=== PATIENT | male | born 1945 | race Asian ===

== ENCOUNTER 2016-11-16 08:14 | Observation (INO) | payer OTHER ==
[2016-11-16 08:19] VITALS: BMI 27.1
--- NOTE | 2016-11-16 08:49 | PDOC ---
History of Present Illness - General Chief Complaint: Blood Transfusion Stated Complaint: (PCP SENT) Time Seen by Provider: 11/16/16 08:46 History Source: Patient Exam Limitations: No Limitations - History of Present Illness Initial Comments: 11/16/16 09:39 Patient is a 71-year-old male with past medical history of myelofibrosis, hyperlipidemia, HTN, A. fib, heart failure, type 2 diabetes, alcoholic cirrhosis , anemia who presents to the emergency department today at the request of his primary care doctor. Patient states that his "counts are low "and that he believes he needs a blood transfusion. He states that his last transfusion was last year. Patient believes his stool has been dark recently. Denies seeing armin blood in the stool. Admits that he has been feeling weak and short of breath with exertion. Denies fevers, chills, recent illness, cough, shortness of breath at rest, chest pain, palpitations, nausea, vomiting, diarrhea, constipation. Past History - Travel Traveled outside of the country in the last 30 days: No Close contact w/someone who was outside of country & ill: No - Past Medical History Allergies/Adverse Reactions: Allergies Allergy/AdvReac Type Severity Reaction Status Date / Time No Known Allergies Allergy Verified 11/16/16 08:19 Home Medications: Ambulatory Orders Effexor - 150 cap PO DAILY 07/21/15 Furosemide [Lasix -] 40 mg PO DAILY 07/21/15 Lisinopril 20 mg PO DAILY 07/21/15 Mirtazapine [Remeron -] 30 mg PO DAILY 07/21/15 Triamcinolone 0.1% Cream [Aristocort 0.1% Cream -] 1 applic TP BID 11/16/16 Anemia: Yes Cancer: Yes (MYELOFIBROSIS) Cardiac Disorders: Yes COPD: Yes CHF: Yes Diabetes: No (PT DENIES) GI Disorders: Yes (CIRRHOSIS) HTN: Yes Hypercholesterolemia: Yes Liver Disease: (ALCOHOLIC CIRRHOSIS) Other medical history: SLEEP APNEA - Surgical History Orthopedic Surgery: (left orif) - Psycho/Social/Smoking Cessation Hx Suicidal Ideation: No Smoking History: Current every day smoker Have you smoked in the past 12 months: Yes Number of Cigarettes Smoked Daily: 15 Information on smoking cessation initiated: Yes 'Breaking Loose' booklet given: 11/16/16 Hx Alcohol Use: No Drug/Substance Use Hx: No Substance Use Type: None Hx Substance Use Treatment: No Review of Systems - Review of Systems Able to Perform ROS?: Yes Is the patient limited Kazakh proficient: No Constitutional: Yes: Weakness. No: Chills, Fever, Malaise Respiratory: Yes: Shortness of Breath, SOB with Exertion. No: Cough, Wheezing Cardiac (ROS): No: Chest Pain, Edema, Lightheadedness, Palpitations, Syncope, Chest Tightness ABD/GI: No: Constipated, Diarrhea, Nausea, Vomiting Neurological: No: Numbness, Paresthesia, Weakness Hematologic/Lymphatic: Yes: Anemia, Other (mylofibrosis) All Other Systems: Reviewed and Negative *Physical Exam - Vital Signs Last Vital Signs Temp Pulse Resp BP Pulse Ox 98.1 F 86 20 163/82 98 11/16/16 08:15 11/16/16 08:15 11/16/16 08:15 11/16/16 08:15 11/16/16 08:15 - Physical Exam Comments: 11/16/16 09:41 GENERAL: Well developed, well nourished. Awake and alert and oriented x3. No acute distress, breathing easily on exam bed. HEENT: Normocephalic, atraumatic. PERRLA, EOMI. No conjunctival pallor. Sclera are non- icteric. Moist mucous membranes. Oropharynx is clear. NECK: Supple. Full ROM. No JVD. Carotid pulses 2+ and symmetric, without bruits. No thyromegaly. No lymphadenopathy. CARDIOVASCULAR: Regular rate and rhythm. No murmurs, rubs, or gallops. Distal pulses are 2+ and symmetric. PULMONARY: Diffuse course lung sounds b/l through all lung holland. No evidence of respiratory distress. ABDOMINAL: Diffuse abdominal tenderness. Soft. Non-distended. No rebound or guarding. No organomegaly. Normoactive bowel sounds. MUSCULOSKELETAL Normal range of motion at all joints. No bony deformities or tenderness. No CVA tenderness. EXTREMITIES: No cyanosis. No clubbing. No edema. No calf tenderness. SKIN: Warm and dry. Normal capillary refill. No rashes. No jaundice. NEUROLOGICAL: Alert, awake, appropriate. Cranial nerves 2-12 intact. No deficits to light touch and temperature in face, upper extremities and lower extremities. No motor deficits in the in face, upper extremities and lower extremities. Normoreflexic in the upper and lower extremities. Normal speech. Toes are down- going bilaterally. Gait is normal without ataxia. PSYCHIATRIC: Cooperative. Good eye contact. Appropriate mood and affect. ED Treatment Course - LABORATORY CBC & Chemistry Diagram: 11/16/16 09:03 11/16/16 09:03 Medical Decision Making - Medical Decision Making 11/16/16 09:47 Patient is a 71-year-old male with past medical history of myelofibrosis, hyperlipidemia, HTN, A. fib, heart failure, type 2 diabetes, alcoholic cirrhosis , anemia who presents to the emergency department today at the request of his primary care doctor for a low H&H. Her Dr. Navarrete, patient will need to transfusions PRBCs. Patient also has a history of overloading with transfusions. We will give Lasix prior to first infusion as well as run the blood slow and have the pt. sitting in the upright position. Lung sounds course b/l through out all lung holland. 1.CBC, CMP, PT/INR, type and screen, anemia workup 2.chest x-ray, EKG 3.reevaluate. 11/16/16 10:04 H&H shows levels of 6.9/19.9. Will put in orders for first transfusion at this time. Will call [facility] for admission for symptomatic anemia and transfusion. Wet read: CXR shows mild pulmonary congestion at this time. No acute cardio/ pumolnary issues at this time. 11/16/16 10:37 [facility] accepts the pt. *DC/Admit/Observation/Transfer Diagnosis at time of Disposition: Myelofibrosis CHF (congestive heart failure) Qualifiers: Congestive heart failure type: diastolic Congestive heart failure chronicity: chronic Qualified Code(s): I50.32 - Chronic diastolic (congestive) heart failure Hypertension Qualifiers: Hypertension type: unspecified Qualified Code(s): I10 - Essential (primary) hypertension Anemia Qualifiers: Anemia type: other cause Other causes of anemia: chronic disease, neoplastic Qualified Code(s): D63.0 - Anemia in neoplastic disease - Discharge Dispostion Condition at time of disposition: Stable Admit: Yes - Referrals Referrals: Jam Navarrete MD [Primary Care Provider] -
[2016-11-16 09:28] LABS: MCHC 34.5 g/dl (32.0-35.9); MEAN CELL VOLUME 107.5 fl (80-96); MEAN PLT VOLUME 9.3 fl (7.5-11.1); PLATELET COUNT 187 K/MM3 (134-434); RDW 23.4 % (11.9-15.9); WHITE BLOOD COUNT 11.6 K/mm3 (4.0-10.0)
--- NOTE | 2016-11-16 09:40 | PDOC ---
*Physical Exam - Vital Signs Last Vital Signs Temp Pulse Resp BP Pulse Ox 98.1 F 86 20 163/82 98 11/16/16 08:15 11/16/16 08:15 11/16/16 08:15 11/16/16 08:15 11/16/16 08:15 ED Treatment Course - LABORATORY CBC & Chemistry Diagram: 11/16/16 09:03 11/16/16 09:03 Medical Decision Making - Medical Decision Making 11/16/16 09:39 I have seen and examined the patient with KJ Lindo. I agree with her history , assessment, and plan. 11/16/16 10:10 CBC WBC 11.6 K/mm3 (4.0-10.0) H D 11/16/16 09:03 RBC 1.86 M/mm3 (4.00-5.60) L 11/16/16 09:03 Hgb 6.9 GM/dL (11.7-16.9) L* 11/16/16 09:03 Hct 19.9 % (35.4-49) L 11/16/16 09:03 MCV 107.5 fl (80-96) H 11/16/16 09:03 MCH 37.0 pg (25.7-33.7) H 11/16/16 09:03 MCHC 34.5 g/dl (32.0-35.9) 11/16/16 09:03 RDW 23.4 % (11.9-15.9) H 11/16/16 09:03 Plt Count 187 K/MM3 (134-434) D 11/16/16 09:03 MPV 9.3 fl (7.5-11.1) 11/16/16 09:03 Neutrophils % Y 11/16/16 09:03 Lymphocytes % Y 11/16/16 09:03 Retic Count 5.18 % (0.5-1.5) H 11/16/16 09:03 hgb 6.9, will transfuse 1 unit and reassess pt for fluid overload before transfusing another unit. Will admit *DC/Admit/Observation/Transfer Diagnosis at time of Disposition: CHF (congestive heart failure), Hypertension, Myelofibrosis, Anemia - Discharge Dispostion Condition at time of disposition: Stable - Referrals
[2016-11-16 09:41] LABS: URINE APPEARANCE CLEAR; URINE BILIRUBIN NEGATIVE (NEGATIVE); URINE BLOOD NEGATIVE (NEGATIVE); URINE COLOR LTYELLOW; URINE GLUCOSE (UA) NEGATIVE (NEGATIVE); URINE KETONE NEGATIVE (NEGATIVE); URINE LEUK ESTERASE NEGATIVE (NEGATIVE); URINE NITRITE NEGATIVE (NEGATIVE); URINE PROTEIN NEGATIVE (NEGATIVE); URINE UROBILINOGEN NEGATIVE mg/dL (0.2-1.0)
[2016-11-16 09:49] LABS: ALBUMIN 3.6 g/dl (3.4-5.0); ANION GAP 6 (8-16); BILIRUBIN,TOTAL 0.4 mg/dL (0.2-1.0); CALCIUM 8.4 mg/dL (8.5-10.1); CO2 24 mmol/L (21-32); CREATININE 1.6 mg/dL (0.7-1.3); GLUCOSE,RANDOM 109 mg/dL (74-106); SGOT/AST 34 U/L (15-37); SGPT/ALT 40 U/L (12-78)
[2016-11-16 09:50] LABS: ALK PHOS 98 U/L (45-117); INR 1.27 (0.82-1.09); TOT PROT 7.9 g/dl (6.4-8.2)
[2016-11-16 09:54] LABS: FERRITIN 581.389 ng/ml (16.4-293.9)
[2016-11-16] MEDS ORDERED: FUROSEMIDE 40 MG/4 ML INJECTABLE VIAL IVPUSH ONE ×2 (10:17→14:46)
--- NOTE | 2016-11-16 10:33 | HP ---
CHIEF COMPLAINT: "low bood counts" PCP:Jus Strong HISTORY OF PRESENT ILLNESS: 71 yr old man with myelofibrosis, HTN referred by pcp for anemia requiring transfusion ER course was notable for: (1) (2) (3) Recent Travel: PAST MEDICAL HISTORY: PAST SURGICAL HISTORY: Social History: Smoking: Alcohol: Drugs: Family History: Allergies No Known Allergies Allergy (Verified 11/16/16 08:19) HOME MEDICATIONS: prescriber: dr Landon Sarabia furosemide 40mg qd venlofaxine er 150mg daily mirtazipine odt 30mg po daily lisinopril 20mg qd daily toprol 25mg qd ( supply, 08/2016 not refilled) 09/2016: cefalexin 500mg 08/18/2016 - 7day course prescribed by Dr. Ezequiel holcomb 07/28/2016 Home Medications Medication Instructions Recorded Effexor - 150 cap PO DAILY 07/21/15 Furosemide [Lasix -] 40 mg PO DAILY 07/21/15 Lisinopril 20 mg PO DAILY 07/21/15 Mirtazapine [Remeron -] 30 mg PO DAILY 07/21/15 Triamcinolone 0.1% Cream 1 applic TP BID 11/16/16 [Aristocort 0.1% Cream -] REVIEW OF SYSTEMS CONSTITUTIONAL: Absent: fever, chills, diaphoresis, generalized weakness, malaise, loss of appetite, weight change HEENT: Absent: rhinorrhea, nasal congestion, throat pain, throat swelling, difficulty swallowing, mouth swelling, ear pain, eye pain, visual changes CARDIOVASCULAR: Absent: chest pain, syncope, palpitations, irregular heart rate, lightheadedness , peripheral edema RESPIRATORY: Absent: cough, shortness of breath, dyspnea with exertion, orthopnea, wheezing, stridor, hemoptysis GASTROINTESTINAL: Absent: abdominal pain, abdominal distension, nausea, vomiting, diarrhea, constipation, melena, hematochezia GENITOURINARY: Absent: dysuria, frequency, urgency, hesitancy, hematuria, flank pain, genital pain MUSCULOSKELETAL: Absent: myalgia, arthralgia, joint swelling, back pain, neck pain SKIN: Absent: rash, itching, pallor HEMATOLOGIC/IMMUNOLOGIC: Absent: easy bleeding, easy bruising, lymphadenopathy, frequent infections ENDOCRINE: Absent: unexplained weight gain, unexplained weight loss, heat intolerance, cold intolerance NEUROLOGIC: Absent: headache, focal weakness or paresthesias, dizziness, unsteady gait, seizure, mental status changes, bladder or bowel incontinence PSYCHIATRIC: Absent: anxiety, depression, suicidal or homicidal ideation, hallucinations. PHYSICAL EXAMINATION Vital Signs - 24 hr 11/16/16 08:15 Temperature 98.1 F Pulse Rate 86 Respiratory 20 Rate Blood Pressure 163/82 O2 Sat by Pulse 98 Oximetry (%) GENERAL: Awake, alert, and fully oriented, in no acute distress. HEAD: Normal with no signs of trauma. EYES: Pupils equal, round and reactive to light, extraocular movements intact, sclera anicteric, conjunctiva clear. No lid lag. EARS, NOSE, THROAT: Ears normal, nares patent, oropharynx clear without exudates. Moist mucous membranes. NECK: Normal range of motion, supple without lymphadenopathy, JVD, or masses. LUNGS: Breath sounds equal, clear to auscultation bilaterally. No wheezes, and no crackles. No accessory muscle use. HEART: Regular rate and rhythm, normal S1 and S2 without murmur, rub or gallop. ABDOMEN: Soft, nontender, not distended, normoactive bowel sounds, no guarding, no rebound, no masses. No hepatomegaly or splenomegaly. MUSCULOSKELETAL: Normal range of motion at all joints. No bony deformities or tenderness. No CVA tenderness. UPPER EXTREMITIES: 2+ pulses, warm, well-perfused. No cyanosis. No clubbing. No peripheral edema. LOWER EXTREMITIES: 2+ pulses, warm, well-perfused. No calf tenderness. No peripheral edema. NEUROLOGICAL: Cranial nerves II-XII intact. Normal speech. Normal gait. PSYCHIATRIC: Cooperative. Good eye contact. Appropriate mood and affect. SKIN: Warm, dry, normal turgor, no rashes or lesions noted, normal capillary refill. Laboratory Results - last 24 hr 11/16/16 11/16/16 11/16/16 09:03 09:03 09:03 WBC RBC Hgb Hct MCV MCH MCHC RDW Plt Count MPV Neutrophils % Lymphocytes % Retic Count INR PTT (Actin FS) 27.0 Sodium Potassium Chloride Carbon Dioxide Anion Gap BUN Creatinine Creat Clearance w eGFR Random Glucose Calcium Ferritin 581.389 H Total Bilirubin AST ALT Alkaline Phosphatase B-Natriuretic Peptide Total Protein Albumin Urine Color Ltyellow Urine Appearance Clear Urine pH 6.0 Urine Protein Negative Urine Glucose (UA) Negative Urine Ketones Negative Urine Blood Negative Urine Nitrite Negative Urine Bilirubin Negative Urine Urobilinogen Negative Ur Leukocyte Esterase Negative Blood Type Antibody Screen Crossmatch 11/16/16 11/16/16 11/16/16 09:03 09:03 09:03 WBC 11.6 H D RBC 1.86 L Hgb 6.9 L* Hct 19.9 L MCV 107.5 H MCH 37.0 H MCHC 34.5 RDW 23.4 H Plt Count 187 D MPV 9.3 Neutrophils % Y Lymphocytes % Y Retic Count 5.18 H INR 1.27 H PTT (Actin FS) Sodium 133 L Potassium 4.4 Chloride 103 Carbon Dioxide 24 Anion Gap 6 L BUN 21 H Creatinine 1.6 H Creat Clearance w eGFR 42.82 Random Glucose 109 H D Calcium 8.4 L Ferritin Total Bilirubin 0.4 AST 34 D ALT 40 D Alkaline Phosphatase 98 D B-Natriuretic Peptide 487.75 H Total Protein 7.9 Albumin 3.6 Urine Color Urine Appearance Urine pH Urine Protein Urine Glucose (UA) Urine Ketones Urine Blood Urine Nitrite Urine Bilirubin Urine Urobilinogen Ur Leukocyte Esterase Blood Type Antibody Screen Crossmatch 11/16/16 09:03 WBC RBC Hgb Hct MCV MCH MCHC RDW Plt Count MPV Neutrophils % Lymphocytes % Retic Count INR PTT (Actin FS) Sodium Potassium Chloride Carbon Dioxide Anion Gap BUN Creatinine Creat Clearance w eGFR Random Glucose Calcium Ferritin Total Bilirubin AST ALT Alkaline Phosphatase B-Natriuretic Peptide Total Protein Albumin Urine Color Urine Appearance Urine pH Urine Protein Urine Glucose (UA) Urine Ketones Urine Blood Urine Nitrite Urine Bilirubin Urine Urobilinogen Ur Leukocyte Esterase Blood Type B POSITIVE Antibody Screen Negative Crossmatch See Detail ASSESSMENT/PLAN:
[2016-11-16] MEDS ORDERED: FUROSEMIDE 40 MG/4 ML INJECTABLE VIAL ONE (10:34)
[2016-11-16 11:12] LABS: BASOPHIL (MANUAL) 1 % (0-2.0); METAMYELOCYTE 1 % (0-2); MYELOCYTE 2 % (0-2); NUCLEATED RED BLOOD CELL 1 % (0-0); REACTIVE LYMPHOCYTES 1 % (0-80)
[2016-11-16 11:13] LABS: ANISOCYTOSIS 4+; MACROCYTOSIS 3+; MICROCYTOSIS 2+
--- NOTE | 2016-11-16 14:46 | HP ---
CHIEF COMPLAINT: feeling tired PCP: Jus Strong HISTORY OF PRESENT ILLNESS: 71 yr old man with myelofibrosis, HTN, current everyday smoker, referred by PCP for transfusion due to low h/h. Pt was seen in the doctor's office yesterday for generalized weakness for the past ten days and chronic complaint of left upper quadrant for the past 2 months that is intermittent worse with prolonged sitting, nonradiating, which gets better with tylenol. He says, his pcp has attributed the pain to his splenomegaly. pt has a history of being fluid overloaded after transfusion. ER course was notable for: (1)1 unit of prbc's (2)ekg- no acute pathology (3) chest xray without acute pathology Recent Travel: none PAST MEDICAL HISTORY: HTN myelofibrosis as per pcp: pt had a history of ETOH use and does not normally share his full medical history, pmhx as per pcp: HTN, A. fib currently in sinus, diastolic congestive heart failure, non-insulin dependent type 2 diabetes, alcoholic cirrhosis, previous u/s does not show ascitis. PAST SURGICAL HISTORY: Left ORIF Social History: Smoking: current everyday 15/day for past 55 yrs Alcohol: denies Drugs: denies Family History: [place] Allergies No Known Allergies Allergy (Verified 11/16/16 08:19) HOME MEDICATIONS: Verfied by [facility], prescribed by Dr. Navarrete - lasix 40mg po daily - venlafaxine ER 150mg po daily - lisinopril 20mg po daily - remeron ODT 30mg po HS daily toprol 25mg po daily last hot die picker 08/01/2016 30-day supply, no refills Home Medications Medication Instructions Recorded Effexor - 150 cap PO DAILY 07/21/15 Furosemide [Lasix -] 40 mg PO DAILY 07/21/15 Lisinopril 20 mg PO DAILY 07/21/15 Mirtazapine [Remeron -] 30 mg PO HS 07/21/15 Triamcinolone 0.1% Cream 1 applic TP BID 11/16/16 [Aristocort 0.1% Cream -] REVIEW OF SYSTEMS CONSTITUTIONAL: Absent: fever, chills, diaphoresis, generalized weakness, malaise, loss of appetite, weight change HEENT: Absent: throat pain, throat swelling, difficulty swallowing, mouth swelling, ear pain, eye pain, visual changes CARDIOVASCULAR: Absent: chest pain, syncope, palpitations, irregular heart rate, lightheadedness , peripheral edema RESPIRATORY: Present: cough (chronic, occasional due to smoking) Absent: shortness of breath, dyspnea with exertion, orthopnea, wheezing, stridor, hemoptysis GASTROINTESTINAL: Present: left upper quadrant abdominal pain Absent: abdominal distension, nausea, vomiting, diarrhea, constipation, melena , hematochezia GENITOURINARY: Absent: dysuria, frequency, urgency, hesitancy, hematuria, flank pain, genital pain MUSCULOSKELETAL: Absent: myalgia, arthralgia, joint swelling, back pain, neck pain SKIN: Absent: rash, itching, pallor HEMATOLOGIC/IMMUNOLOGIC: Absent: easy bleeding, easy bruising, lymphadenopathy, frequent infections ENDOCRINE: Absent: unexplained weight gain, unexplained weight loss, heat intolerance, cold intolerance NEUROLOGIC: Absent: headache, focal weakness or paresthesias, dizziness, unsteady gait, seizure, mental status changes, bladder or bowel incontinence PHYSICAL EXAMINATION Vital Signs - 24 hr 11/16/16 11/16/16 11/16/16 11:23 12:25 13:14 Temperature 98.0 F 98.2 F 98.1 F Pulse Rate Pulse Rate [ 84 72 71 Left Apical] Respiratory 16 16 16 Rate Blood Pressure Blood Pressure 163/81 125/63 134/72 [Right Arm] O2 Sat by Pulse 98 100 98 Oximetry (%) 11/16/16 11/16/16 13:45 14:00 Temperature 98.9 F Pulse Rate 73 Pulse Rate [ Left Apical] Respiratory 16 18 Rate Blood Pressure 141/70 Blood Pressure [Right Arm] O2 Sat by Pulse 98 Oximetry (%) GENERAL: Awake, alert, and fully oriented, in no acute distress. HEAD: Normal with no signs of trauma. EYES: Pupils equal, round and reactive to light, extraocular movements intact, sclera anicteric, conjunctiva clear. No lid lag. EARS, NOSE, THROAT: oropharynx clear without exudates. missing dentition in upper and poor dentition in lower palate, Moist mucous membranes. NECK: Normal range of motion, supple without lymphadenopathy, JVD, or masses. LUNGS:+rales, more on right than left. No accessory muscle use. no wheezing, no crackles. HEART: Regular rate and rhythm, normal S1 and S2 without murmur, rub or gallop. ABDOMEN: Soft, nontender, + distended, engorged abdominal veins laterally, normoactive bowel sounds, no guarding, no rebound, no masses. no hepatomegaly, no splenomegaly. MUSCULOSKELETAL: Normal range of motion at all joints. No bony deformities or tenderness. No CVA tenderness. UPPER EXTREMITIES: 2+ radial pulses, warm, well-perfused. No cyanosis. No clubbing. No peripheral edema. LOWER EXTREMITIES: 2+ dp pulses, warm, well-perfused. No calf tenderness. No peripheral edema. NEUROLOGICAL: Cranial nerves II-XII intact. Normal speech. Normal gait. PSYCHIATRIC: Cooperative. Good eye contact. Appropriate mood and affect. SKIN: Warm, dry, normal turgor, no rashes or lesions noted, normal capillary refill. ASSESSMENT/PLAN: 71 yr old man with myelofibrosis, HTN, alcoholic cirrhosis referred by PCP for transfusion, placed on observation for continuous monitoring during transfusion to avoid fluid overload. #anemia - transfuse 2 units as per PCP - 2omg IVpush lasix given prior to 1unit in ED,pt took 40mg po lasix at home - crackles in left base after 1unit, 20mg ivpush given before 2nd unit - repeat labs at end of 2nd unit #HTN/diastolic CHF - lisinopril 20mg po daily, lasix 40mg po daily - PCP will verify pt's meds in his office, requested that pt be directed to bring all his meds to the office on f/u #a.fib - currently in sinus #Smoking - cessation discussed, patient not ready to quit - will think about cutting down to 10 cigs/day from 15 #Cirrrhosis - stable #DVT - anticipate short stay, encourage ambulation #diet: low sodium DISPO: patient says he wants to go home even if it is late, if not fluid overloaded, and cbc with appropriate response, can be dc'd to follow-up with PCP. Visit type - Emergency Visit Emergency Visit: Yes ED Registration Date: 11/16/16 Care time: The patient presented to the Emergency Department on the above date and was hospitalized for further evaluation of their emergent condition. - New Patient This patient is new to me today: Yes Date on this admission: 11/16/16 - Critical Care Critical Care patient: No
--- NOTE | 2016-11-16 16:40 | EKG ---
Test Reason : Blood Pressure : / mmHG Vent. Rate : 077 BPM Atrial Rate : 077 BPM P-R Int : 214 ms QRS Dur : 088 ms QT Int : 382 ms P-R-T Axes : 049 -07 062 degrees QTc Int : 432 ms SINUS RHYTHM WITH 1ST DEGREE A-V BLOCK CANNOT RULE OUT ANTERIOR INFARCT , AGE UNDETERMINED ABNORMAL ECG WHEN COMPARED WITH ECG OF 17-MAY-2015 22:02, NE INTERVAL HAS INCREASED Confirmed by DEEPALI CARVALHO MD ([id number]) on 11/16/2016 4:39:51 PM Referred By: Confirmed By:DEEPALI CARVALHO MD
--- NOTE | 2016-11-16 18:02 | PN ---
Teaching Attending Note Name of Resident: Hannah Corley ATTENDING PHYSICIAN STATEMENT I saw and evaluated the patient. I reviewed the resident's note and discussed the case with the resident. I agree with the resident's findings and plan as documented. SUBJECTIVE: Patient came in for having weakness. Was sent in by his PCP for blood transfusion. OBJECTIVE: Vital Signs Temperature 98.9 F 11/16/16 14:00 Pulse Rate 73 11/16/16 14:00 Respiratory Rate 18 11/16/16 14:00 Blood Pressure 141/70 11/16/16 14:00 O2 Sat by Pulse Oximetry (%) 98 11/16/16 13:45 CBCD WBC 11.6 K/mm3 (4.0-10.0) H D 11/16/16 09:03 RBC 1.86 M/mm3 (4.00-5.60) L 11/16/16 09:03 Hgb 6.9 GM/dL (11.7-16.9) L* 11/16/16 09:03 Hct 19.9 % (35.4-49) L 11/16/16 09:03 MCV 107.5 fl (80-96) H 11/16/16 09:03 MCHC 34.5 g/dl (32.0-35.9) 11/16/16 09:03 RDW 23.4 % (11.9-15.9) H 11/16/16 09:03 Plt Count 187 K/MM3 (134-434) D 11/16/16 09:03 MPV 9.3 fl (7.5-11.1) 11/16/16 09:03 CMP Sodium 133 mmol/L (136-145) L 11/16/16 09:03 Potassium 4.4 mmol/L (3.5-5.1) 11/16/16 09:03 Chloride 103 mmol/L (98-107) 11/16/16 09:03 Carbon Dioxide 24 mmol/L (21-32) 11/16/16 09:03 Anion Gap 6 (8-16) L 11/16/16 09:03 BUN 21 mg/dL (7-18) H 11/16/16 09:03 Creatinine 1.6 mg/dL (0.7-1.3) H 11/16/16 09:03 Creat Clearance w eGFR 42.82 (>60) 11/16/16 09:03 Random Glucose 109 mg/dL (74-106) H D 11/16/16 09:03 Calcium 8.4 mg/dL (8.5-10.1) L 11/16/16 09:03 Total Bilirubin 0.4 mg/dL (0.2-1.0) 11/16/16 09:03 AST 34 U/L (15-37) D 11/16/16 09:03 ALT 40 U/L (12-78) D 11/16/16 09:03 Alkaline Phosphatase 98 U/L (45-117) D 11/16/16 09:03 Total Protein 7.9 g/dl (6.4-8.2) 11/16/16 09:03 Albumin 3.6 g/dl (3.4-5.0) 11/16/16 09:03 Current Medications Generic Name Dose Route Start Last Admin Trade Name Freq PRN Reason Stop Dose Admin Furosemide 40 mg 11/17/16 10:00 Lasix - PO DAILY TERI Lisinopril 20 mg 11/17/16 10:00 Prinivil PO DAILY TERI Mirtazapine 30 mg 11/17/16 22:00 Remeron - PO HS TERI PE: Lungs : CTA BL , No wheeze/rales/rhonchi Heart: S1S@ positive. rest PE resident's note ASSESSMENT AND PLAN: 71 yr old man with myelofibrosis, HTN, alcoholic cirrhosis referred by PCP for transfusion, placed on observation for continuous monitoring during transfusion to avoid fluid overload. #anemia ordered 2 units ,getiing transfused now, Lasix 20mg in bt transfusion #HTN on Lisinipril and lasix at home # Hx of diastolic CHF on lisinopril 20mg po daily, lasix 40mg po daily continue # Hx of A.fib currently in NSR #Smoking cessation discussed, patient not ready to quit , as per patient will cut down to 10 cigs/day from 15 # Hx of Liver Cirrrhosis stable due alcohol abuse Anticipate discharge today post transfusion if stable
[2016-11-16 18:14] VITALS: BP 146/79; PULSE 72; TEMP 98.6
--- NOTE | 2016-11-16 18:44 | DS ---
Physical Exam: SUBJECTIVE: Patient seen and examined Comfortable with no acute distress OBJECTIVE: Vital Signs Temperature 98.6 F 11/16/16 17:00 Pulse Rate 72 11/16/16 17:00 Respiratory Rate 20 11/16/16 17:00 Blood Pressure 146/79 11/16/16 17:00 O2 Sat by Pulse Oximetry (%) 98 11/16/16 13:45 GENERAL: The patient is awake, alert, and fully oriented, in no acute distress. HEAD: Normal with no signs of trauma. EYES: PERRL, extraocular movements intact, sclera anicteric, conjunctiva clear. ENT: Ears normal, nares patent, oropharynx clear without exudates, moist mucous membranes. NECK: Trachea midline, full range of motion, supple. LUNGS: Breath sounds equal, clear to auscultation bilaterally, no wheezes, no crackles, no accessory muscle use. HEART: Regular rate and rhythm, S1, S2 positive no rub or gallop. ABDOMEN: Soft, nontender, nondistended, normoactive bowel sounds, no guarding, no rebound, positive for hepatosplenomegaly, no masses. EXTREMITIES: 2+ pulses, warm, well-perfused, no edema. NEUROLOGICAL: Cranial nerves II through XII grossly intact. Normal speech, gait not observed. PSYCH: Normal mood, normal affect. SKIN: Warm, dry, normal turgor, no rashes or lesions noted. LABS CBCD WBC 11.6 K/mm3 (4.0-10.0) H D 11/16/16 09:03 RBC 1.86 M/mm3 (4.00-5.60) L 11/16/16 09:03 Hgb 6.9 GM/dL (11.7-16.9) L* 11/16/16 09:03 Hct 19.9 % (35.4-49) L 11/16/16 09:03 MCV 107.5 fl (80-96) H 11/16/16 09:03 MCHC 34.5 g/dl (32.0-35.9) 11/16/16 09:03 RDW 23.4 % (11.9-15.9) H 11/16/16 09:03 Plt Count 187 K/MM3 (134-434) D 11/16/16 09:03 MPV 9.3 fl (7.5-11.1) 11/16/16 09:03 CMP Sodium 133 mmol/L (136-145) L 11/16/16 09:03 Potassium 4.4 mmol/L (3.5-5.1) 11/16/16 09:03 Chloride 103 mmol/L (98-107) 11/16/16 09:03 Carbon Dioxide 24 mmol/L (21-32) 11/16/16 09:03 Anion Gap 6 (8-16) L 11/16/16 09:03 BUN 21 mg/dL (7-18) H 11/16/16 09:03 Creatinine 1.6 mg/dL (0.7-1.3) H 11/16/16 09:03 Creat Clearance w eGFR 42.82 (>60) 11/16/16 09:03 Random Glucose 109 mg/dL (74-106) H D 11/16/16 09:03 Calcium 8.4 mg/dL (8.5-10.1) L 11/16/16 09:03 Total Bilirubin 0.4 mg/dL (0.2-1.0) 11/16/16 09:03 AST 34 U/L (15-37) D 11/16/16 09:03 ALT 40 U/L (12-78) D 11/16/16 09:03 Alkaline Phosphatase 98 U/L (45-117) D 11/16/16 09:03 Total Protein 7.9 g/dl (6.4-8.2) 11/16/16 09:03 Albumin 3.6 g/dl (3.4-5.0) 11/16/16 09:03 Current Medications Generic Name Dose Route Start Last Admin Trade Name Freq PRN Reason Stop Dose Admin Furosemide 40 mg 11/17/16 10:00 Lasix - PO DAILY [facility] Lisinopril 20 mg 11/17/16 10:00 Prinivil PO DAILY [facility] Mirtazapine 30 mg 11/17/16 22:00 Remeron - PO [facility] Home Medications Medication Instructions Recorded Furosemide [Lasix -] 40 mg PO DAILY 07/21/15 Lisinopril 20 mg PO DAILY 07/21/15 Mirtazapine [Remeron -] 30 mg PO HS 07/21/15 Triamcinolone 0.1% Cream 1 applic TP BID 08/16/17 [Aristocort 0.1% Cream -] Venlafaxine HCl ER [Effexor Xr -] 150 mg PO DAILY #30 cap.er.24h 11/16/16 HOSPITAL COURSE: Date of Admission:11/16/16 Date of Discharge: 11/16/16 Patient is a 71 yr old man with myelofibrosis, HTN, alcoholic cirrhosis referred by PCP for transfusion, placed on observation for continuous monitoring during transfusion to avoid fluid overload. #anemia s/p 2 units of transfusion, will discharge patient home ,s/p Lasix 20mg iv in bt transfusion #HTN on Lisinipril and lasix at home continue # Hx of diastolic CHF on lisinopril 20mg po daily, lasix 40mg po daily continue # Hx of A.fib currently in NSR #Smoking cessation discussed, patient not ready to quit , as per patient will cut down to 10 cigs/day from 15 # Hx of Liver Cirrrhosis stable due alcohol abuse Discharge patient home home, follow with PMD and for further hematological w/u Minutes to complete discharge: 35 Discharge Summary Reason For Visit: ANEMIA,FIBROMYOLISIS Current Active Problems Anemia (Acute) CHF (congestive heart failure) (Chronic) Hypertension (Chronic) Myelofibrosis (Chronic) Condition: Stable - Instructions Diet, Activity, Other Instructions: You were admitted because your blood levels were low and you needed to be transfused with blood. Please see Dr. Navarrete this week for follow-up and repeat blood work. Please bring all of your medications to his office for review. If your symptoms worsen or you develop shortness of breath, chest pain or any new symptoms please return to the hospital. You may resume your regular diet and daily activities Referrals: Jam Navarrete MD [Primary Care Provider] - Disposition: HOME - Home Medications Comprehensive Discharge Medication List: Ambulatory Orders Furosemide [Lasix -] 40 mg PO DAILY 07/21/15 Lisinopril 20 mg PO DAILY 07/21/15 Mirtazapine [Remeron -] 30 mg PO HS 07/21/15 Triamcinolone 0.1% Cream [Aristocort 0.1% Cream -] 1 applic TP BID 11/16/16 Venlafaxine HCl ER [Effexor Xr -] 150 mg PO DAILY #30 cap.er.24h 11/16/16 This patient is new to me today: Yes Date on this admission: 11/16/16 Emergency Visit: Yes ED Registration Date: 11/16/16 Care time: The patient presented to the Emergency Department on the above date and was hospitalized for further evaluation of their emergent condition. Critical Care patient: No - Discharge Referral Referred to [facility] No
[2016-11-17] MEDS ORDERED: LISINOPRIL 20 MG TABLET (FP) PO SCH (10:00)
[2016-11-17] MEDS ORDERED: FUROSEMIDE 40 MG TABLET (FP) PO SCH (10:00)
[2016-11-17] MEDS ORDERED: MIRTAZAPINE 15 MG TABLET (FP) PO SCH (22:00)
== END 2016-11-16 19:45 | disposition home or self-care (01) ==
LOC: JER 08:14 → JERBED 10:47 → UNDOADMOB 11:29 → J4W 13:23
PROVIDERS: ADMIT Internal Medicine; ATTEND Internal Medicine
PROC: 30233N1 Transfusion of Nonautologous Red Blood Cells into Peripheral Vein, Percutaneous Approach (ICD-10-PCS; principal; 2016-11-16)
PROC: 3E033GC Introduction of Other Therapeutic Substance into Peripheral Vein, Percutaneous Approach (ICD-10-PCS; 2016-11-16)
DX: D64.9 Anemia, unspecified (principal); D75.81 Myelofibrosis; I10 Essential (primary) hypertension; I50.32 Chronic diastolic (congestive) heart failure; I48.91 Unspecified atrial fibrillation; K70.30 Alcoholic cirrhosis of liver without ascites; F17.210 Nicotine dependence, cigarettes, uncomplicated
CPT/HCPCS: 36415; 36430; 71010-TC; 80053; 81003; 82272; 82607; 82728; 82746; 83010; 83880; 85025; 85044; 85610; 85730; 86850; 86900; 86901; 86922; 93005; 93010; 99285-25; G0378; P9038; P9058

== ENCOUNTER 2017-04-19 10:34 | Inpatient (IN) | payer OTHER ==
[2017-04-19 10:48] VITALS: BMI 27.4
--- NOTE | 2017-04-19 12:11 | PDOC ---
History of Present Illness - General History Source: Patient Exam Limitations: No Limitations - History of Present Illness Initial Comments: 04/19/17 13:41 Patient is a 72 year old male with a significant past medical history of myelodysplastic syndrome, COPD, CHF, HTN, Hypercholesterolemia, Myelofibrosis, and Anemia who presents to the ED for revisit for blood transfusion. Patient reports experiencing weakness that began earlier this week. He reports experiencing intermittent night sweats while sleeping. Patient reports experiencing coughing, but states it is baseline due to smoking. Denies chest pain, SOB. Denies nausea, vomiting. Denies fevers, chills. Denies contact with sick individuals, out of state travelling. Denies any other symptoms. Allergies: None Social history: Current smoker. No alcohol. No illicit drugs. Surgical history: Left Orif surgery. PMD: Dr. Navarrete <Judah Mcgill - Last Filed: 04/19/17 13:41> <Aishwarya Diaz - Last Filed: 04/19/17 18:17> - General Chief Complaint: Revisit, Lab Variance Stated Complaint: BLOOD TRANSFUSION Time Seen by Provider: 04/19/17 12:11 Past History <Judah Mcgill - Last Filed: 04/19/17 13:41> - Past Medical History Anemia: Yes Cancer: Yes (MYELOFIBROSIS) Cardiac Disorders: Yes COPD: Yes CHF: Yes Diabetes: No (PT DENIES) GI Disorders: Yes (CIRRHOSIS) HTN: Yes Hypercholesterolemia: Yes Liver Disease: (ALCOHOLIC CIRRHOSIS) - Surgical History Orthopedic Surgery: (left orif) - Suicide/Smoking/Psychosocial Hx Smoking History: Current every day smoker Have you smoked in the past 12 months: Yes Number of Cigarettes Smoked Daily: 20 Information on smoking cessation initiated: No 'Breaking Loose' booklet given: 11/16/16 Hx Alcohol Use: No Drug/Substance Use Hx: No Substance Use Type: None Hx Substance Use Treatment: No <Aishwarya Diaz - Last Filed: 04/19/17 18:17> - Past Medical History Allergies/Adverse Reactions: Allergies Allergy/AdvReac Type Severity Reaction Status Date / Time No Known Allergies Allergy Verified 04/19/17 10:48 Home Medications: Ambulatory Orders Furosemide [Lasix -] 40 mg PO DAILY 07/21/15 Lisinopril 20 mg PO DAILY 07/21/15 Mirtazapine [Remeron -] 30 mg PO HS 07/21/15 Venlafaxine HCl ER [Effexor Xr -] 150 mg PO DAILY #30 cap.er.24h 11/16/16 Metoprolol Succinate [Toprol Xl -] 25 mg PO DAILY 04/19/17 Review of Systems - Review of Systems Able to Perform ROS?: Yes Comments:: 04/19/17 13:41 GENERAL/CONSTITUTIONAL: +Weakness. No fever or chills. HEAD, EYES, EARS, NOSE AND THROAT: +Dry mouth. No change in vision. No ear pain or discharge. No sore throat. GASTROINTESTINAL: No nausea, vomiting, diarrhea or constipation. GENITOURINARY: No dysuria, frequency, or change in urination. CARDIOVASCULAR: No chest pain or shortness of breath. RESPIRATORY: +Coughing. No wheezing, or hemoptysis. MUSCULOSKELETAL: No joint or muscle swelling or pain. No neck or back pain. SKIN: No rash NEUROLOGIC: No headache, vertigo, loss of consciousness, or change in strength/ sensation. ENDOCRINE: No increased thirst. No abnormal weight change. HEMATOLOGIC/LYMPHATIC: No anemia, easy bleeding, or history of blood clots. ALLERGIC/IMMUNOLOGIC: No hives or skin allergy. All Other Systems: Reviewed and Negative <Judah Mcgill - Last Filed: 04/19/17 13:41> *Physical Exam - Vital Signs Last Vital Signs Temp Pulse Resp BP Pulse Ox 99.9 F H 80 20 137/72 97 04/19/17 10:44 04/19/17 10:44 04/19/17 10:44 04/19/17 10:44 04/19/17 10:44 - Physical Exam Comments: 04/19/17 13:42 GENERAL: Awake, alert, and fully oriented, in no acute distress HEAD: No signs of trauma EYES: PERRLA, EOMI, sclera anicteric, conjunctiva clear ENT: Auricles normal inspection, hearing grossly normal, nares patent, oropharynx clear without exudates. Moist mucosa NECK: Normal ROM, supple, no lymphadenopathy, JVD, or masses LUNGS: +Coarse crackles throughout the right lung holland Breath sounds equal. No wheezes HEART: Regular rate and rhythm, normal S1 and S2, no murmurs, rubs or gallops ABDOMEN: Soft, nontender, normoactive bowel sounds. No guarding, no rebound. No masses EXTREMITIES: Normal range of motion, no edema. No clubbing or cyanosis. No cords, erythema, or tenderness NEUROLOGICAL: Cranial nerves II through XII grossly intact. Normal speech, normal gait SKIN: Warm, Dry, normal turgor, no rashes or lesions noted. <Judah Mcgill - Last Filed: 04/19/17 13:41> - Vital Signs Last Vital Signs Temp Pulse Resp BP Pulse Ox 99.9 F H 80 20 137/72 97 04/19/17 10:44 04/19/17 10:44 04/19/17 10:44 04/19/17 10:44 04/19/17 10:44 <Aishwarya Diaz - Last Filed: 04/19/17 18:17> ED Treatment Course - LABORATORY CBC & Chemistry Diagram: 04/19/17 13:59 04/19/17 13:59 <Aishwarya Diaz - Last Filed: 04/19/17 18:17> Medical Decision Making - Medical Decision Making Based on initial lung exam and triage temp of 99.9, fever workup was obtained in addition to anemia workup. Found to have RLL pna. Treated with rocephin and azithro. Packed cells pending. Endorsed to hospitalist, will give lasix with transfusions. <Aishwarya Diaz - Last Filed: 04/19/17 18:17> *DC/Admit/Observation/Transfer - Attestations Scribe Attestion: 04/19/17 13:42 Documentation prepared by Judah Mcgill, acting as medical billing associate for Aishwarya Diaz MD, /DO. <Judah Mcgill - Last Filed: 04/19/17 13:41> - Discharge Dispostion Admit: Yes <Aishwarya Diaz - Last Filed: 04/19/17 18:17> Diagnosis at time of Disposition: Myelofibrosis Anemia Qualifiers: Anemia type: bone marrow failure Bone marrow failure anemia type: unspecified bone marrow failure Qualified Code(s): D61.9 - Aplastic anemia, unspecified Pneumonia Qualifiers: Pneumonia type: due to unspecified organism Laterality: right Lung location: lower lobe of lung Qualified Code(s): J18.1 - Lobar pneumonia, unspecified organism - Discharge Dispostion Condition at time of disposition: Stable
[2017-04-19 14:26] LABS: HEMATOCRIT 19.1 % (35.4-49); MCH 36.8 pg (25.7-33.7); MCHC 32.7 g/dl (32.0-35.9); MEAN CELL VOLUME 112.4 fl (80-96); MEAN PLT VOLUME 9.4 fl (7.5-11.1); PLATELET COUNT 198 K/MM3 (134-434); RDW 22.4 % (11.9-15.9); RETICULOCYTES 4.48 % (0.5-1.5); WHITE BLOOD COUNT 13.4 K/mm3 (4.0-10.0)
[2017-04-19 14:37] LABS: ALBUMIN 3.4 g/dl (3.4-5.0); ANION GAP 5 (8-16); BILIRUBIN,TOTAL 0.5 mg/dL (0.2-1.0); BLOOD UREA NITROGEN 21 mg/dL (7-18); CHLORIDE 102 mmol/L (98-107); CO2 26 mmol/L (21-32); CREATININE 1.5 mg/dL (0.7-1.3); GLUCOSE,RANDOM 125 mg/dL (74-106); LDH 635 U/L (87-241); POTASSIUM 4.2 mmol/L (3.5-5.1); SGOT/AST 34 U/L (15-37); SGPT/ALT 40 U/L (12-78); SODIUM 133 mmol/L (136-145); TOT PROT 7.7 g/dl (6.4-8.2)
[2017-04-19 14:40] LABS: ALK PHOS 109 U/L (45-117)
[2017-04-19 14:43] LABS: HEMOGLOBIN 6.2 GM/dL (11.7-16.9)
[2017-04-19 14:44] LABS: INR 1.29 (0.82-1.09); PROTHROMBIN TIME (PATIENT) 14.6 SEC (9.98-11.88)
[2017-04-19] MEDS ORDERED: CEFTRIAXONE 1 GM in DEXTROSE 5%-WATER - 50 ML IVPB ONE (14:48)
[2017-04-19] MEDS ORDERED: AZITHROMYCIN IVPB 500 MG in DEXTROSE 5%-WATER - 250 ML IVPB ONE (14:48)
[2017-04-19] MEDS ORDERED: CEFTRIAXONE 1 GM/50 ML BAG ONE (15:10)
[2017-04-19] MEDS ORDERED: AZITHROMYCIN IVPB 250 ML IVPB ONE (15:10)
--- NOTE | 2017-04-19 15:23 | EKG ---
Test Reason : Blood Pressure : / mmHG Vent. Rate : 078 BPM Atrial Rate : 078 BPM P-R Int : 216 ms QRS Dur : 092 ms QT Int : 384 ms P-R-T Axes : 071 032 077 degrees QTc Int : 437 ms SINUS RHYTHM WITH 1ST DEGREE A-V BLOCK NONSPECIFIC ST AND T WAVE ABNORMALITY ABNORMAL ECG WHEN COMPARED WITH ECG OF 24-FEB-2017 09:46, NONSPECIFIC T WAVE ABNORMALITY, WORSE IN LATERAL LEADS Confirmed by BROCK FERGUSON MD ([id number]) on 04/19/2017 3:23:17 PM Referred By: Confirmed By:BROCK FERGUSON MD
[2017-04-19 15:37] LABS: ANISOCYTOSIS 2+; MACROCYTOSIS 1+; OVALOCYTE 1+; PLATELET ESTIMATE NORMAL
--- NOTE | 2017-04-19 17:32 | HP ---
CHIEF COMPLAINT: Weakness, SOB PCP: Dr. Jam Navarrete HISTORY OF PRESENT ILLNESS: 72 year-old male with a PMH significant for HTN, HLD, diastolic heart failure, paroxysmal afib, NIDDM, alcoholic cirrhosis, myelofibrosis, anemia requiring periodic transfusions, and COPD. Referred to the ED by his PCP for transfusion. In the ED, found to have Hgb 6.2. Also found to have a patchy consolidation in right midlung. Patient states he has been feeling generally weak for the past two weeks. He has had sweats and chills. He has had worsening cough productive of whitish sputum. Per PCP, patient has history of volume overload with transfusion. ER course was notable for: (1) Hgb 6.2 (2) CXR: patchy consolidation right midlung (3) Flu swab negative (4) Azithro x 1; ceftriaxone x 1 Recent Travel: No PAST MEDICAL HISTORY: Hypertension Hyperlipidemia Diastolic heart failure Atrial fibrillation NIDDM Alcoholic cirrhosis Anemia COPD PAST SURGICAL HISTORY: Left hip ORIF Social History: Smoking: current every day Alcohol: denies; per PCP remote history Drugs: denies Family History: Allergies No Known Allergies Allergy (Verified 04/19/17 10:48) HOME MEDICATIONS: Home Medications Medication Instructions Recorded Furosemide [Lasix -] 40 mg PO DAILY 07/21/15 Lisinopril 20 mg PO DAILY 07/21/15 Mirtazapine [Remeron -] 30 mg PO HS 07/21/15 Venlafaxine HCl ER [Effexor Xr -] 150 mg PO DAILY #30 cap.er.24h 11/16/16 Metoprolol Succinate [Toprol Xl -] 25 mg PO DAILY 04/19/17 REVIEW OF SYSTEMS CONSTITUTIONAL: +sweats, chills, fatigue x 2 weeks Absent: diaphoresis, generalized weakness, malaise, loss of appetite, weight change HEENT: Absent: rhinorrhea, nasal congestion, throat pain, throat swelling, difficulty swallowing, mouth swelling, ear pain, eye pain, visual changes CARDIOVASCULAR: Absent: chest pain, syncope, palpitations, irregular heart rate, lightheadedness , peripheral edema RESPIRATORY: +SOB, cough with whitish sputum Absent: shortness of breath, dyspnea with exertion, orthopnea, wheezing, stridor, hemoptysis GASTROINTESTINAL: Absent: abdominal pain, abdominal distension, nausea, vomiting, diarrhea, constipation, melena, hematochezia GENITOURINARY: Absent: dysuria, frequency, urgency, hesitancy, hematuria, flank pain, genital pain MUSCULOSKELETAL: Absent: myalgia, arthralgia, joint swelling, back pain, neck pain SKIN: Absent: rash, itching, pallor HEMATOLOGIC/IMMUNOLOGIC: Absent: easy bleeding, easy bruising, lymphadenopathy, frequent infections ENDOCRINE: Absent: unexplained weight gain, unexplained weight loss, heat intolerance, cold intolerance NEUROLOGIC: Absent: headache, focal weakness or paresthesias, dizziness, unsteady gait, seizure, mental status changes, bladder or bowel incontinence PSYCHIATRIC: Absent: anxiety, depression, suicidal or homicidal ideation, hallucinations. PHYSICAL EXAMINATION Vital Signs - 24 hr 04/19/17 04/19/17 10:44 14:44 Temperature 99.9 F H 98.8 F Pulse Rate 80 Pulse Rate [ 79 Apical] Respiratory 20 Rate Blood Pressure 137/72 Blood Pressure 160/81 [Right Arm] O2 Sat by Pulse 97 95 Oximetry (%) GENERAL: Awake, alert, and fully oriented, in no acute distress. HEAD: Normal with no signs of trauma. EYES: Pupils equal, round and reactive to light, extraocular movements intact, sclera anicteric, conjunctiva clear. No lid lag. EARS, NOSE, THROAT: Ears normal, nares patent, oropharynx clear without exudates. Moist mucous membranes. NECK: Normal range of motion, supple without lymphadenopathy, JVD, or masses. LUNGS: Crackles, scattered rhonchi on right HEART: S1, S2, RRR ABDOMEN: Soft, nontender, not distended, normoactive bowel sounds, no guarding, no rebound, no masses. No hepatomegaly or splenomegaly. MUSCULOSKELETAL: Normal range of motion at all joints. No bony deformities or tenderness. No CVA tenderness. UPPER EXTREMITIES: 2+ pulses, warm, well-perfused. No cyanosis. No clubbing. No peripheral edema. LOWER EXTREMITIES: 2+ pulses, warm, well-perfused. No calf tenderness. No peripheral edema. NEUROLOGICAL: Cranial nerves II-XII intact. Normal speech. Normal gait. PSYCHIATRIC: Cooperative. Good eye contact. Appropriate mood and affect. SKIN: Warm, dry, normal turgor, no rashes or lesions noted, normal capillary refill. Laboratory Results - last 24 hr 04/19/17 04/19/17 04/19/17 13:59 13:59 13:59 WBC 13.4 H RBC 1.70 L Hgb 6.2 L* D Hct 19.1 L D MCV 112.4 H MCH 36.8 H MCHC 32.7 RDW 22.4 H Plt Count 198 MPV 9.4 Neutrophils % No Result Required. Neutrophils % (Manual) 59.4 Band Neutrophils % 15.6 Lymphocytes % No Result Required. Lymphocytes % (Manual) 11.5 Monocytes % (Manual) 4 Eosinophils % (Manual) 1.0 Basophils % (Manual) 1.0 Myelocytes % (Man) 1 D Metamyelocytes 2 D Hypochromia 0 Platelet Estimate Normal Polychromasia 1+ Poikilocytosis 1+ Anisocytosis 2+ Microcytosis 1+ Macrocytosis 1+ Ovalocytes 1+ Stomatocytes 1+ Retic Count 4.48 H D PT with INR 14.60 H INR 1.29 H Sodium 133 L Potassium 4.2 Chloride 102 Carbon Dioxide 26 Anion Gap 5 L BUN 21 H Creatinine 1.5 H Creat Clearance w eGFR 46.00 Random Glucose 125 H D Calcium 8.0 L Ferritin 1078.757 H Total Bilirubin 0.5 AST 34 ALT 40 D Alkaline Phosphatase 109 LD Total 635 H Total Protein 7.7 Albumin 3.4 Blood Type Antibody Screen Crossmatch 04/19/17 13:59 WBC RBC Hgb Hct MCV MCH MCHC RDW Plt Count MPV Neutrophils % Neutrophils % (Manual) Band Neutrophils % Lymphocytes % Lymphocytes % (Manual) Monocytes % (Manual) Eosinophils % (Manual) Basophils % (Manual) Myelocytes % (Man) Metamyelocytes Hypochromia Platelet Estimate Polychromasia Poikilocytosis Anisocytosis Microcytosis Macrocytosis Ovalocytes Stomatocytes Retic Count PT with INR INR Sodium Potassium Chloride Carbon Dioxide Anion Gap BUN Creatinine Creat Clearance w eGFR Random Glucose Calcium Ferritin Total Bilirubin AST ALT Alkaline Phosphatase LD Total Total Protein Albumin Blood Type B POSITIVE Antibody Screen Negative Crossmatch See Detail ASSESSMENT/PLAN 72 year-old male with a PMH significant for HTN, HLD, diastolic heart failure, paroxysmal afib, NIDDM, alcoholic cirrhosis, myelofibrosis, anemia requiring periodic transfusions, and COPD. Admitted for symptomatic anemia requring transfusion and pneumonia. Myelofibrosis Symptomatic anemia --Hgb 6.2 with symptoms of SOB and weakness --transfuse 2 units; lasix IV 40mg in between units --reassess after second unit, may need another dose IV Lasix; then resume home dose lasix PO 40mg daily Community acquired pneumonia --continue azithromycin and ceftriaxone Hypertension --continue Toprol XL, lisinopril Hyperlipidemia --not on meds Diastolic heart failure --after transfusion resume home dose lasix Paroxysmal atrial fibrillation --presently in sinus rhythm --not on anticoagulation --continue Toprol XL NIDDM --not on meds Alcoholic cirrhosis --stable, no acute issues COPD --stable, no acute issues DVT prophylaxis: subq heparin Visit type - Emergency Visit Emergency Visit: Yes ED Registration Date: 04/19/17 Care time: The patient presented to the Emergency Department on the above date and was hospitalized for further evaluation of their emergent condition. - New Patient This patient is new to me today: Yes Date on this admission: 04/20/17 - Critical Care Critical Care patient: No
[2017-04-19] MEDS ORDERED: FUROSEMIDE 40 MG/4 ML INJECTABLE VIAL IVPUSH STA (22:06)
[2017-04-19] MEDS ORDERED: FUROSEMIDE 40 MG/4 ML INJECTABLE VIAL ONE (22:53)
[2017-04-19] MEDS ORDERED: MIRTAZAPINE 15 MG TABLET (FP) ONE (22:53)
[2017-04-19] MEDS: MIRTAZAPINE 30 MG TABLET (FP) PO SCH (23:07)
[2017-04-19 23:40] LABS: URINE APPEARANCE CLEAR; URINE BILIRUBIN NEGATIVE (NEGATIVE); URINE BLOOD NEGATIVE (NEGATIVE); URINE COLOR LTYELLOW; URINE GLUCOSE (UA) NEGATIVE (NEGATIVE); URINE KETONE NEGATIVE (NEGATIVE); URINE LEUK ESTERASE NEGATIVE (NEGATIVE); URINE NITRITE NEGATIVE (NEGATIVE); URINE PROTEIN NEGATIVE (NEGATIVE); URINE UROBILINOGEN NEGATIVE mg/dL (0.2-1.0)
[2017-04-20] MEDS: HEPARIN NA (PORCINE) 5,000 UNITS/ML 1ML VIAL SQ SCH ×3 (06:04→21:30)
[2017-04-20 06:06] LABS: TRANSFERRIN 229 mg/dL (200-370)
[2017-04-20 08:06] LABS: SERUM IRON SATURATION 22 % (15-55); TOTAL IRON BINDING CAPACITY 282 ug/dL (250-450); UIBC 219 ug/dL (111-343)
[2017-04-20 08:46] LABS: HEMATOCRIT 23.5 % (35.4-49); HEMOGLOBIN 7.7 GM/dL (11.7-16.9); MCH 33.7 pg (25.7-33.7); MCHC 32.8 g/dl (32.0-35.9); MEAN CELL VOLUME 102.6 fl (80-96); MEAN PLT VOLUME 9.3 fl (7.5-11.1); PLATELET COUNT 173 K/MM3 (134-434); RBC 2.29 M/mm3 (4.00-5.60); RDW 28.1 % (11.9-15.9); WHITE BLOOD COUNT 12.9 K/mm3 (4.0-10.0)
[2017-04-20 09:05] LABS: INR 1.27 (0.82-1.09); PROTHROMBIN TIME (PATIENT) 14.4 SEC (9.98-11.88)
[2017-04-20 09:08] LABS: ACTIVATED PTT 28.1 SECONDS (26.9-34.4)
[2017-04-20 09:22] LABS: ALBUMIN 3.5 g/dl (3.4-5.0); ANION GAP 8 (8-16); BLOOD UREA NITROGEN 24 mg/dL (7-18); CALCIUM 8.3 mg/dL (8.5-10.1); CHLORIDE 103 mmol/L (98-107); CO2 24 mmol/L (21-32); GLUCOSE,RANDOM 110 mg/dL (74-106); MAGNESIUM 2.3 mg/dL (1.8-2.4); PHOSPHOROUS 3.6 mg/dL (2.5-4.9); POTASSIUM 4.5 mmol/L (3.5-5.1); SGOT/AST 36 U/L (15-37); SODIUM 135 mmol/L (136-145)
[2017-04-20 09:24] LABS: ALK PHOS 100 U/L (45-117); BILIRUBIN,TOTAL 0.5 mg/dL (0.2-1.0); CREATININE 1.6 mg/dL (0.7-1.3); SGPT/ALT 42 U/L (12-78); TOT PROT 8.1 g/dl (6.4-8.2)
[2017-04-20] MEDS ORDERED: VENLAFAXINE HCL 150 MG E.R. CAPSULE PO SCH (10:00)
[2017-04-20] MEDS: AZITHROMYCIN IVPB 250 MG in DEXTROSE 5%-WATER - 250 ML IVPB SCH (10:45)
[2017-04-20] MEDS: CEFTRIAXONE 1 G/50 ML PREMIX 50 ML IVPB SCH (10:45)
[2017-04-20] MEDS: LISINOPRIL 20 MG TABLET (FP) PO SCH (10:46)
[2017-04-20] MEDS: METOPROLOL SUCCINATE 25 MG TAB.SR.24H (FP) PO SCH (10:46)
[2017-04-20 12:20] LABS: ANISOCYTOSIS 2+; MACROCYTOSIS 1+; OVALOCYTE 1+; PLATELET ESTIMATE NORMAL
--- NOTE | 2017-04-20 12:23 | PN ---
Progress Note (short form) - Note Progress Note: Subjective: The patient was seen and examined at the bedside. He reports feeling "much better" today. Current Medications Generic Name Dose Route Start Last Admin Trade Name Trudy PRN Reason Stop Dose Admin Heparin Sodium (Porcine) 5,000 unit 04/20/17 06:00 04/20/17 06:04 Heparin - SQ 5,000 unit TID TERI Administration Azithromycin 250 mg/ Dextrose 250 mls @ 250 mls/hr 04/20/17 10:00 04/20/17 10 :45 IVPB 04/23/17 10:59 250 mls/hr DAILY TERI Administration CEFTRIAXONE 1 G/50 ML PREMIX 50 mls @ 100 mls/hr 04/20/17 10:00 04/20/17 10: 45 Ceftriaxone 1 Gm-D5w Bag IVPB 100 mls/hr DAILY TERI Administration Lisinopril 20 mg 04/20/17 10:00 04/20/17 10:46 Prinivil PO 20 mg DAILY TERI Administration Metoprolol Succinate 25 mg 04/20/17 10:00 04/20/17 10:46 Toprol Xl - PO 25 mg DAILY TERI Administration Mirtazapine 30 mg 04/19/17 22:00 04/19/17 23:07 Remeron - PO 30 mg HS TERI Administration Venlafaxine HCl 150 mg 04/20/17 10:00 Effexor Xr - PO DAILY TERI Objective: Vital Signs Period Temp Pulse Resp BP Sys/Rodriguez Pulse Ox Last 24 Hr 97.8 F-98.8 F 69-79 16-20 119-160/53-81 95-98 Physical Exam: General: NAD, A&Ox3 Lungs: CTA bilaterally Heart: RRR, S1S2 Abd: Soft, non-tender, non-distended. Normoactive bowel sounds Ext: Warm, well-perfused. 2+ DP/PT bilaterally CBCD WBC 12.9 K/mm3 (4.0-10.0) H 04/20/17 08:00 RBC 2.29 M/mm3 (4.00-5.60) L D 04/20/17 08:00 Hgb 7.7 GM/dL (11.7-16.9) L D 04/20/17 08:00 Hct 23.5 % (35.4-49) L D 04/20/17 08:00 MCV 102.6 fl (80-96) H D 04/20/17 08:00 MCHC 32.8 g/dl (32.0-35.9) 04/20/17 08:00 RDW 28.1 % (11.9-15.9) H 04/20/17 08:00 Plt Count 173 K/MM3 (134-434) 04/20/17 08:00 MPV 9.3 fl (7.5-11.1) 04/20/17 08:00 CMP Sodium 135 mmol/L (136-145) L 04/20/17 08:00 Potassium 4.5 mmol/L (3.5-5.1) 04/20/17 08:00 Chloride 103 mmol/L (98-107) 04/20/17 08:00 Carbon Dioxide 24 mmol/L (21-32) 04/20/17 08:00 Anion Gap 8 (8-16) 04/20/17 08:00 BUN 24 mg/dL (7-18) H 04/20/17 08:00 Creatinine 1.6 mg/dL (0.7-1.3) H 04/20/17 08:00 Creat Clearance w eGFR 42.70 (>60) 04/20/17 08:00 Random Glucose 110 mg/dL (74-106) H 04/20/17 08:00 Calcium 8.3 mg/dL (8.5-10.1) L 04/20/17 08:00 Total Bilirubin 0.5 mg/dL (0.2-1.0) 04/20/17 08:00 AST 36 U/L (15-37) 04/20/17 08:00 ALT 42 U/L (12-78) 04/20/17 08:00 Alkaline Phosphatase 100 U/L (45-117) 04/20/17 08:00 Total Protein 8.1 g/dl (6.4-8.2) 04/20/17 08:00 Albumin 3.5 g/dl (3.4-5.0) 04/20/17 08:00 Microbiology 04/19/17 Unknown Nasopharyngeal Swab Influenza Types A,B Antigen (ALEXI) - Final 04/19/17 Unknown Nasopharyngeal Swab - Final Assessment: This is a 72 year old male with PMHx of HTN, hyperlipidemia, CKD, diastolic heart failure, paroxysmal a.fib, NIDDM, alcoholic cirrhosis, myelofibrosis, anemia requiring transfusions, COPD, who presented to the ED with a Hgb of 6.2 Plan: 1) Symptomatic anemia - Myelofibrosis - Received 2u PRBC. Hgb 6.2->7.7 - Repeat H/H this afternoon 2) Community acquired pneumonia - Continue Ceftriaxone and Azithromycin - Influenza A&B negative - F/u urine legionella Ag 3) HTN - Continue Lisinopril - Continue Toprol XL 4) CKD - Cr ~ baseline - Continue to monitor 5) Chronic diastolic heart failure - No evidence of exacerbation - Continue Lasix 40mg po daily 6) Paroxysmal a.fib - Not on anticoagulation - Continue Toprol XL - Will need to follow-up with outpatient pcp for further discussion regarding starting anticoagulation 7) F/E/N: - Sodium controlled diet - Monitor electrolytes 8) Prophylaxis: - OOB ambulating - Hold all chemical DVT prophylaxis 2/2 severe anemia 9) Dispo: - Requires continued inpatient care CODE STATUS: FULL CODE Visit type - Emergency Visit Emergency Visit: Yes ED Registration Date: 04/19/17 Care time: The patient presented to the Emergency Department on the above date and was hospitalized for further evaluation of their emergent condition. - New Patient This patient is new to me today: Yes Date on this admission: 04/20/17 - Critical Care Critical Care patient: No
[2017-04-20 17:26] LABS: HEMATOCRIT 22.3 % (35.4-49); HEMOGLOBIN 7.8 GM/dL (11.7-16.9); MCH 36.1 pg (25.7-33.7); MCHC 34.8 g/dl (32.0-35.9); MEAN CELL VOLUME 103.8 fl (80-96); PLATELET COUNT 203 K/MM3 (134-434); RBC 2.15 M/mm3 (4.00-5.60); RDW 27.6 % (11.9-15.9); WHITE BLOOD COUNT 12.2 K/mm3 (4.0-10.0)
[2017-04-20] MEDS: MIRTAZAPINE 30 MG TABLET (FP) PO SCH (21:30)
[2017-04-21] MEDS: HEPARIN NA (PORCINE) 5,000 UNITS/ML 1ML VIAL SQ SCH (06:13)
[2017-04-21 08:55] LABS: ANION GAP 10 (8-16); BLOOD UREA NITROGEN 26 mg/dL (7-18); CALCIUM 8.4 mg/dL (8.5-10.1); CHLORIDE 101 mmol/L (98-107); CO2 22 mmol/L (21-32); CREATININE 1.6 mg/dL (0.7-1.3); GLUCOSE,RANDOM 104 mg/dL (74-106); POTASSIUM 4.5 mmol/L (3.5-5.1); SODIUM 133 mmol/L (136-145)
[2017-04-21 08:59] LABS: HEMATOCRIT 25.4 % (35.4-49); HEMOGLOBIN 8.4 GM/dL (11.7-16.9); MCH 34.1 pg (25.7-33.7); MEAN CELL VOLUME 103.3 fl (80-96); MEAN PLT VOLUME 9.4 fl (7.5-11.1); PLATELET COUNT 195 K/MM3 (134-434); RBC 2.46 M/mm3 (4.00-5.60); WHITE BLOOD COUNT 15.3 K/mm3 (4.0-10.0)
[2017-04-21] MEDS: CEFTRIAXONE 1 G/50 ML PREMIX 50 ML IVPB SCH (09:21)
[2017-04-21] MEDS: AZITHROMYCIN IVPB 250 MG in DEXTROSE 5%-WATER - 250 ML IVPB SCH (09:25)
[2017-04-21] MEDS: LISINOPRIL 20 MG TABLET (FP) PO SCH (09:25)
[2017-04-21] MEDS: METOPROLOL SUCCINATE 25 MG TAB.SR.24H (FP) PO SCH (09:25)
--- NOTE | 2017-04-21 09:33 | PN ---
Progress Note (short form) - Note Progress Note: Subjective: The patient was seen and examined at the bedside. He reports feeling "great" today Current Medications Generic Name Dose Route Start Last Admin Trade Name Trudy PRN Reason Stop Dose Admin Furosemide 40 mg 04/21/17 10:00 04/21/17 09:25 Lasix - PO 40 mg DAILY TERI Administration Heparin Sodium (Porcine) 5,000 unit 04/20/17 06:00 04/21/17 06:13 Heparin - SQ 5,000 unit TID TERI Administration Azithromycin 250 mg/ Dextrose 250 mls @ 250 mls/hr 04/20/17 10:00 04/21/17 09 :25 IVPB 04/23/17 10:59 250 mls/hr DAILY TERI Administration CEFTRIAXONE 1 G/50 ML PREMIX 50 mls @ 100 mls/hr 04/20/17 10:00 04/21/17 09: 21 Ceftriaxone 1 Gm-D5w Bag IVPB 100 mls/hr DAILY TERI Administration Lisinopril 20 mg 04/20/17 10:00 04/21/17 09:25 Prinivil PO 20 mg DAILY TERI Administration Metoprolol Succinate 25 mg 04/20/17 10:00 04/21/17 09:25 Toprol Xl - PO 25 mg DAILY TERI Administration Mirtazapine 30 mg 04/19/17 22:00 04/20/17 21:30 Remeron - PO 30 mg HS TERI Administration Venlafaxine HCl 150 mg 04/21/17 10:00 04/21/17 09:25 Effexor Xr - PO 150 mg DAILY TERI Administration Objective: Vital Signs Period Temp Pulse Resp BP Sys/Rodriguez Pulse Ox Last 24 Hr 98.0 F-99.4 F 76-79 20-21 135-151/67-84 95 Physical Exam: General: NAD, A&Ox3 Lungs: CTA bilaterally Heart: RRR, S1S2 Abd: Soft, non-tender, non-distended. Normoactive bowel sounds Ext: Warm, well-perfused. 2+ DP/PT bilaterally CBCD WBC 15.3 K/mm3 (4.0-10.0) H 04/21/17 07:00 RBC 2.46 M/mm3 (4.00-5.60) L 04/21/17 07:00 Hgb 8.4 GM/dL (11.7-16.9) L 04/21/17 07:00 Hct 25.4 % (35.4-49) L 04/21/17 07:00 MCV 103.3 fl (80-96) H 04/21/17 07:00 MCHC 33.0 g/dl (32.0-35.9) 04/21/17 07:00 RDW 27.0 % (11.9-15.9) H 04/21/17 07:00 Plt Count 195 K/MM3 (134-434) 04/21/17 07:00 MPV 9.4 fl (7.5-11.1) 04/21/17 07:00 CMP Sodium 133 mmol/L (136-145) L 04/21/17 07:00 Potassium 4.5 mmol/L (3.5-5.1) 04/21/17 07:00 Chloride 101 mmol/L (98-107) 04/21/17 07:00 Carbon Dioxide 22 mmol/L (21-32) 04/21/17 07:00 Anion Gap 10 (8-16) 04/21/17 07:00 BUN 26 mg/dL (7-18) H 04/21/17 07:00 Creatinine 1.6 mg/dL (0.7-1.3) H 04/21/17 07:00 Creat Clearance w eGFR 42.70 (>60) 04/20/17 08:00 Random Glucose 104 mg/dL (74-106) 04/21/17 07:00 Calcium 8.4 mg/dL (8.5-10.1) L 04/21/17 07:00 Total Bilirubin 0.5 mg/dL (0.2-1.0) 04/20/17 08:00 AST 36 U/L (15-37) 04/20/17 08:00 ALT 42 U/L (12-78) 04/20/17 08:00 Alkaline Phosphatase 100 U/L (45-117) 04/20/17 08:00 Total Protein 8.1 g/dl (6.4-8.2) 04/20/17 08:00 Albumin 3.5 g/dl (3.4-5.0) 04/20/17 08:00 Microbiology 04/19/17 13:59 Blood - Peripheral Venous Blood Culture - Preliminary NO GROWTH OBTAINED AFTER 24 HOURS, INCUBATION TO CONTINUE FOR 4 DAYS. 04/19/17 13:59 Blood - Peripheral Venous Blood Culture - Preliminary NO GROWTH OBTAINED AFTER 24 HOURS, INCUBATION TO CONTINUE FOR 4 DAYS. 04/19/17 Unknown Nasopharyngeal Swab Influenza Types A,B Antigen (ALEXI) - Final 04/19/17 Unknown Nasopharyngeal Swab - Final Assessment: This is a 72 year old male with PMHx of HTN, hyperlipidemia, CKD, diastolic heart failure, paroxysmal a.fib, NIDDM, alcoholic cirrhosis, myelofibrosis, anemia requiring transfusions, COPD, who presented to the ED with a Hgb of 6.2 Plan: 1) Symptomatic anemia - Myelofibrosis - Received 2u PRBC 04/19 - Hgb stable 2) Community acquired pneumonia - WBC trending up this AM, will recheck this afternoon - Continue Ceftriaxone and Azithromycin - Influenza A&B negative - F/u urine legionella Ag 3) HTN - Continue Lisinopril - Continue Toprol XL 4) CKD - Cr ~ baseline - Continue to monitor 5) Chronic diastolic heart failure - No evidence of exacerbation - Continue Lasix 40mg po daily 6) Paroxysmal a.fib - Not on anticoagulation - Continue Toprol XL - Will need to follow-up with outpatient pcp for further discussion regarding starting anticoagulation 7) F/E/N: - Sodium controlled diet - Monitor electrolytes 8) Prophylaxis: - OOB ambulating - SCDs bilaterally 9) Dispo: - Requires continued inpatient care CODE STATUS: FULL CODE Visit type - Emergency Visit Emergency Visit: Yes ED Registration Date: 04/19/17 Care time: The patient presented to the Emergency Department on the above date and was hospitalized for further evaluation of their emergent condition. - New Patient This patient is new to me today: No - Critical Care Critical Care patient: No
[2017-04-21] MEDS ORDERED: FUROSEMIDE 40 MG TABLET (FP) PO SCH (10:00)
[2017-04-21] MEDS ORDERED: VENLAFAXINE HCL 75 MG E.R. CAPSULES (FP) PO SCH (10:00)
[2017-04-21 12:39] LABS: HEMATOCRIT 23.6 % (35.4-49); HEMOGLOBIN 7.8 GM/dL (11.7-16.9); MCH 34.2 pg (25.7-33.7); MCHC 33.1 g/dl (32.0-35.9); MEAN CELL VOLUME 103.2 fl (80-96); MEAN PLT VOLUME 9.6 fl (7.5-11.1); PLATELET COUNT 190 K/MM3 (134-434); RBC 2.29 M/mm3 (4.00-5.60); RDW 27.7 % (11.9-15.9); WHITE BLOOD COUNT 13.8 K/mm3 (4.0-10.0)
--- NOTE | 2017-04-21 13:36 | DS ---
Physical Examination Vital Signs: Vital Signs Temperature 99.4 F 04/21/17 05:50 Pulse Rate 79 04/21/17 09:00 Respiratory Rate 20 04/21/17 09:00 Blood Pressure 138/59 04/21/17 09:00 O2 Sat by Pulse Oximetry (%) 95 04/20/17 20:55 Labs: CBC, BMP 04/21/17 11:47 04/21/17 07:00 Discharge Summary Reason For Visit: ANEMIA,PNEUMONIA Current Active Problems Anemia (Acute) Pneumonia (Acute) Myelofibrosis (Chronic) Condition: Improved - Instructions Diet, Activity, Other Instructions: Please return to the ED with new, persistent, or worsening symptoms. Please follow-up with providers as indicated. Referrals: Jam Navarrete MD [Primary Care Provider] - (Please follow-up with your primary care provider within 1 week for further management of your paroxysmal a.fib and to discuss addition of anticoagulation) Disposition: HOME - Home Medications Comprehensive Discharge Medication List: Ambulatory Orders Furosemide [Lasix -] 40 mg PO DAILY 07/21/15 Lisinopril 20 mg PO DAILY 07/21/15 Mirtazapine [Remeron -] 30 mg PO HS 07/21/15 Venlafaxine HCl ER [Effexor Xr -] 150 mg PO DAILY #30 cap.er.24h 11/16/16 Metoprolol Succinate [Toprol Xl -] 25 mg PO DAILY 04/19/17 Azithromycin 250 mg PO DAILY #2 tablet 04/21/17 Cefuroxime Axetil [Ceftin -] 500 mg PO Q12H #16 tablet 04/21/17
[2017-04-21] MEDS ORDERED: guaiFENesin 200 MG/10 ML 10 ML UNIT-DOSE CUPS PO ONE (13:45)
[2017-04-21 14:10] VITALS: BP 152/79; PULSE 81; TEMP 99.8
== END 2017-04-21 13:50 | disposition home or self-care (01) | DRG 840 ==
LOC: JER 10:34 → JERBED 15:02 → J6S 23:45
PROVIDERS: ADMIT Internal Medicine; ATTEND Registered Nurse
PROC: 30233N1 Transfusion of Nonautologous Red Blood Cells into Peripheral Vein, Percutaneous Approach (ICD-10-PCS; principal; 2017-04-19)
DX: D75.81 Myelofibrosis (principal); J18.9 Pneumonia, unspecified organism; I50.32 Chronic diastolic (congestive) heart failure; I13.0 Hypertensive heart and chronic kidney disease with heart failure and stage 1 through stage 4 chronic kidney disease, or unspecified chronic kidney disease; D46.9 Myelodysplastic syndrome, unspecified; J44.9 Chronic obstructive pulmonary disease, unspecified; E78.00 Pure hypercholesterolemia, unspecified; D64.9 Anemia, unspecified; I48.0 Paroxysmal atrial fibrillation; K70.30 Alcoholic cirrhosis of liver without ascites; F10.10 Alcohol abuse, uncomplicated; F17.210 Nicotine dependence, cigarettes, uncomplicated; N18.9 Chronic kidney disease, unspecified
CPT/HCPCS: 36415; 36430; 71045-TC; 80048; 80053; 81003; 82728; 83010; 83540; 83550; 83615; 83735; 84100; 84466; 85025; 85027; 85044; 85610; 85730; 86850; 86900; 86901; 86922; 87040; 87086; 87804; 87899; 93005; 93010; 94010; 97116-GP; 97161-GP; 99284-25; J1644; P9038; P9058

== ENCOUNTER 2017-04-27 05:05 | Emergency (ER) | payer OTHER ==
[2017-04-27 05:26] VITALS: BMI 25.7
--- NOTE | 2017-04-27 05:45 | PDOC ---
History of Present Illness - General Chief Complaint: Pain, Acute Stated Complaint: COUGHING/BACK PAIN Time Seen by Provider: 04/27/17 05:21 - History of Present Illness Initial Comments: 04/27/17 05:41 CHIEF COMPLAINT: left rib pain HISTORY OF PRESENT ILLNESS: 72 yo M with PMH of myelodysplastic syndrome, COPD, CHF, HTN, hypercholesterolemia, myelofibrosis, and anemia, and recently diagnosed RLL pneumonia (discharged from this hospital 6 days ago) presents to the ED for left rib pain. Patient states "I think I broke a rib from coughing so much." He reports significant pain every time he coughs, but denies any trauma or fall. He denies any fevers, chills, vomiting, diarrhea. PAST MEDICAL HISTORY: as per HPI FAMILY HISTORY: Denies SOCIAL HISTORY: Denies tobacco, alcohol, illicit drug use. SURGICAL HISTORY: Denies ALLERGIES: No known drug allergies REVIEW OF SYSTEMS General/Constitutional: Denies fever or chills. Denies weakness. HEENT: Denies change in vision. Denies ear pain or discharge. Denies sore throat. Cardiovascular: Denies chest pain or shortness of breath. Respiratory: Denies cough, wheezing, or hemoptysis. Gastrointestinal: Denies nausea, vomiting, diarrhea or constipation. Denies rectal bleeding. Genitourinary: Denies dysuria, frequency, or change in urination. Musculoskeletal: Left rib pain with movement and coughing. Denies joint or muscle swelling or pain. Denies neck or back pain. Skin and breasts: Denies rash or easy bruising. Neurologic: Denies headache, vertigo, loss of consciousness, or loss of sensation. PHYSICAL EXAM General Appearance: Well-appearing, appropriately dressed. No apparent distress. HEENT: EOMI, PERRLA, normal ENT inspection, normal voice, TMs normal, pharynx normal. No conjunctival pallor. No photophobia, scleral icterus. Neck: Supple. Trachea midline. No tenderness, rigidity, carotid bruit, stridor , lymphadenopathy, or thyromegaly. Respiratory/Chest: Tenderness to L lateral lower ribs. Lungs CTAB. No shortness of breath, respiratory distress, accessory muscle use. No crackles, rales, rhonchi, stridor, wheezing, dullness Cardiovascular: RRR. S1, S2. No JVD, murmur, bradycardia, tachycardia. Vascular Pulses: Dorsalis-Pedis (R): 2+, Dorsalis-Pedis (L): 2+ Gastrointestinal/Abdominal: Normal bowel sounds. Abdomen soft, non-distended. No tenderness or rebound tenderness. No organomegaly, pulsatile mass, guarding , hernia, hepatomegaly, splenomegaly. Lymphatic: No adenopathy, tenderness. Musculoskeletal/Extremities: Normal inspection. FROM of all extremities, normal capillary refill. Pelvis Stable. No CVA tenderness. No tenderness to extremities, pedal edema, swelling, erythema or deformity. Integumentary: Appropriate color, dry, warm. No cyanosis, erythema, jaundice or rash Neurologic: red cap II-XII intact. Fully oriented, alert. Appropriate mood/affect. Motor strength 5/5. No appreciable EOM palsy, facial droop or sensory deficit. Past History - Past Medical History Allergies/Adverse Reactions: Allergies Allergy/AdvReac Type Severity Reaction Status Date / Time No Known Allergies Allergy Verified 04/27/17 05:29 Home Medications: Ambulatory Orders Furosemide [Lasix -] 40 mg PO DAILY 07/21/15 Lisinopril 20 mg PO DAILY 07/21/15 Mirtazapine [Remeron -] 30 mg PO HS 07/21/15 Venlafaxine HCl ER [Effexor Xr -] 150 mg PO DAILY #30 cap.er.24h 11/16/16 Metoprolol Succinate [Toprol Xl -] 25 mg PO DAILY 04/19/17 Anemia: Yes Cancer: Yes (MYELOFIBROSIS) Cardiac Disorders: Yes COPD: Yes CHF: Yes Diabetes: No (PT DENIES) GI Disorders: Yes (CIRRHOSIS) HTN: Yes Hypercholesterolemia: Yes Liver Disease: (ALCOHOLIC CIRRHOSIS) - Surgical History Orthopedic Surgery: Yes (left orif) - Immunization History Immunization Up to Date: Yes - Suicide/Smoking/Psychosocial Hx Smoking History: Current every day smoker Have you smoked in the past 12 months: Yes Number of Cigarettes Smoked Daily: 15 Information on smoking cessation initiated: Yes 'Breaking Loose' booklet given: 04/27/17 Hx Alcohol Use: No Drug/Substance Use Hx: No Substance Use Type: None Hx Substance Use Treatment: No *Physical Exam - Vital Signs Last Vital Signs Temp Pulse Resp BP Pulse Ox 98.5 F 88 18 143/85 98 04/27/17 05:21 04/27/17 05:21 04/27/17 05:21 04/27/17 05:21 04/27/17 05:21 ED Treatment Course - LABORATORY CBC & Chemistry Diagram: 04/27/17 06:00 04/27/17 06:00 - RADIOLOGY Radiology Studies Ordered: Category Date Time Status CHEST PA & LAT [RAD] Stat Radiology 04/27/17 05:40 Ordered Medical Decision Making - Medical Decision Making 04/27/17 05:44 72 yo M with PMH of myelodysplastic syndrome, COPD, CHF, HTN, hypercholesterolemia, myelofibrosis, and anemia, and recently diagnosed RLL pneumonia (discharged from this hospital 6 days ago) presents to the ED for left rib pain. -CXR -labs 04/27/17 06:24 Case discussed in detail with oncoming emergency provider including history, physical exam and ancillary studies. In brief, this patient is being seen in the ED for a chief complaint of: left sided rib pain with coughing I have completed the initial assessment interview note and have ordered the following labs: cbc, cmp, cxr I have reviewed the following results: pending Plan for disposition as follows: pending Oncoming [facility]PA Guicho has assumed care for the patient and will complete the evaluation and treatment. *DC/Admit/Observation/Transfer - Referrals Referrals: Jam Navarrete MD [Primary Care Provider] - - Patient Instructions - Post Discharge Activity
[2017-04-27 06:10] LABS: MCH 34.5 pg (25.7-33.7); MCHC 33.2 g/dl (32.0-35.9); MEAN CELL VOLUME 103.8 fl (80-96); MEAN PLT VOLUME 9.6 fl (7.5-11.1); PLATELET COUNT 244 K/MM3 (134-434); RBC 2.31 M/mm3 (4.00-5.60); RDW 26.9 % (11.9-15.9); WHITE BLOOD COUNT 15.8 K/mm3 (4.0-10.0)
[2017-04-27] MEDS ORDERED: ACETAMINOPHEN 1000 MG/100 ML VIAL (NON FORMULARY) IVPB ONE (06:11)
[2017-04-27] MEDS ORDERED: ACETAMINOPHEN INJECTION 100 ML IVPB ONE (06:24)
--- NOTE | 2017-04-27 06:31 | PDOC ---
*Physical Exam - Vital Signs Last Vital Signs Temp Pulse Resp BP Pulse Ox 98.5 F 88 18 143/85 98 04/27/17 05:21 04/27/17 05:21 04/27/17 05:21 04/27/17 05:21 04/27/17 05:21 ED Treatment Course - LABORATORY CBC & Chemistry Diagram: 04/27/17 06:00 04/27/17 06:00 - Medications Given in the ED: ED Medications Discontinued Medications Generic Name Dose Route Start Last Admin Trade Name Trudy PRAbhishek Reason Stop Dose Admin Acetaminophen 1,000 mg 04/27/17 06:11 04/27/17 06:20 Ofirmev Injection - IVPB 04/27/17 06:12 1,000 mg ONCE ONE Administration Medical Decision Making - Medical Decision Making 04/27/17 06:30 agree with care from Chari Dinero *DC/Admit/Observation/Transfer Diagnosis at time of Disposition: Pleuritic chest pain - Discharge Dispostion Disposition: HOME Condition at time of disposition: Stable - Prescriptions Prescriptions: Albuterol Sulfate Inhaler - [Ventolin HFA Inhaler -] 1 - 2 inh PO Q4H #1 inhaler Guaifenesin AC [Robitussin AC] 10 ml PO HS #100 ml MDD 1 Ibuprofen 600 mg PO QID #30 tablet Oxycodone HCl/Acetaminophen [Percocet 5-325 mg Tablet] 1 tab PO Q6H #15 tablet MDD 4 - Referrals Referrals: Jam Navarrete MD [Primary Care Provider] - - Patient Instructions Printed Discharge Instructions: DI for Cough -- Adult Additional Instructions: Your x-rays today showed no rib fractures. Your x-rays did show that she her right lower no pneumonia is improving. Please continue with your antibiotics as prescribed. You may take ibuprofen 600 mg 4 times a day as needed for pain. If you have breakthrough pain with the ibuprofen he may take Percocet every 6 hours as needed. Your also prescribed Robitussin with codeine. You may take this medication at bedtime. Do not take the Robitussin and Percocet together as they make may make you very drowsy and sleepy. Please do not drive after taking either of these medications. Please drink plenty of fluids. Your also given an albuterol inhaler to help with her symptoms. Please use the incentive spirometer you have at home to help with her breathing. Return to the emergency department if you have fevers, worsening pain, shortness of breath, chest pain, difficulty breathing, or any changes in her symptoms. - Post Discharge Activity
[2017-04-27 06:42] LABS: ALBUMIN 3.7 g/dl (3.4-5.0); ALK PHOS 101 U/L (45-117); ANION GAP 8 (8-16); BILIRUBIN,TOTAL 0.5 mg/dL (0.2-1.0); BLOOD UREA NITROGEN 17 mg/dL (7-18); CALCIUM 8.4 mg/dL (8.5-10.1); CHLORIDE 97 mmol/L (98-107); CO2 26 mmol/L (21-32); CREATININE 1.5 mg/dL (0.7-1.3); GLUCOSE,RANDOM 106 mg/dL (74-106); POTASSIUM 4.5 mmol/L (3.5-5.1); SGOT/AST 36 U/L (15-37); SGPT/ALT 51 U/L (12-78); SODIUM 131 mmol/L (136-145); TOT PROT 8.3 g/dl (6.4-8.2)
[2017-04-27] MEDS ORDERED: POTASSIUM CHLORIDE TABS 20 MEQ TABLET.ER (FP) PO ONE ×2 (06:52→06:59)
--- NOTE | 2017-04-27 08:04 | PDOC ---
*Physical Exam - Vital Signs Last Vital Signs Temp Pulse Resp BP Pulse Ox 98.5 F 88 18 143/85 98 04/27/17 05:21 04/27/17 05:21 04/27/17 05:21 04/27/17 05:21 04/27/17 05:21 - Physical Exam General Appearance: Yes: Nourished, Appropriately Dressed. No: Apparent Distress Respiratory/Chest: positive: Lungs Clear, Normal Breath Sounds. negative: Respiratory Distress, Accessory Muscle Use, Rhonchi, Stridor Cardiovascular: positive: Regular Rhythm, Regular Rate, S1, S2 (present) Musculoskeletal: positive: Other (TTP L ribs) Integumentary: positive: Normal Color, Dry, Warm Neurologic: positive: bar supervisor II-XII NML intact, Fully Oriented, Alert, Normal Mood/ Affect, Normal Response, Motor Strength 08/05 ED Treatment Course - LABORATORY CBC & Chemistry Diagram: 04/27/17 06:00 04/27/17 06:00 - ADDITIONAL ORDERS Additional order review: Laboratory Results 04/27/17 06:00 Sodium 131 L Potassium 4.5 Chloride 97 L Carbon Dioxide 26 Anion Gap 8 BUN 17 D Creatinine 1.5 H Creat Clearance w eGFR 46.00 Random Glucose 106 Calcium 8.4 L Total Bilirubin 0.5 AST 36 ALT 51 D Alkaline Phosphatase 101 Total Protein 8.3 H Albumin 3.7 04/27/17 06:00 RBC 2.31 L MCV 103.8 H MCHC 33.2 RDW 26.9 H MPV 9.6 Neutrophils % No Result Required. Lymphocytes % No Result Required. - Medications Given in the ED: ED Medications Discontinued Medications Generic Name Dose Route Start Last Admin Trade Name Trudy PRN Reason Stop Dose Admin Acetaminophen 1,000 mg 04/27/17 06:11 04/27/17 06:20 Ofirmev Injection - IVPB 04/27/17 06:12 1,000 mg ONCE ONE Administration Potassium Chloride 40 meq 04/27/17 06:52 04/27/17 06:59 K-Dur - PO 04/27/17 06:53 40 meq ONCE ONE Administration Medical Decision Making - Medical Decision Making 04/27/17 09:11 Sign out received from Kathrin Hopper NP. Pt is a 72 y/o M who presents to the ED c/ o cough and L rib pain (is concerned he broke a rib d/t coughing). Recently d/c' d from this facility after treatment of pneumonia. Pt. does have a leukocytosis. CXR shows a mostly resolved RLL pneumonia, better when compared to x-ray one week ago. No comment about ribs. Will obtain L rib series at this time. Pt. c/o pain. Will give percocet and robitussin for cough. 04/27/17 12:42 Rib x-ray negative. will d/c home at this time with symptomatic treatment. *DC/Admit/Observation/Transfer Diagnosis at time of Disposition: Pleuritic chest pain - Discharge Dispostion Disposition: HOME Condition at time of disposition: Stable Admit: No - Prescriptions Prescriptions: Albuterol Sulfate Inhaler - [Ventolin HFA Inhaler -] 1 - 2 inh PO Q4H #1 inhaler Guaifenesin AC [Robitussin AC] 10 ml PO HS #100 ml MDD 1 Ibuprofen 600 mg PO QID #30 tablet Oxycodone HCl/Acetaminophen [Percocet 5-325 mg Tablet] 1 tab PO Q6H #15 tablet MDD 4 - Referrals Referrals: Jam Navarrete MD [Primary Care Provider] - - Patient Instructions Printed Discharge Instructions: DI for Cough -- Adult Additional Instructions: Your x-rays today showed no rib fractures. Your x-rays did show that she her right lower no pneumonia is improving. Please continue with your antibiotics as prescribed. You may take ibuprofen 600 mg 4 times a day as needed for pain. If you have breakthrough pain with the ibuprofen he may take Percocet every 6 hours as needed. Your also prescribed Robitussin with codeine. You may take this medication at bedtime. Do not take the Robitussin and Percocet together as they make may make you very drowsy and sleepy. Please do not drive after taking either of these medications. Please drink plenty of fluids. Your also given an albuterol inhaler to help with her symptoms. Please use the incentive spirometer you have at home to help with her breathing. Return to the emergency department if you have fevers, worsening pain, shortness of breath, chest pain, difficulty breathing, or any changes in her symptoms. - Post Discharge Activity
[2017-04-27] MEDS ORDERED: guaiFENesin 200 MG/10 ML 10 ML UNIT-DOSE CUPS PO ONE (09:09)
[2017-04-27] MEDS ORDERED: guaiFENesin 200 MG/10 ML 10 ML UNIT-DOSE CUPS ONE (09:33)
[2017-04-27] MEDS ORDERED: KETOROLAC TROMETHAMINE 15 MG/ML VIAL IVPUSH ONE (10:38)
[2017-04-27] MEDS ORDERED: KETOROLAC TROMETHAMINE 15 MG/ML VIAL ONE (10:55)
[2017-04-27 11:02] VITALS: TEMP 98.7
[2017-04-27 11:16] LABS: ANISOCYTOSIS 2+; MACROCYTOSIS 1+; OVALOCYTE 1+; PLATELET ESTIMATE NORMAL; TEAR DROP CELLS 1+
[2017-04-27 13:30] VITALS: BP 130/62; PULSE 71
== END 2017-04-27 13:12 | disposition home or self-care (01) ==
LOC: JER 05:05
PROC: 3E0333Z Introduction of Anti-inflammatory into Peripheral Vein, Percutaneous Approach (ICD-10-PCS; principal; 2017-04-27)
DX: R07.89 Other chest pain (principal); Z87.01 Personal history of pneumonia (recurrent); I10 Essential (primary) hypertension; I50.9 Heart failure, unspecified; J44.9 Chronic obstructive pulmonary disease, unspecified; E78.00 Pure hypercholesterolemia, unspecified; K70.30 Alcoholic cirrhosis of liver without ascites; Z87.898 Personal history of other specified conditions
CPT/HCPCS: 36415; 71046-TC; 71101-TC; 80053; 85025; 99283-25

== ENCOUNTER 2017-12-20 04:02 | Emergency (ER) | payer OTHER ==
[2017-12-20 04:30] VITALS: BMI 24.4
--- NOTE | 2017-12-20 04:45 | PDOC ---
History of Present Illness - General Chief Complaint: Redness To Affected Area Stated Complaint: L FOOT SWELLING Time Seen by Provider: 12/20/17 04:37 History Source: Patient Exam Limitations: No Limitations - History of Present Illness Initial Comments: 12/20/17 05:36 Pt is a 72 y/o M with PMH of Past History - Travel Traveled outside of the country in the last 30 days: No Close contact w/someone who was outside of country & ill: No - Past Medical History Allergies/Adverse Reactions: Allergies Allergy/AdvReac Type Severity Reaction Status Date / Time No Known Allergies Allergy Verified 12/20/17 04:28 Home Medications: Ambulatory Orders Furosemide [Lasix -] 40 mg PO DAILY 07/21/15 Lisinopril 20 mg PO DAILY 07/21/15 Mirtazapine [Remeron -] 30 mg PO HS 07/21/15 Venlafaxine HCl ER [Effexor Xr -] 150 mg PO DAILY #30 cap.er.24h 11/16/16 Metoprolol Succinate [Toprol Xl -] 25 mg PO DAILY 04/19/17 Albuterol Sulfate Inhaler - [Ventolin HFA Inhaler -] 1 - 2 inh PO Q4H #1 inhaler 04/27/17 Clindamycin [Cleocin -] 300 mg PO TID #21 capsule 12/20/17 Anemia: Yes Cancer: Yes (MYELOFIBROSIS) Cardiac Disorders: Yes COPD: Yes CHF: Yes Diabetes: No (PT DENIES) GI Disorders: Yes (CIRRHOSIS) HTN: Yes Hypercholesterolemia: Yes Liver Disease: (ALCOHOLIC CIRRHOSIS) - Surgical History Orthopedic Surgery: Yes (left orif) - Immunization History Immunization Up to Date: Yes - Suicide/Smoking/Psychosocial Hx Smoking History: Never smoked Have you smoked in the past 12 months: No Number of Cigarettes Smoked Daily: 15 Information on smoking cessation initiated: No 'Breaking Loose' booklet given: 04/27/17 Hx Alcohol Use: No Drug/Substance Use Hx: No Substance Use Type: None Hx Substance Use Treatment: No Review of Systems - Review of Systems Able to Perform ROS?: Yes Comments:: 12/20/17 04:43 CONSTITUTIONAL: Absent: fever, chills, diaphoresis, generalized weakness, malaise, loss of appetite HEENT: Absent: rhinorrhea, nasal congestion, throat pain, throat swelling, difficulty swallowing, mouth swelling, ear pain, eye pain, visual Changes CARDIOVASCULAR: Absent: chest pain, loss of consciousness, palpitations, irregular heart rate, peripheral edema RESPIRATORY: Absent: cough, shortness of breath, dyspnea with exertion, orthopnea, wheezing, stridor, hemoptysis GASTROINTESTINAL: Absent: abdominal pain, abdominal distension, nausea, vomiting, diarrhea, constipation, melena, hematochezia GENITOURINARY: Absent: dysuria, frequency, urgency, hesitancy, hematuria, flank pain, genital pain MUSCULOSKELETAL: Absent: myalgia, arthralgia, joint swelling SKIN: PressAbsent: rash, itching, pallor HEMATOLOGIC/IMMUNOLOGIC: Absent: easy bleeding, easy bruising, lymphadenopathy, frequent infections ENDOCRINE: Absent: unexplained weight gain, unexplained weight loss, heat intolerance, cold intolerance NEUROLOGIC: Absent: headache, focal weakness or paresthesias, dizziness, unsteady gait, seizure, mental status changes, bladder or bowel incontinence PSYCHIATRIC: Absent: anxiety, depression, suicidal or homicidal ideation, hallucinations. Is the patient limited Jordanian proficient: No *Physical Exam - Vital Signs Last Vital Signs Temp Pulse Resp BP Pulse Ox 98.9 F 68 18 143/78 99 12/20/17 04:05 12/20/17 04:05 12/20/17 04:05 12/20/17 04:05 12/20/17 04:05 - Physical Exam Comments: 12/20/17 04:43 GENERAL: Well developed, well nourished. Awake and alert. No acute distress. HEENT: Normocephalic, atraumatic. PERRLA, EOMI. No conjunctival pallor. Sclera are non- icteric. Moist mucous membranes. Oropharynx is clear. NECK: Supple. Full ROM. No JVD. Carotid pulses 2+ and symmetric, without bruits. No thyromegaly. No lymphadenopathy. CARDIOVASCULAR: Regular rate and rhythm. No murmurs, rubs, or gallops. Distal pulses are 2+ and symmetric. PULMONARY: No evidence of respiratory distress. Lungs clear to auscultation bilaterally. No wheezing, rales or rhonchi. ABDOMINAL: Soft. Non-tender. Non-distended. No rebound or guarding. No organomegaly. Normoactive bowel sounds. MUSCULOSKELETAL Normal range of motion at all joints. No bony deformities or tenderness. No CVA tenderness. EXTREMITIES: No cyanosis. No clubbing. No edema. No calf tenderness. SKIN: Warm and dry. Normal capillary refill. No rashes. No jaundice. NEUROLOGICAL: Alert, awake, appropriate. Cranial nerves 2-12 intact. No deficits to light touch and temperature in face, upper extremities and lower extremities. No motor deficits in the in face, upper extremities and lower extremities. Normoreflexic in the upper and lower extremities. Normal speech. Toes are down- going bilaterally. Gait is normal without ataxia. PSYCHIATRIC: Cooperative. Good eye contact. Appropriate mood and affect. ED Treatment Course - LABORATORY CBC & Chemistry Diagram: 12/20/17 04:34 12/20/17 04:34 *DC/Admit/Observation/Transfer Diagnosis at time of Disposition: Cellulitis Qualifiers: Site of cellulitis: unspecified site Qualified Code(s): L03.90 - Cellulitis, unspecified - Discharge Dispostion Disposition: HOME Condition at time of disposition: Stable Decision to Admit order: No - Referrals Referrals: Jma Navarrete MD [Primary Care Provider] - - Patient Instructions Printed Discharge Instructions: DI for Cellulitis -- Adult Additional Instructions: You have cellulitis to your L leg. Please take the clindamycin 300mg three time a day for one week Apply warm compresses to the area 3-4 timesa day Follow up with your primary care doctor this week Return to the ED if your cellulitis gets worse, if you develop fevers or if you have any changes in your symptoms - Post Discharge Activity
[2017-12-20 05:05] LABS: BASO % 0.3 % (0-2.0); EOS % 1.8 % (0-4.5); HEMOGLOBIN 7.6 GM/dL (11.7-16.9); LYMPH % 7.9 % (8-40); MCH 39.4 pg (25.7-33.7); MCHC 34.6 g/dl (32.0-35.9); MEAN CELL VOLUME 113.8 fl (80-96); MEAN PLT VOLUME 10.5 fl (7.5-11.1); MONO % 9.7 % (3.8-10.2); NEUT % 80.3 % (42.8-82.8); PLATELET COUNT 164 K/MM3 (134-434); RBC 1.94 M/mm3 (4.00-5.60); WHITE BLOOD COUNT 10.1 K/mm3 (4.0-10.0)
[2017-12-20 05:25] LABS: ALBUMIN 3.6 g/dl (3.4-5.0); ALK PHOS 103 U/L (45-117); ANION GAP 6 MMOL/L (8-16); BILIRUBIN,TOTAL 0.5 mg/dL (0.2-1); BLOOD UREA NITROGEN 17 mg/dL (7-18); CALCIUM 8.2 mg/dL (8.5-10.1); CHLORIDE 107 mmol/L (98-107); CO2 23 mmol/L (21-32); CREATININE 1.5 mg/dL (0.55-1.3); GLUCOSE,RANDOM 110 mg/dL (74-106); POTASSIUM 4.4 mmol/L (3.5-5.1); SGOT/AST 52 U/L (15-37); SGPT/ALT 71 U/L (13-61); SODIUM 136 mmol/L (136-145); TOT PROT 7.8 g/dl (6.4-8.2)
[2017-12-20 05:34] LABS: URINE APPEARANCE CLEAR; URINE BILIRUBIN NEGATIVE (<2.0 mg/dL); URINE COLOR LTYELLOW; URINE GLUCOSE (UA) NEGATIVE (NEGATIVE); URINE KETONE NEGATIVE (NEGATIVE); URINE LEUK ESTERASE NEGATIVE (NEGATIVE); URINE NITRITE NEGATIVE (NEGATIVE); URINE PROTEIN NEGATIVE (NEGATIVE); URINE UROBILINOGEN NEGATIVE mg/dL (0.2-1.0)
[2017-12-20 05:55] LABS: ANISOCYTOSIS 3+; MACROCYTOSIS 3+; PLATELET ESTIMATE ADEQUATE
[2017-12-20] MEDS ORDERED: VANCOMYCIN 1,000 MG in DEXTROSE 5%-WATER - 250 ML IVPB ONE (06:41)
[2017-12-20] MEDS ORDERED: PIPERACILLIN/TAZOB 3.375 GM 3.375 GM in DEXTROSE 5%-WATER - 50 ML IVPB ONE (06:42)
[2017-12-20] MEDS ORDERED: PIPERACILLIN/TAZOB 3.375 GM 3.375 GM/50 ML BAG IVPB ONE (06:59)
[2017-12-20] MEDS ORDERED: VANCOMYCIN 1 GRAM (PRE-DOCKED) 1,000 MG/250 ML BAG IVPB ONE (08:09)
[2017-12-20 09:18] VITALS: BP 149/70; PULSE 79; TEMP 97.6
== END 2017-12-20 09:21 | disposition home or self-care (01) ==
LOC: JER 04:02
DX: L03.90 Cellulitis, unspecified (principal); I10 Essential (primary) hypertension; D75.81 Myelofibrosis
CPT/HCPCS: 36415; 73610-TC-LT-FY; 73630-TC-LT; 80053; 81003; 83605; 85025; 87040; 87086; 96365; 96368; 99283-25

== ENCOUNTER 2018-01-04 03:12 | Inpatient (IN) | payer OTHER ==
--- NOTE | 2018-01-04 07:07 | PDOC ---
History of Present Illness - General Chief Complaint: Edema Stated Complaint: LT SWOLLEN FOOT Time Seen by Provider: 01/04/18 07:06 - History of Present Illness Initial Comments: 72 yo M with PMH of myelodysplastic syndrome, COPD, CHF, HTN, hypercholesterolemia, myelofibrosis, and anemia is here with Left sided foot pain, erythema, and occasional night sweats for the past two nights. The eythema is on the dorsal aspect of the left foot d2 cm distal to the ankle joint. It is not clearly demarcated. He denies fevers or chills. He is able to ambulate normally on his foot but pressure applied on top of the erythme is painful. He denies any weakness or sensory changes. Denies chest pain, SOB, difficulty breathing. Denies abdominal pain, back pain, joint pain, urinary or bowel changes. Patient was here for cellulitis 3 weeks ago and treated with Clindamycin. Allergies: NKA, NKDA PCP: Jam Navarrete Past History - Past Medical History Allergies/Adverse Reactions: Allergies Allergy/AdvReac Type Severity Reaction Status Date / Time No Known Allergies Allergy Verified 01/04/18 05:59 Home Medications: Ambulatory Orders Furosemide [Lasix -] 40 mg PO BID 07/21/15 Lisinopril 20 mg PO DAILY 07/21/15 Mirtazapine [Remeron -] 30 mg PO HS 07/21/15 Venlafaxine HCl ER [Effexor Xr -] 150 mg PO DAILY #30 cap.er.24h 11/16/16 Metoprolol Succinate [Toprol Xl -] 25 mg PO DAILY 04/19/17 Albuterol Sulfate Inhaler - [Ventolin HFA Inhaler -] 1 - 2 inh PO Q4H #1 inhaler 04/27/17 Ruxolitinib Phosphate [Jakafi] 15 mg PO BID 01/04/18 Anemia: Yes Cancer: Yes (MYELOFIBROSIS) Cardiac Disorders: Yes COPD: Yes CHF: Yes DVT: No Diabetes: No (PT DENIES) GI Disorders: Yes (CIRRHOSIS) HTN: Yes Hypercholesterolemia: Yes Liver Disease: (ALCOHOLIC CIRRHOSIS) - Surgical History Orthopedic Surgery: Yes (left orif) - Immunization History Immunization Up to Date: Yes - Suicide/Smoking/Psychosocial Hx Smoking History: Current every day smoker Have you smoked in the past 12 months: Yes Number of Cigarettes Smoked Daily: 15 Information on smoking cessation initiated: No 'Breaking Loose' booklet given: 04/27/17 Hx Alcohol Use: No Drug/Substance Use Hx: No Substance Use Type: None Hx Substance Use Treatment: No Review of Systems - Review of Systems Comments:: CONSTITUTIONAL: Absent: fever, no chills, no fatigue EYES: Absent: visual changes ENT: Absent: ear pain, no sore throat CARDIOVASCULAR: Absent: chest pain, no palpitations RESPIRATORY: Absent: cough, no SOB GI: Absent: abdominal pain, no nausea, no vomiting, no constipation, no diarrhea GENITOURINARY: Absent: dysuria, no frequency, no hematuria MUSKULOSKELETAL: Absent: back pain, no arthralgia, no myalgia SKIN: Prsent: Rash NEURO: Absent: headache *Physical Exam - Vital Signs Last Vital Signs Temp Pulse Resp BP Pulse Ox 97.5 F L 78 18 136/69 98 01/04/18 03:15 01/04/18 03:15 01/04/18 03:15 01/04/18 03:15 01/04/18 03:15 - Physical Exam Comments: LEFT FOOT: There is an area of erythema without obvious demarcated borders. The erythemetous area is TTP. There is normal and equal sensation in both feet. 2+ pulses bilaterally. Muscle strength is equal in plantar and dorsiflexion. GENERAL: Well-appearing, well-nourished. No apparent distress. HEENT: Normocephalic, atraumatic. PERRL, EOM intact. CARDIOVASCULAR: Normal S1, S2. Regular rate and rhythm. PULMONARY: Clear to auscultation bilaterally. ABDOMEN: Soft, non-distended, non-tender. EXTREMITIES: Normal ROM in all four extremities. No gross deformities. SKIN: Warm, dry. No rash NEUROLOGICAL: No focal neurological deficits. ED Treatment Course - LABORATORY CBC & Chemistry Diagram: 01/04/18 08:30 01/04/18 08:40 Medical Decision Making - Medical Decision Making 72 yo M with PMH of myelodysplastic syndrome, COPD, CHF, HTN, hypercholesterolemia, myelofibrosis, and anemia is here with Left sided foot pain, erythema, and occasional night sweats for the past two nights. This appears to be cellulitis/erysipelas. He was here 3 weeks ago and treated with clindamycin but unfortunately the infection returned. This is failed outpatient treatment. Plan: Cbc, Cmp, Analgesia, Antibiotics, Re-assess. We will admit for IV antibiotics. *DC/Admit/Observation/Transfer Diagnosis at time of Disposition: Cellulitis Qualifiers: Site of cellulitis: unspecified site Qualified Code(s): L03.90 - Cellulitis, unspecified - Discharge Dispostion Condition at time of disposition: Fair Decision to Admit order: Yes - Referrals - Patient Instructions - Post Discharge Activity
[2018-01-04] MEDS ORDERED: CEPHALEXIN 250 MG/5 ML ORAL SUSPENSION PO ONE (07:37)
[2018-01-04] MEDS ORDERED: CEPHALEXIN MONOHYDRATE 500 MG CAPSULE (UD) ONE (08:13)
[2018-01-04 08:52] LABS: BASO % 1.3 % (0-2.0); EOS % 2.3 % (0-4.5); HEMOGLOBIN 8.3 GM/dL (11.7-16.9); LYMPH % 9.2 % (8-40); MCH 38.6 pg (25.7-33.7); MCHC 34.6 g/dl (32.0-35.9); MEAN CELL VOLUME 111.6 fl (80-96); MEAN PLT VOLUME 9.6 fl (7.5-11.1); MONO % 9.4 % (3.8-10.2); NEUT % 77.8 % (42.8-82.8); PLATELET COUNT 210 K/MM3 (134-434); RBC 2.15 M/mm3 (4.00-5.60); RDW 23.4 % (11.9-15.9); WHITE BLOOD COUNT 14.1 K/mm3 (4.0-10.0)
[2018-01-04 09:16] LABS: ALBUMIN 3.9 g/dl (3.4-5.0); ALK PHOS 110 U/L (45-117); ANION GAP 6 MMOL/L (8-16); BILIRUBIN,TOTAL 0.4 mg/dL (0.2-1); BLOOD UREA NITROGEN 21 mg/dL (7-18); CALCIUM 8.2 mg/dL (8.5-10.1); CHLORIDE 102 mmol/L (98-107); CO2 26 mmol/L (21-32); CREATININE 1.6 mg/dL (0.55-1.3); GLUCOSE,RANDOM 120 mg/dL (74-106); POTASSIUM 4.4 mmol/L (3.5-5.1); SGOT/AST 54 U/L (15-37); SGPT/ALT 74 U/L (13-61); SODIUM 134 mmol/L (136-145); TOT PROT 8.4 g/dl (6.4-8.2)
[2018-01-04] MEDS ORDERED: VANCOMYCIN 1,000 MG in DEXTROSE 5%-WATER - 250 ML IVPB ONE (09:47)
[2018-01-04 09:58] LABS: ANISOCYTOSIS 1+; MACROCYTOSIS 2+; OVALOCYTE 1+; PLATELET ESTIMATE NORMAL
--- NOTE | 2018-01-04 10:58 | HP ---
CHIEF COMPLAINT:left foot pain PCP:Landon HISTORY OF PRESENT ILLNESS: 72M PMH of myelofibrosis, paroxysmal A. fib, COPD, CHF, HTN, hypercholesterolemia, presents to the ED with left foot cellultitis: Patient was here in the ED about 3 weeks ago found to have cellulitis of the left foot on 12/20/17 and was discharged with PO clindamysin 300mg po TID. Patient states that it did significantly improve as the "rash" was going up the leg to the mid stahl and is now only involving the dorsum of the foot below the ankle. He denies a history of DM. He endorses compliance with all his medications. He denies fever chest pain urinary or GI symptoms or shortness of breath. He endorses occasional chills. Patient is not on anticoagulation and is in sinus rhythm. ER course was notable for: (1)ABx (2)Labs Recent Travel:Denies PAST MEDICAL HISTORY:See above PAST SURGICAL HISTORY:Denies Social History: Smoking:Current everyday smoker Alcohol:Denies Drugs: Denies Allergies No Known Allergies Allergy (Verified 01/04/18 05:59) HOME MEDICATIONS: Home Medications Medication Instructions Recorded Furosemide [Lasix -] 40 mg PO BID 07/21/15 Lisinopril 20 mg PO DAILY 07/21/15 Mirtazapine [Remeron -] 30 mg PO HS 07/21/15 Venlafaxine HCl ER [Effexor Xr -] 150 mg PO DAILY #30 cap.er.24h 11/16/16 Metoprolol Succinate [Toprol Xl -] 25 mg PO DAILY 04/19/17 Albuterol Sulfate Inhaler - 1 - 2 inh PO Q4H #1 inhaler 04/27/17 [Ventolin HFA Inhaler -] REVIEW OF SYSTEMS CONSTITUTIONAL: Absent: fever, diaphoresis, generalized weakness, malaise, loss of appetite, weight change Present:chills HEENT: Absent: rhinorrhea, nasal congestion, throat pain, throat swelling, difficulty swallowing, mouth swelling, ear pain, eye pain, visual changes CARDIOVASCULAR: Absent: chest pain, syncope, palpitations, irregular heart rate, lightheadedness , peripheral edema RESPIRATORY: Absent: cough, shortness of breath, dyspnea with exertion, orthopnea, wheezing, stridor, hemoptysis GASTROINTESTINAL: Absent: abdominal pain, abdominal distension, nausea, vomiting, diarrhea, constipation, melena, hematochezia GENITOURINARY: Absent: dysuria, frequency, urgency, hesitancy, hematuria, flank pain, genital pain MUSCULOSKELETAL: Absent: myalgia, arthralgia, joint swelling, back pain, neck pain SKIN: Absent: rash, itching, pallor Present: Erythema of the left foot and leg HEMATOLOGIC/IMMUNOLOGIC: Absent: easy bleeding, easy bruising, lymphadenopathy, frequent infections ENDOCRINE: Absent: unexplained weight gain, unexplained weight loss, heat intolerance, cold intolerance NEUROLOGIC: Absent: headache, focal weakness or paresthesias, dizziness, unsteady gait, seizure, mental status changes, bladder or bowel incontinence PSYCHIATRIC: Absent: anxiety, depression, suicidal or homicidal ideation, hallucinations. PHYSICAL EXAMINATION Vital Signs - 24 hr 01/04/18 03:15 Temperature 97.5 F L Pulse Rate 78 Respiratory 18 Rate Blood Pressure 136/69 O2 Sat by Pulse 98 Oximetry (%) GENERAL: Awake, alert, and fully oriented, in no acute distress. EYES: extraocular movements intact EARS, NOSE, THROAT: Moist mucous membranes. NECK: Normal range of motion, supple without JVD LUNGS: Breath sounds equal, clear to auscultation bilaterally HEART: Regular rate and rhythm, normal S1 and S2 3/6 systolic murmur ABDOMEN: Soft, nontender, not distended MUSCULOSKELETAL: No CVA tenderness. EXTREMITIES: Left foot is tender. Dorsal aspect of foot with tender erythema. warm to touch 2+ DP pulse appreciated. Border of redness marked with ink NEUROLOGICAL: Cranial nerves II-XII intact. Normal speech PSYCHIATRIC: Cooperative. Good eye contact. Appropriate mood and affect. SKIN: Warm, dry Laboratory Results - last 24 hr 01/04/18 01/04/18 08:30 08:40 WBC 14.1 H RBC 2.15 L Hgb 8.3 L Hct 24.0 L MCV 111.6 H MCH 38.6 H MCHC 34.6 RDW 23.4 H Plt Count 210 D MPV 9.6 Absolute Neuts (auto) 11.0 H Neutrophils % 77.8 Neutrophils % (Manual) 65.6 Band Neutrophils % 9.4 Lymphocytes % 9.2 Lymphocytes % (Manual) 8.3 Monocytes % 9.4 Monocytes % (Manual) 7 Eosinophils % 2.3 Eosinophils % (Manual) 1.1 Basophils % 1.3 D Basophils % (Manual) 2.1 H Myelocytes % (Man) 3 H Promyelocytes % (Man) 0 Blast Cells % (Manual) 0 Nucleated RBC % 0 Metamyelocytes 3 H D Hypochromia 0 Platelet Estimate Normal Polychromasia 1+ Poikilocytosis 1+ Anisocytosis 1+ Microcytosis 0 Macrocytosis 2+ Ovalocytes 1+ Sodium 134 L Potassium 4.4 Chloride 102 Carbon Dioxide 26 Anion Gap 6 L BUN 21 H Creatinine 1.6 H Creat Clearance w eGFR 42.70 Random Glucose 120 H Calcium 8.2 L Total Bilirubin 0.4 AST 54 H ALT 74 H Alkaline Phosphatase 110 Total Protein 8.4 H Albumin 3.9 ASSESSMENT/PLAN: 72M with myelofibrosis, paroxysmal A. fib, COPD, CHF, HTN, hypercholesterolemia , presents to the ER with left foot cellultitis and failed outpatient PO antibiotics. Left foot cellulitis: Likely the cause of leukocytosis. Failed outpatient clindamycin treatment Admit to inpatient services given vancomycin in ER ABx per ID -Spoke to Dr. Rinaldi will see patient today consult ID Seems to be improving per patient Trend WBC count Paroxysmal A. fib: patient has been in sinus rhythm Get EKG Continue metoprolol XL 25mg po daily rate controlled COPD: does not seem to be in exacerbation bronchodilators PRN restart albuterol Rescue PRN CHF: Does not seem to be in exacerbation continue lasix 40mg po BID HTN: Restart lisinopril Anemia of chronic disease: Likely due to myelofibrosis and chronic renal failure Patient has a history of anemia requiring transfusions trend H/H Transfuse PRN continue Jakafi for myelofibrosis Iron studies done on previous admission consistent with anemia of chronic disease Chronic renal failure: Creatinine 1.6 at baseline Hyperglycemia: Patient denies history of DM could be due to infection vs new onset DM will check HbA1c Myelofibrosis: Continue Jakafi 15mg po BID-patient brought it in from home HLD: Not on medications FEN: No IVF No electrolyte issues sodium controlled diet PPx: HSQ/SCDs no GI PPx indicated early ambulation Called pharmacy to verify medications Case discussed with Dr. Jackson Visit type - Emergency Visit Emergency Visit: Yes ED Registration Date: 01/04/18 Care time: The patient presented to the Emergency Department on the above date and was hospitalized for further evaluation of their emergent condition. - New Patient This patient is new to me today: Yes Date on this admission: 01/04/18 - Critical Care Critical Care patient: No
[2018-01-04] MEDS ORDERED: VANCOMYCIN 1 GRAM (PRE-DOCKED) 1,000 MG/250 ML BAG IVPB ONE (11:16)
[2018-01-04] MEDS ORDERED: ACETAMINOPHEN 325 MG TABLET (FP) PO PRN (11:33)
[2018-01-04] MEDS ORDERED: ALBUTEROL SO4 8 GM HFA INHALER IH PRN ×2 (11:44→11:49)
--- NOTE | 2018-01-04 13:21 | PN ---
Teaching Attending Note Name of Resident: Norm Casarez ATTENDING PHYSICIAN STATEMENT I saw and evaluated the patient. I reviewed the resident's note and discussed the case with the resident. I agree with the resident's findings and plan as documented. SUBJECTIVE: OBJECTIVE: Vital Signs Period Temp Pulse Resp BP Sys/Rodriguez Pulse Ox Last 24 Hr 97.5 F-98.2 F 70-78 16-18 136-148/69-76 98-98 Laboratory Tests 01/04/18 01/04/18 08:30 08:40 WBC 14.1 H RBC 2.15 L Hgb 8.3 L Hct 24.0 L MCV 111.6 H MCH 38.6 H MCHC 34.6 RDW 23.4 H Plt Count 210 D MPV 9.6 Absolute Neuts (auto) 11.0 H Neutrophils % 77.8 Neutrophils % (Manual) 65.6 Band Neutrophils % 9.4 Lymphocytes % 9.2 Lymphocytes % (Manual) 8.3 Monocytes % 9.4 Monocytes % (Manual) 7 Eosinophils % 2.3 Eosinophils % (Manual) 1.1 Basophils % 1.3 D Basophils % (Manual) 2.1 H Myelocytes % (Man) 3 H Promyelocytes % (Man) 0 Blast Cells % (Manual) 0 Nucleated RBC % 0 Metamyelocytes 3 H D Hypochromia 0 Platelet Estimate Normal Polychromasia 1+ Poikilocytosis 1+ Anisocytosis 1+ Microcytosis 0 Macrocytosis 2+ Ovalocytes 1+ Sodium 134 L Potassium 4.4 Chloride 102 Carbon Dioxide 26 Anion Gap 6 L BUN 21 H Creatinine 1.6 H Creat Clearance w eGFR 42.70 Random Glucose 120 H Calcium 8.2 L Total Bilirubin 0.4 AST 54 H ALT 74 H Alkaline Phosphatase 110 Total Protein 8.4 H Albumin 3.9 Home Medications Medication Instructions Recorded Furosemide [Lasix -] 40 mg PO BID 07/21/15 Lisinopril 20 mg PO DAILY 07/21/15 Mirtazapine [Remeron -] 30 mg PO HS 07/21/15 Venlafaxine HCl ER [Effexor Xr -] 150 mg PO DAILY #30 cap.er.24h 11/16/16 Metoprolol Succinate [Toprol Xl -] 25 mg PO DAILY 04/19/17 Albuterol Sulfate Inhaler - 1 - 2 inh PO Q4H #1 inhaler 04/27/17 [Ventolin HFA Inhaler -] Ruxolitinib Phosphate [Jakafi] 15 mg PO BID 01/04/18 ASSESSMENT AND PLAN:
[2018-01-04 13:26] VITALS: BMI 27.5
[2018-01-04] MEDS: FUROSEMIDE 40 MG TABLET (FP) PO SCH (13:55)
--- NOTE | 2018-01-04 15:41 | PDOC ---
Attending Attestation - Resident Resident Name: Tejinder Green - ED Attending Attestation I have performed the following: I have examined & evaluated the patient, The case was reviewed & discussed with the resident, I agree w/resident's findings & plan, Exceptions are as noted - HPI HPI: 01/04/18 Reviewed Residents HPI - Physicial Exam PE: 01/04/18 15:40 Reviewed Residents PE - Medical Decision Making 01/04/18 15:40 72 years old with cellulitis to left foot failed outpatient clindamycin we'll observe overnight for vancomycin and further management.
[2018-01-04] MEDS ORDERED: PT OWN MED DRAWER 7, Y5N ONE ×2 (16:39→20:22)
--- NOTE | 2018-01-04 17:04 | PN ---
Progress Note (short form) - Note Progress Note: ID Consult dictated Recurrent cellulitis L foot Leukocytosis- multifactorial MDS Empiric vancomycin Elevation
[2018-01-04] MEDS: HEPARIN NA (PORCINE) 5,000 UNITS/ML 1ML VIAL SQ SCH (17:12)
--- NOTE | 2018-01-04 18:06 | CONS ---
DATE OF CONSULTATION: 01/04/2018 HISTORY OF PRESENT ILLNESS: The patient is a 72-year-old male with a history of myelodysplastic syndrome, being evaluated for cellulitis of the left foot. The patient was seen in the emergency room on December 20, 2017. He had presented with erythema of the left foot, extending to the left leg. He was treated with a dose of intravenous antibiotics and was discharged home on oral clindamycin. He now returns with recurrence of the cellulitis. Over the past two days, he has noted increasing pain, erythema and swelling, now mainly in the dorsum of the foot. He denies any traumatic injury. He has had no insect or animal bites or scratches. He has had no associated fever or chills. Cultures from his previous admission were unrevealing. PAST MEDICAL HISTORY: Positive for myelodysplastic syndrome, COPD, congestive heart failure, hypertension, hyperlipidemia, chronic anemia, cirrhosis. ALLERGIES: No known drug allergies. MEDICATIONS: Lasix, lisinopril, Remeron, Effexor, Toprol, Ventolin, Jakafi. SOCIAL HISTORY: Positive for tobacco use. REVIEW OF SYSTEMS: Neurologic: No loss of consciousness, no seizure activity or focal weakness. Cardiac: Negative for chest pain or palpitations. Respiratory: Negative for cough or sputum production. Gastrointestinal: Negative for vomiting or diarrhea. Genitourinary: Negative for urinary tract infection. LABORATORY DATA: White count 14.1 with 77% neutrophils, hematocrit 24.0, platelet count 210, BUN 21, creatinine 1.6, total bilirubin 0.4, alkaline phosphatase 110, AST 54. Blood cultures are pending. PHYSICAL EXAMINATION: General: The patient is awake and alert. He is not acutely toxic appearing. Vital Signs: Temperature 98.7, pulse 72 and regular, blood pressure 130/75, respiratory rate 20 per minute. HEENT:: Sclerae anicteric. Heart: Heart sounds S1, S2. Lungs: Clear. Abdomen: Obese, soft and nontender. Extremities: There is swelling of the left foot. There is erythema on the dorsum of the foot extending from the base of the toes to the ankle. The erythema extends to the left medial malleolus and laterally to the distal leg. No crepitus or fluctuance. No lymphangitic streaking. IMPRESSION: 1. Recurrent cellulitis, left lower extremity. 2. Leukocytosis, multifactorial. 3. Myelodysplastic syndrome. PLAN: 1. We will substitute vancomycin instead of clindamycin for coverage of skin pathogens, including possible hospital-acquired pathogens. He will receive vancomycin one gram IV piggyback every 12 hours. 2. Continue elevation and analgesics. 3. On review of his CBC, the patient has apparently had an elevated white blood cell count for the past one year or so. This may be a reflection of his myelodysplastic syndrome with superimposed infection. Thank you for the kind referral. MAXX CH M.D. [id number]
--- NOTE | 2018-01-04 21:47 | EKG ---
Test Reason : Blood Pressure : / mmHG Vent. Rate : 065 BPM Atrial Rate : 065 BPM P-R Int : 198 ms QRS Dur : 098 ms QT Int : 420 ms P-R-T Axes : 053 007 064 degrees QTc Int : 436 ms NORMAL SINUS RHYTHM NONSPECIFIC T WAVE ABNORMALITY ABNORMAL ECG WHEN COMPARED WITH ECG OF 19-APR-2017 13:37, INVERTED T WAVES HAVE REPLACED NONSPECIFIC T WAVE ABNORMALITY IN ANTERIOR LEADS Confirmed by MISHA ANNE MD ([id number]) on 01/04/2018 9:47:04 PM Referred By: Confirmed By:MISHA ANNE MD
[2018-01-04] MEDS: JAKAFI 15 MG PO SCH (21:50)
[2018-01-04] MEDS ORDERED: RUXOLITINIB PHOSPHATE 15 MG PO SCH ×2 (22:00)
[2018-01-04] MEDS ORDERED: RUXOLITINIB PHOSPHATE 10 MG PO SCH (22:00)
[2018-01-04] MEDS ORDERED: MIRTAZAPINE 30 MG TABLET (FP) PO SCH (22:00)
[2018-01-05] MEDS: HEPARIN NA (PORCINE) 5,000 UNITS/ML 1ML VIAL SQ SCH ×3 (02:27→09:16)
[2018-01-05] MEDS: FUROSEMIDE 40 MG TABLET (FP) PO SCH ×2 (06:17→13:04)
[2018-01-05 08:31] LABS: BASO % 0.8 % (0-2.0); EOS % 2.9 % (0-4.5); HEMOGLOBIN 7.7 GM/dL (11.7-16.9); LYMPH % 8.9 % (8-40); MCH 37.8 pg (25.7-33.7); MCHC 33.6 g/dl (32.0-35.9); MEAN CELL VOLUME 112.4 fl (80-96); MEAN PLT VOLUME 9.3 fl (7.5-11.1); NEUT % 79.4 % (42.8-82.8); PLATELET COUNT 154 K/MM3 (134-434); RBC 2.04 M/mm3 (4.00-5.60); RDW 23.1 % (11.9-15.9); WHITE BLOOD COUNT 11.2 K/mm3 (4.0-10.0)
[2018-01-05 08:54] LABS: ANION GAP 5 MMOL/L (8-16); BLOOD UREA NITROGEN 21 mg/dL (7-18); CALCIUM 8.5 mg/dL (8.5-10.1); CHLORIDE 103 mmol/L (98-107); CO2 27 mmol/L (21-32); CREATININE 1.5 mg/dL (0.55-1.3); GLUCOSE,RANDOM 97 mg/dL (74-106); MAGNESIUM 2.3 mg/dL (1.8-2.4); PHOSPHOROUS 3.6 mg/dL (2.5-4.9); POTASSIUM 4.7 mmol/L (3.5-5.1); SODIUM 136 mmol/L (136-145)
[2018-01-05] MEDS ORDERED: PT OWN MED DRAWER 7, Y5N ONE (09:05)
[2018-01-05] MEDS: JAKAFI 15 MG PO SCH (09:14)
[2018-01-05 09:31] VITALS: BP 144/75; PULSE 73; TEMP 98
[2018-01-05] MEDS ORDERED: LISINOPRIL 20 MG TABLET (FP) PO SCH (10:00)
[2018-01-05] MEDS ORDERED: metoPROLOL SUCCINATE 25 MG TAB.SR.24H (FP) PO SCH (10:00)
[2018-01-05] MEDS ORDERED: VENLAFAXINE HCL 150 MG E.R. CAPSULE PO SCH (10:00)
[2018-01-05] MEDS ORDERED: VENLAFAXINE HCL 75 MG E.R. CAPSULES (FP) PO SCH (10:00)
[2018-01-05] MEDS ORDERED: VANCOMYCIN 1 GRAM (PRE-DOCKED) 1,000 MG/250 ML BAG IVPB SCH (10:00)
--- NOTE | 2018-01-05 11:50 | PN ---
Progress Note, Physician History of Present Illness: Reports L foot pain resolved. Ambulating w/o pain. Swelling/ erythema improved No fever/ chills WBC improved BC (-) - Current Medication List Current Medications: Active Medications Acetaminophen (Tylenol -) 650 mg PO Q4H PRN PRN Reason: PAIN Albuterol Sulfate (Ventolin Hfa Inhaler -) 2 puff IH Q4H PRN PRN Reason: wheezing or SOB Albuterol Sulfate (Ventolin Hfa Inhaler -) 1 puff IH Q4H PRN PRN Reason: wheezing or SOB Furosemide (Lasix -) 40 mg PO BIDLASIX [facility] Last Admin: 01/05/18 06:17 Dose: 40 mg Heparin Sodium (Porcine) (Heparin -) 5,000 unit SQ Q8H-IV [facility] Last Admin: 01/05/18 09:16 Dose: Not Given Vancomycin HCl (Vancomycin (Pre-Docked)) 1,000 mg in 250 mls @ 166.667 mls/hr IVPB BID [facility]; Protocol Last Admin: 01/05/18 09:13 Dose: 166.667 mls/hr Lisinopril (Prinivil) 20 mg PO DAILY [facility] Last Admin: 01/05/18 09:13 Dose: 20 mg Metoprolol Succinate (Toprol Xl -) 25 mg PO DAILY [facility] Last Admin: 01/05/18 09:13 Dose: 25 mg Mirtazapine (Remeron -) 30 mg PO HS [facility] Last Admin: 01/04/18 21:50 Dose: 30 mg Patient's Own Medication (Jakafi 15mg) 1 each PO BID [facility] Last Admin: 01/05/18 09:14 Dose: 1 each Venlafaxine HCl (Effexor Xr -) 150 mg PO DAILY [facility] Last Admin: 01/05/18 09:14 Dose: 150 mg - Objective Vital Signs: Vital Signs Temperature 98.0 F 01/05/18 09:30 Pulse Rate 73 01/05/18 09:30 Respiratory Rate 18 01/05/18 09:30 Blood Pressure 144/75 01/05/18 09:30 O2 Sat by Pulse Oximetry (%) 97 01/05/18 09:00 Constitutional: Yes: No Distress Cardiovascular: Yes: Regular Rate and Rhythm, S1, S2 Respiratory: Yes: CTA Bilaterally Gastrointestinal: Yes: Normal Bowel Sounds, Soft. No: Tenderness Extremities: Yes: Other (decreased erythema/ warmth / swelling L foot) Labs: CBC, BMP 01/05/18 07:50 01/05/18 07:30 Assessment/Plan Recurrent cellulitis L foot improved MDS may substitute po keflex 500mg bid x 7d Outpatient follow up
--- NOTE | 2018-01-05 14:19 | DS ---
Physical Exam: SUBJECTIVE: Patient seen and examined OBJECTIVE: Vital Signs Period Temp Pulse Resp BP Sys/Rodriguez Pulse Ox Last 24 Hr 97.9 F-98.8 F 65-78 18-18 144-150/63-75 97-99 PHYSICAL EXAM GENERAL: The patient is awake, alert, and fully oriented, in no acute distress. HEAD: Normal with no signs of trauma. EYES: PERRL, extraocular movements intact, sclera anicteric, conjunctiva clear. ENT: Ears normal, nares patent, oropharynx clear without exudates, moist mucous membranes. NECK: Trachea midline, full range of motion, supple. LUNGS: Breath sounds equal, clear to auscultation bilaterally, no wheezes, no crackles, no accessory muscle use. HEART: Regular rate and rhythm, S1, S2 without murmur, rub or gallop. ABDOMEN: Soft, nontender, nondistended, normoactive bowel sounds, no guarding, no rebound, no hepatosplenomegaly, no masses. EXTREMITIES: 2+ pulses, warm, well-perfused, no edema. NEUROLOGICAL: Cranial nerves II through XII grossly intact. Normal speech, gait not observed. PSYCH: Normal mood, normal affect. SKIN: Warm, dry, normal turgor, no rashes or lesions noted. LABS Laboratory Results - last 24 hr 01/05/18 01/05/18 01/05/18 07:30 07:30 07:50 WBC 11.2 H RBC 2.04 L Hgb 7.7 L Hct 23.0 L MCV 112.4 H MCH 37.8 H MCHC 33.6 RDW 23.1 H Absolute Neuts (auto) 8.9 H Neutrophils % 79.4 Lymphocytes % 8.9 Monocytes % 8.0 Eosinophils % 2.9 Basophils % 0.8 Nucleated RBC % 0 Sodium 136 Potassium 4.7 Chloride 103 Carbon Dioxide 27 Anion Gap 5 L BUN 21 H Creatinine 1.5 H Creat Clearance w eGFR 46.00 Random Glucose 97 Hemoglobin A1c % 6.0 Calcium 8.5 Phosphorus 3.6 Magnesium 2.3 HOSPITAL COURSE: Date of Admission:01/04/18 Date of Discharge: 01/05/18 Discharge Summary Reason For Visit: CELLULITIS Current Active Problems Cellulitis of foot, left (Acute) Anemia (Chronic) CKD (chronic kidney disease) stage 3, GFR 30-59 ml/min (Chronic) COPD (chronic obstructive pulmonary disease) (Chronic) Chronic diastolic heart failure (Chronic) Hypertension (Chronic) Myelofibrosis (Chronic) Condition: Improved - Instructions Diet, Activity, Other Instructions: You were admitted to [facility] on 01/04 for recurrent cellulitis of your left foot. You were treated with an antibiotic, Vancomycin, and the infection improved. You are being discharged on 01/05. You should complete a course of antibiotics - a prescription for Keflex 500 mg twice a day x 7 days has been sent to [facility] at [address] [facility] [place]. You should follow a low sodium, low cholesterol diet. You may resume your usual activity. Please schedule an appointment with your primary care provider in 1 week. Please return to the ER if you have increasing redness or pain in your left foot, or if you develop fevers. Referrals: Jam Navarrete MD [Primary Care Provider] - 1 Week Disposition: HOME - Home Medications Comprehensive Discharge Medication List: Ambulatory Orders Furosemide [Lasix -] 40 mg PO BID 07/21/15 Lisinopril 20 mg PO DAILY 07/21/15 Mirtazapine [Remeron -] 30 mg PO HS 07/21/15 Venlafaxine HCl ER [Effexor Xr -] 150 mg PO DAILY #30 cap.er.24h 11/16/16 Metoprolol Succinate [Toprol XL -] 25 mg PO DAILY 04/19/17 Albuterol Sulfate Inhaler - [Ventolin HFA Inhaler -] 1 - 2 inh PO Q4H #1 inhaler 04/27/17 Ruxolitinib Phosphate [Jakafi] 15 mg PO BID 01/04/18 Cephalexin Monohydrate [Keflex -] 500 mg PO BID #14 capsule 01/05/18
[2018-01-05 15:05] LABS: PLATELET ESTIMATE DECREASED
== END 2018-01-05 14:30 | disposition home or self-care (01) | DRG 603 ==
LOC: JER 03:12 → JERBED 09:47 → J7W 12:43
PROVIDERS: ADMIT Internal Medicine; ATTEND Internal Medicine
DX: L03.90 Cellulitis, unspecified (principal); D75.81 Myelofibrosis; I13.0 Hypertensive heart and chronic kidney disease with heart failure and stage 1 through stage 4 chronic kidney disease, or unspecified chronic kidney disease; I50.32 Chronic diastolic (congestive) heart failure; N18.3 Chronic kidney disease, stage 3 (moderate); N18.9 Chronic kidney disease, unspecified; D46.9 Myelodysplastic syndrome, unspecified; I48.0 Paroxysmal atrial fibrillation; R73.9 Hyperglycemia, unspecified; J44.9 Chronic obstructive pulmonary disease, unspecified; E87.5 Hyperkalemia; F17.210 Nicotine dependence, cigarettes, uncomplicated; D63.1 Anemia in chronic kidney disease; D63.8 Anemia in other chronic diseases classified elsewhere
CPT/HCPCS: 36415; 80048; 80053; 83036; 83735; 84100; 85025; 87040; 93005; 93010; 99285-25; J1644

== ENCOUNTER 2018-06-25 11:52 | Observation (INO) | payer OTHER ==
[2018-06-25] MEDS ORDERED: ACETAMINOPHEN 1000 MG/100 ML VIAL (NON FORMULARY) IVPB ONE (13:19)
[2018-06-25] MEDS ORDERED: FAMOTIDINE 20 MG/50 ML IVPB 20 MG/50 ML MG IVPB ONE ×2 (13:19→13:44)
--- NOTE | 2018-06-25 13:41 | PDOC ---
History of Present Illness - General Chief Complaint: Pain, Acute Stated Complaint: ABDOMINAL PAIN Time Seen by Provider: 06/25/18 13:14 History Source: Patient Exam Limitations: No Limitations - History of Present Illness Initial Comments: 06/25/18 13:37 Pt is a 73yo M with PMH of Myelodysplastic Syndrome, Myelofibrosis, COPD, CHF, Hernia presenting to ED with abdominal pain that started this AM for 1 hour and has since resolved. Pt states he gets on and off abdominal pain associated with nausea and occasional vomiting. He states it is due to the hernia. He is also complaining of cough productive of clear sputum. He had an episode of nbnb emesis yesterday after coughing. Last BM was today. Denies nausea, vomiting, abdominal pain, diarrhea, constipation, bloody stools, fevers, chills, sob, cough, congestion, urinary symptoms. PMD: [place] Onc: [place]? PMH: see hpi PSH: none Allergies: nkda Social: denies Past History - Past Medical History Allergies/Adverse Reactions: Allergies Allergy/AdvReac Type Severity Reaction Status Date / Time No Known Allergies Allergy Verified 06/25/18 12:11 Home Medications: Ambulatory Orders Furosemide [Lasix -] 40 mg PO BID 07/21/15 Lisinopril 20 mg PO DAILY 07/21/15 Mirtazapine [Remeron -] 30 mg PO HS 07/21/15 Venlafaxine HCl ER [Effexor Xr -] 150 mg PO DAILY #30 cap.er.24h 11/16/16 Metoprolol Succinate [Toprol XL -] 25 mg PO DAILY 04/19/17 Albuterol Sulfate Inhaler - [Ventolin HFA Inhaler -] 1 - 2 inh PO Q4H #1 inhaler 04/27/17 Ruxolitinib Phosphate [Jakafi] 15 mg PO BID 01/04/18 Cephalexin Monohydrate [Keflex -] 500 mg PO BID #14 capsule 01/05/18 Anemia: Yes Asthma: No Cancer: Yes (MYELOFIBROSIS) Cardiac Disorders: Yes CVA: No COPD: Yes CHF: Yes DVT: No Dementia: No Diabetes: No (PT DENIES) GI Disorders: Yes (CIRRHOSIS) Disorders: No HTN: Yes Hypercholesterolemia: Yes Liver Disease: (ALCOHOLIC CIRRHOSIS) Seizures: No Thyroid Disease: No - Surgical History Orthopedic Surgery: No - Immunization History Immunization Up to Date: Yes - Suicide/Smoking/Psychosocial Hx Smoking History: Current every day smoker Have you smoked in the past 12 months: Yes Number of Cigarettes Smoked Daily: 15 Information on smoking cessation initiated: No 'Breaking Loose' booklet given: 04/27/17 Hx Alcohol Use: No Drug/Substance Use Hx: No Substance Use Type: None Hx Substance Use Treatment: No Review of Systems - Review of Systems Constitutional: No: Chills, Fever, Weakness HEENTM: No: Symptoms Reported Respiratory: Yes: See HPI, Cough. No: Shortness of Breath, Stridor, Wheezing, Hemoptysis Cardiac (ROS): No: Chest Pain, Lightheadedness, Palpitations, Syncope, Chest Tightness ABD/GI: Yes: See HPI : No: Burning, Dysuria Musculoskeletal: No: Back Pain, Joint Pain, Neck Pain Integumentary: No: Symptoms Reported Neurological: No: Headache, Numbness, Tingling *Physical Exam - Vital Signs Last Vital Signs Temp Pulse Resp BP Pulse Ox 98 F 75 20 138/56 L 97 06/25/18 12:11 06/25/18 12:11 06/25/18 12:11 06/25/18 12:11 06/25/18 12:11 - Physical Exam General Appearance: Yes: Nourished, Appropriately Dressed. No: Apparent Distress HEENT: positive: EOMI, DONNA Neck: positive: Trachea midline, Supple. negative: Lymphadenopathy (R), Lymphadenopathy (L) Respiratory/Chest: positive: Other (course breath sounds otherwise clear) Cardiovascular: positive: Regular Rhythm, Regular Rate, S1, S2. negative: Edema , JVD, Murmur Vascular Pulses: Carotid (R): 2+, Carotid (L): 2+, Dorsalis-Pedis (R): 2+, Doralis-Pedis (L): 2+ Gastrointestinal/Abdominal: positive: Normal Bowel Sounds, Soft, Protuberent, Hernia (not incarcerated or strangulated. ), Other (no fluid wave). negative: Tender, Mass Musculoskeletal: negative: CVA Tenderness Extremity: positive: Normal Capillary Refill. 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 Pt states he gets on and off abdominal pain associated with nausea and occasional vomiting. He states it is due to the hernia. He is also complaining of cough productive of clear sputum. He had an episode of nbnb emesis yesterday after coughing. Last BM was today. Denies nausea, vomiting, abdominal pain, diarrhea, constipation, bloody stools, fevers, chills, sob, cough, congestion, urinary symptoms. Vitals: wnl PE: protruding abdomen (baseline), hernia palpated however not strangulated, not tender. slightly jaundiced. course breath sounds in lower lung [place] otherwise clear ddx includes but not limited to: incarcetated hernia, pancreatitis, gastritis, cholelithiasis, nephrolithiasis, colitis, pyelo, aaa, dissection pt not having active complaints at this time. -cbc, cmp, lipase, trop, ua -cxr -pepcid, tylenol labs show high WBC and anemia (baseline) Trop 0.12, Cr at baseline. elevated LFT, AlkP and lipase (last labs here january 2018). Tried calling Dr. Navarrete's office but number is not working. will order EKG and RUQ sono EKG: nsr. not optimal ekg given skewed baselines. TW fal in V2. TWI V1. No james or depressions. QTc 455. OK 214. Sono does not show any gallstones or evidence of pancreatitis however ct may be better imaging modality. Pt is comfortable. Not having chest pain, sob or abdominal pain. Will admit pt for transaminitis and elevated troponin. *DC/Admit/Observation/Transfer Diagnosis at time of Disposition: Transaminitis, Elevated troponin - Referrals - Patient Instructions - Post Discharge Activity
[2018-06-25] MEDS ORDERED: ACETAMINOPHEN INJECTION 100 ML IVPB ONE (13:44)
[2018-06-25 13:46] LABS: BASO % 0.3 % (0-2.0); EOS % 3.1 % (0-4.5); HEMATOCRIT 21.3 % (35.4-49); HEMOGLOBIN 7.4 GM/dL (11.7-16.9); LYMPH % 6.5 % (8-40); MCH 40.1 pg (25.7-33.7); MCHC 34.7 g/dl (32.0-35.9); MEAN CELL VOLUME 115.4 fl (80-96); MEAN PLT VOLUME 10.1 fl (7.5-11.1); MONO % 9.4 % (3.8-10.2); NEUT % 80.7 % (42.8-82.8); PLATELET COUNT 197 K/MM3 (134-434); RBC 1.85 M/mm3 (4.00-5.60); RDW 23.6 % (11.9-15.9); WHITE BLOOD COUNT 15.6 K/mm3 (4.0-10.0)
[2018-06-25 14:18] LABS: ALBUMIN 3.6 g/dl (3.4-5.0); ALK PHOS 147 U/L (45-117); ANION GAP 5 MMOL/L (8-16); BILIRUBIN,TOTAL 0.8 mg/dL (0.2-1); BLOOD UREA NITROGEN 22 mg/dL (7-18); CALCIUM 8.4 mg/dL (8.5-10.1); CHLORIDE 103 mmol/L (98-107); CO2 23 mmol/L (21-32); CREATININE 1.4 mg/dL (0.55-1.3); GLUCOSE,RANDOM 99 mg/dL (74-106); POTASSIUM 4.5 mmol/L (3.5-5.1); SGOT/AST 135 U/L (15-37); SGPT/ALT 213 U/L (13-61); SODIUM 131 mmol/L (136-145); TOT PROT 7.9 g/dl (6.4-8.2)
--- NOTE | 2018-06-25 14:42 | PDOC ---
Attending Attestation - Resident Resident Name: Denise Garcia - ED Attending Attestation I have performed the following: I have examined & evaluated the patient, The case was reviewed & discussed with the resident, I agree w/resident's findings & plan - HPI HPI: 06/25/18 14:39 73-year-old male with multiple medical problems including recently diagnosed ventral hernia presents for acute on chronic cough, reports worsening of his hernia with forceful coughing. Yesterday, in the setting of forceful coughing, had episode of vomiting. He denies any associated abdominal pain or persistence of the hernia, no fevers or chills, normal BM. Pt attributed his cough to his hernia, but denies any history consistent with incarceration. - Physicial Exam PE: 06/25/18 14:42 Afebrile, vitals are within normal limits Elderly gentleman in no acute distress, lying comfortably in stretcher Course bibasilar breath sounds without wheezing or focally decreased breath sounds Abdomen is soft/nondistended/nontender, spontaneously reducing ventral hernia, bowel sounds are normal - Medical Decision Making 06/25/18 14:43 73-year-old male with acute on chronic cough, active smoker. Recently diagnosed ventral hernia but no acute issues on history or physical exam, no evidence of incarceration or obstruction. Question superimposed pneumonia versus URI as cause of worsening cough, did have vomiting which could've been posttussive vomiting, rule out intra-abdominal pathology. Labs notable for baseline pancytopenia consistent with his myelodysplastic syndrome Newly elevated LFTs and lipase, will need ultrasound workup Likely admission in light of new symptoms Heart Score/ECG Review #1 ECG reviewed & interpreted by me at: 14:40 General ECG Interpretation: Sinus Rhythm, Normal Rate (74), Normal Intervals ( qtc 455), No acute ischemic changes (t wave flattening AVL)
[2018-06-25 15:04] LABS: ANISOCYTOSIS 2+; MACROCYTOSIS 2+; PLATELET ESTIMATE NORMAL
[2018-06-25 17:49] LABS: MAGNESIUM 1.9 mg/dL (1.8-2.4); PHOSPHOROUS 3.2 mg/dL (2.5-4.9)
--- NOTE | 2018-06-25 19:13 | HP ---
Admitting History and Physical - Primary Care Physician PCP: Barbara Birmingham - Admission History of Present Illness: 73yo M with PMH of Myelodysplastic Syndrome, Myelofibrosis, COPD, CHF, Hernia presenting to ED with abdominal pain that started this AM for 1 hour and has since resolved. Pt states he gets on and off abdominal pain associated with nausea and occasional vomiting. He states it is due to the hernia. He is also complaining of cough productive of clear sputum. He had an episode of nbnb emesis yesterday after coughing. Last BM was today. Denies nausea, vomiting, abdominal pain, diarrhea, constipation, bloody stools, fevers, chills, sob, cough, congestion, urinary symptoms. - Past Medical History Cardiovascular: Yes: CHF Pulmonary: Yes: COPD Heme/Onc: Yes: Myeloproliferative Synd - Past Surgical History Past Surgical History: Yes: Joint Replacement - Smoking History Smoking history: Current every day smoker Have you smoked in the past 12 months: Yes Aproximately how many cigarettes per day: 15 - Alcohol/Substance Use Hx Alcohol Use: No Home Medications - Allergies Allergies/Adverse Reactions: Allergies Allergy/AdvReac Type Severity Reaction Status Date / Time No Known Allergies Allergy Verified 06/25/18 12:11 - Home Medications Home Medications: Ambulatory Orders Furosemide [Lasix -] 40 mg PO BID 07/21/15 Lisinopril 20 mg PO DAILY 07/21/15 Mirtazapine [Remeron -] 30 mg PO HS 07/21/15 Venlafaxine HCl ER [Effexor Xr -] 150 mg PO DAILY #30 cap.er.24h 11/16/16 Metoprolol Succinate [Toprol XL -] 25 mg PO DAILY 04/19/17 Albuterol Sulfate Inhaler - [Ventolin HFA Inhaler -] 1 - 2 inh PO Q4H #1 inhaler 04/27/17 Ruxolitinib Phosphate [Jakafi] 15 mg PO BID 01/04/18 Cephalexin Monohydrate [Keflex -] 500 mg PO BID #14 capsule 01/05/18 Physical Examination Vital Signs: Vital Signs Temperature 98.5 F 06/25/18 18:34 Pulse Rate 73 06/25/18 18:34 Respiratory Rate 18 06/25/18 18:34 Blood Pressure 145/68 06/25/18 18:34 O2 Sat by Pulse Oximetry (%) 96 06/25/18 18:34 Constitutional: Yes: No Distress HENT: Yes: Atraumatic Neck: Yes: Supple Cardiovascular: Yes: Regular Rate and Rhythm Respiratory: Yes: CTA Bilaterally Gastrointestinal: Yes: Normal Bowel Sounds Extremities: Yes: WNL Edema: No Peripheral Pulses WNL: Yes Neurological: Yes: Alert, Oriented Labs: CBC, BMP 06/25/18 13:33 06/25/18 13:33 Imaging - Results Ultrasound: Report Reviewed Problem List - Problems (1) Elevated troponin Assessment/Plan: fu troponins cardio consult echo tele monitoring Code(s): R74.8 - ABNORMAL LEVELS OF OTHER SERUM ENZYMES (2) Transaminitis Assessment/Plan: gi eval Code(s): R74.0 - NONSPEC ELEV OF LEVELS OF TRANSAMNS & LACTIC ACID DEHYDRGNSE (3) CKD (chronic kidney disease) stage 3, GFR 30-59 ml/min Code(s): N18.3 - CHRONIC KIDNEY DISEASE, STAGE 3 (MODERATE) (4) COPD (chronic obstructive pulmonary disease) Code(s): J44.9 - CHRONIC OBSTRUCTIVE PULMONARY DISEASE, UNSPECIFIED (5) Hypertension Assessment/Plan: continue home meds Code(s): I10 - ESSENTIAL (PRIMARY) HYPERTENSION Qualifiers: Hypertension type: unspecified Qualified Code(s): I10 - Essential (primary ) hypertension (6) Myelofibrosis Code(s): D75.81 - MYELOFIBROSIS Assessment/Plan Laboratory Tests 06/25/18 06/25/18 06/25/18 13:33 13:33 13:33 WBC 15.6 H RBC 1.85 L Hgb 7.4 L Hct 21.3 L MCV 115.4 H MCH 40.1 H MCHC 34.7 RDW 23.6 H Plt Count 197 D MPV 10.1 Absolute Neuts (auto) 12.6 H Neutrophils % 80.7 Neutrophils % (Manual) 44.9 D Band Neutrophils % 18.4 Lymphocytes % 6.5 L D Lymphocytes % (Manual) 9.2 Monocytes % 9.4 Monocytes % (Manual) 12 H D Eosinophils % 3.1 Eosinophils % (Manual) 2.0 Basophils % 0.3 Basophils % (Manual) 4.1 H Myelocytes % (Man) 8 H D Promyelocytes % (Man) 0 D Blast Cells % (Manual) 0 Nucleated RBC % 0 Metamyelocytes 1 D Hypochromia 0 Platelet Estimate Normal Polychromasia 1+ Poikilocytosis 0 Anisocytosis 2+ Microcytosis 0 Macrocytosis 2+ Sodium 131 L Potassium 4.5 Chloride 103 Carbon Dioxide 23 Anion Gap 5 L BUN 22 H Creatinine 1.4 H Creat Clearance w eGFR 49.68 Random Glucose 99 Lactic Acid 0.6 Calcium 8.4 L Phosphorus Magnesium Total Bilirubin 0.8 AST 135 H ALT 213 H Alkaline Phosphatase 147 H Troponin I Total Protein 7.9 Albumin 3.6 Lipase 06/25/18 06/25/18 13:33 16:13 WBC RBC Hgb Hct MCV MCH MCHC RDW Plt Count MPV Absolute Neuts (auto) Neutrophils % Neutrophils % (Manual) Band Neutrophils % Lymphocytes % Lymphocytes % (Manual) Monocytes % Monocytes % (Manual) Eosinophils % Eosinophils % (Manual) Basophils % Basophils % (Manual) Myelocytes % (Man) Promyelocytes % (Man) Blast Cells % (Manual) Nucleated RBC % Metamyelocytes Hypochromia Platelet Estimate Polychromasia Poikilocytosis Anisocytosis Microcytosis Macrocytosis Sodium Potassium Chloride Carbon Dioxide Anion Gap BUN Creatinine Creat Clearance w eGFR Random Glucose Lactic Acid Calcium Phosphorus 3.2 Magnesium 1.9 Total Bilirubin AST ALT Alkaline Phosphatase Troponin I 0.12 H 0.11 H Total Protein Albumin Lipase 820 H Active Medications Generic Name Dose Route Start Last Admin Trade Name Freq PRN Reason Stop Dose Admin Heparin Sodium (Porcine) 5,000 unit 06/25/18 22:00 Heparin - SQ BID [facility] Lisinopril 20 mg 06/26/18 10:00 Prinivil PO DAILY [facility] Metoprolol Succinate 25 mg 06/26/18 10:00 Toprol Xl - PO DAILY [facility] Mirtazapine 30 mg 06/25/18 22:00 Remeron - PO HS [facility] Non-Formulary Medication 15 mg 06/25/18 22:00 Ruxolitinib Phosphate [Jakafi] PO BID [facility] Venlafaxine HCl 150 mg 06/26/18 08:00 Effexor Xr - PO DAILY@0800 [facility]
[2018-06-25 20:15] VITALS: BMI 26.6
[2018-06-25] MEDS ORDERED: RUXOLITINIB PHOSPHATE 15 MG PO SCH (22:00)
[2018-06-25] MEDS ORDERED: HEPARIN NA (PORCINE) 5,000 UNITS/ML 1ML VIAL SQ SCH (22:00)
[2018-06-25] MEDS ORDERED: MIRTAZAPINE 15 MG TABLET (FP) PO SCH (22:00)
[2018-06-26] MEDS ORDERED: VENLAFAXINE HCL 75 MG E.R. CAPSULES (FP) PO SCH (08:00)
[2018-06-26 08:12] LABS: BASO % 1.9 % (0-2.0); EOS % 2.4 % (0-4.5); HEMATOCRIT 21.7 % (35.4-49); HEMOGLOBIN 7.5 GM/dL (11.7-16.9); LYMPH % 5.4 % (8-40); MCHC 34.5 g/dl (32.0-35.9); MEAN CELL VOLUME 116.2 fl (80-96); MEAN PLT VOLUME 10.2 fl (7.5-11.1); MONO % 7.4 % (3.8-10.2); NEUT % 82.9 % (42.8-82.8); PLATELET COUNT 187 K/MM3 (134-434); RBC 1.86 M/mm3 (4.00-5.60); RDW 23.1 % (11.9-15.9); WHITE BLOOD COUNT 15.8 K/mm3 (4.0-10.0)
[2018-06-26 08:38] LABS: ALBUMIN 3.4 g/dl (3.4-5.0); ALK PHOS 137 U/L (45-117); ANION GAP 7 MMOL/L (8-16); BILIRUBIN,TOTAL 0.6 mg/dL (0.2-1); BLOOD UREA NITROGEN 22 mg/dL (7-18); CHLORIDE 105 mmol/L (98-107); CO2 24 mmol/L (21-32); CREATININE 1.4 mg/dL (0.55-1.3); GLUCOSE,RANDOM 108 mg/dL (74-106); POTASSIUM 4.7 mmol/L (3.5-5.1); SGOT/AST 117 U/L (15-37); SGPT/ALT 184 U/L (13-61); SODIUM 136 mmol/L (136-145); TOT PROT 7.5 g/dl (6.4-8.2)
[2018-06-26 08:47] LABS: MCH 40.1 pg (25.7-33.7)
--- NOTE | 2018-06-26 09:22 | EKG ---
Test Reason : Blood Pressure : / mmHG Vent. Rate : 074 BPM Atrial Rate : 074 BPM P-R Int : 214 ms QRS Dur : 098 ms QT Int : 410 ms P-R-T Axes : 053 039 058 degrees QTc Int : 455 ms SINUS RHYTHM WITH 1ST DEGREE A-V BLOCK NONSPECIFIC ST AND T WAVE ABNORMALITY ABNORMAL ECG WHEN COMPARED WITH ECG OF 04-JAN-2018 11:56, T WAVE VARIATION Confirmed by LILLIANA LEON, MADISON ([id number]) on 06/26/2018 9:21:54 AM Referred By: Confirmed By:MADISON TIJERINA MD
[2018-06-26] MEDS ORDERED: PT OWN MED DRAWER 7, Y5N ONE (09:26)
--- NOTE | 2018-06-26 09:58 | CON.GI ---
Consult Consult Specialty:: gi consult dictated - Past Medical History Cardio/Vascular: Yes: CHF Pulmonary: Yes: COPD - Past Surgical History Past Surgical History: Yes: Joint Replacement - Alcohol/Substance Use Hx Alcohol Use: Yes - Smoking History Smoking history: Current every day smoker Have you smoked in the past 12 months: Yes Aproximately how many cigarettes per day: 15 Home Medications - Allergies Allergies/Adverse Reactions: Allergies Allergy/AdvReac Type Severity Reaction Status Date / Time No Known Allergies Allergy Verified 06/25/18 12:11 - Home Medications Home Medications: Ambulatory Orders Furosemide [Lasix -] 40 mg PO BID 07/21/15 Lisinopril 20 mg PO DAILY 07/21/15 Mirtazapine [Remeron -] 30 mg PO HS 07/21/15 Venlafaxine HCl ER [Effexor Xr -] 150 mg PO DAILY #30 cap.er.24h 11/16/16 Metoprolol Succinate [Toprol XL -] 25 mg PO DAILY 04/19/17 Albuterol Sulfate Inhaler - [Ventolin HFA Inhaler -] 1 - 2 inh PO Q4H #1 inhaler 04/27/17 Ruxolitinib Phosphate [Jakafi] 15 mg PO BID 01/04/18 Cephalexin Monohydrate [Keflex -] 500 mg PO BID #14 capsule 01/05/18 Physical Exam-GI Vital Signs: Vital Signs Temperature 97.9 F 06/26/18 05:00 Pulse Rate 79 06/26/18 05:00 Respiratory Rate 20 06/26/18 05:00 Blood Pressure 137/52 L 06/26/18 05:00 O2 Sat by Pulse Oximetry (%) 96 06/26/18 03:42 Labs: CBC, BMP 06/26/18 07:10 06/26/18 07:10
[2018-06-26] MEDS ORDERED: metoPROLOL SUCCINATE 25 MG TAB.SR.24H (FP) PO SCH (10:00)
[2018-06-26] MEDS ORDERED: LISINOPRIL 20 MG TABLET (FP) PO SCH (10:00)
--- NOTE | 2018-06-26 11:10 | CON.CARD ---
Consult Consult Specialty:: Cardiology Referred by:: Dr. Birmingham Reason for Consultation:: Cardiac evaluation - History of Present Illness Chief Complaint: Abnormal LFT History of Present Illness: Patient is a 73 year old male with underlying history of Myelodysplastic syndrome, Myelofibrosis, COPD, CHF and ventral hernia who presents with abdominal pain and abnormal LFT. Troponin was elevated to 0.12 and Cardiology consultation was called. He denies chest pain, SOB or palpitations. He denies paroxysmal nocturnal dyspnea or orthopnea. He denies fever or chills. He denies nausea, vomiting, diarrhea or abdominal pain at this time, but has history of nausea and vomiting intermittently. He denies headache or lightheadedness. - History Source History Provided By: Patient, Medical Record Limitations to Obtaining History: No Limitations - Past Medical History Cardio/Vascular: Yes: CHF Pulmonary: Yes: COPD - Past Surgical History Past Surgical History: Yes: Joint Replacement - Alcohol/Substance Use Hx Alcohol Use: Yes - Smoking History Smoking history: Current every day smoker Have you smoked in the past 12 months: Yes Aproximately how many cigarettes per day: 15 Home Medications - Allergies Allergies/Adverse Reactions: Allergies Allergy/AdvReac Type Severity Reaction Status Date / Time No Known Allergies Allergy Verified 06/25/18 12:11 - Home Medications Home Medications: Ambulatory Orders Furosemide [Lasix -] 40 mg PO BID 07/21/15 Lisinopril 20 mg PO DAILY 07/21/15 Mirtazapine [Remeron -] 30 mg PO HS 07/21/15 Venlafaxine HCl ER [Effexor Xr -] 150 mg PO DAILY #30 cap.er.24h 11/16/16 Metoprolol Succinate [Toprol XL -] 25 mg PO DAILY 04/19/17 Albuterol Sulfate Inhaler - [Ventolin HFA Inhaler -] 1 - 2 inh PO Q4H #1 inhaler 04/27/17 Ruxolitinib Phosphate [Jakafi] 15 mg PO BID 01/04/18 Cephalexin Monohydrate [Keflex -] 500 mg PO BID #14 capsule 01/05/18 Vital Signs: Vital Signs Temperature 97.9 F 06/26/18 05:00 Pulse Rate 79 06/26/18 05:00 Respiratory Rate 20 06/26/18 05:00 Blood Pressure 137/52 L 06/26/18 05:00 O2 Sat by Pulse Oximetry (%) 96 06/26/18 03:42 - Other Data Labs, Other Data: CBC, BMP 06/26/18 07:10 06/26/18 07:10 Troponin, BNP 06/25/18 06/25/18 06/25/18 13:33 16:13 20:25 Troponin I 0.12 H 0.11 H 0.12 H Troponin, BNP 06/25/18 06/25/18 06/25/18 13:33 16:13 20:25 Troponin I 0.12 H 0.11 H 0.12 H Imaging - Results Chest X-ray: Report Reviewed (Unremarkable) Ultrasound: Report Reviewed (Abdominal US) EKG: Report Reviewed Problem List - Problems (1) Elevated troponin Code(s): R74.8 - ABNORMAL LEVELS OF OTHER SERUM ENZYMES (2) CKD (chronic kidney disease) stage 3, GFR 30-59 ml/min Code(s): N18.3 - CHRONIC KIDNEY DISEASE, STAGE 3 (MODERATE) (3) COPD (chronic obstructive pulmonary disease) Code(s): J44.9 - CHRONIC OBSTRUCTIVE PULMONARY DISEASE, UNSPECIFIED (4) Chronic diastolic heart failure Code(s): I50.32 - CHRONIC DIASTOLIC (CONGESTIVE) HEART FAILURE (5) Hypertension Code(s): I10 - ESSENTIAL (PRIMARY) HYPERTENSION Qualifiers: Hypertension type: unspecified Qualified Code(s): I10 - Essential (primary ) hypertension (6) Myelofibrosis Code(s): D75.81 - MYELOFIBROSIS Assessment/Plan 1. Demand ischemia with elevated troponin 2. Myelodysplastic syndrome 3. Abnormal LFT 4. Ventral hernia 5. COPD PLAN: 1. Trend troponin 2. Continue Toprol XL and Prinivil 3. Echocardiography to assess LV/RV and valvular function 4. GI input to follow Further plans are to follow Sundar Chen MD
[2018-06-26 11:43] LABS: ANISOCYTOSIS 1+; MACROCYTOSIS 1+; OVALOCYTE 1+; PLATELET ESTIMATE NORMAL; TOXIC GRANULATION 1+
--- NOTE | 2018-06-26 16:28 | PN ---
Progress Note, Physician - Current Medication List Current Medications: Active Medications Lisinopril (Prinivil) 20 mg PO DAILY [facility] Last Admin: 06/26/18 10:24 Dose: 20 mg Metoprolol Succinate (Toprol Xl -) 25 mg PO DAILY [facility] Last Admin: 06/26/18 10:23 Dose: 25 mg Mirtazapine (Remeron -) 30 mg PO HS [facility] Last Admin: 06/25/18 21:39 Dose: 30 mg Non-Formulary Medication (Ruxolitinib Phosphate [Jakafi]) 15 mg PO BID [facility] Venlafaxine HCl (Effexor Xr -) 150 mg PO DAILY@0800 [facility] Last Admin: 06/26/18 10:24 Dose: 150 mg - Objective Vital Signs: Vital Signs Temperature 97.9 F 06/26/18 14:00 Pulse Rate 76 06/26/18 14:00 Respiratory Rate 20 06/26/18 14:00 Blood Pressure 133/70 06/26/18 14:00 O2 Sat by Pulse Oximetry (%) 96 06/26/18 03:42 Labs: CBC, BMP 06/26/18 07:10 06/26/18 07:10 Problem List - Problems (1) Elevated troponin Code(s): R74.8 - ABNORMAL LEVELS OF OTHER SERUM ENZYMES (2) Transaminitis Code(s): R74.0 - NONSPEC ELEV OF LEVELS OF TRANSAMNS & LACTIC ACID DEHYDRGNSE (3) CKD (chronic kidney disease) stage 3, GFR 30-59 ml/min Code(s): N18.3 - CHRONIC KIDNEY DISEASE, STAGE 3 (MODERATE) (4) COPD (chronic obstructive pulmonary disease) Code(s): J44.9 - CHRONIC OBSTRUCTIVE PULMONARY DISEASE, UNSPECIFIED (5) Hypertension Code(s): I10 - ESSENTIAL (PRIMARY) HYPERTENSION Qualifiers: Hypertension type: unspecified Qualified Code(s): I10 - Essential (primary ) hypertension (6) Myelofibrosis Code(s): D75.81 - MYELOFIBROSIS
--- NOTE | 2018-06-26 16:47 | ECHO ---
Name: COMFORT VALDOVINOS Exam:Adult Echocardiogram Study Date: 06/26/2018 03:20 PM Age: 73 yrs Reason For Study: DEMAND ISCHEMIA Height: 74 in Weight: 206 lb BSA: 2.2 m2 MMode/2D Measurements & Calculations IVSd: 0.74 cm Ao root diam: 2.6 cm LVIDd: 5.4 cm LA dimension: 4.2 cm LVIDs: 3.6 cm LVPWd: 0.97 cm EDV(Teich): 143.2 ml LVOT diam: 2.2 cm ESV(Teich): 54.5 ml TAPSE: 3.2 cm Doppler Measurements & Calculations MV E max gunnar: 110.1 cm/sec Ao V2 max: 253.8 cm/sec MV A max gunnar: 76.5 cm/sec Ao max P.8 mmHg MV E/A: 1.4 Ao V2 mean: 148.9 cm/sec MV dec time: 0.22 sec Ao mean P.1 mmHg Ao V2 VTI: 45.6 cm DONAVAN(I,D): 1.5 cm2 DONAVAN(V,D): 1.3 cm2 LV V1 max P.0 mmHg MR max gunnar: 465.3 cm/sec LV V1 mean P.5 mmHg MR max P.2 mmHg LV V1 max: 86.6 cm/sec LV V1 mean: 56.8 cm/sec LV V1 VTI: 18.8 cm SV(LVOT): 69.5 ml TR max gunnar: 247.0 cm/sec TR max P.4 mmHg Med Peak E' Gunnar: 8.4 cm/sec Med E/e': 13.1 Lat Peak E' Gunnar: 6.5 cm/sec Lat E/e': 16.9 Left Ventricle The left ventricular size, thickness and function are normal. Ejection Fraction = 65%. E/A reversal c onsistent with but not diagnostic of poor LV compliance. Right Ventricle The right ventricle is normal in size and function. Atria The left atrium is mildly dilated. Right atrial size is normal. Mitral Valve There is mild to moderate mitral annular calcification. There is mild to moderate mitral regurgitatio n. Tricuspid Valve The tricuspid valve is not well visualized, but is grossly normal. There was insufficient TR detected to calculate RV systolic pressure. Aortic Valve There is moderate aortic sclerosis.;. Mild valvular aortic stenosis. The calculated aortic valve area using the continuity equation is 1.5 cm2. Aortic max pressure gradient= 25.8. Aortic mean pressure gradient = 15.1. No aortic regurgitation is present. Pulmonic Valve The pulmonic valve is not well visualized. Great Vessels The aortic root is normal size. Pericardium/Pleura There is no pericardial effusion. Interpretation Summary The left ventricular size, thickness and function are normal. Ejection Fraction = 65%. The right ventricle is normal in size and function. The left atrium is mildly dilated. Right atrial size is normal. There is moderate aortic sclerosis.; Mild valvular aortic stenosis. The calculated aortic valve area using the continuity equation is 1.5 cm2. Aortic max pressure gradie nt= 25.8. Aortic mean pressure gradient= 15.1 There is mild to moderate mitral annular calcification. There is mild to moderate mitral regurgitatio n. MD Krystle Solomon 06/26/2018 04:46 PM
--- NOTE | 2018-06-26 17:43 | CONS ---
DATE OF CONSULTATION: DATE OF DICTATION: 06/26/2018 GASTROENTEROLOGY CONSULTATION Patient is a 73-year-old male past medical history of myelodysplastic syndrome, myelofibrosis, COPD, CHF, hernia, who had presented to the emergency room with epigastric abdominal pain which began at approximately a couple of hours prior to his admission. He states that he has been experiencing this type of discomfort over the past couple of weeks intermittently. He does not state that it is secondary to movement or worsened by p.o. intake. He denies any nausea, vomiting, diarrhea, constipation, melena, hematochezia, or weight loss. He has never had an endoscopic evaluation. PAST MEDICAL AND SURGICAL HISTORY: As listed in the HPI. ALLERGIES: No known drug allergies. SOCIAL HISTORY: Smokes every day. No alcohol abuse. HOME MEDICATIONS: Lasix, lisinopril, Remeron, Effexor, metoprolol, albuterol, Jakafi, and Keflex. PHYSICAL EXAMINATION: Vital Signs: Temperature 97, pulse 76, blood pressure 133/70, pulse oximetry 96% on room air, respiratory rate 12. General: No acute distress. HEENT: Anicteric sclerae. Cardiovascular: S1, S2. Regular rate and rhythm. Lungs: Bilaterally clear to auscultation. Abdomen: Soft and nontender. Extremities: No edema. LABORATORY: White blood cell count 15.8, hemoglobin 7.5/hematocrit 21, MCV 116, platelet count 187. Sodium 136, potassium 4.7. BUN 22/creatinine 1.4. Glucose 108. AST 117, ALT 184, alkaline phosphatase 137, CK 424. These numbers are down from admission. He also has positive troponins at 0.12. Lipase is 820. He had an ultrasound which revealed hepatic steatosis with mild hepatomegaly, moderate gallbladder contraction limits evaluation for small calculi, no obvious gallbladder calculi identified. There is no definitive biliary ductal dilatation, and the pancreas is not visualized well. IMPRESSION: Epigastric abdominal pain with associated transaminitis included in the differential diagnosis is biliary etiology versus a primary gastric etiology, also with underlying myelodysplastic syndrome. RECOMMENDATIONS: Diet as tolerated. Would recommend an MRCP to further evaluate the biliary tree. He will need a diagnostic upper endoscopy and colonoscopy for further evaluation. However, he has refused endoscopic procedures during my interview with him. Also, start him on PPI therapy for symptomatic relief. This patient will be followed by the GI service. DO ISABEL LUQUE/[id number]
[2018-06-26 17:59] VITALS: BP 141/73; PULSE 73; TEMP 98.3
--- NOTE | 2018-06-26 18:13 | DS ---
Physical Examination Vital Signs: Vital Signs Temperature 98.3 F 06/26/18 17:00 Pulse Rate 73 06/26/18 17:00 Respiratory Rate 20 06/26/18 17:00 Blood Pressure 141/73 06/26/18 17:00 O2 Sat by Pulse Oximetry (%) 96 06/26/18 03:42 Constitutional: Yes: No Distress HENT: Yes: Atraumatic Neck: Yes: Supple Cardiovascular: Yes: Regular Rate and Rhythm Respiratory: Yes: CTA Bilaterally Gastrointestinal: Yes: Normal Bowel Sounds Extremities: Yes: WNL Edema: No Peripheral Pulses WNL: Yes Neurological: Yes: Alert, Oriented Labs: CBC, BMP 06/26/18 07:10 06/26/18 07:10 Discharge Summary Reason For Visit: ELEVATED TRANSAMINASE MEASUREMENT,ELEVATED TROPONI Current Active Problems Elevated troponin (Acute) Transaminitis (Acute) - Instructions Referrals: Sundar Chen MD [Staff Physician] - Justine Steward DO [Staff Physician] - - Home Medications Comprehensive Discharge Medication List: Ambulatory Orders Furosemide [Lasix -] 40 mg PO BID 07/21/15 Lisinopril 20 mg PO DAILY 07/21/15 Mirtazapine [Remeron -] 30 mg PO HS 07/21/15 Venlafaxine HCl ER [Effexor Xr -] 150 mg PO DAILY #30 cap.er.24h 11/16/16 Metoprolol Succinate [Toprol XL -] 25 mg PO DAILY 04/19/17 Albuterol Sulfate Inhaler - [Ventolin HFA Inhaler -] 1 - 2 inh PO Q4H #1 inhaler 04/27/17 Ruxolitinib Phosphate [Jakafi] 15 mg PO BID 01/04/18 Cephalexin Monohydrate [Keflex -] 500 mg PO BID #14 capsule 01/05/18 dc home if cleared by cardiology
== END 2018-06-26 21:30 | disposition home or self-care (01) ==
LOC: JER 11:52 → JERBED 16:09 → INTOOBSV 16:09 → J4W 18:57
PROVIDERS: ADMIT Internal Medicine; ATTEND Internal Medicine
PROC: 3E033NZ Introduction of Analgesics, Hypnotics, Sedatives into Peripheral Vein, Percutaneous Approach (ICD-10-PCS; principal; 2018-06-25)
PROC: 3E033GC Introduction of Other Therapeutic Substance into Peripheral Vein, Percutaneous Approach (ICD-10-PCS; 2018-06-25)
DX: R77.8 Other specified abnormalities of plasma proteins (principal); R74.0 Nonspecific elevation of levels of transaminase and lactic acid dehydrogenase [LDH]; I12.9 Hypertensive chronic kidney disease with stage 1 through stage 4 chronic kidney disease, or unspecified chronic kidney disease; N18.3 Chronic kidney disease, stage 3 (moderate); I11.0 Hypertensive heart disease with heart failure; I50.9 Heart failure, unspecified; J44.9 Chronic obstructive pulmonary disease, unspecified; D75.81 Myelofibrosis; D64.9 Anemia, unspecified; D46.9 Myelodysplastic syndrome, unspecified; F17.210 Nicotine dependence, cigarettes, uncomplicated; K70.30 Alcoholic cirrhosis of liver without ascites
CPT/HCPCS: 36415; 71046-TC-FY; 76705-TC; 80053; 82272; 82550; 82553; 83605; 83690; 83735; 84100; 84484; 85025; 93005; 93010; 93306-TC; 96365; 96375; 99283-25; G0378; J0131; J1644

== ENCOUNTER 2018-07-16 19:33 | Emergency (ER) | payer OTHER ==
[2018-07-16 19:41] VITALS: BP 130/57; PULSE 78; TEMP 98.4; BMI 27.1
--- NOTE | 2018-07-16 19:41 | PDOC ---
Rapid Medical Evaluation Time Seen by Provider: 07/16/18 19:39 Medical Evaluation: Allergies Allergy/AdvReac Type Severity Reaction Status Date / Time No Known Allergies Allergy Verified 06/25/18 12:11 07/16/18 19:39 I have performed a brief in-person evaluation of this patient. The patient presents with a chief complaint of: Left upper back pain Pertinent physical exam findings: coarse crackles bibasally I have ordered the following: labs, urine, cxr The patient will proceed to the ED for further evaluation. Discharge Disposition - Diagnosis Upper back pain on left side - Referrals - Patient Instructions - Post Discharge Activity
[2018-07-16 20:39] LABS: BASO % 0.6 % (0-2.0); EOS % 2.6 % (0-4.5); HEMATOCRIT 21.7 % (35.4-49); HEMOGLOBIN 7.5 GM/dL (11.7-16.9); LYMPH % 4.3 % (8-40); MCHC 34.7 g/dl (32.0-35.9); MEAN CELL VOLUME 115.6 fl (80-96); MEAN PLT VOLUME 9.8 fl (7.5-11.1); MONO % 7.4 % (3.8-10.2); NEUT % 85.1 % (42.8-82.8); PLATELET COUNT 152 K/MM3 (134-434); RBC 1.88 M/mm3 (4.00-5.60); RDW 23.7 % (11.9-15.9); WHITE BLOOD COUNT 15.2 K/mm3 (4.0-10.0)
[2018-07-16 20:44] LABS: MCH 40.2 pg (25.7-33.7)
--- NOTE | 2018-07-16 21:21 | PDOC ---
History of Present Illness - General Chief Complaint: Shortness of Breath Stated Complaint: BAD BACK PAIN Time Seen by Provider: 07/16/18 19:39 History Source: Patient, Family Exam Limitations: No Limitations - History of Present Illness Initial Comments: 07/16/18 21:19 73 y/o male with PMH of myelofibrosis, HTN, HLD, COPD, paroxysmal afib presents to the ED with complaints of left rib pain. Patient states that he was sleeping last night when he turned the wrong direction and developed a sudden sharp pain in his left side/ribs. He denies any falls or trauma to the area. He states the pain is a 12/10 sharp and constant in nature. It hurts when he takes a deep breath in and it hurts to lay all the way down. He feels better sitting up- he has tried taking tylenol with little relief. He denies any urinary complaints and is not constipated- his last bowel movement was yesterday which was normal He denies any fevers, recent travel or any sick contacts at home. This has happened to him once before in the past. 07/16/18 21:21 07/16/18 21:31 Timing/Duration: constant Severity: severe Modifying Factors: improves with: immobilization Associated Symptoms: reports: cough. denies: chest pain, fever/chills Past History - Travel Traveled outside of the country in the last 30 days: No Close contact w/someone who was outside of country & ill: No - Past Medical History Allergies/Adverse Reactions: Allergies Allergy/AdvReac Type Severity Reaction Status Date / Time No Known Allergies Allergy Verified 07/16/18 19:41 Home Medications: Ambulatory Orders Furosemide [Lasix -] 40 mg PO BID 07/21/15 Lisinopril 20 mg PO DAILY 07/21/15 Mirtazapine [Remeron -] 30 mg PO HS 07/21/15 Venlafaxine HCl ER [Effexor Xr -] 150 mg PO DAILY #30 cap.er.24h 11/16/16 Metoprolol Succinate [Toprol XL -] 25 mg PO DAILY 04/19/17 Albuterol Sulfate Inhaler - [Ventolin HFA Inhaler -] 1 - 2 inh PO Q4H #1 inhaler 04/27/17 Ruxolitinib Phosphate [Jakafi] 15 mg PO BID 10/04/18 Cephalexin Monohydrate [Keflex -] 500 mg PO BID #14 capsule 01/05/18 Cyclobenzaprine HCl [Flexeril 10 mg] 10 mg PO BID PRN #14 tablet 07/16/18 Anemia: Yes Asthma: No Cancer: Yes (MYELOFIBROSIS) Cardiac Disorders: Yes CVA: No COPD: Yes CHF: Yes DVT: No Dementia: No Diabetes: No (PT DENIES) GI Disorders: Yes (CIRRHOSIS) Disorders: No HTN: Yes Hypercholesterolemia: Yes Liver Disease: Yes (ALCOHOLIC CIRRHOSIS) Seizures: No Thyroid Disease: No - Surgical History Orthopedic Surgery: No - Family Disease History Family Disease History: Diabetes: Father, Heart Disease: Mother - Immunization History Immunization Up to Date: Yes - Suicide/Smoking/Psychosocial Hx Smoking History: Current every day smoker Have you smoked in the past 12 months: Yes Number of Cigarettes Smoked Daily: 15 Information on smoking cessation initiated: Yes 'Breaking Loose' booklet given: 06/25/18 Hx Alcohol Use: Yes Drug/Substance Use Hx: No Substance Use Type: Alcohol Hx Substance Use Treatment: No Review of Systems - Review of Systems Able to Perform ROS?: Yes Is the patient limited Solomon Islander proficient: No Constitutional: No: Fever Respiratory: Yes: Cough, Productive cough Cardiac (ROS): No: Chest Pain, Palpitations ABD/GI: No: Constipated : No: Dysuria, Frequency, Flank Pain Musculoskeletal: Yes: Back Pain (03/12 ) Neurological: No: Headache, Numbness *Physical Exam - Vital Signs Last Vital Signs Temp Pulse Resp BP Pulse Ox 98.4 F 78 22 H 130/57 L 96 07/16/18 19:38 07/16/18 19:38 07/16/18 19:38 07/16/18 19:38 07/16/18 19:38 - Physical Exam General Appearance: Yes: Moderate Distress Neck: positive: Normal Thyroid Respiratory/Chest: positive: Wheezing (B/L at the bases ), Other (coarse breath sounds B/L) Cardiovascular: positive: Regular Rhythm, Regular Rate, S1, S2, Edema (trace B/ L LE edema) Gastrointestinal/Abdominal: positive: Normal Bowel Sounds, Protuberent, Hernia. negative: Tenderness Musculoskeletal: positive: Muscle Spasm (left sided pain tenderness/spasm). negative: CVA Tenderness Neurologic: positive: Fully Oriented, Alert ED Treatment Course - LABORATORY CBC & Chemistry Diagram: 07/16/18 20:19 07/16/18 20:19 - ADDITIONAL ORDERS Additional order review: 07/16/18 20:19 RBC 1.88 L MCV 115.6 H MCHC 34.7 RDW 23.7 H MPV 9.8 Neutrophils % 85.1 H Lymphocytes % 4.3 L D Monocytes % 7.4 Eosinophils % 2.6 Basophils % 0.6 Medical Decision Making - Medical Decision Making 07/16/18 21:39 tramadol awaiting final CXR read *DC/Admit/Observation/Transfer Diagnosis at time of Disposition: Upper back pain on left side, Cough - Discharge Dispostion Disposition: HOME Condition at time of disposition: Stable - Prescriptions Prescriptions: Cyclobenzaprine HCl [Flexeril 10 mg] 10 mg PO BID PRN #14 tablet PRN Reason: Back Pain - Referrals Referrals: Jam Navarrete MD [Primary Care Provider] - - Patient Instructions Printed Discharge Instructions: DI for Low Back Pain Additional Instructions: pleas take the medication flexeril 10mg up to two times a day for one week- you can also put a heating pad on the affected area if you begin to have worsening shortness of breath, chest pain, nausea/vomiting , fevers please return to the emergency room immediately follow up with your primary care physician within one week - Post Discharge Activity
[2018-07-16 21:27] LABS: ALBUMIN 3.8 g/dl (3.4-5.0); ALK PHOS 130 U/L (45-117); ANION GAP 7 MMOL/L (8-16); BILIRUBIN,TOTAL 0.7 mg/dL (0.2-1); BLOOD UREA NITROGEN 19 mg/dL (7-18); CALCIUM 8.2 mg/dL (8.5-10.1); CHLORIDE 99 mmol/L (98-107); CO2 25 mmol/L (21-32); CREATININE 1.8 mg/dL (0.55-1.3); GLUCOSE,RANDOM 96 mg/dL (74-106); POTASSIUM 4.7 mmol/L (3.5-5.1); SGOT/AST 104 U/L (15-37); SGPT/ALT 131 U/L (13-61); SODIUM 130 mmol/L (136-145); TOT PROT 8.1 g/dl (6.4-8.2)
[2018-07-16] MEDS ORDERED: traMADol HCL 50 MG TABLET PO ONE (21:34)
[2018-07-16] MEDS ORDERED: traMADol HCL 50 MG TABLET ONE (21:43)
[2018-07-16] MEDS ORDERED: CYCLOBENZAPRINE HCL 10 MG TABLET (FP) PO ONE (21:45)
[2018-07-16 21:49] LABS: ANISOCYTOSIS 2+
[2018-07-16 21:50] LABS: PLATELET ESTIMATE ADEQUATE
--- NOTE | 2018-07-16 21:53 | PDOC ---
Documentation entered by Lacey Gonsalez SCRIBE, acting as scribe for Michael Hammonds MD. Attending Attestation - Resident Resident Name: Yadi Domingo - ED Attending Attestation I have performed the following: I have examined & evaluated the patient, The case was reviewed & discussed with the resident, I agree w/resident's findings & plan - HPI HPI: 07/16/18 21:28 The patient is a PMH of myelofibrosis, HTN, HLD, COPD, paroxysmal afib who presents to the ED with left rib pain since last night. He states this left rib pain began shortly after twisting while lying in bed. The patient reports the left rib pain is exacerbated with coughing, deep breathing, moving or sitting up. He took Tylenol with minimal relief. Patient denies any trauma to the area or recent falls. Denies recent travel or sick contact. Patient admits to chronic cough secondary to his COPD that is unchanged without increased sputum production. Patient also endorses chronic bilateral leg tingling and mild leg swelling that is unchanged. Denies any numbness/weakness, cp, fever, chills, N/V/D/C, or urinary symptoms. Allergies: NKDA Social: Everyday smoker. Denies drug or alcohol use. Surgeries: None reported. - Physicial Exam PE: 07/16/18 21:45 General: no acute distress PULM: CTA b/l CARD: rrr, no mrg abd: distended, nontender, no cva tenderness, nor ebound/guarding MSK: point ttp to the L mid thoracic along midaxillary line - no rashes noted or crepitus appreciated, pain worsened with rotation against resistance - Medical Decision Making 07/16/18 21:47 atrauamtic L rib pain after turning in bed that is exactly reproducible on palpation suspect muscle strain no signs of fx on cxr labs reviewed - at baseline no respiratory complaints (although was mentioned in triage) supportive care, flexeril, pmd fu Michael Hammonds MD: This documentation has been prepared by the Wallace braga Daisy, SCRIBE, under my direction and personally reviewed by me in its entirety. I confirm that the documentation accurately reflects all work, treatment, procedures, and medical decision making performed by me.
[2018-07-16] MEDS ORDERED: CYCLOBENZAPRINE HCL 10 MG TABLET (FP) ONE (22:08)
[2018-07-16] MEDS ORDERED: ACETAMINOPHEN 325 MG TABLET (FP) PO ONE (22:29)
[2018-07-16] MEDS ORDERED: ACETAMINOPHEN 325 MG TABLET (FP) ONE (22:57)
== END 2018-07-16 23:36 | disposition home or self-care (01) ==
LOC: JER 19:33
DX: M54.89 Other dorsalgia (principal); I11.0 Hypertensive heart disease with heart failure; I50.9 Heart failure, unspecified; E78.00 Pure hypercholesterolemia, unspecified; K70.30 Alcoholic cirrhosis of liver without ascites; D86.2 Sarcoidosis of lung with sarcoidosis of lymph nodes
CPT/HCPCS: 36415; 71046-TC-FY; 80053; 85025; 87040; 99282-25

== ENCOUNTER 2019-01-15 12:19 | Emergency (ER) | payer OTHER ==
[2019-01-15 12:43] VITALS: BP 115/62; PULSE 80; TEMP 99.7; BMI 27.9
--- NOTE | 2019-01-15 14:48 | PDOC ---
History of Present Illness - General Chief Complaint: Pain Stated Complaint: ABD. PAIN/ COUGH Time Seen by Provider: 01/15/19 14:10 History Source: Patient Exam Limitations: No Limitations - History of Present Illness Initial Comments: 01/17/19 19:31 HPI: 73M PMH CHF, HTN, COPD, anemia s/p myelofibrosis c/o LUQ abdominal pain in the setting of 1 week of b/l leg swelling w/ erythema, productive cough, and MCELROY. Pt states cough worsened in the past few days. Also states he took 2 lasix a day for 3 days before being advised to resume his normal dose by PCP. Describes LUQ abd pain as constant pleuritic and worse w/ cough. Denies f/c, n/v/d, po intolerance, cp/palpitations. States he is gassy. Regular BMs, no sick contacts , no recent abx. PMH: as above MEDs: see chart NKDA Denies etoh and drugs Endorses smoking 1 PPD Past History - Past Medical History Allergies/Adverse Reactions: Allergies Allergy/AdvReac Type Severity Reaction Status Date / Time No Known Allergies Allergy Verified 01/15/19 12:43 Home Medications: Ambulatory Orders Furosemide [Lasix -] 40 mg PO BID 07/21/15 Lisinopril 20 mg PO DAILY 07/21/15 Mirtazapine [Remeron -] 30 mg PO HS 07/21/15 Venlafaxine HCl ER [Effexor Xr -] 150 mg PO DAILY #30 cap.er.24h 11/16/16 Metoprolol Succinate [Toprol XL -] 25 mg PO DAILY 04/19/17 Albuterol Sulfate Inhaler - [Ventolin HFA Inhaler -] 1 - 2 inh PO Q4H #1 inhaler 04/27/17 Ruxolitinib Phosphate [Jakafi] 15 mg PO BID 01/04/18 Cephalexin Monohydrate [Keflex -] 500 mg PO BID #14 capsule 01/05/18 Cyclobenzaprine HCl [Flexeril 10 mg] 10 mg PO BID PRN #14 tablet 07/16/18 Anemia: Yes Asthma: No Cancer: Yes (MYELOFIBROSIS) Cardiac Disorders: Yes CVA: No COPD: Yes CHF: Yes DVT: No Dementia: No Diabetes: No (PT DENIES) GI Disorders: Yes (CIRRHOSIS) Disorders: No HTN: Yes Hypercholesterolemia: Yes Liver Disease: Yes (ALCOHOLIC CIRRHOSIS) Seizures: No Thyroid Disease: No - Surgical History Orthopedic Surgery: No - Immunization History Immunization Up to Date: Yes - Psycho Social/Smoking Cessation Hx Smoking History: Current every day smoker Have you smoked in the past 12 months: Yes Number of Cigarettes Smoked Daily: 20 Information on smoking cessation initiated: No 'Breaking Loose' booklet given: 06/25/18 Hx Alcohol Use: Yes Drug/Substance Use Hx: No Substance Use Type: Alcohol Hx Substance Use Treatment: No Review of Systems - Review of Systems Able to Perform ROS?: Yes Comments:: 01/17/19 19:31 ROS: CONSTITUTIONAL: Denies F / C HEENT: Denies headache RESP: Endorses MCELROY/SOB (none at rest), cough. CARD: Denies chest pain, palpitations GI: Endorses increased flatus, LUQ pain. Denies N / V / D, bloody stool, inability to tolerate PO : Endorses dysuria. Denies hematuria, frequency Is the patient limited Gambian proficient: No *Physical Exam - Vital Signs Last Vital Signs Temp Pulse Resp BP Pulse Ox 99.7 F H 80 18 115/62 95 01/15/19 12:39 01/15/19 12:39 01/15/19 12:39 01/15/19 12:39 01/15/19 12:39 - Physical Exam Comments: 01/17/19 19:32 PE: GEN: NAD. AAOx3 HEENT: NC/AT. No facial asymmetry. Moist mucous membranes. Normal voice. Supple neck w/ FROM. CV: S1/S2, RRR, no m/r/g. No cyanosis. LUNG: Normal respiratory effort on RA. CTAB, no wheezes, crackles, rales, rhonchi. GI: + splenomegaly (pt states this is chronic), moderately distended but soft, nt, +BS, no guarding, no rebound. EXTREMITIES: 2+ pitting edema up to mid-stahl b/l. There is erythema of the lateral aspect of the upper left foot. Nontender. No obvious deformities of the extremities. SKIN: warm, dry, normal turgor PSYCH: normal mood and affect NEURO: Moving all extremities well, ambulating well. ED Treatment Course - LABORATORY CBC & Chemistry Diagram: 01/15/19 14:47 01/15/19 14:47 - RADIOLOGY Radiology Studies Ordered: Category Date Time Status CHEST X-RAY PORTABLE* [RAD] Stat Radiology 01/15/19 14:29 Ordered Medical Decision Making - Medical Decision Making 01/15/19 14:59 73M w/ LUQ abdominal pain, b/l LE edema w/ erythema of L foot, productive cough , and MCELROY. LUQ pain, edema, cough, and MCELROY DDx - possible abdominal process, CHF exacerbation, PNA, cellulitis - CBC, CMP, BNP, Card, Lipase, Amylase - CXR - EKG - UA, UC - ABD US 01/15/19 16:04 CXR report - no acute pulmonary disease, see report for full details Labs reviewed Leukocytosis to 21 Anemia, H/H at baseline Hyponatremia to 132, prior results show Na 130 BUN/Cr elevated Transaminitis, grossly unchanged from prior result BNP elevated to 1550s UA neg Awaiting CT A/P 01/15/19 18:45 CT report: IMPRESSION: Marked splenomegaly is noted as on a previous CT study of 10/23/2014. No obvious interval change is seen in this regard. Development of retroperitoneal and joey hepatis lymphadenopathy is noted. Interval development of minimal to mild periportal edema is seen as well as mild diffuse gallbladder wall edema. Development of a small amount of free fluid is noted within the rectovesical space. Interval development of mild soft tissue edema is noted along the right posterior pararenal fascia. There is partial imaging of cardiomegaly. Development of moderate to marked left renal atrophy is seen. An inferior vena cava filter is again noted in place. Small stable urinary bladder diverticulum. Sigmoid diverticulosis. Patient wishes to go home. Discussed patient w/ Dr. Nieves (Heme-onc) states CT findings and lab work about baseline and reassuring, he is comfortable w/ patient going home and f/u outpatient. 01/15/19 18:48 Patient d/c home w/ heme-onc f/u. Pt referred to resident clinic. Given return precautions. Discharge - Discharge Information Problems reviewed: Yes Clinical Impression/Diagnosis: Abdominal pain Qualifiers: Abdominal location: left upper quadrant Qualified Code(s): R10.12 - Left upper quadrant pain Condition: Stable Disposition: HOME - Admission No - Follow up/Referral - Patient Discharge Instructions Patient Printed Discharge Instructions: DI for Abdominal Pain-Adult Additional Instructions: You were seen and treated in the Emergency Department. Continue to take your home medications as prescribed. Please follow up with your Reducing System Operator Dr. Nieves in the next 3-5 days regarding this ED visit. We have referred you to the [facility] at the [facility], you may receive your Primary Care here. You should expect to receive a call from them in the next day but you may call [phone] to schedule an appointment. Please see your primary care doctor about this ED visit and your concerns in the next 2-4 days. Return to the Emergency Department IMMEDIATELY if you experience any of the following: - difficulty breathing and/or shortness of breath - severe abdominal pain and/or severe vomiting - chest pain - ANYTHING that concerns you - Post Discharge Activity
[2019-01-15 15:10] LABS: BASO % 0.3 % (0-2.0); HEMATOCRIT 23.5 % (35.4-49); HEMOGLOBIN 7.7 GM/dL (11.7-16.9); LYMPH % 4.1 % (8-40); MCH 38.5 pg (25.7-33.7); MCHC 32.9 g/dl (32.0-35.9); MEAN CELL VOLUME 117.1 fl (80-96); MEAN PLT VOLUME 10.8 fl (7.5-11.1); MONO % 8.6 % (3.8-10.2); PLATELET COUNT 151 K/MM3 (134-434); RBC 2.01 M/mm3 (4.00-5.60); RDW 23.3 % (11.9-15.9); WHITE BLOOD COUNT 21.2 K/mm3 (4.0-10.0)
[2019-01-15 15:11] LABS: URINE APPEARANCE CLEAR; URINE BILIRUBIN NEGATIVE (NEGATIVE); URINE COLOR YELLOW; URINE GLUCOSE (UA) NEGATIVE (NEGATIVE); URINE KETONE NEGATIVE (NEGATIVE); URINE LEUK ESTERASE NEGATIVE (NEGATIVE); URINE NITRITE NEGATIVE (NEGATIVE); URINE PROTEIN TRACE (NEGATIVE)
[2019-01-15 15:42] LABS: ALBUMIN 3.5 g/dl (3.4-5.0); BILIRUBIN,TOTAL 0.7 mg/dL (0.2-1); BLOOD UREA NITROGEN 22.2 mg/dL (7-18); CALCIUM 8.4 mg/dL (8.5-10.1); CREATININE 1.5 mg/dL (0.55-1.3); N-TERMINAL BNP 1558.9 pg/ml (5-125); TOT PROT 7.6 g/dl (6.4-8.2)
[2019-01-15 15:47] LABS: ANISOCYTOSIS 0; MACROCYTOSIS 0; PLATELET ESTIMATE DECREASED
[2019-01-15 16:03] LABS: POTASSIUM 4.8 mmol/L (3.5-5.1)
--- NOTE | 2019-01-15 17:12 | PDOC ---
Documentation entered by David Mendoza SCRIBE, acting as scribe for Arnaldo Major MD. Arnaldo Major MD: This documentation has been prepared by the Reji braga Daniel, SCRIBE, under my direction and personally reviewed by me in its entirety. I confirm that the documentation accurately reflects all work, treatment, procedures, and medical decision making performed by me. Attending Attestation - Resident Resident Name: HoangRoque - ED Attending Attestation I have performed the following: I have examined & evaluated the patient, The case was reviewed & discussed with the resident, I agree w/resident's findings & plan - HPI HPI: 01/15/19 14:54 The patient is a 73 year old male with a past medical history of CHF, CKF, HTN, COPD, anemia, and myelofibrosis and known splenomegaly here today for evaluation of left upper quadrant abdominal pain, worsened over the last week and not associated with any n/v/d/c/urinary complaints. no f/c, no injury. Patient denies headache, lightheadedness. Denies fever, chills. Denies chest pain, shortness of breath. Denies nausea, vomiting, diarrhea. Allergies: NKA - Physicial Exam PE: 01/15/19 17:05 GENERAL: The patient is awake, alert, and fully oriented, in no acute distress. HEAD: Normal with no signs of trauma. EYES: Pupils equal, round and reactive to light, extraocular movements intact, sclera anicteric, conjunctiva clear with no pallor. ENT: Ears normal, nares patent, oropharynx clear without exudates. Moist mucous membranes. NECK: Normal range of motion, supple without lymphadenopathy, JVD, or masses. LUNGS: Breath sounds equal, clear to auscultation bilaterally. No wheeze/ crackles. HEART: Regular rate and rhythm, normal S1 and S2 without murmur or rub. ABDOMEN: +markedly enlarged spleen extending to the left mid abdomen with tenderness to palpation. Soft/nondistended. BS wnl. No guarding or rebound. EXTREMITIES: Normal range of motion, no edema. No clubbing or cyanosis. No cords, erythema, or tenderness. NEUROLOGICAL: Cranial nerves II through XII grossly intact. Normal speech, normal gait. PSYCH: Normal mood, normal affect. SKIN: Warm, Dry, normal turgor, no rashes or lesions noted. - Medical Decision Making 01/15/19 17:09 73y/o M h/o myelofibrosis p/w atraumatic L mid/LUQ pain without other red flags on history. exam localizes to enlarged spleen, no other peritoneal findings. HD stable and otherwise well appearing. labs notable for slightly greater leukocytosis than baseline but baseline diff with 20% bands, baseline anemia chem at baseline CTAP pending. Will discuss dispo with Dr. Nieves, patient's oncologist. Heart Score/ECG Review #1 ECG reviewed & interpreted by me at: 15:39 General ECG Interpretation: Sinus Rhythm, Normal Rate (80), Normal Intervals ( qtc 456), No acute ischemic changes
--- NOTE | 2019-01-16 11:04 | EKG ---
Test Reason : Blood Pressure : / mmHG Vent. Rate : 080 BPM Atrial Rate : 080 BPM P-R Int : 208 ms QRS Dur : 098 ms QT Int : 396 ms P-R-T Axes : 019 051 -45 degrees QTc Int : 456 ms NORMAL SINUS RHYTHM POSSIBLE INFERIOR INFARCT , AGE UNDETERMINED CANNOT RULE OUT ANTERIOR INFARCT , AGE UNDETERMINED ABNORMAL ECG WHEN COMPARED WITH ECG OF 25-JUN-2018 14:40, NONSPECIFIC T WAVE ABNORMALITY NOW EVIDENT IN INFERIOR LEADS Confirmed by BROCK FERGUSON MD ([id number]) on 01/16/2019 11:03:37 AM Referred By: Confirmed By:BROCK FERGUSON MD
== END 2019-01-15 18:54 | disposition home or self-care (01) ==
LOC: JER 12:19
DX: R10.12 Left upper quadrant pain (principal); R16.1 Splenomegaly, not elsewhere classified; I11.0 Hypertensive heart disease with heart failure; I50.9 Heart failure, unspecified; J44.9 Chronic obstructive pulmonary disease, unspecified; D75.81 Myelofibrosis; D72.829 Elevated white blood cell count, unspecified; R94.4 Abnormal results of kidney function studies; R74.8 Abnormal levels of other serum enzymes; E87.1 Hypo-osmolality and hyponatremia; K70.30 Alcoholic cirrhosis of liver without ascites; F17.210 Nicotine dependence, cigarettes, uncomplicated
CPT/HCPCS: 36415; 71045-TC-FY; 74177-TC; 80053; 81003; 82150; 82550; 82553; 83690; 83880; 84484; 85025; 87086; 93005; 93010; 99283-25; Q9967

== ENCOUNTER 2019-01-22 13:08 | Inpatient (IN) | payer OTHER ==
--- NOTE | 2019-01-22 13:12 | PDOC ---
Rapid Medical Evaluation Time Seen by Provider: 01/22/19 13:10 Medical Evaluation: Allergies Allergy/AdvReac Type Severity Reaction Status Date / Time No Known Allergies Allergy Verified 01/15/19 12:43 01/22/19 13:10 CC: LLE redness and swelling PE: BLE 1+ edema. erythema to left leg from dorsum of midfoot extending to mid- stahl. Orders: sono, labs Patient will proceed to ED for continued evaluation. Discharge Disposition - Diagnosis Cellulitis of foot, left - Referrals - Patient Instructions - Post Discharge Activity
[2019-01-22 13:50] LABS: BASO % 0.8 % (0-2.0); EOS % 2.7 % (0-4.5); HEMATOCRIT 23.3 % (35.4-49); HEMOGLOBIN 7.6 GM/dL (11.7-16.9); LYMPH % 5.1 % (8-40); MCH 38.1 pg (25.7-33.7); MCHC 32.8 g/dl (32.0-35.9); MEAN PLT VOLUME 8.9 fl (7.5-11.1); MONO % 7.9 % (3.8-10.2); NEUT % 83.5 % (42.8-82.8); PLATELET COUNT 146 K/MM3 (134-434); RBC 2.01 M/mm3 (4.00-5.60); RDW 23.5 % (11.9-15.9); WHITE BLOOD COUNT 21.4 K/mm3 (4.0-10.0)
[2019-01-22 14:26] LABS: ALBUMIN 3.5 g/dl (3.4-5.0); BILIRUBIN,TOTAL 0.7 mg/dL (0.2-1); BLOOD UREA NITROGEN 16.8 mg/dL (7-18); CALCIUM 8.4 mg/dL (8.5-10.1); CREATININE 1.6 mg/dL (0.55-1.3); POTASSIUM 4.6 mmol/L (3.5-5.1); TOT PROT 7.7 g/dl (6.4-8.2)
[2019-01-22 15:35] LABS: ANISOCYTOSIS 0; MACROCYTOSIS 0
[2019-01-22 15:37] LABS: SMUDGE CELLS 4
[2019-01-22 15:47] LABS: PLATELET ESTIMATE NORMAL
--- NOTE | 2019-01-22 15:53 | PDOC ---
History of Present Illness - General Chief Complaint: Edema Stated Complaint: LT FOOT EDEMA Time Seen by Provider: 01/22/19 13:10 - History of Present Illness Initial Comments: Tra Marie is a 73yo man with a PMH of CHF, CKF, HTN, COPD, anemia, and myelofibrosis who presents with LLE erythema, edema and warmth for 4 days. He reports that he has had left leg cellulitis several times in the past, and this is the same as previous episodes. Mr Marie denies any red streaking up his leg , fever, shivering chills, nausea/vomiting, or generalized malaise. He reports that he does not have a PMD currently but he does see heme/onc and takes a "cancer medication." Past History - Past Medical History Allergies/Adverse Reactions: Allergies Allergy/AdvReac Type Severity Reaction Status Date / Time No Known Allergies Allergy Verified 01/15/19 12:43 Home Medications: Ambulatory Orders Furosemide [Lasix -] 40 mg PO BID 07/21/15 Lisinopril 20 mg PO DAILY 07/21/15 Mirtazapine [Remeron -] 30 mg PO HS 07/21/15 Venlafaxine HCl ER [Effexor Xr -] 150 mg PO DAILY #30 cap.er.24h 11/16/16 Metoprolol Succinate [Toprol XL -] 25 mg PO DAILY 04/19/17 Albuterol Sulfate Inhaler - [Ventolin HFA Inhaler -] 1 - 2 inh PO Q4H #1 inhaler 04/27/17 Ruxolitinib Phosphate [Jakafi] 15 mg PO BID 01/04/18 Cephalexin Monohydrate [Keflex -] 500 mg PO BID #14 capsule 01/05/18 Cyclobenzaprine HCl [Flexeril 10 mg] 10 mg PO BID PRN #14 tablet 07/16/18 Anemia: Yes Asthma: No Cancer: Yes (MYELOFIBROSIS) Cardiac Disorders: Yes CVA: No COPD: Yes CHF: Yes DVT: No Dementia: No Diabetes: No (PT DENIES) GI Disorders: Yes (CIRRHOSIS) Disorders: No HTN: Yes Hypercholesterolemia: Yes Liver Disease: Yes (ALCOHOLIC CIRRHOSIS) Seizures: No Thyroid Disease: No - Surgical History Orthopedic Surgery: No - Immunization History Immunization Up to Date: Yes - Psycho Social/Smoking Cessation Hx Smoking History: Never smoked Have you smoked in the past 12 months: No Number of Cigarettes Smoked Daily: 20 Information on smoking cessation initiated: No 'Breaking Loose' booklet given: 06/25/18 Hx Alcohol Use: No Drug/Substance Use Hx: No Substance Use Type: Alcohol Hx Substance Use Treatment: No Review of Systems - Review of Systems Comments:: General: No fevers, no chills, no weight or appetite change, no malaise HEENT: No changes in vision, no changes in hearing, no congestion, no sore throat CV: No chest pain, no palpitations, no LE edema Pulm: No SOB, no cough, no wheezing GI: No nausea or vomiting, no change in bowel habits, no melena : No frequency, no urgency, no dysuria Musc: No back pain, no joint swelling, no recent injury Skin: See HPI Endo: No excessive thirst, no heat/cold intolerance Heme: No unusual bruising or bleeding, no swollen glands Neuro: No syncope, no numbness/tingling, no focal weakness Vasc: No claudication Psych: No recent change in mood, no SI or HI *Physical Exam - Vital Signs Last Vital Signs Temp Pulse Resp BP Pulse Ox 98.2 F 64 16 124/78 96 01/22/19 13:11 01/22/19 13:11 01/22/19 13:11 01/22/19 13:11 01/22/19 13:11 - Physical Exam Comments: General: Comfortable, no acute distress HEENT: PERRL, EOMI, MMM, voice normal Cards: RRR, no murmur appreciated Pulm: Comfortable on room air, clear to auscultation bilaterally Abd: Soft, nontender, nondistended Ext: Atraumatic. LLE with 3+ pitting edema, erythema, warmth to mid stahl. No streaking up leg, no erythema proximal to knee. Neuro: A&Ox3, CN grossly intact, normal speech, motor/sensory grossly intact and symmetric Psych: Mood appropriate to situation ED Treatment Course - LABORATORY CBC & Chemistry Diagram: 01/22/19 13:37 01/22/19 13:37 - ADDITIONAL ORDERS Additional order review: Laboratory Results 01/22/19 13:37 Sodium 132 L Potassium 4.6 Chloride 102 Carbon Dioxide 21 Anion Gap 9 BUN 16.8 Creatinine 1.6 H Est GFR (CKD-EPI)AfAm 48.81 Est GFR (CKD-EPI)NonAf 42.11 Random Glucose 100 Calcium 8.4 L Total Bilirubin 0.7 AST 64 H ALT 65 H Alkaline Phosphatase 177 H Total Protein 7.7 Albumin 3.5 01/22/19 13:37 RBC 2.01 L MCV 116.0 H MCHC 32.8 RDW 23.5 H MPV 8.9 D Neutrophils % 83.5 H Lymphocytes % 5.1 L D Monocytes % 7.9 Eosinophils % 2.7 Basophils % 0.8 Medical Decision Making - Medical Decision Making 01/22/19 15:55 Tra Marie is a 73yo man with a PMH of CHF, CKD, HTN, COPD, anemia, and myelofibrosis who presents with LLE cellulitis that appears to be recurrent. He is currently on a biologic chemo. - Presentation c/w LLE cellulitis, appears to be recurrent - Per notes, had LLE erythema when he was seen in the ED last week but no other s/s of infection - CBC, CMP, duplex ordered from [facility], already completed. Duplex negative for thrombus or other acute abnormalities. Labs notable for leukocytosis to 21, similar to 01/15/19. Per chart review, heme/onc physician was not concerned. - No systemic symptoms suggesting sepsis - no spreading erythema, no vitals abnormalities - As pt is taking Ruxolitinib and is likely immunocompromised, has had recurrent LLE cellulitis, plan to admit to obs for IV antibiotics 01/22/19 16:54 - Spoke to Dr Rivers. Will be admitted to med/surg Discussed with Dr Charissa Subramanian PGY2 Discharge - Discharge Information Problems reviewed: Yes Clinical Impression/Diagnosis: Cellulitis of foot, left Condition: Stable - Admission Yes - Follow up/Referral - Patient Discharge Instructions - Post Discharge Activity
--- NOTE | 2019-01-22 15:54 | PDOC ---
Documentation entered by Jenifer Hernandez SCRIBE, acting as scribe for Terry Carrington MD. Terry Carrington MD: This documentation has been prepared by the Mary braga Adrianna, SCRIBE, under my direction and personally reviewed by me in its entirety. I confirm that the documentation accurately reflects all work, treatment, procedures, and medical decision making performed by me. Attending Attestation - Resident Resident Name: MorisNaima - ED Attending Attestation I have performed the following: I have examined & evaluated the patient, The case was reviewed & discussed with the resident, I agree w/resident's findings & plan, Exceptions are as noted - HPI HPI: The patient is a 73 year old male, with a significant PMH of EtOH abuse, congestive heart failure, chronic kidney failure, hypertension, hyperlipidema, chronic obstructive pulmonary disease, anemia, liver cirrhosis, and myelofibrosis, who presents to the ED for evaluation of left lower extremity cellulitis for 4 days. Patient endorses LLE erythema, edema, and warmth. Patient has had cellulitis in the past, and notes this is same. Denies fever, chills, chest pain, shortness of breath, nausea, vomit, diarrhea, dysuria, hematuria. Allergies: NKA, NKDA Surgical History: None reported Social History: EtOH abuse PCP: None - Physicial Exam PE: Vitals: Triage Vital signs reviewed General Appearance: no acute distress, well nourished well developed, Cardiac: Regular rate and rhythm, no murmurs, no rubs, no gallops, Lungs: Clear to auscultation bilateral, good air movement bilaterally, Abdomen: Soft, nondistended, normal bowel sounds, nontender to palpation Rectal: Exam deferred Extremities: Full range of motion to all extremities, no cyanosis, clubbing, or edema Skin: +Cellulitis of the left lower extremity that is midway to stahl and warm to touch. Neuro: AOX3; Cranial Nerves 2-12 grossly c intact, Strength intact to all extremities, Sensation intact to all extremities, gait normal Psych: normal mood, normal affect - Medical Decision Making 73 year old male, with history of EtOH abuse, congestive heart failure, chronic kidney failure, hypertension, hyperlipidema, chronic obstructive pulmonary disease, anemia, liver cirrhosis, and myelofibrosis, presents with left lower extremity cellulitis. Plan: labs, duplex. Administer saline and vancomycin. Admit to hospitalist for IV antibiotics. 01/22/19 17:04 Immunocompromise patient with elevated white blood cell count presents with cellulitis We will observe overnight for antibiotics and further management ED Treatment Course - LABORATORY CBC & Chemistry Diagram: 01/25/19 06:20 01/25/19 06:20 - ADDITIONAL ORDERS Additional order review: Laboratory Results 01/22/19 13:37 Sodium 132 L Potassium 4.6 Chloride 102 Carbon Dioxide 21 Anion Gap 9 BUN 16.8 Creatinine 1.6 H Est GFR (CKD-EPI)AfAm 48.81 Est GFR (CKD-EPI)NonAf 42.11 Random Glucose 100 Calcium 8.4 L Total Bilirubin 0.7 AST 64 H ALT 65 H Alkaline Phosphatase 177 H Total Protein 7.7 Albumin 3.5 01/22/19 13:37 RBC 2.01 L MCV 116.0 H MCHC 32.8 RDW 23.5 H MPV 8.9 D Neutrophils % 83.5 H Lymphocytes % 5.1 L D Monocytes % 7.9 Eosinophils % 2.7 Basophils % 0.8 - RADIOLOGY Radiograph Interpretation: EXAM#: TYPE/EXAM: RESULT: [id number] US/DUPLEX VASCUL US-1 LEG HISTORY PROVIDED: Pain and swelling left lower extremity. IMPRESSION: No evidence of deep venous thrombosis. Reported By: J Carlos Espinoza MD 01/22/19 14:41
[2019-01-22] MEDS ORDERED: VANCOMYCIN 1 GM in D5W (PRE-DOCKED) 1,000 MG/250 ML IVPB ONE (16:21)
[2019-01-22] MEDS ORDERED: VANCOMYCIN 1 GRAM (PRE-DOCKED) 1,000 MG/250 ML BAG IVPB ONE (17:19)
--- NOTE | 2019-01-22 17:49 | PN ---
Teaching Attending Note Name of Resident: Sirisha Rivers ATTENDING PHYSICIAN STATEMENT I saw and evaluated the patient. I reviewed the resident's note and discussed the case with the resident. I agree with the resident's findings and plan as documented. SUBJECTIVE: CC: LLAE erythema x 4 days HPI: 73 y/o lady with h/o Alcoholic cirrhosis, ETOH abuse, CKD, MDS, HLP, chronci anemia, possible diastolic heart failure, HTN, and COPD who presented with L Lext erythema x 4 days he denies any fever , any chills, CP, SOB, N/V, has no dysuria. has not taken abx recently. he reports lower abd pain. he visited ER on 01/15 for abd pain, CT was done which showed LAP in retrperitoneal area but no other acute findings , UA then was neg . he was diagnosed with LLExt cellulitis last year with vanco treatment then dc on keflex OBJECTIVE: VS reviewed. NAD, MMM, no facial droop CV: RRR, no MRG . + JVD Lungs: CTAB Abd: distended, NT, hepatomegaly, NL BS. + shifting dullness. Ext : 2+ pitting edema on b/l LE . L ankle and dorsal foot with erythema, and increased tenderness and increased warmth . DP 2+ b/l. neuro : EOMI, round equal pupils, reactive to light. no facial droop. strength 5 /5 in upper and lower extremities proximally and distally. ASSESSMENT AND PLAN: 73 y/o lady with h/o Alcoholic cirrhosis, ETOH abuse, CKD, MDS, HLD, chronic anemia, possible diastolic heart failure, HTN, and COPD who presented with LL ext erythema x 4 days. 1- LLE cellulitis : No signs of sepsis. - received Vanco in ER - will cont vanco and add unasyn. - will d/w ID abx regimen - send blood cx 2- H/o MDS with chronic macrocytic anemia: Hb at base line. 3- CKD: Cr at base line. cont lisinopril 4- H/o Liver cirrhosis : Transaminitis at base line -Lower abd pain is of unclear etiology. last CT on 01/15 ( ER visit on 01/15 for Abd pain), did not show acute pathology. -will start with UA . Ascitis and abd distention might be causing the abd pain. -cont diuretics ( did nto take lasix for ? days as he thinks it caused cough ) 5- H/o diastolic heart failure: cont his home diuretics. cont BB 6- H/o HTN: cont lisinopril and BB DVT PX: heparin
[2019-01-22 18:40] VITALS: BMI 28.0
[2019-01-22] MEDS ORDERED: FLU VACCINE QUAD 60 MCG/0.5 ML (MDV 19-20) IM ONE (18:40)
--- NOTE | 2019-01-22 19:31 | HP ---
CHIEF COMPLAINT: LLE erythema x4 days PCP: none HISTORY OF PRESENT ILLNESS: 73M w/ pmhx of CHF, CKF, HTN, COPD, anemia, myelofibrosis presents in the ED with a 4 day hx of LLE erythema. Pt states he had similar symptoms a year ago and was treated with abx. Denies any ulcer/wound to the area or any trauma. Denies hx of diabetes. Denies f/c, n/v, chest pain, sob, abd pain, urinary/ bowel symptoms. Pt states he has not taken anything for his symptoms nor admits to recent antibiotic use. Admits to warmth of the LLE and pain especially when walking, but pain persists even at rest. Upon exam, pt appeared well, not septic. Of note, pt was recently seen in OR about 1 week ago for abd pain found to have some small RP and joey hepatic LAD with no other acute findings. ER course was notable for: (1) WBC 21.4, H/H 7.6/23.3, Na 132, Cr 1.6, A/A 64/65, Alk P 177 (2) Vanc 1gm x1 (3) LLE duplex neg for DVT Recent Travel: Denies PAST MEDICAL HISTORY: As per HPI PAST SURGICAL HISTORY: ? joint replacement Social History: Smoking: current smoker, 1 PPD x55 years Alcohol: Denies Drugs: Denies Lives at home with Ambulates on own Allergies No Known Allergies Allergy (Verified 01/15/19 12:43) HOME MEDICATIONS: Home Medications Medication Instructions Recorded Furosemide [Lasix -] 40 mg PO Q2D 07/21/15 Lisinopril 20 mg PO DAILY 07/21/15 Mirtazapine [Remeron -] 30 mg PO HS 07/21/15 Venlafaxine HCl ER [Effexor Xr -] 150 mg PO DAILY #30 cap.er.24h 11/16/16 Metoprolol Succinate [Toprol XL -] 25 mg PO DAILY 04/19/17 Ruxolitinib Phosphate [Jakafi] 15 mg PO BID 01/04/18 Cyclobenzaprine HCl [Flexeril 10 10 mg PO BID PRN #14 tablet 07/16/18 mg] REVIEW OF SYSTEMS CONSTITUTIONAL: Absent: fever, chills, diaphoresis, generalized weakness, malaise, loss of appetite, weight change HEENT: Absent: rhinorrhea, nasal congestion, throat pain, throat swelling, difficulty swallowing, mouth swelling, ear pain, eye pain, visual changes CARDIOVASCULAR: Absent: chest pain, syncope, palpitations, irregular heart rate, lightheadedness , peripheral edema RESPIRATORY: Absent: cough, shortness of breath, dyspnea with exertion, orthopnea, wheezing, stridor, hemoptysis GASTROINTESTINAL: Absent: abdominal pain, abdominal distension, nausea, vomiting, diarrhea, constipation, melena, hematochezia GENITOURINARY: Absent: dysuria, frequency, urgency, hesitancy, hematuria, flank pain, genital pain MUSCULOSKELETAL: +LLE redness and pain Absent: myalgia, arthralgia, joint swelling, back pain, neck pain SKIN: Absent: rash, itching, pallor HEMATOLOGIC/IMMUNOLOGIC: Absent: easy bleeding, easy bruising, lymphadenopathy, frequent infections ENDOCRINE: Absent: unexplained weight gain, unexplained weight loss, heat intolerance, cold intolerance NEUROLOGIC: Absent: headache, focal weakness or paresthesias, dizziness, unsteady gait, seizure, mental status changes, bladder or bowel incontinence PHYSICAL EXAMINATION Vital Signs - 24 hr 01/22/19 01/22/19 01/22/19 13:11 18:07 18:35 Temperature 98.2 F 98.1 F 98.6 F Pulse Rate 64 83 Pulse Rate [ 72 Apical] Respiratory 16 20 22 H Rate Blood Pressure 124/78 144/75 Blood Pressure 128/80 [Right Arm] O2 Sat by Pulse 96 96 Oximetry (%) 01/22/19 18:52 Temperature Pulse Rate Pulse Rate [ Apical] Respiratory Rate Blood Pressure Blood Pressure [Right Arm] O2 Sat by Pulse 93 L Oximetry (%) GENERAL: AAOx3. NAD. Pleasant male. Cooperative. HEENT: AT/NC. EOMI. MMM. NECK: Normal range of motion, supple without lymphadenopathy, JVD, or masses. LUNGS: CTA B/L. HEART: Regular rate and rhythm, normal S1 and S2 without murmur, rub or gallop. ABDOMEN: Soft, nontender. Distended. normoactive bowel sounds, no guarding, no rebound, no masses. MUSCULOSKELETAL: 2+ pitting edema b/l LE. 2+ dorsalis pedis pulses. EXTREMITIES: +5/5 muscle strength in u/l b/l extremities NEUROLOGICAL: Cranial nerves II-XII intact. Normal speech. Follows all commands appropriately. SKIN: LLE erythema and warmth distally. No wounds or ulcers noted. Laboratory Results - last 24 hr 01/22/19 01/22/19 13:37 13:37 WBC 21.4 H RBC 2.01 L Hgb 7.6 L Hct 23.3 L MCV 116.0 H MCH 38.1 H MCHC 32.8 RDW 23.5 H Plt Count 146 MPV 8.9 D Absolute Neuts (auto) 17.8 H Total Counted 100 Neutrophils % 83.5 H Neutrophils % (Manual) 66.3 D Band Neutrophils % 5.1 Lymphocytes % 5.1 L D Lymphocytes % (Manual) 6.1 L Monocytes % 7.9 Monocytes % (Manual) 4 Eosinophils % 2.7 Eosinophils % (Manual) 1.0 Basophils % 0.8 Basophils % (Manual) 2.1 H Myelocytes % (Man) 10 H Promyelocytes % (Man) 1 D Blast Cells % (Manual) 0 Nucleated RBC % 1 H Metamyelocytes 4 H D Smudge Cells 4 Hypochromia 0 Platelet Estimate Normal Platelet Comment Slide reviewed Polychromasia 0 Poikilocytosis 0 Basophilic Stippling 0 Anisocytosis 0 Microcytosis 0 Macrocytosis 0 Sodium 132 L Potassium 4.6 Chloride 102 Carbon Dioxide 21 Anion Gap 9 BUN 16.8 Creatinine 1.6 H Est GFR (CKD-EPI)AfAm 48.81 Est GFR (CKD-EPI)NonAf 42.11 Random Glucose 100 Calcium 8.4 L Total Bilirubin 0.7 AST 64 H ALT 65 H Alkaline Phosphatase 177 H Total Protein 7.7 Albumin 3.5 ASSESSMENT/PLAN: 73M w/ pmhx of CHF, CKF, HTN, COPD, anemia, myelofibrosis presents in the ED with a 4 day hx of LLE erythema. #LLE cellulitis; Does not appear septic. -Vanc 1 gm x1 dose given in ED -ID consulted; discussed with ID, will cont with Vanc and Ceftriaxone -Blood cultures pending -LE duplex neg for DVT #Hx of Myelofibrosis; Stable. Currently on Jakafi #Macrocytic anemia; likely due to myelofibrosis. H/H at baseline #CKD; At baseline. #HTN; Cont home meds: Lisinopril 20 QD, Toprol XL 25 #Hx of diastolic heart failure; Cont home meds: Lasix 40 BID #Hx of liver cirrhosis; elevated LFTs at baseline -Recently seen in the ED last week for abd pain. On exam, pt is distended with mild pain. CTAP done last week showed no acute pathology. Will cont to monitor for now. #Prophylaxis; DVT: SQH FEN -no IVf -recheck lytes in AM -sodium-controlled diet Dispo -admit to med-surg Visit type - Emergency Visit Emergency Visit: Yes ED Registration Date: 01/22/19 Care time: The patient presented to the Emergency Department on the above date and was hospitalized for further evaluation of their emergent condition. - New Patient This patient is new to me today: Yes Date on this admission: 01/22/19 - Critical Care Critical Care patient: No ATTENDING PHYSICIAN STATEMENT I saw and evaluated the patient. I reviewed the resident's note and discussed the case with the resident. I agree with the resident's findings and plan as documented. SUBJECTIVE: OBJECTIVE: ASSESSMENT AND PLAN:
[2019-01-22] MEDS ORDERED: FUROSEMIDE 40 MG TABLET (FP) PO ONE (19:33)
[2019-01-22] MEDS ORDERED: DEXTROSE 5%-WATER 100 ML IVPB ONE (20:51)
[2019-01-22] MEDS: CEFTRIAXONE 2 GM in DEXTROSE 5%-WATER 100 ML IVPB SCH (20:53)
[2019-01-22] MEDS: HEPARIN NA (PORCINE) 5,000 UNITS/ML 1ML VIAL SQ SCH (21:59)
[2019-01-22] MEDS: MIRTAZAPINE 15 MG TABLET (FP) PO SCH (21:59)
[2019-01-22] MEDS ORDERED: MIRTAZAPINE 30 MG TABLET (FP) PO SCH (22:00)
[2019-01-23] MEDS ORDERED: VANCOMYCIN 1 GRAM (PRE-DOCKED) 1,000 MG/250 ML BAG IVPB SCH ×2 (05:00→13:00)
[2019-01-23] MEDS: FUROSEMIDE 40 MG TABLET (FP) PO SCH ×2 (05:22→15:46)
[2019-01-23] MEDS: HEPARIN NA (PORCINE) 5,000 UNITS/ML 1ML VIAL SQ SCH ×3 (05:22→21:57)
[2019-01-23 05:46] LABS: URINE APPEARANCE CLEAR; URINE BILIRUBIN NEGATIVE (NEGATIVE); URINE COLOR YELLOW; URINE GLUCOSE (UA) NEGATIVE (NEGATIVE); URINE KETONE NEGATIVE (NEGATIVE); URINE LEUK ESTERASE NEGATIVE (NEGATIVE); URINE NITRITE NEGATIVE (NEGATIVE); URINE PROTEIN NEGATIVE (NEGATIVE); URINE UROBILINOGEN 0.2 mg/dL (0.2-1.0)
[2019-01-23 07:50] LABS: HEMATOCRIT 22.3 % (35.4-49); HEMOGLOBIN 7.7 GM/dL (11.7-16.9); MCH 39.6 pg (25.7-33.7); MCHC 34.4 g/dl (32.0-35.9); MEAN CELL VOLUME 115.2 fl (80-96); MEAN PLT VOLUME 10.3 fl (7.5-11.1); PLATELET COUNT 158 K/MM3 (134-434); RBC 1.93 M/mm3 (4.00-5.60); RDW 22.6 % (11.9-15.9); WHITE BLOOD COUNT 22.2 K/mm3 (4.0-10.0)
[2019-01-23 08:26] LABS: ALBUMIN 3.4 g/dl (3.4-5.0); BILIRUBIN,TOTAL 0.6 mg/dL (0.2-1); BLOOD UREA NITROGEN 17.2 mg/dL (7-18); CALCIUM 8.7 mg/dL (8.5-10.1); CREATININE 1.6 mg/dL (0.55-1.3); POTASSIUM 4.4 mmol/L (3.5-5.1); TOT PROT 7.6 g/dl (6.4-8.2)
[2019-01-23] MEDS ORDERED: DEXTROSE 5%-WATER 100 ML IVPB ONE (09:01)
--- NOTE | 2019-01-23 09:54 | EKG ---
Test Reason : Blood Pressure : / mmHG Vent. Rate : 084 BPM Atrial Rate : 084 BPM P-R Int : 210 ms QRS Dur : 104 ms QT Int : 396 ms P-R-T Axes : 027 041 105 degrees QTc Int : 467 ms POOR DATA QUALITY, INTERPRETATION MAY BE ADVERSELY AFFECTED SINUS RHYTHM WITH 1ST DEGREE A-V BLOCK NONSPECIFIC T WAVE ABNORMALITY ABNORMAL ECG WHEN COMPARED WITH ECG OF 15-JAN-2019 15:39, NO SIGNIFICANT CHANGE WAS FOUND Confirmed by BROCK FERGUSON MD ([id number]) on 01/23/2019 9:53:28 AM Referred By: Confirmed By:BROCK FERGUSON MD
[2019-01-23] MEDS ORDERED: PT OWN MED DRAWER 7, Y5N ONE ×3 (10:02→19:22)
[2019-01-23] MEDS: VENLAFAXINE HCL 75 MG E.R. CAPSULES (FP) PO SCH (10:06)
[2019-01-23] MEDS: CEFTRIAXONE 2 GM in DEXTROSE 5%-WATER 100 ML IVPB SCH (10:06)
[2019-01-23] MEDS: LISINOPRIL 20 MG TABLET (FP) PO SCH (10:06)
[2019-01-23] MEDS: metoPROLOL SUCCINATE 25 MG TAB.SR.24H (FP) PO SCH (10:06)
--- NOTE | 2019-01-23 12:11 | PN ---
Progress Note (short form) - Note Progress Note: ID CONSULT DICTATED RECURRENT LE CELLULITIS LEUKOCYTOSIS/ HX MYELOFIBROSIS CKD PENDING C/S EMPIRIC VANCOMYCIN/CEFTRIAXONE
[2019-01-23] MEDS: RUXOLITINIB PHOSPHATE 15 MG PO SCH ×2 (13:00→21:58)
--- NOTE | 2019-01-23 16:22 | CONS ---
DATE OF CONSULTATION: DATE OF DICTATION: 01/23/2019 INFECTIOUS DISEASE CONSULTATION HISTORY OF PRESENT ILLNESS: The patient is a 73-year-old male who was evaluated for recurrent cellulitis of the left lower extremity. He was admitted to the hospital on January 22, 2019, with a 4-day history of recurrent left lower extremity swelling and erythema. He was seen in the emergency room where he was diagnosed with cellulitis of the left lower extremity. He denies any traumatic injury to this left lower extremity. No insect or animal bites or scratches. He was hospitalized last year in January with a left lower extremity cellulitis which responded to antibiotic therapy. He has no history of multidrug resistant organisms. Patient has a history of myelofibrosis and has a chronically elevated white blood cell count. He has been on therapy with ruxolitinib. PAST MEDICAL HISTORY: Positive for myelofibrosis, congestive heart failure, chronic kidney disease, hypertension, hyperlipidemia, COPD, history of recurrent lower extremity cellulitis, cirrhosis. ALLERGIES: No known allergies. MEDICATION: Include ceftriaxone, Lasix, heparin, lisinopril, Toprol, vancomycin. SOCIAL HISTORY: He has a history of tobacco use. No history of illicit drug use or alcohol abuse. SYSTEMS REVIEW: Neurologic: No loss of consciousness, seizure activity, focal weakness. Cardiac: Negative for chest pain or palpitations. Respiratory: Negative for cough or sputum production. Gastrointestinal: Negative vomiting or diarrhea. Genitourinary: Negative for urinary tract infection. LABORATORY DATA: White count 22.2, 83 neutrophils, 5 bands, 5 lymphocytes. Hematocrit 22.3, platelets 158, creatinine 1.6. Urinalysis negative. Total bilirubin 0.6, alkaline phosphatase 149, AST 65. Cultures are pending. PHYSICAL EXAMINATION: General: On exam, he is awake and alert, he is in no acute distress. Vital signs: Temperature 97.6, blood pressure 134/64, pulse 75 regular, respirations 20 per minute. HEENT: Sclerae anicteric. Cardiovascular: Heart sounds S1, S2. Lungs: Clear. Abdomen: Soft, nontender. Extremities: Examination of the lower extremities, 1+ lower extremity edema bilaterally. Examination of the left lower extremity, there is confluent erythema present from the left mid tibial area to the foot. It is warm to touch. There is no crepitus or fluctuance, no lymphangitic streaking. IMPRESSION: 1. Recurrent left lower extremity cellulitis. 2. Leukocytosis chronic. 3. History of myelofibrosis. 4. Chronic kidney disease. Pending cultures. Empiric antibiotic coverage with ceftriaxone 2 g IV piggyback daily, vancomycin 1 g IV piggyback daily. Elevation, analgesics. Will follow. Thank you for the kind referral. AMXX CH M.D. [id number]
--- NOTE | 2019-01-23 17:02 | PN ---
Physical Exam: SUBJECTIVE: Patient seen and examined in the morning. Was awake and alert. Had no acute events overnight. No complaints of chest pain, shortness of breath, fever, headache, or abdominal pain. OBJECTIVE: Vital Signs Period Temp Pulse Resp BP Sys/Rodriguez Pulse Ox Last 24 Hr 97.6 F-99.5 F 72-84 18-22 128-144/64-80 93-96 GENERAL: The patient is awake, alert, and fully oriented, in no acute distress. HEAD: Normal with no signs of trauma. EYES: PERRL, extraocular movements intact, sclera anicteric, conjunctiva clear. No ptosis. ENT: Ears normal, nares patent, oropharynx clear without exudates, moist mucous membranes. NECK: Trachea midline, full range of motion, supple. LUNGS: Breath sounds equal, clear to auscultation bilaterally, no wheezes, no crackles, no accessory muscle use. HEART: Regular rate and rhythm, S1, S2 without murmur, rub or gallop. ABDOMEN: Soft, nontender, nondistended, normoactive bowel sounds, no guarding, no rebound,. EXTREMITIES: 2+ pulses, no edema. Left lower extremity is erythematous, but visibly below the lines marking the area of erythema yesterday. Left extremity is warmer than right. No weeping observed in left lower extremity. Right lower extremity has no cuts, bruises and is non erythematous. NEUROLOGICAL: Cranial nerves II through XII grossly intact. Normal speech, gait not observed. Laboratory Results - last 24 hr 01/23/19 01/23/19 01/23/19 03:45 07:17 07:17 WBC 22.2 H RBC 1.93 L Hgb 7.7 L Hct 22.3 L MCV 115.2 H MCH 39.6 H MCHC 34.4 RDW 22.6 H Plt Count 158 MPV 10.3 D Sodium 134 L Potassium 4.4 Chloride 101 Carbon Dioxide 24 Anion Gap 9 BUN 17.2 Creatinine 1.6 H Est GFR (CKD-EPI)AfAm 48.81 Est GFR (CKD-EPI)NonAf 42.11 Random Glucose 113 H Calcium 8.7 Total Bilirubin 0.6 AST 65 H ALT 63 H Alkaline Phosphatase 149 H Total Protein 7.6 Albumin 3.4 Urine Color Yellow Urine Appearance Clear Urine pH 5.0 Ur Specific [place] 1.007 L Urine Protein Negative Urine Glucose (UA) Negative Urine Ketones Negative Urine Blood Negative Urine Nitrite Negative Urine Bilirubin Negative Urine Urobilinogen 0.2 Ur Leukocyte Esterase Negative Active Medications Generic Name Dose Route Start Last Admin Trade Name Trudy PRN Reason Stop Dose Admin Furosemide 40 mg 01/23/19 06:00 01/23/19 15:46 Lasix - PO 40 mg BIDLASIX TERI Administration Heparin Sodium (Porcine) 5,000 unit 01/22/19 22:00 01/23/19 15:46 Heparin - SQ 5,000 unit TID TERI Administration Ceftriaxone Sodium 2 gm/ 100 mls @ 200 mls/hr 01/22/19 19:45 01/23/19 10:06 Dextrose IVPB 200 mls/hr DAILY TERI Administration Protocol Vancomycin HCl 1,000 mg in 250 mls @ 166.667 mls/hr 01/23/19 17:00 Vancomycin (Pre-Docked) IVPB Q24H TERI Protocol Lisinopril 20 mg 01/23/19 10:00 01/23/19 10:06 Prinivil PO 20 mg DAILY TERI Administration Metoprolol Succinate 25 mg 01/23/19 10:00 01/23/19 10:06 Toprol Xl - PO 25 mg DAILY TERI Administration Mirtazapine 30 mg 01/22/19 22:00 01/22/19 21:59 Remeron - PO 30 mg HS TERI Administration Non-Formulary Medication 15 mg 01/23/19 11:30 01/23/19 13:00 Ruxolitinib Phosphate [Jakafi] PO 15 mg BID TERI Administration Venlafaxine HCl 150 mg 01/23/19 10:00 01/23/19 10:06 Effexor Xr - PO 150 mg DAILY TERI Administration ASSESSMENT/PLAN: 73 M PMHX of HTN, anemia, myelofibrosis who presents in the ED with a 4 day hx of LLE erythema which is most likely cellulitis. 1)Left lower leg cellulitis Continue ceftriaxone 2 gram IV daily and vancomycin 1000 mg IV daily Blood cultures pending Lower extremity duplex negative for DVT 2)Myelofibrosis Stable currently on Jakafi Follows with Dr. Nieves as outpatient for management 3)HTN Continue Lisinopril 20 mg PO daily Continue Metoprolol 25 mg PO Daily Continue Lasix 40 mg PO BID 4) Macrocytic anemia Likely secondary to myelofibrosis. Hemoglobin and hematocrit at baseline 5)Chronic Kidney Disease At baseline 6)History of liver cirrhosis Elevated LFTs at baseline DVT prophylaxis: 5000 units Heparin Subcutaneous TID F: No fluids E: follow up CMP N: Sodium controlled diet Dispo: Admitted to medicine floor Visit type - Emergency Visit Emergency Visit: Yes ED Registration Date: 01/22/19 Care time: The patient presented to the Emergency Department on the above date and was hospitalized for further evaluation of their emergent condition. - New Patient This patient is new to me today: Yes Date on this admission: 01/23/19 - Critical Care Critical Care patient: No ATTENDING PHYSICIAN STATEMENT I saw and evaluated the patient. I reviewed the resident's note and discussed the case with the resident. I agree with the resident's findings and plan as documented. SUBJECTIVE: OBJECTIVE: ASSESSMENT AND PLAN:
[2019-01-23] MEDS: VANCOMYCIN 1 GRAM (PRE-DOCKED) 1,000 MG/250 ML BAG IVPB SCH (18:02)
--- NOTE | 2019-01-23 19:31 | PN ---
Teaching Attending Note Name of Resident: Buddy Fraser ATTENDING PHYSICIAN STATEMENT I saw and evaluated the patient. I reviewed the resident's note and discussed the case with the resident. I agree with the resident's findings and plan as documented. SUBJECTIVE: Patient is feeling better , improving . no fever or chills. OBJECTIVE: Vital Signs Temperature 99.5 F 01/23/19 14:00 Pulse Rate 84 01/23/19 14:00 Respiratory Rate 18 01/23/19 14:00 Blood Pressure 142/79 01/23/19 14:00 O2 Sat by Pulse Oximetry (%) 93 L 01/22/19 21:00 GENERAL: The patient is awake, alert, and fully oriented, in no acute distress. HEAD: Normal with no signs of trauma. EYES: PERRL, extraocular movements intact, sclera anicteric, conjunctiva clear. ENT: Ears normal, oropharynx clear without exudates, moist mucous membranes. NECK: Trachea midline, full range of motion, supple. LUNGS: Breath sounds equal, clear to auscultation bilaterally, no wheezes, no crackles, no accessory muscle use. HEART: Regular rate and rhythm, S1, S2 without murmur, rub or gallop. ABDOMEN: Soft, nontender, nondistended, normoactive bowel sounds, no guarding, no rebound, no hepatosplenomegaly, no masses. EXTREMITIES: 2+ pulses, warm, well-perfused, LLE cellulitis with 3 + edema NEUROLOGICAL: Cranial nerves II through XII grossly intact. Normal speech, gait not observed. PSYCH: Normal mood, normal affect. SKIN: Warm, dry, normal turgor, no rashes or lesions noted CBCD WBC 22.2 K/mm3 (4.0-10.0) H 01/23/19 07:17 RBC 1.93 M/mm3 (4.00-5.60) L 01/23/19 07:17 Hgb 7.7 GM/dL (11.7-16.9) L 01/23/19 07:17 Hct 22.3 % (35.4-49) L 01/23/19 07:17 MCV 115.2 fl (80-96) H 01/23/19 07:17 MCHC 34.4 g/dl (32.0-35.9) 01/23/19 07:17 RDW 22.6 % (11.9-15.9) H 01/23/19 07:17 Plt Count 158 K/MM3 (134-434) 01/23/19 07:17 MPV 10.3 fl (7.5-11.1) D 01/23/19 07:17 CMP Sodium 134 mmol/L (136-145) L 01/23/19 07:17 Potassium 4.4 mmol/L (3.5-5.1) 01/23/19 07:17 Chloride 101 mmol/L (98-107) 01/23/19 07:17 Carbon Dioxide 24 mmol/L (21-32) 01/23/19 07:17 Anion Gap 9 MMOL/L (8-16) 01/23/19 07:17 BUN 17.2 mg/dL (7-18) 01/23/19 07:17 Creatinine 1.6 mg/dL (0.55-1.3) H 01/23/19 07:17 Random Glucose 113 mg/dL (74-106) H 01/23/19 07:17 Calcium 8.7 mg/dL (8.5-10.1) 01/23/19 07:17 Total Bilirubin 0.6 mg/dL (0.2-1) 01/23/19 07:17 AST 65 U/L (15-37) H 01/23/19 07:17 ALT 63 U/L (13-61) H 01/23/19 07:17 Alkaline Phosphatase 149 U/L (45-117) H 01/23/19 07:17 Total Protein 7.6 g/dl (6.4-8.2) 01/23/19 07:17 Albumin 3.4 g/dl (3.4-5.0) 01/23/19 07:17 Current Medications Generic Name Dose Route Start Last Admin Trade Name Freq PRN Reason Stop Dose Admin Furosemide 40 mg 01/23/19 06:00 01/23/19 15:46 Lasix - PO 40 mg BIDLASIX TERI Administration Heparin Sodium (Porcine) 5,000 unit 01/22/19 22:00 01/23/19 15:46 Heparin - SQ 5,000 unit TID TERI Administration Ceftriaxone Sodium 2 gm/ 100 mls @ 200 mls/hr 01/22/19 19:45 01/23/19 10:06 Dextrose IVPB 200 mls/hr DAILY TERI Administration Protocol Vancomycin HCl 1,000 mg in 250 mls @ 166.667 mls/hr 01/23/19 17:00 01/23/19 18:02 Vancomycin (Pre-Docked) IVPB 166.667 mls/hr Q24H TERI Administration Protocol Lisinopril 20 mg 01/23/19 10:00 01/23/19 10:06 Prinivil PO 20 mg DAILY TERI Administration Metoprolol Succinate 25 mg 01/23/19 10:00 01/23/19 10:06 Toprol Xl - PO 25 mg DAILY TERI Administration Mirtazapine 30 mg 01/22/19 22:00 01/22/19 21:59 Remeron - PO 30 mg HS TERI Administration Non-Formulary Medication 15 mg 01/23/19 11:30 01/23/19 13:00 Ruxolitinib Phosphate [Jakafi] PO 15 mg BID TERI Administration Venlafaxine HCl 150 mg 01/23/19 10:00 01/23/19 10:06 Effexor Xr - PO 150 mg DAILY TERI Administration Home Medications Medication Instructions Recorded Furosemide [Lasix -] 40 mg PO BID 07/21/15 Lisinopril 20 mg PO DAILY 07/21/15 Mirtazapine [Remeron -] 30 mg PO DAILY 07/21/15 Venlafaxine HCl ER [Effexor Xr -] 150 mg PO DAILY #30 cap.er.24h 11/16/16 Metoprolol Succinate [Toprol XL -] 25 mg PO DAILY 04/19/17 Ruxolitinib Phosphate [Jakafi] 15 mg PO BID 01/04/18 Microbiology 01/22/19 20:35 Blood - Peripheral Venous Blood Culture - Preliminary NO GROWTH OBTAINED AFTER 24 HOURS, INCUBATION TO CONTINUE FOR 4 DAYS. 01/22/19 20:50 Blood - Peripheral Venous Blood Culture - Preliminary NO GROWTH OBTAINED AFTER 24 HOURS, INCUBATION TO CONTINUE FOR 4 DAYS. ASSESSMENT AND PLAN: Patient is a 73yo male PMhx of Alcoholic cirrhosis, ETOH abuse, CKD, MDS, HLD, chronic anemia, possible diastolic heart failure, HTN, and COPD who presented with LLE cellulitis x 4 days. HAD A SIMILAR EVENT LAST YEAR PER THE PATIENT. # LLE cellulitis : No signs of sepsis. ON vanco and rOCEPHIN PER id , NO GROWTH SO FAR # H/o MDS with chronic macrocytic anemia: Hb at base line. # CKD: Cr at base line. cont lisinopril # H/o Liver cirrhosis : Transaminitis at base line # H/o diastolic heart failure: cont his home diuretics. cont BB # H/o HTN: cont lisinopril and BB DVT PX: heparin
[2019-01-23] MEDS: MIRTAZAPINE 15 MG TABLET (FP) PO SCH (21:57)
[2019-01-24] MEDS: FUROSEMIDE 40 MG TABLET (FP) PO SCH ×2 (06:02→13:53)
[2019-01-24] MEDS: HEPARIN NA (PORCINE) 5,000 UNITS/ML 1ML VIAL SQ SCH ×3 (06:02→21:06)
[2019-01-24] MEDS ORDERED: PT OWN MED DRAWER 7, Y5N ONE (06:52)
[2019-01-24 07:57] LABS: BASO % 1.9 % (0-2.0); EOS % 2.4 % (0-4.5); HEMATOCRIT 22.9 % (35.4-49); HEMOGLOBIN 7.7 GM/dL (11.7-16.9); LYMPH % 5.4 % (8-40); MCH 38.6 pg (25.7-33.7); MCHC 33.8 g/dl (32.0-35.9); MEAN CELL VOLUME 114.3 fl (80-96); MEAN PLT VOLUME 10.1 fl (7.5-11.1); MONO % 8.9 % (3.8-10.2); NEUT % 81.4 % (42.8-82.8); PLATELET COUNT 168 K/MM3 (134-434); RDW 23.2 % (11.9-15.9)
[2019-01-24 09:00] LABS: POTASSIUM 4.3 mmol/L (3.5-5.1)
[2019-01-24 09:02] LABS: ALBUMIN 3.5 g/dl (3.4-5.0); BILIRUBIN,TOTAL 0.7 mg/dL (0.2-1); BLOOD UREA NITROGEN 16.3 mg/dL (7-18); CALCIUM 8.5 mg/dL (8.5-10.1); CREATININE 1.6 mg/dL (0.55-1.3)
[2019-01-24] MEDS ORDERED: DEXTROSE 5%-WATER 100 ML IVPB ONE (09:37)
[2019-01-24] MEDS: VENLAFAXINE HCL 75 MG E.R. CAPSULES (FP) PO SCH (10:01)
[2019-01-24] MEDS: metoPROLOL SUCCINATE 25 MG TAB.SR.24H (FP) PO SCH (10:01)
[2019-01-24] MEDS: LISINOPRIL 20 MG TABLET (FP) PO SCH (10:01)
[2019-01-24] MEDS: CEFTRIAXONE 2 GM in DEXTROSE 5%-WATER 100 ML IVPB SCH (10:02)
[2019-01-24] MEDS: RUXOLITINIB PHOSPHATE 15 MG PO SCH ×2 (10:02→21:07)
--- NOTE | 2019-01-24 12:00 | PN ---
Teaching Attending Note Name of Resident: Buddy Fraser ATTENDING PHYSICIAN STATEMENT I saw and evaluated the patient. I reviewed the resident's note and discussed the case with the resident. I agree with the resident's findings and plan as documented. SUBJECTIVE: Patient is comfortable with no acute distress. OBJECTIVE: Vital Signs Temperature 98.4 F 01/24/19 06:00 Pulse Rate 92 H 01/24/19 06:00 Respiratory Rate 20 01/24/19 06:00 Blood Pressure 143/76 01/24/19 06:00 O2 Sat by Pulse Oximetry (%) 93 L 01/22/19 21:00 GENERAL: The patient is awake, alert, and fully oriented, in no acute distress. HEAD: Normal with no signs of trauma. EYES: PERRL, extraocular movements intact, sclera anicteric, conjunctiva clear. ENT: Ears normal, oropharynx clear without exudates, moist mucous membranes. NECK: Trachea midline, full range of motion, supple. LUNGS: Breath sounds equal, clear to auscultation bilaterally, no wheezes, no crackles, no accessory muscle use. HEART: Regular rate and rhythm, S1, S2 without murmur, rub or gallop. ABDOMEN: Soft, nontender, nondistended, normoactive bowel sounds, no guarding, no rebound, no hepatosplenomegaly, no masses. EXTREMITIES: 2+ pulses, warm, well-perfused, LLE cellulitis with 1 + edema, improved NEUROLOGICAL: Cranial nerves II through XII grossly intact. Normal speech, gait not observed. PSYCH: Normal mood, normal affect. SKIN: Warm, dry, normal turgor, no rashes or lesions noted CBCD WBC 21.0 K/mm3 (4.0-10.0) H 01/24/19 07:20 RBC 2.00 M/mm3 (4.00-5.60) L 01/24/19 07:20 Hgb 7.7 GM/dL (11.7-16.9) L 01/24/19 07:20 Hct 22.9 % (35.4-49) L 01/24/19 07:20 MCV 114.3 fl (80-96) H 01/24/19 07:20 MCHC 33.8 g/dl (32.0-35.9) 01/24/19 07:20 RDW 23.2 % (11.9-15.9) H 01/24/19 07:20 Plt Count 168 K/MM3 (134-434) 01/24/19 07:20 MPV 10.1 fl (7.5-11.1) 01/24/19 07:20 CMP Sodium 133 mmol/L (136-145) L 01/24/19 07:20 Potassium 4.3 mmol/L (3.5-5.1) 01/24/19 07:20 Chloride 99 mmol/L (98-107) 01/24/19 07:20 Carbon Dioxide 24 mmol/L (21-32) 01/24/19 07:20 Anion Gap 9 MMOL/L (8-16) 01/24/19 07:20 BUN 16.3 mg/dL (7-18) 01/24/19 07:20 Creatinine 1.6 mg/dL (0.55-1.3) H 01/24/19 07:20 Random Glucose 108 mg/dL (74-106) H 01/24/19 07:20 Calcium 8.5 mg/dL (8.5-10.1) 01/24/19 07:20 Total Bilirubin 0.7 mg/dL (0.2-1) 01/24/19 07:20 AST 59 U/L (15-37) H 01/24/19 07:20 ALT 57 U/L (13-61) 01/24/19 07:20 Alkaline Phosphatase 142 U/L (45-117) H 01/24/19 07:20 Total Protein 8.0 g/dl (6.4-8.2) 01/24/19 07:20 Albumin 3.5 g/dl (3.4-5.0) 01/24/19 07:20 Current Medications Generic Name Dose Route Start Last Admin Trade Name Freq PRN Reason Stop Dose Admin Furosemide 40 mg 01/23/19 06:00 01/24/19 06:02 Lasix - PO 40 mg BIDLASIX TERI Administration Heparin Sodium (Porcine) 5,000 unit 01/22/19 22:00 01/24/19 06:02 Heparin - SQ 5,000 unit TID TERI Administration Ceftriaxone Sodium 2 gm/ 100 mls @ 200 mls/hr 01/22/19 19:45 01/24/19 10:02 Dextrose IVPB 200 mls/hr DAILY TERI Administration Protocol Vancomycin HCl 1,000 mg in 250 mls @ 166.667 mls/hr 01/23/19 17:00 01/23/19 18:02 Vancomycin (Pre-Docked) IVPB 166.667 mls/hr Q24H TERI Administration Protocol Lisinopril 20 mg 01/23/19 10:00 01/24/19 10:01 Prinivil PO 20 mg DAILY TERI Administration Metoprolol Succinate 25 mg 01/23/19 10:00 01/24/19 10:01 Toprol Xl - PO 25 mg DAILY TERI Administration Mirtazapine 30 mg 01/22/19 22:00 01/23/19 21:57 Remeron - PO 30 mg HS TERI Administration Non-Formulary Medication 15 mg 01/23/19 11:30 01/24/19 10:02 Ruxolitinib Phosphate [Jakafi] PO 15 mg BID TERI Administration Venlafaxine HCl 150 mg 01/23/19 10:00 01/24/19 10:01 Effexor Xr - PO 150 mg DAILY TERI Administration Home Medications Medication Instructions Recorded RX: Furosemide [Lasix -] 40 mg PO BID 07/21/15 RX: Lisinopril 20 mg PO DAILY 07/21/15 RX: Mirtazapine [Remeron -] 30 mg PO DAILY 07/21/15 RX: Venlafaxine HCl ER [Effexor Xr 150 mg PO DAILY #30 cap.er.24h 11/16/16 -] RX: Metoprolol Succinate [Toprol 25 mg PO DAILY 04/19/17 XL -] RX: Ruxolitinib Phosphate [Jakafi] 15 mg PO BID 01/04/18 ASSESSMENT AND PLAN: Patient is a 73yo male PMhx of Alcoholic cirrhosis, ETOH abuse, CKD, MDS, HLD, chronic anemia, possible diastolic heart failure, HTN, and COPD who presented with LLE cellulitis x 4 days. HAD A SIMILAR EVENT LAST YEAR PER THE PATIENT. # LLE cellulitis : No signs of sepsis. ON vanco and rOCEPHIN PER id , NO GROWTH SO FAR , continue one more dsy of IV antibiotic and possible dc in am , will discuss with ID # H/o MDS with chronic macrocytic anemia: Hb at base line. # CKD: Cr at base line. cont lisinopril # H/o Liver cirrhosis : Transaminitis at base line # H/o diastolic heart failure: cont his home diuretics. cont BB # H/o HTN: cont lisinopril and BB DVT PX: heparin
[2019-01-24 12:45] LABS: ANISOCYTOSIS 1+; MACROCYTOSIS 1+; PLATELET ESTIMATE NORMAL
--- NOTE | 2019-01-24 14:17 | PN ---
Physical Exam: SUBJECTIVE: Patient seen and examined in the morning. Was awake and alert. Had no acute events overnight. No complaints of chest pain, shortness of breath, fever, headache, or abdominal pain. OBJECTIVE: Vital Signs Period Temp Pulse Resp BP Sys/Rodriguez Pulse Ox Last 24 Hr 98.4 F-98.8 F 77-92 18-20 133-145/63-78 97 GENERAL: The patient is awake, alert, and fully oriented, in no acute distress. HEAD: Normal with no signs of trauma. EYES: PERRL, extraocular movements intact, sclera anicteric, conjunctiva clear. No ptosis. ENT: Ears normal, nares patent, oropharynx clear without exudates, moist mucous membranes. NECK: Trachea midline, full range of motion, supple. LUNGS: Breath sounds equal, clear to auscultation bilaterally, no wheezes, no crackles, no accessory muscle use. HEART: Regular rate and rhythm, S1, S2 without murmur, rub or gallop. ABDOMEN: Distended, soft nontender, no shifting dullness, no guarding or rebound. EXTREMITIES: 2+ pulses, warm, well-perfused, no edema. NEUROLOGICAL: Cranial nerves II through XII grossly intact. Normal speech, gait not observed. PSYCH: Normal mood, normal affect. SKIN: Warm, dry, normal turgor, no rashes or lesions noted Laboratory Results - last 24 hr CBC, BMP 01/24/19 07:20 01/24/19 07:20 Active Medications Generic Name Dose Route Start Last Admin Trade Name Freq PRN Reason Stop Dose Admin Furosemide 40 mg 01/23/19 06:00 01/24/19 13:53 Lasix - PO 40 mg BIDLASIX TERI Administration Heparin Sodium (Porcine) 5,000 unit 01/22/19 22:00 01/24/19 13:53 Heparin - SQ 5,000 unit TID TERI Administration Ceftriaxone Sodium 2 gm/ 100 mls @ 200 mls/hr 01/22/19 19:45 01/24/19 10:02 Dextrose IVPB 200 mls/hr DAILY TERI Administration Protocol Vancomycin HCl 1,000 mg in 250 mls @ 166.667 mls/hr 01/23/19 17:00 01/23/19 18:02 Vancomycin (Pre-Docked) IVPB 166.667 mls/hr Q24H TERI Administration Protocol Lisinopril 20 mg 01/23/19 10:00 01/24/19 10:01 Prinivil PO 20 mg DAILY TERI Administration Metoprolol Succinate 25 mg 01/23/19 10:00 01/24/19 10:01 Toprol Xl - PO 25 mg DAILY TERI Administration Mirtazapine 30 mg 01/22/19 22:00 01/23/19 21:57 Remeron - PO 30 mg HS TERI Administration Non-Formulary Medication 15 mg 01/23/19 11:30 01/24/19 10:02 Ruxolitinib Phosphate [Jakafi] PO 15 mg BID TERI Administration Venlafaxine HCl 150 mg 01/23/19 10:00 01/24/19 10:01 Effexor Xr - PO 150 mg DAILY TERI Administration ASSESSMENT/PLAN: 73 M PMHX of HTN, anemia, myelofibrosis who presents in the ED with a 4 day hx of LLE erythema which is most likely cellulitis. 1)Left lower leg cellulitis Continue ceftriaxone 2 gram IV daily and vancomycin 1000 mg IV daily Blood cultures pending Lower extremity duplex negative for DVT WBC down to 21.0 2)Myelofibrosis Stable currently on Jakafi. Continue. Follows with Dr. Nieves as outpatient for management 3)HTN Continue Lisinopril 20 mg PO daily Continue Metoprolol 25 mg PO Daily Continue Lasix 40 mg PO BID 4) Macrocytic anemia Likely secondary to myelofibrosis. Hemoglobin and hematocrit at baseline 5)Chronic Kidney Disease At baseline 6)History of liver cirrhosis Elevated LFTs at baseline DVT prophylaxis: 5000 units Heparin Subcutaneous TID F: No fluids E: follow up CMP N: Sodium controlled diet Dispo: Admitted to medicine floor Visit type - Emergency Visit Emergency Visit: Yes ED Registration Date: 01/22/19 Care time: The patient presented to the Emergency Department on the above date and was hospitalized for further evaluation of their emergent condition. - New Patient This patient is new to me today: No - Critical Care Critical Care patient: No ATTENDING PHYSICIAN STATEMENT I saw and evaluated the patient. I reviewed the resident's note and discussed the case with the resident. I agree with the resident's findings and plan as documented. SUBJECTIVE: OBJECTIVE: ASSESSMENT AND PLAN:
--- NOTE | 2019-01-24 15:21 | PN ---
Progress Note, Physician History of Present Illness: NO C/O LEG PAIN NO FEVER/ CHILLS AFEBRILE WBC REMAINS ELEVATED BC (-) - Current Medication List Current Medications: Active Medications Furosemide (Lasix -) 40 mg PO BIDLASIX [facility] Last Admin: 01/24/19 13:53 Dose: 40 mg Heparin Sodium (Porcine) (Heparin -) 5,000 unit SQ TID [facility] Last Admin: 01/24/19 13:53 Dose: 5,000 unit Ceftriaxone Sodium 2 gm/ (Dextrose) 100 mls @ 200 mls/hr IVPB DAILY [facility]; Protocol Last Admin: 01/24/19 10:02 Dose: 200 mls/hr Vancomycin HCl (Vancomycin (Pre-Docked)) 1,000 mg in 250 mls @ 166.667 mls/hr IVPB Q24H [facility]; Protocol Last Admin: 01/23/19 18:02 Dose: 166.667 mls/hr Lisinopril (Prinivil) 20 mg PO DAILY [facility] Last Admin: 01/24/19 10:01 Dose: 20 mg Metoprolol Succinate (Toprol Xl -) 25 mg PO DAILY [facility] Last Admin: 01/24/19 10:01 Dose: 25 mg Mirtazapine (Remeron -) 30 mg PO HS [facility] Last Admin: 01/23/19 21:57 Dose: 30 mg Non-Formulary Medication (Ruxolitinib Phosphate [Jakafi]) 15 mg PO BID [facility] Last Admin: 01/24/19 10:02 Dose: 15 mg Venlafaxine HCl (Effexor Xr -) 150 mg PO DAILY [facility] Last Admin: 01/24/19 10:01 Dose: 150 mg - Objective Vital Signs: Vital Signs Temperature 98.5 F 01/24/19 10:00 Pulse Rate 77 01/24/19 10:00 Respiratory Rate 18 01/24/19 10:00 Blood Pressure 133/63 01/24/19 10:00 O2 Sat by Pulse Oximetry (%) 97 01/24/19 09:00 Constitutional: Yes: No Distress Cardiovascular: Yes: Regular Rate and Rhythm, S1, S2 Respiratory: Yes: CTA Bilaterally Gastrointestinal: Yes: Normal Bowel Sounds, Soft. No: Tenderness Extremities: Yes: Other (DISTAL L LE REMAINS SWOLLEN / ERYTHEMATOUS) Labs: CBC, BMP 01/24/19 07:20 01/24/19 07:20 Assessment/Plan RECURRENT CELLULITIS L LE LEUKOCYTOSIS/ MYELOFIBROSIS CKD CONTINUE VANCOYCIN/ CEFTRIAXONE ELEVATION
[2019-01-24] MEDS: VANCOMYCIN 1 GRAM (PRE-DOCKED) 1,000 MG/250 ML BAG IVPB SCH (17:29)
[2019-01-24] MEDS: MIRTAZAPINE 15 MG TABLET (FP) PO SCH (21:06)
[2019-01-25] MEDS: HEPARIN NA (PORCINE) 5,000 UNITS/ML 1ML VIAL SQ SCH ×3 (05:38→14:43)
[2019-01-25] MEDS: FUROSEMIDE 40 MG TABLET (FP) PO SCH ×3 (05:38→14:43)
[2019-01-25 07:02] LABS: BASO % 3.4 % (0-2.0); EOS % 3.3 % (0-4.5); HEMATOCRIT 21.8 % (35.4-49); HEMOGLOBIN 7.3 GM/dL (11.7-16.9); LYMPH % 4.6 % (8-40); MCH 38.5 pg (25.7-33.7); MCHC 33.5 g/dl (32.0-35.9); MEAN CELL VOLUME 114.9 fl (80-96); MEAN PLT VOLUME 10.3 fl (7.5-11.1); MONO % 7.5 % (3.8-10.2); NEUT % 81.2 % (42.8-82.8); PLATELET COUNT 151 K/MM3 (134-434); RBC 1.89 M/mm3 (4.00-5.60); RDW 23.5 % (11.9-15.9); WHITE BLOOD COUNT 19.5 K/mm3 (4.0-10.0)
[2019-01-25 08:18] LABS: ALBUMIN 3.4 g/dl (3.4-5.0); BILIRUBIN,TOTAL 0.6 mg/dL (0.2-1); BLOOD UREA NITROGEN 22.2 mg/dL (7-18); CALCIUM 8.3 mg/dL (8.5-10.1); CREATININE 1.7 mg/dL (0.55-1.3); POTASSIUM 4.2 mmol/L (3.5-5.1); TOT PROT 7.6 g/dl (6.4-8.2)
[2019-01-25] MEDS ORDERED: DEXTROSE 5%-WATER 100 ML IVPB ONE (08:50)
[2019-01-25] MEDS ORDERED: PT OWN MED DRAWER 7, Y5N ONE (08:50)
[2019-01-25] MEDS: CEFTRIAXONE 2 GM in DEXTROSE 5%-WATER 100 ML IVPB SCH (09:48)
[2019-01-25] MEDS: LISINOPRIL 20 MG TABLET (FP) PO SCH (09:49)
[2019-01-25] MEDS: RUXOLITINIB PHOSPHATE 15 MG PO SCH (09:49)
[2019-01-25] MEDS: metoPROLOL SUCCINATE 25 MG TAB.SR.24H (FP) PO SCH (09:49)
[2019-01-25] MEDS: VENLAFAXINE HCL 75 MG E.R. CAPSULES (FP) PO SCH (09:49)
[2019-01-25] MEDS ORDERED: NICOTINE 14 MG/24 HOURS TOPICAL PATCH TD SCH (10:00)
[2019-01-25 12:09] LABS: ANISOCYTOSIS 2+; MACROCYTOSIS 0; OVALOCYTE 1+; PLATELET ESTIMATE DECREASED; TEAR DROP CELLS 1+
--- NOTE | 2019-01-25 13:34 | PN ---
Progress Note, Physician History of Present Illness: CELLULITIS LE IMPROVED NO C/O LEG PAIN NO FEVER/ CHILLS AFEBRILE WBC REMAINS ELEVATED (HX MDS) BC (-) - Current Medication List Current Medications: Active Medications Furosemide (Lasix -) 40 mg PO BIDLASIX [facility] Last Admin: 01/25/19 05:38 Dose: 40 mg Heparin Sodium (Porcine) (Heparin -) 5,000 unit SQ TID [facility] Last Admin: 01/25/19 05:38 Dose: 5,000 unit Ceftriaxone Sodium 2 gm/ (Dextrose) 100 mls @ 200 mls/hr IVPB DAILY [facility]; Protocol Last Admin: 01/25/19 09:48 Dose: 200 mls/hr Vancomycin HCl (Vancomycin (Pre-Docked)) 1,000 mg in 250 mls @ 166.667 mls/hr IVPB Q24H [facility]; Protocol Last Admin: 01/24/19 17:29 Dose: 166.667 mls/hr Lisinopril (Prinivil) 20 mg PO DAILY [facility] Last Admin: 01/25/19 09:49 Dose: 20 mg Metoprolol Succinate (Toprol Xl -) 25 mg PO DAILY [facility] Last Admin: 01/25/19 09:49 Dose: 25 mg Mirtazapine (Remeron -) 30 mg PO HS [facility] Last Admin: 01/24/19 21:06 Dose: 30 mg Nicotine (Nicoderm Patch -) 14 mg TD DAILY [facility] Last Admin: 01/25/19 09:49 Dose: 14 mg Non-Formulary Medication (Ruxolitinib Phosphate [Jakafi]) 15 mg PO BID [facility] Last Admin: 01/25/19 09:49 Dose: 15 mg Venlafaxine HCl (Effexor Xr -) 150 mg PO DAILY [facility] Last Admin: 01/25/19 09:49 Dose: 150 mg - Objective Vital Signs: Vital Signs Temperature 98.6 F 01/25/19 10:00 Pulse Rate 70 01/25/19 10:00 Respiratory Rate 18 01/25/19 10:00 Blood Pressure 132/70 01/25/19 10:00 O2 Sat by Pulse Oximetry (%) 95 01/25/19 09:00 Constitutional: Yes: No Distress Eyes: Yes: Conjunctiva Clear Cardiovascular: Yes: Regular Rate and Rhythm, S1, S2 Respiratory: Yes: CTA Bilaterally Gastrointestinal: Yes: Normal Bowel Sounds, Soft. No: Tenderness Extremities: Yes: Other (ERYTHEMA/ SWELLING/ WARMTH LE IMPROVED) Labs: CBC, BMP 01/25/19 06:20 01/25/19 06:20 Assessment/Plan RECURRENT CELLULITIS L LE IMPROVED LEUKOCYTOSIS/ MYELOFIBROSIS CKD SUBSTITUTE KEFLEX 500MG PO BID X 7D OUTPATIENT F/U ELEVATION
[2019-01-25] MEDS ORDERED: VANCOMYCIN 1 GRAM (PRE-DOCKED) 1,000 MG/250 ML BAG IVPB ONE (14:00)
--- NOTE | 2019-01-25 14:50 | DS ---
Physical Exam: SUBJECTIVE: Patient seen and examined in the morning. No acute events overnight , no chest pain, no abdominal pain, no shortness of breath, no fever, no chills , no cough. OBJECTIVE: Vital Signs Period Temp Pulse Resp BP Sys/Rodriguez Pulse Ox Last 24 Hr 98 F-98.6 F 70-78 18-18 112-134/58-70 95-97 PHYSICAL EXAM GENERAL: The patient is awake, alert, and fully oriented, in no acute distress. HEAD: Normal with no signs of trauma. EYES: PERRL, extraocular movements intact, sclera anicteric, conjunctiva clear. ENT: Ears normal, nares patent, oropharynx clear without exudates, moist mucous membranes. NECK: Trachea midline, full range of motion, supple. LUNGS: Breath sounds equal, clear to auscultation bilaterally, no wheezes, no crackles, no accessory muscle use. HEART: Regular rate and rhythm, S1, S2 without murmur, rub or gallop. ABDOMEN: Soft, nontender, nondistended, normoactive bowel sounds, no guarding, no rebound, no hepatosplenomegaly, no masses. EXTREMITIES: 2+ pulses, warm, well-perfused, no edema. NEUROLOGICAL: Cranial nerves II through XII grossly intact. Normal speech, gait not observed. PSYCH: Normal mood, normal affect. SKIN: Warm, dry, normal turgor, no rashes or lesions noted. LABS Laboratory Results - last 24 hr CBC, BMP 01/25/19 06:20 01/25/19 06:20 HOSPITAL COURSE: Date of Admission:01/22/19 Date of Discharge: 01/25/19 73 M PMH of CHF, CKD, HTN, COPD, myelofibrosis (Followed by Dr. Nugent), who presented in the ED due to a 4 day hx of LLE erythema. In the ED he was noted to have high WBC. Vascular study of the legs ruled out any DVT. Treatment was begun on vancomycin and ceftriaxone. Cultures did not result over 48 hours, and white blood cell count dropped slowly. Patient was clinically stable and cellulitis was visibly shrinking. Imaging done: U/S Duplex: no evidence of DVT Minutes to complete discharge: 35 Discharge Summary Problems reviewed: Yes Reason For Visit: CELLULITIS OF LEFT FOOT Current Active Problems Cellulitis of foot, left (Acute) Anemia (Chronic) Hypertension (Chronic) Myelofibrosis (Chronic) Transaminitis (Chronic) Condition: Stable - Instructions Diet, Activity, Other Instructions: You were admitted to the hospital because of an infection of your left leg. While you were here we treated you with antibiotics which helped your leg improve. It is important that you continue to take the antibiotics we are prescribing you as directed so your leg fully heals. You are being prescribed: Keflex 500 mg by mouth, Three times a day for 7 days. Continue all your home medications as prescribed. Make an appointment with a PCP within 1 week. Return to the emergency department if you have chest pain, shortness of breath, nausea and vomiting, fevers, or worsening of your symptoms. Referrals: [facility] [place] [facility] [place] [Provider Group] - 1 Week Disposition: HOME - Home Medications Comprehensive Discharge Medication List: Ambulatory Orders Furosemide [Lasix -] 40 mg PO BID 07/21/15 Lisinopril 20 mg PO DAILY 07/21/15 Mirtazapine [Remeron -] 30 mg PO DAILY 07/21/15 Venlafaxine HCl ER [Effexor Xr -] 150 mg PO DAILY #30 cap.er.24h 11/16/16 Metoprolol Succinate [Toprol XL -] 25 mg PO DAILY 04/19/17 Ruxolitinib Phosphate [Jakafi] 15 mg PO BID 01/04/18 Cephalexin [Keflex] 500 mg PO TID 7 Days #21 capsule 01/25/19 This patient is new to me today: No Emergency Visit: Yes ED Registration Date: 01/22/19 Care time: The patient presented to the Emergency Department on the above date and was hospitalized for further evaluation of their emergent condition. Critical Care patient: No - Discharge Referral Referred to [facility] No ATTENDING PHYSICIAN STATEMENT I saw and evaluated the patient. I reviewed the resident's note and discussed the case with the resident. I agree with the resident's findings and plan as documented. SUBJECTIVE: OBJECTIVE: ASSESSMENT AND PLAN:
[2019-01-25 15:17] VITALS: BP 126/67; PULSE 73; TEMP 97.9
--- NOTE | 2019-01-27 19:30 | PN ---
Teaching Attending Note Name of Resident: Buddy Fraser ATTENDING PHYSICIAN STATEMENT I saw and evaluated the patient. I reviewed the resident's note and discussed the case with the resident. I agree with the resident's findings and plan as documented. Patient is comfortable with no acute distress. OBJECTIVE: Vital Signs Temperature 97.9 F 01/25/19 14:00 Pulse Rate 73 01/25/19 14:00 Respiratory Rate 20 01/25/19 14:00 Blood Pressure 126/67 01/25/19 14:00 O2 Sat by Pulse Oximetry (%) 95 01/25/19 09:00 GENERAL: The patient is awake, alert, and fully oriented, in no acute distress. HEAD: Normal with no signs of trauma. EYES: PERRL, extraocular movements intact, sclera anicteric, conjunctiva clear. ENT: Ears normal, oropharynx clear without exudates, moist mucous membranes. NECK: Trachea midline, full range of motion, supple. LUNGS: Breath sounds equal, clear to auscultation bilaterally, no wheezes, no crackles, no accessory muscle use. HEART: Regular rate and rhythm, S1, S2 without murmur, rub or gallop. ABDOMEN: Soft, nontender, nondistended, normoactive bowel sounds, no guarding, no rebound, no hepatosplenomegaly, no masses. EXTREMITIES: 2+ pulses, warm, well-perfused, LLE cellulitis with 1 + edema, improved NEUROLOGICAL: Cranial nerves II through XII grossly intact. Normal speech, gait not observed. PSYCH: Normal mood, normal affect. SKIN: Warm, dry, normal turgor, no rashes or lesions noted CBCD WBC 19.5 K/mm3 (4.0-10.0) H 01/25/19 06:20 RBC 1.89 M/mm3 (4.00-5.60) L 01/25/19 06:20 Hgb 7.3 GM/dL (11.7-16.9) L 01/25/19 06:20 Hct 21.8 % (35.4-49) L 01/25/19 06:20 MCV 114.9 fl (80-96) H 01/25/19 06:20 MCHC 33.5 g/dl (32.0-35.9) 01/25/19 06:20 RDW 23.5 % (11.9-15.9) H 01/25/19 06:20 Plt Count 151 K/MM3 (134-434) 01/25/19 06:20 MPV 10.3 fl (7.5-11.1) 01/25/19 06:20 CMP Sodium 133 mmol/L (136-145) L 01/25/19 06:20 Potassium 4.2 mmol/L (3.5-5.1) 01/25/19 06:20 Chloride 100 mmol/L (98-107) 01/25/19 06:20 Carbon Dioxide 24 mmol/L (21-32) 01/25/19 06:20 Anion Gap 10 MMOL/L (8-16) 01/25/19 06:20 BUN 22.2 mg/dL (7-18) H 01/25/19 06:20 Creatinine 1.7 mg/dL (0.55-1.3) H 01/25/19 06:20 Random Glucose 115 mg/dL (74-106) H 01/25/19 06:20 Calcium 8.3 mg/dL (8.5-10.1) L 01/25/19 06:20 Total Bilirubin 0.6 mg/dL (0.2-1) 01/25/19 06:20 AST 58 U/L (15-37) H 01/25/19 06:20 ALT 55 U/L (13-61) 01/25/19 06:20 Alkaline Phosphatase 128 U/L (45-117) H 01/25/19 06:20 Total Protein 7.6 g/dl (6.4-8.2) 01/25/19 06:20 Albumin 3.4 g/dl (3.4-5.0) 01/25/19 06:20 Current Medications Generic Name Dose Route Start Last Admin Trade Name Freq PRN Reason Stop Dose Admin Furosemide 40 mg 01/23/19 06:00 01/24/19 06:02 Lasix - PO 40 mg BIDLASIX TERI Administration Heparin Sodium (Porcine) 5,000 unit 01/22/19 22:00 01/24/19 06:02 Heparin - SQ 5,000 unit TID TERI Administration Ceftriaxone Sodium 2 gm/ 100 mls @ 200 mls/hr 01/22/19 19:45 01/24/19 10:02 Dextrose IVPB 200 mls/hr DAILY TERI Administration Protocol Vancomycin HCl 1,000 mg in 250 mls @ 166.667 mls/hr 01/23/19 17:00 01/23/19 18:02 Vancomycin (Pre-Docked) IVPB 166.667 mls/hr Q24H TERI Administration Protocol Lisinopril 20 mg 01/23/19 10:00 01/24/19 10:01 Prinivil PO 20 mg DAILY TERI Administration Metoprolol Succinate 25 mg 01/23/19 10:00 01/24/19 10:01 Toprol Xl - PO 25 mg DAILY TERI Administration Mirtazapine 30 mg 01/22/19 22:00 01/23/19 21:57 Remeron - PO 30 mg HS TERI Administration Non-Formulary Medication 15 mg 01/23/19 11:30 01/24/19 10:02 Ruxolitinib Phosphate [Jakafi] PO 15 mg BID TERI Administration Venlafaxine HCl 150 mg 01/23/19 10:00 01/24/19 10:01 Effexor Xr - PO 150 mg DAILY TERI Administration Home Medications Medication Instructions Recorded Furosemide [Lasix -] 40 mg PO BID 07/21/15 Lisinopril 20 mg PO DAILY 07/21/15 Mirtazapine [Remeron -] 30 mg PO DAILY 07/21/15 Venlafaxine HCl ER [Effexor Xr -] 150 mg PO DAILY #30 cap.er.24h 11/16/16 Metoprolol Succinate [Toprol XL -] 25 mg PO DAILY 04/19/17 Ruxolitinib Phosphate [Jakafi] 15 mg PO BID 01/04/18 Cephalexin [Keflex] 500 mg PO TID 7 Days #21 capsule 01/25/19 ASSESSMENT AND PLAN: Patient is a 73yo male PMhx of Alcoholic cirrhosis, ETOH abuse, CKD, MDS, HLD, chronic anemia, possible diastolic heart failure, HTN, and COPD who presented with LLE cellulitis x 4 days. HAD A SIMILAR EVENT LAST YEAR PER THE PATIENT. # LLE cellulitis : improved , patient is being discharged home on keflex 500mg po tid x 7 days . s/p IV antibiotics # H/o MDS with chronic macrocytic anemia: Hb at base line. # CKD: Cr at base line. cont lisinopril # H/o Liver cirrhosis : Transaminitis at base line # H/o diastolic heart failure: cont his home diuretics. cont BB # H/o HTN: cont lisinopril and BB discharge patient the patient home
== END 2019-01-25 17:08 | disposition home or self-care (01) | DRG 603 ==
LOC: JER 13:08 → JERBED 16:18 → J8W 18:27 → OBSVTOIN 19:27
PROVIDERS: ADMIT Internal Medicine; ATTEND Internal Medicine
DX: L03.116 Cellulitis of left lower limb (principal); I13.0 Hypertensive heart and chronic kidney disease with heart failure and stage 1 through stage 4 chronic kidney disease, or unspecified chronic kidney disease; I50.32 Chronic diastolic (congestive) heart failure; D75.81 Myelofibrosis; D53.9 Nutritional anemia, unspecified; J44.9 Chronic obstructive pulmonary disease, unspecified; N18.9 Chronic kidney disease, unspecified; E78.5 Hyperlipidemia, unspecified; K70.30 Alcoholic cirrhosis of liver without ascites; D72.829 Elevated white blood cell count, unspecified
CPT/HCPCS: 36415; 80053; 81003; 85025; 85027; 86140; 87040; 93005; 93010; 93971-TC; 97116-GP; 99283-25; G0008; G0378; J1644; Q2036

== ENCOUNTER 2019-02-17 20:14 | Inpatient (IN) | payer OTHER ==
[2019-02-17 21:17] LABS: BASO % 0.7 % (0-2.0); EOS % 2.9 % (0-4.5); HEMATOCRIT 20.9 % (35.4-49); LYMPH % 5.4 % (8-40); MCHC 33.6 g/dl (32.0-35.9); MONO % 8.2 % (3.8-10.2); NEUT % 82.8 % (42.8-82.8); PLATELET COUNT 146 K/MM3 (134-434); RDW 23.7 % (11.9-15.9); WHITE BLOOD COUNT 15.4 K/mm3 (4.0-10.0)
[2019-02-17 21:29] LABS: INR 1.36 (0.83-1.09); PROTHROMBIN TIME (PATIENT) 16.1 SEC (9.7-13.0)
[2019-02-17 21:32] LABS: ACTIVATED PTT 33.4 SECONDS (25.2-36.5)
[2019-02-17 21:45] LABS: MAGNESIUM 2.2 mg/dL (1.8-2.4); N-TERMINAL BNP 1617.5 pg/ml (5-125)
[2019-02-17 21:54] LABS: ALBUMIN 3.4 g/dl (3.4-5.0); BILIRUBIN,TOTAL 0.6 mg/dL (0.2-1); BLOOD UREA NITROGEN 21.5 mg/dL (7-18); CALCIUM 8.5 mg/dL (8.5-10.1); CREATININE 1.8 mg/dL (0.55-1.3); POTASSIUM 4.5 mmol/L (3.5-5.1); TOT PROT 7.8 g/dl (6.4-8.2)
[2019-02-17 22:54] LABS: ANISOCYTOSIS 3+; PLATELET ESTIMATE ADEQUATE; TEAR DROP CELLS FEW
--- NOTE | 2019-02-18 00:12 | PDOC ---
Documentation entered by Janeth Carvalho SCRIBE, acting as scribe for Terry Carrington MD. Terry Carrington MD: This documentation has been prepared by the amadouibDeven raines Lincy, SCRIBE, under my direction and personally reviewed by me in its entirety. I confirm that the documentation accurately reflects all work, treatment, procedures, and medical decision making performed by me. History of Present Illness - General Chief Complaint: Shortness of Breath Stated Complaint: SOb, swelling Time Seen by Provider: 02/17/19 20:40 History Source: Patient Exam Limitations: No Limitations - History of Present Illness Initial Comments: 02/17/19 21:45 The patient is a 73-year-old male with a past medical history significant for CHF, COPD, CKF, HTN, hx of anemia, and myelofibrosis, who presents to the emergency department with abdominal and scrotal pain. The patient reports hes been having 2 days of abdominal and scrotal pain associated with swelling. The patient describes the pain as 8/10 in severity and describes the abdomen feels distended and tight. The swelling has been getting worse in the last 2 days. The patient reports associated symptoms of Shortness of breath secondary to abdominal pain with deep breathing, lower extremity edema, decreased urine output, nausea, and headache. The patient reports daily use of 40mg of lasix BID. Denies chest pain, fever, or chills. Allergies: NKDA Social history: Current tobacco user. 02/18/19 00:37 73 years old with past medical history significant for CHF COPD CKD hypertension anemia myelofibrosis cirrhosis presents to the ED with anasarca and abdominal discomfort secondary to weight gain and water retention CAT scan demonstrates no acute infectious changes, progression of underlying disease and ascites patient is afebrile his white blood count is chronically elevated secondary to myelofibrosis but is lower than it normally is low suspicion for infected ascites at this time patient required diuresis plus minus therapeutic paracentesis Diuresis initiated with IV Lasix patient will require close renal function monitoring Will admit to medicine for further management. Past History - Past Medical History Allergies/Adverse Reactions: Allergies Allergy/AdvReac Type Severity Reaction Status Date / Time No Known Allergies Allergy Verified 02/17/19 20:21 Home Medications: Ambulatory Orders Furosemide [Lasix -] 40 mg PO BID 07/21/15 Lisinopril 20 mg PO DAILY 07/21/15 Mirtazapine [Remeron -] 30 mg PO DAILY 07/21/15 Venlafaxine HCl ER [Effexor Xr -] 150 mg PO DAILY #30 cap.er.24h 11/16/16 Metoprolol Succinate [Toprol XL -] 25 mg PO DAILY 04/19/17 Ruxolitinib Phosphate [Jakafi] 15 mg PO BID 01/04/18 Cephalexin [Keflex] 500 mg PO TID 7 Days #21 capsule 01/25/19 Anemia: Yes Asthma: No Cancer: Yes (MYELOFIBROSIS) Cardiac Disorders: No CVA: No COPD: Yes CHF: Yes DVT: No Dementia: No Diabetes: No (PT DENIES) GI Disorders: Yes (CIRRHOSIS) Disorders: No HTN: Yes Hypercholesterolemia: Yes Liver Disease: Yes (ALCOHOLIC CIRRHOSIS) Seizures: No Thyroid Disease: No - Surgical History Orthopedic Surgery: No - Immunization History Immunization Up to Date: Yes - Psycho Social/Smoking Cessation Hx Smoking History: Current every day smoker Have you smoked in the past 12 months: Yes Number of Cigarettes Smoked Daily: 20 Information on smoking cessation initiated: Yes 'Breaking Loose' booklet given: 01/22/19 Hx Alcohol Use: No Drug/Substance Use Hx: No Substance Use Type: None Hx Substance Use Treatment: No Review of Systems - Review of Systems Able to Perform ROS?: Yes Comments:: 02/17/19 21:45 ROS: A complete review of 10 out of 10 review of systems is taken and is negative apart from what is previously mentioned below and in the HPI. *Physical Exam - Vital Signs Last Vital Signs Temp Pulse Resp BP Pulse Ox 98.6 F 86 22 H 132/52 L 97 02/17/19 20:16 02/17/19 20:16 02/17/19 20:16 02/17/19 20:16 02/17/19 20:16 - Physical Exam Comments: 02/17/19 21:55 Vitals: Triage vital signs reviewed General Appearance: No acute distress, well nourished, well developed Neck: Supple; No nuchal rigidity Cardiac: Regular rate and rhythm, no murmurs, no rubs, no gallops Lungs: +crackles at the lung bases. Abdomen: +diffuse abdominal swelling, mild diffuse abdominal tenderness. Genitourinary: +scrotal edema. Extremities: +2+ pitting edema to the lower extremities. Full range of motion to all extremities, no cyanosis, clubbing. Skin: Warm and dry, no rashes or lesions, no rash. Neuro: AOX3; Cranial Nerves 2-12 grossly intact. Psych: Normal mood, normal affect ED Treatment Course - LABORATORY CBC & Chemistry Diagram: 02/17/19 20:59 02/17/19 20:59 Medical Decision Making - Medical Decision Making 02/18/19 00:22 CT abdomen: FINDINGS: Lack of intravenous contrast limits this exam. Lack of oral contrast limits this exam. Right middle lobe nonspecific 4 mm pleural-based lung nodule may be benign or malignant axial image 8. Mild basilar atelectasis and scarring. Calcification of the aortic valve. Mild cardiomegaly with calcified coronary artery arteriosclerosis. Dilated inferior vena cava and hepatic veins most likely due to chronic right heart failure may be associated with passive venous outflow congestion of the liver. Mild hepatomegaly and cirrhosis with a nodular liver contour most likely due to regenerating liver nodules. Nonspecific splenomegaly most likely due to portal venous hypertension. Dilated portal vein and portal vein branches consistent with portal venous hypertension. Moderate distention of the gallbladder with heterogeneous density in the gallbladder lumen abnormal gallbladder wall thickening pericholecystic fluid may be associated with gallbladder dysmotility and chronic cholecystitis. Small amount of nonspecific free fluid in the abdomen and pelvis. Sommer hepatis , mesenteric root, aortocaval nonspecific lymphadenopathy may be due to infection, lymphoma, malignancy. Severe atrophy of the left kidney. Severe arteriosclerosis of the left renal artery origin suspicious for left kidney renal insufficiency may be associated with renal vascular hypertension. Severe arteriosclerosis of the abdominal aorta and abdominal aortic branches and pelvic arterial vasculature most likely associated with bilateral lower extremity claudication pain. Filter in the inferior vena cava. Small hiatal hernia. Noncontrast evaluation stomach and small bowel appear unremarkable. Appendicoliths in the appendix. Moderate amount of gas and stool in the colon. Diverticulosis of the colon without diverticulitis. Mild nonspecific bladder wall thickening may be due to infectious cystitis or partial bladder outlet obstruction associated with prostatomegaly. Nodular nonspecific prostatomegaly extends into the inferior bladder wall. No free air. No abscess. Chronic left posterior acetabular fracture deformity with internal fixation plates and screws. Moderate to severe degenerative joint disease of the left hip. Severe degenerative disc disease and degenerative joint disease of the facets in the lower lumbar levels. Moderate to severe spinal canal stenosis and neural from narrowing in the lower lumbar levels. Small umbilical hernia omental fat without incarceration. Subcutaneous edema most likely due to anasarca or panniculitis of the anterior pelvic pannus. Bone bridging across the left sacroiliac joint. IMPRESSION: Right middle lobe nonspecific 4 mm pleural-based lung nodule may be benign or malignant. If clinically indicated follow-up outpatient evaluation may be needed. Calcification of the aortic valve. Mild cardiomegaly with calcified coronary artery arteriosclerosis. Dilated inferior vena cava and hepatic veins most likely due to chronic right heart failure may be associated with passive venous outflow congestion of the liver. Mild hepatomegaly and cirrhosis with a nodular liver contour most likely due to regenerating liver nodules. Nonspecific splenomegaly most likely due to portal venous hypertension. Dilated portal vein and portal vein branches consistent with portal venous hypertension. Moderate distention of the gallbladder with heterogeneous density in the gallbladder lumen abnormal gallbladder wall thickening pericholecystic fluid may be associated with gallbladder dysmotility and chronic cholecystitis. Small amount of nonspecific free fluid in the abdomen and pelvis. Sommer hepatis, mesenteric root, aortocaval nonspecific lymphadenopathy may be due to infection , lymphoma, malignancy. If clinically indicated further evaluation and workup may be needed. Severe atrophy of the left kidney. Severe arteriosclerosis of the left renal artery origin suspicious for left kidney renal insufficiency may be associated with renal vascular hypertension. Severe arteriosclerosis of the abdominal aorta and abdominal aortic branches and pelvic arterial vasculature most likely associated with bilateral lower extremity claudication pain. Diverticulosis of the colon without diverticulitis. Mild nonspecific bladder wall thickening may be due to infectious cystitis or partial bladder outlet obstruction associated with prostatomegaly. Nodular nonspecific prostatomegaly extends into the inferior bladder wall. Subcutaneous edema most likely due to anasarca or panniculitis of the anterior pelvic pannus. A verbal report of the abnormal results were discussed with Dr. Carrington by Dr. Delgado at 12:07 AM EST February 18, 2019. This CT exam was performed using one or more of the following dose reduction techniques: automated exposure control, adjustment of the mA and/or kV according to patient size, use of iterative reconstruction technique. THIS DOCUMENT HAS BEEN ELECTRONICALLY SIGNED Patricio Delgado MD 02/18/2019 00:11 EST 02/18/19 00:41 73 years old with past medical history significant for CHF COPD CKD hypertension anemia myelofibrosis cirrhosis presents to the ED with anasarca abdominal distention swelling pain and scrotal pain Labs demonstrate chronic elevated white blood cell count below with a baseline slight increase in patient's creatinine Abdominal CT demonstrates progression of chronic disease but no acute evidence of infection and ascites Given anasarca and pain patient will require admission for diuresis with careful monitoring of kidney function and possible therapeutic paracentesis Low suspicion for acute abdominal infection at this time Discharge - Discharge Information Problems reviewed: Yes Clinical Impression/Diagnosis: Anasarca Condition: Fair - Admission Yes - Follow up/Referral Referrals: Jam Navarrete MD [Primary Care Provider] - - Patient Discharge Instructions - Post Discharge Activity
[2019-02-18] MEDS ORDERED: FUROSEMIDE 40 MG/4 ML INJECTABLE VIAL IVPUSH ONE (00:32)
[2019-02-18] MEDS ORDERED: FUROSEMIDE 40 MG/4 ML INJECTABLE VIAL ONE (01:14)
--- NOTE | 2019-02-18 01:46 | HP ---
CHIEF COMPLAINT: fluid retention and SOB PCP: Dr Navarrete HISTORY OF PRESENT ILLNESS: 73 y/o male with PMH of CHF, COPD, CKD, HTN, and myelofibrosis presenting to the ED because of abdominal distension and swelling in the lower abdomen and feet for the past 2 days. The pain is sharp, non radiating, constant and aggravated by deep breathing but relieved with tylenol. Rated 8/10 in severity .He also describes his abdomen as tight and bigger than he has ever seen. The patient reports associated symptoms of Shortness of breath with deep breathing and exertion, lower extremity edema, decreased urine output, nausea, and headache. He endorsed compliance to his lasix. However, he has been eating olives daily recently but no added salt on meals and water intake limited to 2- 3 bottles a day. Denies chest pain, orthopnea, PND, fever or chills, change in BM or urination, weakness/numbness ER course was notable for: (1)CBC with near baseline anemia and improved chronic leukocytosis, CMP with midly elevated BUN/Cr 21.5/1.8, AST/ALT 58/51, ALP 159, BNP 1617.5 (2) trop and CKmB 0.05, 6 (3) CT abdomen : described below, IV lasix Recent Travel: denies PAST MEDICAL HISTORY: as above PAST SURGICAL HISTORY: none Social History: Smokin-20 cig a day currently Alcohol: 6-7 shots daily until 15 yrs ago Drugs: denies Allergies No Known Allergies Allergy (Verified 02/17/19 20:21) HOME MEDICATIONS: Home Medications Medication Instructions Recorded Furosemide [Lasix -] 40 mg PO BID 07/21/15 Lisinopril 20 mg PO DAILY 07/21/15 Mirtazapine [Remeron -] 30 mg PO DAILY 07/21/15 Venlafaxine HCl ER [Effexor Xr -] 150 mg PO DAILY #30 cap.er.24h 11/16/16 Metoprolol Succinate [Toprol XL -] 25 mg PO DAILY 04/19/17 Ruxolitinib Phosphate [Jakafi] 15 mg PO BID 01/04/18 Cephalexin [Keflex] 500 mg PO TID 7 Days #21 capsule 01/25/19 REVIEW OF SYSTEMS CONSTITUTIONAL: Absent: fever, chills, diaphoresis, generalized weakness, malaise, loss of appetite, weight change HEENT: Absent: rhinorrhea, nasal congestion, throat pain, throat swelling, difficulty swallowing, mouth swelling, ear pain, eye pain, visual changes CARDIOVASCULAR: peripheral edema (anasarca) Absent: chest pain, syncope, palpitations, irregular heart rate, lightheadedness RESPIRATORY: shortness of breath Absent: cough, dyspnea with exertion, orthopnea, wheezing, stridor, hemoptysis GASTROINTESTINAL: abdominal pain, abdominal distension Absent: nausea, vomiting, diarrhea, constipation, melena, hematochezia GENITOURINARY: Absent: dysuria, frequency, urgency, hesitancy, hematuria, flank pain, genital pain MUSCULOSKELETAL: Absent: myalgia, arthralgia, joint swelling, back pain, neck pain SKIN: ecchymosis on his abdomen Absent: rash, itching, pallor HEMATOLOGIC/IMMUNOLOGIC: Absent: easy bleeding, easy bruising, lymphadenopathy, frequent infections ENDOCRINE: Absent: unexplained weight gain, unexplained weight loss, heat intolerance, cold intolerance NEUROLOGIC: Absent: headache, focal weakness or paresthesias, dizziness, unsteady gait, seizure, mental status changes, bladder or bowel incontinence PSYCHIATRIC: Absent: anxiety, depression, suicidal or homicidal ideation, hallucinations. PHYSICAL EXAMINATION Vital Signs - 24 hr 02/17/19 02/17/19 20:16 21:14 Temperature 98.6 F Pulse Rate 86 86 Pulse Rate [ 86 Left] Respiratory 22 H 20 Rate Blood Pressure 132/52 L O2 Sat by Pulse 97 99 Oximetry (%) GENERAL: Awake, alert, and fully oriented, in mild distress. HEAD: Normal with no signs of trauma. EYES: Pupils equal, round and reactive to light, extraocular movements intact, sclera anicteric, conjunctiva clear. No lid lag. EARS, NOSE, THROAT: oropharynx clear without exudates. dry mucous membranes. NECK: Normal range of motion, supple with JVD. LUNGS: Breath sounds equal, clear to auscultation bilaterally. No wheezes, and no crackles. No accessory muscle use. HEART: Regular rate and rhythm, normal S1 and S2 without murmur, rub or gallop. ABDOMEN: Soft, mildly tender, distended with Hepatosplenomegaly, normoactive bowel sounds, no guarding, no rebound, no masses. MUSCULOSKELETAL: Normal range of motion at all joints. No bony deformities or tenderness. No CVA tenderness. UPPER EXTREMITIES: 2+ pulses, warm, well-perfused. No cyanosis. No clubbing. No peripheral edema. LOWER EXTREMITIES: 2+ pulses, warm, well-perfused. No calf tenderness. 2+ pitting edema with feeling of tightness but no pain or tenderness PSYCHIATRIC: Cooperative. Good eye contact. Appropriate mood and affect. SKIN: Warm, dry, normal turgor, ecchymosis on the abdomen ,redness in b/l lower extremities Laboratory Results - last 24 hr 02/17/19 02/17/19 02/17/19 20:59 20:59 20:59 WBC 15.4 H RBC 1.80 L Hgb 7.0 L Hct 20.9 L MCV 116.0 H MCH 39.0 H MCHC 33.6 RDW 23.7 H Plt Count 146 MPV 10.0 Absolute Neuts (auto) 12.8 H Neutrophils % 82.8 Neutrophils % (Manual) 33.0 L Band Neutrophils % 30.0 Lymphocytes % 5.4 L Lymphocytes % (Manual) 5.0 L Monocytes % 8.2 Monocytes % (Manual) 2 L Eosinophils % 2.9 Eosinophils % (Manual) 5.0 H D Basophils % 0.7 Basophils % (Manual) 3.0 H Myelocytes % (Man) 15 H D Blast Cells % (Manual) 2 H D Nucleated RBC % 1 H Metamyelocytes 5 H Platelet Estimate Adequate Poikilocytosis 1+ Anisocytosis 3+ Tear Drop Cells Few PT with INR 16.10 H INR 1.36 H PTT (Actin FS) 33.4 Sodium 134 L Potassium 4.5 Chloride 102 Carbon Dioxide 24 Anion Gap 9 BUN 21.5 H Creatinine 1.8 H Est GFR (CKD-EPI)AfAm 42.33 Est GFR (CKD-EPI)NonAf 36.52 Random Glucose 123 H Calcium 8.5 Magnesium Total Bilirubin 0.6 AST 58 H ALT 51 Alkaline Phosphatase 159 H Creatine Kinase 262 Creatine Kinase Index 2.2 CK-MB (CK-2) 6.0 H Troponin I 0.05 B-Natriuretic Peptide Total Protein 7.8 Albumin 3.4 02/17/19 20:59 WBC RBC Hgb Hct MCV MCH MCHC RDW Plt Count MPV Absolute Neuts (auto) Neutrophils % Neutrophils % (Manual) Band Neutrophils % Lymphocytes % Lymphocytes % (Manual) Monocytes % Monocytes % (Manual) Eosinophils % Eosinophils % (Manual) Basophils % Basophils % (Manual) Myelocytes % (Man) Blast Cells % (Manual) Nucleated RBC % Metamyelocytes Platelet Estimate Poikilocytosis Anisocytosis Tear Drop Cells PT with INR INR PTT (Actin FS) Sodium Potassium Chloride Carbon Dioxide Anion Gap BUN Creatinine Est GFR (CKD-EPI)AfAm Est GFR (CKD-EPI)NonAf Random Glucose Calcium Magnesium 2.2 Total Bilirubin AST ALT Alkaline Phosphatase Creatine Kinase Creatine Kinase Index CK-MB (CK-2) Troponin I B-Natriuretic Peptide 1617.5 H Total Protein Albumin CT abdomen :Right middle lobe nonspecific 4 mm pleural-based lung nodule may be benign or malignant. If clinically indicated follow-up outpatient evaluation may be needed. Calcification of the aortic valve. Mild cardiomegaly with calcified coronary artery arteriosclerosis. Dilated inferior vena cava and hepatic veins most likely due to chronic right heart failure may be associated with passive venous outflow congestion of the liver. Mild hepatomegaly and cirrhosis with a nodular liver contour most likely due to regenerating liver nodules. Nonspecific splenomegaly most likely due to portal venous hypertension. Dilated portal vein and portal vein branches consistent with portal venous hypertension. Moderate distention of the gallbladder with heterogeneous density in the gallbladder lumen abnormal gallbladder wall thickening pericholecystic fluid may be associated with gallbladder dysmotility and chronic cholecystitis. Small amount of nonspecific free fluid in the abdomen and pelvis. Sommer hepatis, mesenteric root, aortocaval nonspecific lymphadenopathy may be due to infection , lymphoma, malignancy. If clinically indicated further evaluation and workup may be needed. Severe atrophy of the left kidney. Severe arteriosclerosis of the left renal artery origin suspicious for left kidney renal insufficiency may be associated with renal vascular hypertension. Severe arteriosclerosis of the abdominal aorta and abdominal aortic branches and pelvic arterial vasculature most likely associated with bilateral lower extremity claudication pain. Diverticulosis of the colon without diverticulitis. Mild nonspecific bladder wall thickening may be due to infectious cystitis or partial bladder outlet obstruction associated with prostatomegaly. Nodular nonspecific prostatomegaly extends into the inferior bladder wall. Subcutaneous edema most likely due to anasarca or panniculitis of the anterior pelvic pannus ASSESSMENT/PLAN: 73 y/o male with PMH of CHF, COPD, CKD, HTN, and myelofibrosis presenting to the ED because of abdominal distension and swelling in the lower abdomen and feet for the past 2 days with associated SOB. Admitted for anasarca 2/2 CHF exacerbation and liver cirrhosis/congestion Anasarca 2/2 cirrhosis and/or CHF 2+ edema in the LE with lower abdominal wall edema, JVD on PE NC 2L IV lasix 40 BID echo for eval of cardiac function compared to last echo in june weight daily strict I&Os salt controlled diet spirinolactone chavarria for monitoring urine output GI Dr Lara consulted for further evaluation of possible alcoholic cirrhosis in the setting of hx of EToh abuse Lower Extremity cellulitis WBC 15.8 keflex 500 TID f/u CBC for improvement CKD mild elevation to creatinine above baseline. currently at 1.8 monitor output and renal function HTN metoprolol, lisinopril once med rec Myelofibrosis resume jakafi once med rec DVT hep subQ Visit type - Emergency Visit Emergency Visit: Yes ED Registration Date: 02/18/19 Care time: The patient presented to the Emergency Department on the above date and was hospitalized for further evaluation of their emergent condition. - New Patient This patient is new to me today: No - Critical Care Critical Care patient: No ATTENDING PHYSICIAN STATEMENT I saw and evaluated the patient. I reviewed the resident's note and discussed the case with the resident. I agree with the resident's findings and plan as documented. SUBJECTIVE: OBJECTIVE: ASSESSMENT AND PLAN:
[2019-02-18] MEDS ORDERED: SPIRONOLACTONE 25 MG TABLET (FP) ONE (02:17)
[2019-02-18] MEDS ORDERED: HEPARIN NA (PORCINE) 5,000 UNITS/ML 1ML VIAL ONE (02:17)
[2019-02-18] MEDS: SPIRONOLACTONE 25 MG TABLET (FP) PO SCH ×2 (02:31→09:26)
--- NOTE | 2019-02-18 05:22 | PN ---
Teaching Attending Note Name of Resident: Rahel Ro ATTENDING PHYSICIAN STATEMENT I saw and evaluated the patient. I reviewed the resident's note and discussed the case with the resident. I agree with the resident's findings and plan as documented. SUBJECTIVE: 73-year-old male with a past medical history significant for CHF, COPD, CKF, HTN , hx of anemia, and myelofibrosis, liver cirrhosis, presented to hospital with complaints of Abdominal distention and swelling in his lower extremities. OBJECTIVE: Last Vital Signs Temp Pulse Resp BP Pulse Ox 98.6 F 86 20 132/52 L 99 02/17/19 20:16 02/17/19 21:14 02/17/19 21:14 02/17/19 20:16 02/17/19 21:14 GENERAL: Well developed, well nourished. Awake and alert. No acute distress. HEENT: Normocephalic, atraumatic. PERRLA, EOMI. No conjunctival pallor. Sclera are non- icteric. Moist mucous membranes. Oropharynx is clear. NECK: Supple. Full ROM. No JVD. Carotid pulses 2+ and symmetric, without bruits. No thyromegaly. No lymphadenopathy. CARDIOVASCULAR: Regular rate and rhythm. No murmurs, rubs, or gallops. Distal pulses are 2+ and symmetric. PULMONARY: No evidence of respiratory distress. Lungs clear to auscultation bilaterally. No wheezing, rales or rhonchi. ABDOMINAL: Soft. Non-tender. Distended, bowel sounds present, no tenderness to palpation MUSCULOSKELETAL Normal range of motion at all joints. No bony deformities or tenderness. No CVA tenderness. EXTREMITIES: Left lower extremity erythema and warmth distal leg, bilateral trace pedal edema SKIN: Warm and dry. Normal capillary refill. No rashes. No jaundice. PSYCHIATRIC: Cooperative. Good eye contact. Appropriate mood and affect. Abnormal Lab Results 02/17/19 02/17/19 02/17/19 20:59 20:59 20:59 WBC 15.4 H RBC 1.80 L Hgb 7.0 L Hct 20.9 L MCV 116.0 H MCH 39.0 H RDW 23.7 H Absolute Neuts (auto) 12.8 H Neutrophils % (Manual) 33.0 L Lymphocytes % 5.4 L Lymphocytes % (Manual) 5.0 L Monocytes % (Manual) 2 L Eosinophils % (Manual) 5.0 H D Basophils % (Manual) 3.0 H Myelocytes % (Man) 15 H D Blast Cells % (Manual) 2 H D Nucleated RBC % 1 H Metamyelocytes 5 H PT with INR 16.10 H INR 1.36 H Sodium 134 L BUN 21.5 H Creatinine 1.8 H Random Glucose 123 H AST 58 H Alkaline Phosphatase 159 H CK-MB (CK-2) 6.0 H B-Natriuretic Peptide 02/17/19 20:59 WBC RBC Hgb Hct MCV MCH RDW Absolute Neuts (auto) Neutrophils % (Manual) Lymphocytes % Lymphocytes % (Manual) Monocytes % (Manual) Eosinophils % (Manual) Basophils % (Manual) Myelocytes % (Man) Blast Cells % (Manual) Nucleated RBC % Metamyelocytes PT with INR INR Sodium BUN Creatinine Random Glucose AST Alkaline Phosphatase CK-MB (CK-2) B-Natriuretic Peptide 1617.5 H Imaging studies reviewed ASSESSMENT AND PLAN: Anasarca Furosemide 40 mg IV twice daily Odonnell catheter I's and O's Daily weights Transthoracic echo UA #Myelofibrosischronic thrombocytopenia and anemia, Chronic leukocytosis Monitor CBC No transfusion at this time indicated #Left lower extremity cellulitis Keflex #Liver cirrhosis GI consult, no establish GI care #CKDchronic Monitor renal function Avoid renal toxins DVT prophylaxisheparin subcutaneously
[2019-02-18 06:06] LABS: BASO % 0.3 % (0-2.0); EOS % 2.8 % (0-4.5); HEMATOCRIT 21.2 % (35.4-49); HEMOGLOBIN 7.3 GM/dL (11.7-16.9); LYMPH % 4.9 % (8-40); MCH 39.8 pg (25.7-33.7); MCHC 34.6 g/dl (32.0-35.9); MEAN CELL VOLUME 115.1 fl (80-96); MEAN PLT VOLUME 9.8 fl (7.5-11.1); MONO % 8.3 % (3.8-10.2); NEUT % 83.7 % (42.8-82.8); PLATELET COUNT 140 K/MM3 (134-434); RBC 1.84 M/mm3 (4.00-5.60); RDW 23.5 % (11.9-15.9); WHITE BLOOD COUNT 16.8 K/mm3 (4.0-10.0)
[2019-02-18 06:32] LABS: ALBUMIN 3.7 g/dl (3.4-5.0); BILIRUBIN,TOTAL 0.6 mg/dL (0.2-1); BLOOD UREA NITROGEN 26.1 mg/dL (7-18); CALCIUM 8.9 mg/dL (8.5-10.1); CREATININE 1.8 mg/dL (0.55-1.3); MAGNESIUM 2.3 mg/dL (1.8-2.4); PHOSPHOROUS 4.1 mg/dL (2.5-4.9); POTASSIUM 4.7 mmol/L (3.5-5.1); TOT PROT 7.9 g/dl (6.4-8.2)
[2019-02-18] MEDS: HEPARIN NA (PORCINE) 5,000 UNITS/ML 1ML VIAL SQ SCH ×3 (06:57→21:03)
[2019-02-18] MEDS ORDERED: CEPHALEXIN MONOHYDRATE 500 MG CAPSULE (UD) ONE (06:59)
[2019-02-18] MEDS: CEPHALEXIN MONOHYDRATE 500 MG CAPSULE (UD) PO SCH ×2 (07:01→14:31)
[2019-02-18 08:55] LABS: ANISOCYTOSIS 3+; MACROCYTOSIS 2+; PLATELET ESTIMATE DECREASED
[2019-02-18] MEDS: FUROSEMIDE 40 MG/4 ML INJECTABLE VIAL IVPUSH SCH ×2 (09:26→21:03)
[2019-02-18] MEDS ORDERED: FUROSEMIDE 40 MG/4 ML INJECTABLE VIAL IVPUSH SCH (10:00)
--- NOTE | 2019-02-18 10:03 | EKG ---
Test Reason : Blood Pressure : / mmHG Vent. Rate : 078 BPM Atrial Rate : 078 BPM P-R Int : 240 ms QRS Dur : 100 ms QT Int : 386 ms P-R-T Axes : 063 055 161 degrees QTc Int : 440 ms SINUS RHYTHM WITH 1ST DEGREE A-V BLOCK ABNORMAL ECG WHEN COMPARED WITH ECG OF 22-JAN-2019 18:07, Confirmed by MADISON TIJERINA MD ([id number]) on 02/18/2019 10:03:37 AM Referred By: Confirmed By:MADISON TIJERINA MD
[2019-02-18 11:33] VITALS: BMI 27.5
--- NOTE | 2019-02-18 15:12 | CONSULT ---
Consult Consult Specialty:: Nephrology Reason for Consultation:: CKD - History of Present Illness Chief Complaint: abdominal distention History of Present Illness: Pt is a 73 year old male with pmhx of chf, copd, ckd, htn, nyelofibrosis and anemia who presents with abdominal pain. I was called to evaluate him for fluid overload. he complains of lower ext edema and abd wall edema. He says that he feels that the diuretics are not working. He denies nsaid use. He denies dysuria or hematuria. He is aware of his kidney and liver disease. He does not follow with a guest experience representative. - History Source History Provided By: Patient - Past Medical History Cardio/Vascular: Yes: CHF Pulmonary: Yes: COPD Renal/: Yes: Renal Inusuff - Past Surgical History Past Surgical History: Yes: Joint Replacement - Alcohol/Substance Use Hx Alcohol Use: No - Smoking History Smoking history: Current every day smoker Have you smoked in the past 12 months: Yes Aproximately how many cigarettes per day: 20 Home Medications - Allergies Allergies/Adverse Reactions: Allergies Allergy/AdvReac Type Severity Reaction Status Date / Time No Known Allergies Allergy Verified 02/17/19 20:21 - Home Medications Home Medications: Ambulatory Orders Furosemide [Lasix -] 40 mg PO BID 07/21/15 Lisinopril 20 mg PO DAILY 07/21/15 Mirtazapine [Remeron -] 30 mg PO DAILY 07/21/15 Venlafaxine HCl ER [Effexor Xr -] 150 mg PO DAILY #30 cap.er.24h 11/16/16 Metoprolol Succinate [Toprol XL -] 25 mg PO DAILY 04/19/17 Ruxolitinib Phosphate [Jakafi] 15 mg PO BID 01/04/18 Cephalexin [Keflex] 500 mg PO TID 7 Days #21 capsule 01/25/19 Family Medical History Family History: Denies Review of Systems - Review of Systems Constitutional: reports: Malaise Eyes: reports: No Symptoms HENT: reports: No Symptoms Neck: reports: No Symptoms Cardiovascular: reports: Edema Respiratory: reports: SOB, SOB on Exertion Gastrointestinal: reports: Bloating Genitourinary: reports: No Symptoms Musculoskeletal: reports: No Symptoms Integumentary: reports: No Symptoms Neurological: reports: No Symptoms Endocrine: reports: No Symptoms Hematology/Lymphatic: reports: No Symptoms Psychiatric: reports: No Symptoms Physical Exam Vital Signs: Vital Signs Temperature 98.4 F 02/18/19 13:25 Pulse Rate 78 02/18/19 13:25 Respiratory Rate 20 02/18/19 13:25 Blood Pressure 124/70 02/18/19 13:25 O2 Sat by Pulse Oximetry (%) 97 02/18/19 11:00 Constitutional: Yes: Calm Eyes: Yes: Conjunctiva Clear HENT: Yes: Atraumatic Neck: Yes: Supple Cardiovascular: Yes: S1, S2 Respiratory: Yes: CTA Bilaterally Gastrointestinal: Yes: Soft, Distention Renal/: Yes: WNL Extremities: Yes: WNL Edema: Yes Edema: LLE: 2+, RLE: 2+ Neurological: Yes: Oriented Psychiatric: Yes: Oriented Labs: CBC, BMP 02/18/19 05:30 02/18/19 05:30 Laboratory Tests 01/15/19 01/22/19 01/23/19 14:47 13:37 07:17 WBC Hgb Plt Count Sodium Creatinine 1.5 H 1.6 H 1.6 H 01/24/19 01/25/19 02/17/19 07:20 06:20 20:59 WBC Hgb Plt Count Sodium 134 L Creatinine 1.6 H 1.7 H 1.8 H 02/17/19 02/18/19 02/18/19 20:59 05:30 05:30 WBC 15.4 H 16.8 H Hgb 7.0 L 7.3 L Plt Count 140 Sodium 133 L Creatinine 1.8 H Imaging - Results Chest X-ray: Report Reviewed Problem List - Problems (1) Anasarca Code(s): R60.1 - GENERALIZED EDEMA (2) Cellulitis of foot, left Code(s): L03.116 - CELLULITIS OF LEFT LOWER LIMB (3) Anemia Code(s): D64.9 - ANEMIA, UNSPECIFIED Qualifiers: Anemia type: bone marrow failure Bone marrow failure anemia type: unspecified bone marrow failure Qualified Code(s): D61.9 - Aplastic anemia, unspecified (4) CKD (chronic kidney disease) stage 3, GFR 30-59 ml/min Code(s): N18.3 - CHRONIC KIDNEY DISEASE, STAGE 3 (MODERATE) (5) COPD (chronic obstructive pulmonary disease) Code(s): J44.9 - CHRONIC OBSTRUCTIVE PULMONARY DISEASE, UNSPECIFIED (6) Hypertension Code(s): I10 - ESSENTIAL (PRIMARY) HYPERTENSION Qualifiers: Hypertension type: unspecified Qualified Code(s): I10 - Essential (primary ) hypertension (7) Myelofibrosis Code(s): D75.81 - MYELOFIBROSIS Assessment/Plan Current Medications Generic Name Dose Route Start Last Admin Trade Name Freq PRN Reason Stop Dose Admin Cephalexin HCl 500 mg 02/18/19 06:00 02/18/19 14:31 Keflex - PO 500 mg TID TERI Administration Furosemide 40 mg 02/18/19 10:00 02/18/19 09:26 Lasix Injection - IVPUSH 40 mg BID TERI Administration Heparin Sodium (Porcine) 5,000 unit 02/18/19 06:00 02/18/19 14:31 Heparin - SQ 5,000 unit TID TERI Administration Spironolactone 25 mg 02/18/19 01:45 02/18/19 09:26 Aldactone - PO 25 mg DAILY TERI Administration Impression 1. CKD 2. HTN 3. myelofibrosis 4. fluid overload 5. cellulitis Plan - monitor renal function, pt has ckd - cont IV lasix 40 bid, agree with dose, if no response will increase dose - follow up ct scan results, pt has an atrophic kidney on imaging - check ua - send lytes and marine resource economist - agree with holding minesh for now, bp is controlled
--- NOTE | 2019-02-18 16:17 | ECHO ---
Name: BONIFACIO BETZYRADHA Exam:Adult Echocardiogram Study Date: 02/18/2019 02:51 PM Age: 73 yrs Height: 73 in Weight: 199 lb BSA: 2.1 m2 MMode/2D Measurements & Calculations IVSd: 0.94 cm Ao root diam: 2.8 cm LVIDd: 4.8 cm LA dimension: 3.9 cm LVIDs: 3.4 cm LVPWd: 1.4 cm LVPWs: 1.4 cm EDV(Teich): 107.0 ml ESV(Teich): 48.7 ml LAV (MOD-bp): 81.0 ml TAPSE: 1.5 cm RV S Gunnar: 13.3 cm/sec Doppler Measurements & Calculations MV E max gunnar: 105.1 cm/sec Ao V2 max: 208.9 cm/sec MV A max gunnar: 85.4 cm/sec Ao max P.5 mmHg MV E/A: 1.2 MV dec time: 0.12 sec LV V1 max P.1 mmHg MR max gunnar: 439.3 cm/sec LV V1 max: 142.6 cm/sec MR max P.5 mmHg TR max gunnar: 285.9 cm/sec PA V2 max: 90.9 cm/sec TR max P.8 mmHg PA max P.3 mmHg Med Peak E' Gunnar: 5.8 cm/sec Med E/e': 18.1 Lat Peak E' Gunnar: 9.9 cm/sec Lat E/e': 10.6 Procedure A complete two-dimensional transthoracic echocardiogram was performed (2D, M-mode, Doppler and color flow Doppler). Left Ventricle The left ventricle is normal in size. Left ventricular systolic function is normal. Ejection Fraction = 60- 65%. Diastolic dysfunction, Grade II (pseudonormalization pattern). No regional wall motion abnormali ties noted. Right Ventricle The right ventricle is normal size. The right ventricular systolic function is mild to moderately red uced. Atria The left atrium is mildly dilated. LV volume index is 38 ml/m2. The right atrium is moderately dilate d. Mitral Valve The mitral valve is normal in structure and function. There is mild to moderate mitral regurgitation. Tricuspid Valve The tricuspid valve is normal in structure and function. There is mild to moderate tricuspid regurgit ation. Pulmonary artery systolic pressure is at least 52 mmHg if RA pressure is assumed 15 mmHg (dilated IVC and <50% collapse). Aortic Valve There is mild aortic sclerosis.;. No aortic regurgitation is present. Pulmonic Valve The pulmonic valve is not well visualized. Mild pulmonic valvular regurgitation. Great Vessels The aortic root is normal size. Pericardium/Pleura There is no pericardial effusion. Interpretation Summary The left ventricle is normal in size. Left ventricular systolic function is normal. No regional wall motion abnormalities noted. Ejection Fraction = 60-65%. Diastolic dysfunction, Grade II (pseudonormalization pattern). The right ventricular systolic function is mild to moderately reduced. The left atrium is mildly dilated. The right atrium is moderately dilated. There is mild to moderate mitral regurgitation. There is mild to moderate tricuspid regurgitation. Pulmonary artery systolic pressure is at least 52 mmHg if RA pressure is assumed 15 mmHg (dilated IVC and <50% collapse) There is mild aortic sclerosis. Mild pulmonic valvular regurgitation. There is no pericardial effusion. Sundar Chen MD 02/18/2019 04:17 PM
--- NOTE | 2019-02-18 18:32 | PN ---
Physical Exam: SUBJECTIVE: Patient seen and examined in the morning. No acute events overnight. Patient noted that he has only urinated once receiving initial dose of lasix in the ED. No complaints of chest pain, shortness of breath, abdominal pain, nausea/vomiting/diarrhea. OBJECTIVE: Vital Signs Period Temp Pulse Resp BP Sys/Rodriguez Pulse Ox Last 24 Hr 98.4 F-98.6 F 77-86 20-22 121-132/52-76 95-99 GENERAL: The patient is awake, alert, and fully oriented, in no acute distress. HEAD: Normal with no signs of trauma. EYES: PERRL, extraocular movements intact, sclera anicteric, conjunctiva clear. LUNGS: Breath sounds equal, clear to auscultation bilaterally, no wheezes, no crackles. HEART: Regular rate and rhythm, S1, S2 without murmur, rub or gallop. ABDOMEN: Distended abdomen, hepatosplenomegaly present,normoactive bowel sounds. Nontender to palpation. EXTREMITIES: 2+ pulses, warm, well-perfused, 2+ edema. Left lower leg has erythema with no pus or bleeding NEUROLOGICAL: Cranial nerves II through XII grossly intact. Laboratory Results - last 24 hr 02/17/19 02/17/19 02/17/19 20:59 20:59 20:59 WBC 15.4 H RBC 1.80 L Hgb 7.0 L Hct 20.9 L MCV 116.0 H MCH 39.0 H MCHC 33.6 RDW 23.7 H Plt Count 146 MPV 10.0 Absolute Neuts (auto) 12.8 H Neutrophils % 82.8 Neutrophils % (Manual) 33.0 L Band Neutrophils % 30.0 Lymphocytes % 5.4 L Lymphocytes % (Manual) 5.0 L Monocytes % 8.2 Monocytes % (Manual) 2 L Eosinophils % 2.9 Eosinophils % (Manual) 5.0 H D Basophils % 0.7 Basophils % (Manual) 3.0 H Myelocytes % (Man) 15 H D Promyelocytes % (Man) Blast Cells % (Manual) 2 H D Nucleated RBC % 1 H Metamyelocytes 5 H Platelet Estimate Adequate Polychromasia Poikilocytosis 1+ Anisocytosis 3+ Microcytosis Macrocytosis Tear Drop Cells Few PT with INR 16.10 H INR 1.36 H PTT (Actin FS) 33.4 Sodium 134 L Potassium 4.5 Chloride 102 Carbon Dioxide 24 Anion Gap 9 BUN 21.5 H Creatinine 1.8 H Est GFR (CKD-EPI)AfAm 42.33 Est GFR (CKD-EPI)NonAf 36.52 Random Glucose 123 H Calcium 8.5 Phosphorus Magnesium Total Bilirubin 0.6 AST 58 H ALT 51 Alkaline Phosphatase 159 H Creatine Kinase 262 Creatine Kinase Index 2.2 CK-MB (CK-2) 6.0 H Troponin I 0.05 B-Natriuretic Peptide Total Protein 7.8 Albumin 3.4 02/17/19 02/18/19 02/18/19 20:59 05:30 05:30 WBC 16.8 H RBC 1.84 L Hgb 7.3 L Hct 21.2 L MCV 115.1 H MCH 39.8 H MCHC 34.6 RDW 23.5 H Plt Count 140 MPV 9.8 Absolute Neuts (auto) 14.1 H Neutrophils % 83.7 H Neutrophils % (Manual) 63.5 D Band Neutrophils % 7.3 Lymphocytes % 4.9 L Lymphocytes % (Manual) 5.2 L Monocytes % 8.3 Monocytes % (Manual) 5 D Eosinophils % 2.8 Eosinophils % (Manual) 4.2 Basophils % 0.3 Basophils % (Manual) 1.1 Myelocytes % (Man) 10 H D Promyelocytes % (Man) 0 Blast Cells % (Manual) 0 D Nucleated RBC % 0 Metamyelocytes 0 D Platelet Estimate Decreased Polychromasia 1+ Poikilocytosis Anisocytosis 3+ Microcytosis 1+ Macrocytosis 2+ Tear Drop Cells PT with INR INR PTT (Actin FS) Sodium 133 L Potassium 4.7 Chloride 102 Carbon Dioxide 26 Anion Gap 6 L BUN 26.1 H Creatinine 1.8 H Est GFR (CKD-EPI)AfAm 42.33 Est GFR (CKD-EPI)NonAf 36.52 Random Glucose 128 H Calcium 8.9 Phosphorus 4.1 Magnesium 2.2 2.3 Total Bilirubin 0.6 AST 59 H ALT 53 Alkaline Phosphatase 160 H Creatine Kinase Creatine Kinase Index CK-MB (CK-2) Troponin I B-Natriuretic Peptide 1617.5 H Total Protein 7.9 Albumin 3.7 Active Medications Generic Name Dose Route Start Last Admin Trade Name Freq PRN Reason Stop Dose Admin Cephalexin HCl 500 mg 02/18/19 06:00 02/18/19 14:31 Keflex - PO 500 mg TID TERI Administration Furosemide 40 mg 02/18/19 10:00 02/18/19 09:26 Lasix Injection - IVPUSH 40 mg BID TERI Administration Heparin Sodium (Porcine) 5,000 unit 02/18/19 06:00 02/18/19 14:31 Heparin - SQ 5,000 unit TID TERI Administration Spironolactone 25 mg 02/18/19 01:45 02/18/19 09:26 Aldactone - PO 25 mg DAILY TERI Administration ASSESSMENT/PLAN: 73 M with PMH of CHF, COPD, CKD,HTN, myelofibrosis who presented to the ED with abdominal distension and lower legs likely secondary to CHF exacerbation and liver cirrhosis. 1) CHF exacerbation -Echo completed. Shows normal LV, EF of 60-65%, grade II diastolic dysfunction, Right ventricular systolic function is mild to moderately reduced, elevated pulmonary artery pressure. -Continue spironolactone 25 mg PO Daily -low salt diet -Lasix 40 mg IV ID 2)Hepatosplenomegaly -F/U abdominal U/S -GI consulted, appreciate recs -trend LFTs, INR -F/U in B12/Folate levels -No ascites on CTA/P 3) LLE Cellulitis -Cefazolin 1 gram Q8H IV 4)CKD -Follow up urine lytes 5) Hx of Myelofibrosis -stable DVT: Heparin 5000 unit SQ TID F: NO IV fluids E: Monitor BMP N: Sodium controlled diet Visit type - Emergency Visit Emergency Visit: Yes ED Registration Date: 02/18/19 Care time: The patient presented to the Emergency Department on the above date and was hospitalized for further evaluation of their emergent condition. - New Patient This patient is new to me today: Yes Date on this admission: 02/18/19 - Critical Care Critical Care patient: No ATTENDING PHYSICIAN STATEMENT I saw and evaluated the patient. I reviewed the resident's note and discussed the case with the resident. I agree with the resident's findings and plan as documented. SUBJECTIVE: OBJECTIVE: ASSESSMENT AND PLAN:
--- NOTE | 2019-02-18 18:33 | PN ---
Teaching Attending Note Name of Resident: Buddy Fraser ATTENDING PHYSICIAN STATEMENT I saw and evaluated the patient. I reviewed the resident's note and discussed the case with the resident. I agree with the resident's findings and plan as documented with exceptions below. SUBJECTIVE: patient seen and examined overall unchanged, reports not urinating a lot. Leg pain/swelling/redness, no new fevers or chills. OBJECTIVE: Vital Signs Period Temp Pulse Resp BP Sys/Rodriguez Pulse Ox Last 24 Hr 98.4 F-98.6 F 77-86 20-22 121-132/52-76 95-99 Intake & Output 02/15/19 02/16/19 02/17/19 02/18/19 23:59 23:59 23:59 23:59 Weight 199 lb 208 lb 11.2 oz General: lying in bed in no acute distress Neck: soft, supple, neck vein distension Chest: CTAB, no rales or wheezing Abdomen:soft, distension, hepatosplenomegaly, vague generalized tenderness, no fluid wave, no voluntary or involuntary guarding or rigidit Extremities: 2+ pedal pitting edema, with erythema involving bilateral feet/ lower 1/3rd leg , pos DP pulses Home Medications Medication Instructions Recorded Furosemide [Lasix -] 40 mg PO BID 07/21/15 Lisinopril 20 mg PO DAILY 07/21/15 Mirtazapine [Remeron -] 30 mg PO DAILY 07/21/15 Venlafaxine HCl ER [Effexor Xr -] 150 mg PO DAILY #30 cap.er.24h 11/16/16 Metoprolol Succinate [Toprol XL -] 25 mg PO DAILY 04/19/17 Ruxolitinib Phosphate [Jakafi] 15 mg PO BID 01/04/18 Cephalexin [Keflex] 500 mg PO TID 7 Days #21 capsule 01/25/19 Active Medications Furosemide (Lasix Injection -) 40 mg IVPUSH BID TERI Last Admin: 02/18/19 09:26 Dose: 40 mg Heparin Sodium (Porcine) (Heparin -) 5,000 unit SQ TID TERI Last Admin: 02/18/19 14:31 Dose: 5,000 unit Cefazolin Sodium (Ancef 1 Gm Premixed Ivpb -) 1 gm in 50 mls @ 100 mls/hr IVPB Q8H-IV TERI Spironolactone (Aldactone -) 25 mg PO DAILY TERI Last Admin: 02/18/19 09:26 Dose: 25 mg Laboratory Results - last 24 hr 02/17/19 02/17/19 02/17/19 20:59 20:59 20:59 WBC 15.4 H RBC 1.80 L Hgb 7.0 L Hct 20.9 L MCV 116.0 H MCH 39.0 H MCHC 33.6 RDW 23.7 H Plt Count 146 MPV 10.0 Absolute Neuts (auto) 12.8 H Neutrophils % 82.8 Neutrophils % (Manual) 33.0 L Band Neutrophils % 30.0 Lymphocytes % 5.4 L Lymphocytes % (Manual) 5.0 L Monocytes % 8.2 Monocytes % (Manual) 2 L Eosinophils % 2.9 Eosinophils % (Manual) 5.0 H D Basophils % 0.7 Basophils % (Manual) 3.0 H Myelocytes % (Man) 15 H D Promyelocytes % (Man) Blast Cells % (Manual) 2 H D Nucleated RBC % 1 H Metamyelocytes 5 H Platelet Estimate Adequate Polychromasia Poikilocytosis 1+ Anisocytosis 3+ Microcytosis Macrocytosis Tear Drop Cells Few PT with INR 16.10 H INR 1.36 H PTT (Actin FS) 33.4 Sodium 134 L Potassium 4.5 Chloride 102 Carbon Dioxide 24 Anion Gap 9 BUN 21.5 H Creatinine 1.8 H Est GFR (CKD-EPI)AfAm 42.33 Est GFR (CKD-EPI)NonAf 36.52 Random Glucose 123 H Calcium 8.5 Phosphorus Magnesium Total Bilirubin 0.6 AST 58 H ALT 51 Alkaline Phosphatase 159 H Creatine Kinase 262 Creatine Kinase Index 2.2 CK-MB (CK-2) 6.0 H Troponin I 0.05 B-Natriuretic Peptide Total Protein 7.8 Albumin 3.4 02/17/19 02/18/19 02/18/19 20:59 05:30 05:30 WBC 16.8 H RBC 1.84 L Hgb 7.3 L Hct 21.2 L MCV 115.1 H MCH 39.8 H MCHC 34.6 RDW 23.5 H Plt Count 140 MPV 9.8 Absolute Neuts (auto) 14.1 H Neutrophils % 83.7 H Neutrophils % (Manual) 63.5 D Band Neutrophils % 7.3 Lymphocytes % 4.9 L Lymphocytes % (Manual) 5.2 L Monocytes % 8.3 Monocytes % (Manual) 5 D Eosinophils % 2.8 Eosinophils % (Manual) 4.2 Basophils % 0.3 Basophils % (Manual) 1.1 Myelocytes % (Man) 10 H D Promyelocytes % (Man) 0 Blast Cells % (Manual) 0 D Nucleated RBC % 0 Metamyelocytes 0 D Platelet Estimate Decreased Polychromasia 1+ Poikilocytosis Anisocytosis 3+ Microcytosis 1+ Macrocytosis 2+ Tear Drop Cells PT with INR INR PTT (Actin FS) Sodium 133 L Potassium 4.7 Chloride 102 Carbon Dioxide 26 Anion Gap 6 L BUN 26.1 H Creatinine 1.8 H Est GFR (CKD-EPI)AfAm 42.33 Est GFR (CKD-EPI)NonAf 36.52 Random Glucose 128 H Calcium 8.9 Phosphorus 4.1 Magnesium 2.2 2.3 Total Bilirubin 0.6 AST 59 H ALT 53 Alkaline Phosphatase 160 H Creatine Kinase Creatine Kinase Index CK-MB (CK-2) Troponin I B-Natriuretic Peptide 1617.5 H Total Protein 7.[address] A/p results reviewed ASSESSMENT AND PLAN: 73 yom with PMHx of HFpEF, CKD ?stage II, COPD, HTN, Myelofibrosis, Anemia requiring transfusions, recurrent LE cellulitis, h/o ETOH abuse, hepatosplenomegaly admitted with dyspnea, abdominal distension, pedal edema in the setting of non compliance with low salt diet. -Acute on chronic diastolic/right sided heart failure -LE cellulitis -Hepatosplenomegaly, ?From prior ETOH use vs chronic passive hepatic congestion -CKD ?stage II -COPD -HTN -Myelofibrosis -Macrocytic anemia Plan: lasix 40 mg IV BID, strict I/os, daily weights. May need to titrate up if no response. Renal input noted, started on aldactone. No discernible ascitis on CT A/p. Abdominal US Low salt diet counseling. 2D echo noted. Follow up GI input. Trend LFTs/coags H/o recurrent cellulitis. Change to IV cefazolin (no prior h/o MRSA). Monitor clinically Resume toprol XL. Hold ACEi for now. Check folate/b12 levels. Transfuse prn. DVTPPX heparin Dispo pending clinical improvement Discussed with patient.
--- NOTE | 2019-02-18 18:54 | CON.GI ---
Consult Consult Specialty:: Gastroenterology Referred by:: Dr. Ruiz Reason for Consultation:: "Cirrhosis" - History of Present Illness Chief Complaint: Patient with bilateral LE edema, scrotal swelling. History of Present Illness: Asked to evaluate patient for possible cirrhosis. Patient reports 3 days of worsening bilateral LE edema in setting of myelofibrosis. Distal LE's with erythema in addition to edema. No known liver disease, though with known myelofirbrosis. NO abdominal pain. No shortness of breath. No prutitus. No bruising. Appetite and weight stable. Conflicting reports in chart as to recent CT scan. with one reporting hepatpsplenomgaly with trace ascites intraabdominal lymphadenopathy, no acute GI pathology, while the other report, as noted in ED note reveals multiple changes including calcified aortic valve, dilated IVS and hepatic veins due to chronic right heart failure. Mild hepatomegaly and cirrhosis with nodular liver contour due to regenerative liver nodules. Non speficic splenomegaly. Dilated pofrrtal viegn and portal venous branches. Moderately distension of gallbladder with heterogeneous density in the gallbladder lumen, abnormal gallbladder wall thickening and pericholecystic fluid. Small amount of free fluid in abdomen and pelvis. Sommer hepatis, mesenteric root, aortocaval non- specific lymphadenopathy. Patient with albumin of 3.7 (normal), minimal elevation of AST/ALT of 59/53. Very elevated ferritin of 1078. Platelet count of 140K. ANemia with abnormal RBC forms and elevated WBC with immature forms. INR=1.3. Echo with mild aortic valve sclerosis, mild-moderate decreased right ventricular ejection fraction. RUQ US in June 2018 with hepatomegaly and diffuse hepatic steatosis. Bright red blood per rectum today and yesterday, never previously, no history of colonoscopy. - History Source History Provided By: Patient Limitations to Obtaining History: No Limitations - Past Medical History Cardio/Vascular: Yes: CHF Pulmonary: Yes: COPD Renal/: Yes: Renal Inusuff Additional Medical History: Myelofibrosis - Past Surgical History Past Surgical History: Yes: Joint Replacement - Alcohol/Substance Use Hx Alcohol Use: No - Smoking History Smoking history: Current every day smoker Have you smoked in the past 12 months: Yes Aproximately how many cigarettes per day: 20 Home Medications - Allergies Allergies/Adverse Reactions: Allergies Allergy/AdvReac Type Severity Reaction Status Date / Time No Known Allergies Allergy Verified 02/17/19 20:21 - Home Medications Home Medications: Ambulatory Orders Furosemide [Lasix -] 40 mg PO BID 07/21/15 Lisinopril 20 mg PO DAILY 07/21/15 Mirtazapine [Remeron -] 30 mg PO DAILY 07/21/15 Venlafaxine HCl ER [Effexor Xr -] 150 mg PO DAILY #30 cap.er.24h 11/16/16 Metoprolol Succinate [Toprol XL -] 25 mg PO DAILY 04/19/17 Ruxolitinib Phosphate [Jakafi] 15 mg PO BID 01/04/18 Cephalexin [Keflex] 500 mg PO TID 7 Days #21 capsule 01/25/19 Review of Systems - Review of Systems Gastrointestinal: reports: Rectal Bleeding. denies: Abdominal Pain, Bloating, Constipation, Diarrhea, Dysphagia, Melena, Nausea Physical Exam-GI Vital Signs: Vital Signs Temperature 98.4 F 02/18/19 13:25 Pulse Rate 78 02/18/19 13:25 Respiratory Rate 20 02/18/19 13:25 Blood Pressure 124/70 02/18/19 13:25 O2 Sat by Pulse Oximetry (%) 97 02/18/19 11:00 Gastrointestinal Inspection: Yes: Distention. No: Ascites ...Auscultate: Yes: Normoactive Bowel Sounds ...Palpate: Yes: Hepatomegaly (nodular), Soft, Splenomegaly (3 FB's below costal margin at AAL). No: Mass ...Percussion: No: Dullness, Fluid Wave ...Rectal Exam: Yes: Other (Possible scarring within anal canal; brown stool. Bright red blood also noted.) Edema: LLE: 3+, RLE: 3+ Integumentary: Yes: Erythema (LLE) Labs: CBC, BMP 02/18/19 05:30 02/18/19 05:30 INR, PTT INR 1.36 (0.83-1.09) H 02/17/19 20:59 Imaging - Results Cat Scan: Report Reviewed (See actual report and report noted in ED note.) Assessment/Plan Multiple issues in this man with myelofibrosis of uncertain etiology now with nodular liver and splenomagaly, minimal ascites possibly due to portal hypertension and underlying liver pathology, though passive congestion from right heart failure and diastolic dysfunction likely contributing along with myelopfibrosis with liver/splenic extramedullary hematopoeisis. Mild elevation in AST/ALT--would check Hep serologies, DORIAN. Would check with radiology team in 02/19 to review findings. Would consider abdominal ultrasound with Doppler. BRBPR likely hemorrhoidal--would try to further discuss colonoscopy with patient , who was reluctant to pursue during my visit.
[2019-02-18] MEDS ORDERED: MIRTAZAPINE 30 MG TABLET (FP) PO SCH (22:00)
[2019-02-18 22:18] LABS: PH,URINE 6.5 (5.0-8.0); URINE APPEARANCE CLEAR; URINE BILIRUBIN NEGATIVE (NEGATIVE); URINE COLOR YELLOW; URINE GLUCOSE (UA) NEGATIVE (NEGATIVE); URINE KETONE NEGATIVE (NEGATIVE); URINE LEUK ESTERASE NEGATIVE (NEGATIVE); URINE NITRITE NEGATIVE (NEGATIVE); URINE PROTEIN NEGATIVE (NEGATIVE); URINE UROBILINOGEN 0.2 mg/dL (0.2-1.0)
[2019-02-18] MEDS ORDERED: MIRTAZAPINE 15 MG TABLET (FP) PO SCH (23:03)
[2019-02-19] MEDS: HEPARIN NA (PORCINE) 5,000 UNITS/ML 1ML VIAL SQ SCH (05:45)
[2019-02-19 08:39] LABS: BASO % 0.6 % (0-2.0); EOS % 2.9 % (0-4.5); HEMATOCRIT 21.4 % (35.4-49); HEMOGLOBIN 7.3 GM/dL (11.7-16.9); LYMPH % 3.3 % (8-40); MCH 39.2 pg (25.7-33.7); MCHC 34.1 g/dl (32.0-35.9); MEAN PLT VOLUME 10.3 fl (7.5-11.1); MONO % 7.6 % (3.8-10.2); NEUT % 85.6 % (42.8-82.8); PLATELET COUNT 149 K/MM3 (134-434); RBC 1.86 M/mm3 (4.00-5.60); RDW 23.3 % (11.9-15.9)
[2019-02-19 10:09] LABS: ANISOCYTOSIS 2+; MACROCYTOSIS 2+; PLATELET ESTIMATE DECREASED
[2019-02-19 10:10] LABS: ALBUMIN 3.6 g/dl (3.4-5.0); BILIRUBIN,TOTAL 0.8 mg/dL (0.2-1); BLOOD UREA NITROGEN 25.3 mg/dL (7-18); CALCIUM 9.1 mg/dL (8.5-10.1); CREATININE 1.6 mg/dL (0.55-1.3); POTASSIUM 4.5 mmol/L (3.5-5.1); TOT PROT 8.1 g/dl (6.4-8.2)
[2019-02-19] MEDS: FUROSEMIDE 40 MG/4 ML INJECTABLE VIAL IVPUSH SCH ×2 (10:42→21:29)
[2019-02-19] MEDS: SPIRONOLACTONE 25 MG TABLET (FP) PO SCH (10:42)
[2019-02-19] MEDS: metoPROLOL SUCCINATE 25 MG TAB.SR.24H (FP) PO SCH (10:43)
[2019-02-19] MEDS ORDERED: ACETAMINOPHEN 325 MG TABLET (FP) PO PRN (14:47)
--- NOTE | 2019-02-19 15:06 | PN ---
Physical Exam: SUBJECTIVE: Patient seen and examined in the morning. No acute events overnight. Patient says he saw blood in the toilet after stooling. No complaints of chest pain, shortness of breath, abdominal pain, nausea, vomiting , diarrhea. OBJECTIVE: Vital Signs Period Temp Pulse Resp BP Sys/Rodriguez Pulse Ox Last 24 Hr 98.0 F-100.2 F 70-92 20-20 133-147/68-71 96-98 GENERAL: The patient is awake, alert, and fully oriented, in no acute distress. HEAD: Normal with no signs of trauma. EYES: PERRL, extraocular movements intact, sclera anicteric, conjunctiva clear. LUNGS: Breath sounds equal, clear to auscultation bilaterally, no wheezes, no crackles. HEART: Regular rate and rhythm, S1, S2 without murmur, rub or gallop. ABDOMEN: Distended abdomen, hepatosplenomegaly present,normoactive bowel sounds. Nontender to palpation. EXTREMITIES: 2+ pulses, warm, well-perfused, 2+ pedal edema. Left lower leg has erythema with no pus or bleeding. Venous stasis dermatitis present on b/l feet. NEUROLOGICAL: Cranial nerves II through XII grossly intact. Laboratory Results - last 24 hr 02/18/19 02/18/19 02/18/19 22:00 22:00 22:00 WBC RBC Hgb Hct MCV MCH MCHC RDW Plt Count MPV Absolute Neuts (auto) Neutrophils % Neutrophils % (Manual) Band Neutrophils % Lymphocytes % Lymphocytes % (Manual) Monocytes % Monocytes % (Manual) Eosinophils % Eosinophils % (Manual) Basophils % Basophils % (Manual) Myelocytes % (Man) Promyelocytes % (Man) Blast Cells % (Manual) Nucleated RBC % Metamyelocytes Hypochromia Platelet Estimate Anisocytosis Macrocytosis Sodium Potassium Chloride Carbon Dioxide Anion Gap BUN Creatinine Est GFR (CKD-EPI)AfAm Est GFR (CKD-EPI)NonAf Random Glucose Calcium Total Bilirubin AST ALT Alkaline Phosphatase Total Protein Albumin Vitamin B12 Serum Folate Urine Color Yellow Urine Appearance Clear Urine pH 6.5 D Ur Specific [place] 1.009 L Urine Protein Negative Urine Glucose (UA) Negative Urine Ketones Negative Urine Blood Negative Urine Nitrite Negative Urine Bilirubin Negative Urine Urobilinogen 0.2 Ur Leukocyte Esterase Negative Ur Random Creatinine 33.0 Ur Random Sodium 92 Ur Random Potassium 16.0 L Ur Random Chloride 94 L 02/19/19 02/19/19 07:25 07:25 WBC 18.0 H RBC 1.86 L Hgb 7.3 L Hct 21.4 L MCV 115.0 H MCH 39.2 H MCHC 34.1 RDW 23.3 H Plt Count 149 MPV 10.3 Absolute Neuts (auto) 15.4 H Neutrophils % 85.6 H Neutrophils % (Manual) 55.0 Band Neutrophils % 8.0 Lymphocytes % 3.3 L D Lymphocytes % (Manual) 3.0 L D Monocytes % 7.6 Monocytes % (Manual) 4 Eosinophils % 2.9 Eosinophils % (Manual) 6.0 H Basophils % 0.6 Basophils % (Manual) 5.0 H D Myelocytes % (Man) 16 H D Promyelocytes % (Man) 0 Blast Cells % (Manual) 0 Nucleated RBC % 0 Metamyelocytes 1 D Hypochromia 1+ Platelet Estimate Decreased Anisocytosis 2+ Macrocytosis 2+ Sodium 133 L Potassium 4.5 Chloride 101 Carbon Dioxide 24 Anion Gap 8 BUN 25.3 H Creatinine 1.6 H Est GFR (CKD-EPI)AfAm 48.81 Est GFR (CKD-EPI)NonAf 42.11 Random Glucose 95 Calcium 9.1 Total Bilirubin 0.8 AST 67 H ALT 56 Alkaline Phosphatase 144 H Total Protein 8.1 Albumin 3.6 Vitamin B12 1794 H Serum Folate 19 H Urine Color Urine Appearance Urine pH Ur Specific [place] Urine Protein Urine Glucose (UA) Urine Ketones Urine Blood Urine Nitrite Urine Bilirubin Urine Urobilinogen Ur Leukocyte Esterase Ur Random Creatinine Ur Random Sodium Ur Random Potassium Ur Random Chloride Active Medications Generic Name Dose Route Start Last Admin Trade Name Freq PRN Reason Stop Dose Admin Acetaminophen 650 mg 02/19/19 14:47 Tylenol - PO Q4H PRN FEVER Furosemide 40 mg 02/18/19 10:00 02/19/19 10:42 Lasix Injection - IVPUSH 40 mg BID TERI Administration Hydrocortisone 1 applic 02/19/19 22:00 Anusol 2.5% Hc Cream - NH HS TERI Cefazolin Sodium 1 gm/ 50 mls @ 100 mls/hr 02/19/19 14:22 Dextrose IVPB Q8H-IV TERI Metoprolol Succinate 25 mg 02/19/19 10:00 02/19/19 10:43 Toprol Xl - PO 25 mg DAILY TERI Administration Mirtazapine 30 mg 02/18/19 23:11 02/19/19 00:00 Remeron - PO 30 mg HS TERI Administration Multi-Ingredient Lotion 1 applic 02/19/19 13:45 Eucerin (Small Jar) - TP DAILY TERI Spironolactone 25 mg 02/18/19 01:45 02/19/19 10:42 Aldactone - PO 25 mg DAILY TERI Administration ASSESSMENT/PLAN: 73 M with PMH of CHF, COPD, CKD,HTN, myelofibrosis who presented to the ED with abdominal distension and lower legs likely secondary to CHF exacerbation and liver cirrhosis. 1) CHF exacerbation -Echo completed. Shows normal LV, EF of 60-65%, grade II diastolic dysfunction, Right ventricular systolic function is mild to moderately reduced, elevated pulmonary artery pressure. -Continue spironolactone 25 mg PO Daily -low salt diet -I/O -Lasix 40 mg IV BID -Cardiology consulted, appreciate recs 2)Hepatosplenomegaly -Abdominal U/S shows hepatosplenomegaly. Trace ascites present. -GI consulted, appreciate recs -AST/ALT mildly increased as compared to yesterday. -Folate and b12 levels high. 3) LLE Cellulitis and Venous Stasis Dermatitis -Cefazolin 1 gram Q8H IV -Vancomycin 1 gram Q12H -Eucerin applied daily. -Tylenol 650 Q4H PRN ' -ID consulted due to immunocompromisation due to myelofibrosis. Appreciate recs 4)CKD -Creatinine improving, 1.6 today, down from 1.8 5)Hemorrhoids -Patient has blood in stool as per report by patient and GI rectal exam -Refused colonoscopy -Hemorrhoid cream 6) Hx of Myelofibrosis -stable 7)Hx of Depression -Continue Remeron and Venlafaxine 8) Hx of HTN -Continue Toprol. -Started aldactone -No ANA DVT: SCDs F: NO IV fluids E: Monitor BMP N: Sodium controlled diet Visit type - Emergency Visit Emergency Visit: Yes ED Registration Date: 02/18/19 Care time: The patient presented to the Emergency Department on the above date and was hospitalized for further evaluation of their emergent condition. - New Patient This patient is new to me today: No - Critical Care Critical Care patient: No ATTENDING PHYSICIAN STATEMENT I saw and evaluated the patient. I reviewed the resident's note and discussed the case with the resident. I agree with the resident's findings and plan as documented. SUBJECTIVE: OBJECTIVE: ASSESSMENT AND PLAN:
--- NOTE | 2019-02-19 16:56 | PN ---
Progress Note, Physician History of Present Illness: Pt seen and examined at bedside. He says that he feels better today. He feels that the edema and abd fullness are improving. - Current Medication List Current Medications: Active Medications Acetaminophen (Tylenol -) 650 mg PO Q4H PRN PRN Reason: FEVER Furosemide (Lasix Injection -) 40 mg IVPUSH BID [facility] Last Admin: 02/19/19 10:42 Dose: 40 mg Hydrocortisone (Anusol 2.5% Hc Cream -) 1 applic IA HS [facility] Cefazolin Sodium 1 gm/ (Dextrose) 50 mls @ 100 mls/hr IVPB Q8H-IV TERI Metoprolol Succinate (Toprol Xl -) 25 mg PO DAILY [facility] Last Admin: 02/19/19 10:43 Dose: 25 mg Mirtazapine (Remeron -) 30 mg PO HS [facility] Last Admin: 02/19/19 00:00 Dose: 30 mg Multi-Ingredient Lotion (Eucerin (Small Jar) -) 1 applic TP DAILY TERI Spironolactone (Aldactone -) 25 mg PO DAILY [facility] Last Admin: 02/19/19 10:42 Dose: 25 mg - Objective Vital Signs: Vital Signs Temperature 100.2 F H 02/19/19 13:22 Pulse Rate 83 02/19/19 13:22 Respiratory Rate 20 02/19/19 13:22 Blood Pressure 134/69 02/19/19 13:22 O2 Sat by Pulse Oximetry (%) 96 02/19/19 09:30 Constitutional: Yes: Calm Eyes: Yes: Conjunctiva Clear HENT: Yes: Atraumatic Cardiovascular: Yes: S1, S2 Respiratory: Yes: CTA Bilaterally Gastrointestinal: Yes: Soft Genitourinary: Yes: WNL Edema: Yes Edema: LLE: 1+, RLE: 1+ Neurological: Yes: Oriented Psychiatric: Yes: Oriented Labs: CBC, BMP 02/19/19 07:25 02/19/19 07:25 INR, PTT INR 1.36 (0.83-1.09) H 02/17/19 20:59 Problem List - Problems (1) Anasarca Code(s): R60.1 - GENERALIZED EDEMA (2) Cellulitis of foot, left Code(s): L03.116 - CELLULITIS OF LEFT LOWER LIMB (3) Anemia Code(s): D64.9 - ANEMIA, UNSPECIFIED Qualifiers: Anemia type: bone marrow failure Bone marrow failure anemia type: unspecified bone marrow failure Qualified Code(s): D61.9 - Aplastic anemia, unspecified (4) CKD (chronic kidney disease) stage 3, GFR 30-59 ml/min Code(s): N18.3 - CHRONIC KIDNEY DISEASE, STAGE 3 (MODERATE) (5) COPD (chronic obstructive pulmonary disease) Code(s): J44.9 - CHRONIC OBSTRUCTIVE PULMONARY DISEASE, UNSPECIFIED (6) Hypertension Code(s): I10 - ESSENTIAL (PRIMARY) HYPERTENSION Qualifiers: Hypertension type: unspecified Qualified Code(s): I10 - Essential (primary ) hypertension (7) Myelofibrosis Code(s): D75.81 - MYELOFIBROSIS Assessment/Plan Current Medications Generic Name Dose Route Start Last Admin Trade Name Freq PRN Reason Stop Dose Admin Acetaminophen 650 mg 02/19/19 14:47 Tylenol - PO Q4H PRN FEVER Furosemide 40 mg 02/18/19 10:00 02/19/19 10:42 Lasix Injection - IVPUSH 40 mg BID TERI Administration Hydrocortisone 1 applic 02/19/19 22:00 Anusol 2.5% Hc Cream - [place] HS TERI Cefazolin Sodium 1 gm/ 50 mls @ 100 mls/hr 02/19/19 18:00 Dextrose IVPB Q8H-IV TERI Metoprolol Succinate 25 mg 02/19/19 10:00 02/19/19 10:43 Toprol Xl - PO 25 mg DAILY TERI Administration Mirtazapine 30 mg 02/18/19 23:11 02/19/19 00:00 Remeron - PO 30 mg HS TERI Administration Multi-Ingredient Lotion 1 applic 02/19/19 13:45 Eucerin (Small Jar) - TP DAILY TERI Spironolactone 25 mg 02/18/19 01:45 02/19/19 10:42 Aldactone - PO 25 mg DAILY TERI Administration Laboratory Tests 02/18/19 22:00 Urine Protein Negative Urine Blood Negative Impression 1. CKD 2. HTN 3. myelofibrosis 4. fluid overload 5. cellulitis 6. atrophic left kidney Plan - renal function is improving - cont diuretics - repeat labs in am - check ua - agree with holding minesh for now, bp is controlled
[2019-02-19] MEDS ORDERED: ceFAZolin SODIUM 1 GM VIAL ONE (16:58)
[2019-02-19] MEDS ORDERED: DEXTROSE 5%-WATER - 50 ML IVPB ONE (16:58)
[2019-02-19] MEDS: CEFAZOLIN 1 GM in DEXTROSE 5%-WATER - 50 ML IVPB SCH (17:38)
[2019-02-19] MEDS: MINERAL OIL/PETROLAT/WATER TOPICAL CREAM 113 GM JAR TP SCH (17:38)
--- NOTE | 2019-02-19 17:39 | PN.GI ---
GI Progress Note Subjective: mildly elevated liver enzymes, no evidence of cirrhosis by abdominal ultrasound , no evidence of portla Hypertension - Objective Vital Signs: Vital Signs Temperature 100.2 F H 02/19/19 13:22 Pulse Rate 83 02/19/19 13:22 Respiratory Rate 20 02/19/19 13:22 Blood Pressure 134/69 02/19/19 13:22 O2 Sat by Pulse Oximetry (%) 96 02/19/19 09:30 Constitutional: No Distress Eyes: Yes: Conjunctiva Clear HENT: Yes: Atraumatic Neck: Yes: Supple Cardiovascular: Yes: Regular Rate and Rhythm Respiratory: Yes: CTA Bilaterally Gastrointestinal Inspection: No: Ascites ...Palpate: Yes: Soft, Splenomegaly. No: Firm/Rigid, Guarding, Hepatomegaly, Mass, Pulsatile Mass Labs: CBC, BMP 02/19/19 07:25 02/19/19 07:25 INR, PTT INR 1.36 (0.83-1.09) H 02/17/19 20:59 Problem List - Problems (1) Elevated liver enzymes Assessment/Plan: etiology unclear R> hepatitis profile if not done recently patient asked to follow up with Dr Nieves made aware to follow up with Dr Staton Code(s): R74.8 - ABNORMAL LEVELS OF OTHER SERUM ENZYMES
[2019-02-19] MEDS: VENLAFAXINE HCL 75 MG E.R. CAPSULES (FP) PO SCH (17:43)
--- NOTE | 2019-02-19 17:52 | PN ---
Teaching Attending Note Name of Resident: Buddy Fraser ATTENDING PHYSICIAN STATEMENT I saw and evaluated the patient. I reviewed the resident's note and discussed the case with the resident. I agree with the resident's findings and plan as documented. SUBJECTIVE: SOB improved. LE improving. Redness dorsum of l foot persisting. OBJECTIVE: low grade Temp 100.2, Hemoynamically stable. Last Vital Signs Temp Pulse Resp BP Pulse Ox 100.2 F H 83 20 134/69 96 02/19/19 13:22 02/19/19 13:22 02/19/19 13:22 02/19/19 13:22 02/19/19 09:30 HEENT - Atramatic, Nromocephalic. Heart - S1, S2, RRR Lungs - clear to auscultation Abdomen - Soft, non-tender. Bowel Sounds normal. Extremities - edema ++. Erythema dorsum of L foot. Laboratory Results - last 24 hr 02/18/19 02/18/19 02/18/19 22:00 22:00 22:00 WBC RBC Hgb Hct MCV MCH MCHC RDW Plt Count MPV Absolute Neuts (auto) Neutrophils % Neutrophils % (Manual) Band Neutrophils % Lymphocytes % Lymphocytes % (Manual) Monocytes % Monocytes % (Manual) Eosinophils % Eosinophils % (Manual) Basophils % Basophils % (Manual) Myelocytes % (Man) Promyelocytes % (Man) Blast Cells % (Manual) Nucleated RBC % Metamyelocytes Hypochromia Platelet Estimate Anisocytosis Macrocytosis Sodium Potassium Chloride Carbon Dioxide Anion Gap BUN Creatinine Est GFR (CKD-EPI)AfAm Est GFR (CKD-EPI)NonAf Random Glucose Calcium Total Bilirubin AST ALT Alkaline Phosphatase Total Protein Albumin Vitamin B12 Serum Folate Urine Color Yellow Urine Appearance Clear Urine pH 6.5 D Ur Specific [place] 1.009 L Urine Protein Negative Urine Glucose (UA) Negative Urine Ketones Negative Urine Blood Negative Urine Nitrite Negative Urine Bilirubin Negative Urine Urobilinogen 0.2 Ur Leukocyte Esterase Negative Ur Random Creatinine 33.0 Ur Random Sodium 92 Ur Random Potassium 16.0 L Ur Random Chloride 94 L 02/19/19 02/19/19 07:25 07:25 WBC 18.0 H RBC 1.86 L Hgb 7.3 L Hct 21.4 L MCV 115.0 H MCH 39.2 H MCHC 34.1 RDW 23.3 H Plt Count 149 MPV 10.3 Absolute Neuts (auto) 15.4 H Neutrophils % 85.6 H Neutrophils % (Manual) 55.0 Band Neutrophils % 8.0 Lymphocytes % 3.3 L D Lymphocytes % (Manual) 3.0 L D Monocytes % 7.6 Monocytes % (Manual) 4 Eosinophils % 2.9 Eosinophils % (Manual) 6.0 H Basophils % 0.6 Basophils % (Manual) 5.0 H D Myelocytes % (Man) 16 H D Promyelocytes % (Man) 0 Blast Cells % (Manual) 0 Nucleated RBC % 0 Metamyelocytes 1 D Hypochromia 1+ Platelet Estimate Decreased Anisocytosis 2+ Macrocytosis 2+ Sodium 133 L Potassium 4.5 Chloride 101 Carbon Dioxide 24 Anion Gap 8 BUN 25.3 H Creatinine 1.6 H Est GFR (CKD-EPI)AfAm 48.81 Est GFR (CKD-EPI)NonAf 42.11 Random Glucose 95 Calcium 9.1 Total Bilirubin 0.8 AST 67 H ALT 56 Alkaline Phosphatase 144 H Total Protein 8.1 Albumin 3.6 Vitamin B12 1794 H Serum Folate 19 H Urine Color Urine Appearance Urine pH Ur Specific [place] Urine Protein Urine Glucose (UA) Urine Ketones Urine Blood Urine Nitrite Urine Bilirubin Urine Urobilinogen Ur Leukocyte Esterase Ur Random Creatinine Ur Random Sodium Ur Random Potassium Ur Random Chloride Current Medications Generic Name Dose Route Start Last Admin Trade Name Franciscoq PRN Reason Stop Dose Admin Acetaminophen 650 mg 02/19/19 14:47 Tylenol - PO Q4H PRN FEVER Furosemide 40 mg 02/18/19 10:00 02/19/19 10:42 Lasix Injection - IVPUSH 40 mg BID TERI Administration Hydrocortisone 1 applic 02/19/19 22:00 Anusol 2.5% Hc Cream - [place] HS TERI Cefazolin Sodium 1 gm/ 50 mls @ 100 mls/hr 02/19/19 18:00 02/19/19 17:38 Dextrose IVPB 100 mls/hr Q8H-IV TERI Administration Lisinopril 20 mg 02/20/19 10:00 Prinivil PO DAILY TERI Metoprolol Succinate 25 mg 02/19/19 10:00 02/19/19 10:43 Toprol Xl - PO 25 mg DAILY TERI Administration Mirtazapine 30 mg 02/18/19 23:11 02/19/19 00:00 Remeron - PO 30 mg HS TERI Administration Multi-Ingredient Lotion 1 applic 11/19/19 13:45 02/19/19 17:38 Eucerin (Small Jar) - TP 1 applic DAILY TERI Administration Non-Formulary Medication 15 mg 02/19/19 22:00 Ruxolitinib Phosphate [Jakafi] PO BID [facility] Spironolactone 25 mg 02/18/19 01:45 02/19/19 10:42 Aldactone - PO 25 mg DAILY TERI Administration Venlafaxine HCl 150 mg 02/19/19 17:45 Effexor Xr - PO DAILY [facility] Home Medications Medication Instructions Recorded Furosemide [Lasix -] 40 mg PO BID 07/21/15 Lisinopril 20 mg PO DAILY 07/21/15 Mirtazapine [Remeron -] 30 mg PO HS 07/21/15 Venlafaxine HCl ER [Effexor Xr -] 150 mg PO DAILY #30 cap.er.24h 11/16/16 Metoprolol Succinate [Toprol XL -] 25 mg PO DAILY 04/19/17 Ruxolitinib Phosphate [Jakafi] 15 mg PO BID 01/04/18 Cephalexin [Keflex] 500 mg PO TID 7 Days #21 capsule 01/25/19 ASSESSMENT AND PLAN: 73 year old male with history of Chronic diastolic CHF, CKD 2/3, COPD, HTN, Myelofibrosis, Anemia (transfusion dependent), recurrent LE cellulitis, h/o ETOH abuse, hepatosplenomegaly admitted with dyspnea, abdominal distension, pedal edema in the setting of non compliance with low salt diet. 1. Acute on Chronic Diastolic CHF Echo - grade II diastolic dysfunction, moderate MR, elevated PA pressure. Continue IV Lasix diuresis. Daily weight I/Os Monitor renal function. Cardiology consult. 2. Hepatosplenomegaly and elevated AST ? sec to fatty liver due to Alcohol use versus hepatic congestion due to CHF. Abdominal US - Hepatomegaly, trace ascites. No evidence of hepatic failure or Cirrhosis. GI following. 3. Acute on chronic/recurrent Cellulitis R foot (dorsum) Temp 100.2 Continue IV cefazolin. Will add Vancomycin and consult ID given T 100.2 4. Myelofibrosis with transfusion dependent macrocytic Anemia Monitor H.H - Transfuse PRN Hematology follow up as out-patient. 5. HTN - Resumed on Toprol XL. Started on Aldactone. ANA-I held for now. 6. CKD 2/3 - Stable. Monitor while on IV Lasix. 7. Depression - Continue Remeron and Venlafaxine. DVT Px - Heparin SQ
[2019-02-19] MEDS ORDERED: VANCOMYCIN 1 GM PREMIX - 1 GM/200 ML BAG IVPB SCH (18:00)
[2019-02-19] MEDS: VANCOMYCIN 1 GRAM (PRE-DOCKED) 1,000 MG/250 ML BAG IVPB SCH (18:42)
[2019-02-19] MEDS: MIRTAZAPINE 15 MG TABLET (FP) PO SCH ×2 (21:29)
[2019-02-19] MEDS: HYDROCORTISONE 2.5% TOPICAL CREAM 30 GM TUBE PR SCH (21:29)
[2019-02-19] MEDS ORDERED: CEFAZOLIN 1 GM in DEXTROSE 5%-WATER - 50 ML IVPB SCH (22:00)
[2019-02-19] MEDS ORDERED: RUXOLITINIB PHOSPHATE 15 MG PO SCH (22:00)
[2019-02-20] MEDS ORDERED: DEXTROSE 5%-WATER - 50 ML IVPB ONE ×3 (02:31→16:12)
[2019-02-20] MEDS ORDERED: ceFAZolin SODIUM 1 GM VIAL ONE ×3 (02:31→16:12)
[2019-02-20] MEDS: CEFAZOLIN 1 GM in DEXTROSE 5%-WATER - 50 ML IVPB SCH ×3 (02:35→18:12)
[2019-02-20] MEDS: VANCOMYCIN 1 GRAM (PRE-DOCKED) 1,000 MG/250 ML BAG IVPB SCH (06:13)
[2019-02-20 09:18] LABS: BASO % 0.5 % (0-2.0); HEMATOCRIT 20.3 % (35.4-49); LYMPH % 3.8 % (8-40); MCH 38.4 pg (25.7-33.7); MCHC 33.6 g/dl (32.0-35.9); MEAN CELL VOLUME 114.5 fl (80-96); MEAN PLT VOLUME 10.3 fl (7.5-11.1); MONO % 8.3 % (3.8-10.2); NEUT % 85.4 % (42.8-82.8); PLATELET COUNT 142 K/MM3 (134-434); RBC 1.77 M/mm3 (4.00-5.60); RDW 23.2 % (11.9-15.9); WHITE BLOOD COUNT 19.7 K/mm3 (4.0-10.0)
[2019-02-20 09:26] LABS: HEMOGLOBIN 6.8 GM/dL (11.7-16.9)
[2019-02-20 09:48] LABS: ALBUMIN 3.6 g/dl (3.4-5.0); BILIRUBIN,TOTAL 0.8 mg/dL (0.2-1); BLOOD UREA NITROGEN 28.5 mg/dL (7-18); CALCIUM 8.5 mg/dL (8.5-10.1); CREATININE 1.7 mg/dL (0.55-1.3); TOT PROT 7.8 g/dl (6.4-8.2)
[2019-02-20] MEDS ORDERED: LISINOPRIL 20 MG TABLET (FP) PO SCH (10:00)
[2019-02-20 11:00] LABS: ANISOCYTOSIS 2+; MACROCYTOSIS 2+; PLATELET ESTIMATE NORMAL; TEAR DROP CELLS 1+
[2019-02-20] MEDS: SPIRONOLACTONE 25 MG TABLET (FP) PO SCH (11:09)
[2019-02-20] MEDS: MINERAL OIL/PETROLAT/WATER TOPICAL CREAM 113 GM JAR TP SCH (11:11)
[2019-02-20] MEDS: VENLAFAXINE HCL 75 MG E.R. CAPSULES (FP) PO SCH (11:11)
[2019-02-20] MEDS: FUROSEMIDE 40 MG/4 ML INJECTABLE VIAL IVPUSH SCH ×2 (11:11→13:56)
[2019-02-20] MEDS: metoPROLOL SUCCINATE 25 MG TAB.SR.24H (FP) PO SCH (11:11)
--- NOTE | 2019-02-20 11:48 | CON.CARD ---
Consult Consult Specialty:: Cardiology Referred by:: Medicine Reason for Consultation:: CHF - History of Present Illness Chief Complaint: shortness of breath, edema History of Present Illness: 73M h/o CHF, COPD, CKD, HTN, anemia, myelofibrosis, cirrhosis p/w abd distension , lower ext edema. Does not see a care team coordinator scheduler because he thinks nothing is wrong wth his heart. Has been receiving IV lasix here, breathing and edema improved. - Past Medical History Cardio/Vascular: Yes: CHF Pulmonary: Yes: COPD Renal/: Yes: Renal Inusuff Additional Medical History: Myelofibrosis - Past Surgical History Past Surgical History: Yes: Joint Replacement - Alcohol/Substance Use Hx Alcohol Use: No - Smoking History Smoking history: Current every day smoker Have you smoked in the past 12 months: Yes Aproximately how many cigarettes per day: 20 Home Medications - Allergies Allergies/Adverse Reactions: Allergies Allergy/AdvReac Type Severity Reaction Status Date / Time No Known Allergies Allergy Verified 02/17/19 20:21 - Home Medications Home Medications: Ambulatory Orders Furosemide [Lasix -] 40 mg PO BID 07/21/15 Lisinopril 20 mg PO DAILY 07/21/15 Mirtazapine [Remeron -] 30 mg PO HS 07/21/15 Venlafaxine HCl ER [Effexor Xr -] 150 mg PO DAILY #30 cap.er.24h 11/16/16 Metoprolol Succinate [Toprol XL -] 25 mg PO DAILY 04/19/17 Ruxolitinib Phosphate [Jakafi] 15 mg PO BID 01/04/18 Cephalexin [Keflex] 500 mg PO TID 7 Days #21 capsule 01/25/19 Family Medical History Family History: Unremarkable Review of Systems - Review of Systems Constitutional: reports: No Symptoms Eyes: reports: No Symptoms HENT: reports: No Symptoms Neck: reports: No Symptoms Cardiovascular: reports: Edema Respiratory: reports: No Symptoms Gastrointestinal: reports: No Symptoms Genitourinary: reports: No Symptoms Musculoskeletal: reports: No Symptoms Integumentary: reports: No Symptoms Neurological: reports: No Symptoms Endocrine: reports: No Symptoms Hematology/Lymphatic: reports: No Symptoms Psychiatric: reports: No Symptoms Vital Signs: Vital Signs Temperature 0 F L 02/20/19 09:12 Pulse Rate 77 02/20/19 09:12 Respiratory Rate 20 02/20/19 09:12 Blood Pressure 128/65 02/20/19 09:12 O2 Sat by Pulse Oximetry (%) 96 02/20/19 09:12 Constitutional: Yes: No Distress, Calm Eyes: Yes: Conjunctiva Clear, EOM Intact HENT: Yes: Atraumatic, Normocephalic Neck: Yes: Supple, Trachea Midline Respiratory: Yes: Regular, CTA Bilaterally Gastrointestinal: Yes: Normal Bowel Sounds, Soft Cardiovascular: Yes: Regular Rate and Rhythm Heart Sounds: Yes: S1, S2 Extremities: No: Cold Edema: Yes Edema: LLE: 1+, RLE: 1+ Integumentary: No: Jaundice Neurological: Yes: Alert, Oriented Psychiatric: No: Agitated - Other Data Labs, Other Data: CBC, BMP 02/20/19 07:40 02/20/19 07:40 INR, PTT INR 1.36 (0.83-1.09) H 02/17/19 20:59 Assessment/Plan EKG: sinus, nonspecific ST/T wave changes echo 02/2019 n LV functoin, grade II diastolic dysfunction, RV systolic function mild to mod reduced, LA mildly dilated, RA mod dilated, mild to mod MR , mild to mod TR, PASP at least 52 mmHg Acute on chronic diastolic heart failure - Cr stable, weight inc today - inc lasix to 80 mg IV BID - cont spironolactone - holding ACEI - monitor Cr, lytes, daily weights anemia, myelofibrosis - transfuse per primary R foot cellulitis - manage per primary HTN - cont current meds CKD - monitor Cr with diuresis - renal following
--- NOTE | 2019-02-20 12:32 | PN ---
Progress Note, Physician History of Present Illness: Pt seen and examined at bedside. He says that he feels better today. - Current Medication List Current Medications: Active Medications Acetaminophen (Tylenol -) 650 mg PO Q4H PRN PRN Reason: FEVER Furosemide (Lasix Injection -) 80 mg IVPUSH BID [facility] Hydrocortisone (Anusol 2.5% Hc Cream -) 1 applic [place] HS [facility] Last Admin: 02/19/19 21:29 Dose: 1 appful Cefazolin Sodium 1 gm/ (Dextrose) 50 mls @ 100 mls/hr IVPB Q8H-IV [facility]I Last Admin: 02/20/19 11:09 Dose: 100 mls/hr Vancomycin HCl (Vancomycin 1 Gm Premix -) 1 gm in 200 mls @ 133.333 mls/hr IVPB Q12H [facility] Metoprolol Succinate (Toprol Xl -) 25 mg PO DAILY [facility] Last Admin: 02/20/19 11:11 Dose: 25 mg Mirtazapine (Remeron -) 30 mg PO HS [facility] Last Admin: 02/19/19 21:29 Dose: 30 mg Multi-Ingredient Lotion (Eucerin (Small Jar) -) 1 applic TP DAILY [facility] Last Admin: 02/20/19 11:11 Dose: 1 applic Non-Formulary Medication (Ruxolitinib Phosphate [Jakafi]) 15 mg PO BID [facility] Spironolactone (Aldactone -) 25 mg PO DAILY [facility] Last Admin: 02/20/19 11:09 Dose: 25 mg Venlafaxine HCl (Effexor Xr -) 150 mg PO DAILY [facility] Last Admin: 02/20/19 11:11 Dose: 150 mg - Objective Vital Signs: Vital Signs Temperature 97.7 F 02/20/19 09:12 Pulse Rate 77 02/20/19 09:12 Respiratory Rate 20 02/20/19 09:12 Blood Pressure 128/65 02/20/19 09:12 O2 Sat by Pulse Oximetry (%) 96 02/20/19 09:12 Constitutional: Yes: Calm Eyes: Yes: Conjunctiva Clear HENT: Yes: Atraumatic Neck: Yes: Supple Cardiovascular: Yes: S1, S2 Respiratory: Yes: CTA Bilaterally Gastrointestinal: Yes: Soft Genitourinary: Yes: WNL Edema: Yes Edema: LLE: 1+, RLE: 1+ Neurological: Yes: Oriented Psychiatric: Yes: Oriented Labs: CBC, BMP 02/20/19 07:40 02/20/19 07:40 INR, PTT INR 1.36 (0.83-1.09) H 02/17/19 20:59 Problem List - Problems (1) Anasarca Code(s): R60.1 - GENERALIZED EDEMA (2) Cellulitis of foot, left Code(s): L03.116 - CELLULITIS OF LEFT LOWER LIMB (3) Anemia Code(s): D64.9 - ANEMIA, UNSPECIFIED Qualifiers: Anemia type: bone marrow failure Bone marrow failure anemia type: unspecified bone marrow failure Qualified Code(s): D61.9 - Aplastic anemia, unspecified (4) CKD (chronic kidney disease) stage 3, GFR 30-59 ml/min Code(s): N18.3 - CHRONIC KIDNEY DISEASE, STAGE 3 (MODERATE) (5) COPD (chronic obstructive pulmonary disease) Code(s): J44.9 - CHRONIC OBSTRUCTIVE PULMONARY DISEASE, UNSPECIFIED (6) Hypertension Code(s): I10 - ESSENTIAL (PRIMARY) HYPERTENSION Qualifiers: Hypertension type: unspecified Qualified Code(s): I10 - Essential (primary ) hypertension (7) Myelofibrosis Code(s): D75.81 - MYELOFIBROSIS Assessment/Plan Current Medications Generic Name Dose Route Start Last Admin Trade Name Freq PRN Reason Stop Dose Admin Acetaminophen 650 mg 02/19/19 14:47 Tylenol - PO Q4H PRN FEVER Furosemide 80 mg 02/20/19 11:57 Lasix Injection - IVPUSH BID TERI Hydrocortisone 1 applic 02/19/19 22:00 02/19/19 21:29 Anusol 2.5% Hc Cream - [place] 1 appful HS TERI Administration Cefazolin Sodium 1 gm/ 50 mls @ 100 mls/hr 02/19/19 18:00 02/20/19 11:09 Dextrose IVPB 100 mls/hr Q8H-IV TERI Administration Vancomycin HCl 1 gm in 200 mls @ 133.333 mls/hr 02/19/19 18:00 Vancomycin 1 Gm Premix - IVPB Q12H TERI Metoprolol Succinate 25 mg 02/19/19 10:00 02/20/19 11:11 Toprol Xl - PO 25 mg DAILY [facility] Administration Mirtazapine 30 mg 02/18/19 23:11 02/19/19 21:29 Remeron - PO 30 mg HS TERI Administration Multi-Ingredient Lotion 1 applic 02/19/19 13:45 02/20/19 11:11 Eucerin (Small Jar) - TP 1 applic DAILY [facility] Administration Non-Formulary Medication 15 mg 02/19/19 22:00 Ruxolitinib Phosphate [Jakafi] PO BID [facility] Spironolactone 25 mg 02/18/19 01:45 02/20/19 11:09 Aldactone - PO 25 mg DAILY [facility] Administration Venlafaxine HCl 150 mg 02/19/19 17:45 02/20/19 11:11 Effexor Xr - PO 150 mg DAILY [facility] Administration Laboratory Tests 02/18/19 22:00 Urine Protein Negative Urine Blood Negative Impression 1. CKD 2. HTN 3. myelofibrosis 4. fluid overload 5. cellulitis 6. atrophic left kidney\ 7. anemia Plan - pt s/p prbc - monitor renal function - ua neg for blood or protein - cont diuretics - repeat labs in am - agree with holding minesh for now
--- NOTE | 2019-02-20 14:31 | PN ---
Physical Exam: SUBJECTIVE: Patient seen and examined in the morning. No acute events overnight. Patient has no complaints of chest pain, abdominal pain, nausea, vomiting, diarrhea. Patient still has blood in stool but refuses colonoscopy. OBJECTIVE: Vital Signs Period Temp Pulse Resp BP Sys/Rodriguez Pulse Ox Last 24 Hr 97.4 F-99.1 F 77-89 18-22 125-128/65-68 95-96 GENERAL: The patient is awake, alert, and fully oriented, in no acute distress. HEAD: Normal with no signs of trauma. EYES: PERRL, extraocular movements intact, sclera anicteric, conjunctiva clear. LUNGS: Breath sounds equal, clear to auscultation bilaterally, no wheezes, no crackles. HEART: Regular rate and rhythm, S1, S2 without murmur, rub or gallop. ABDOMEN: Distended abdomen, hepatosplenomegaly present,normoactive bowel sounds. Nontender to palpation. EXTREMITIES: 2+ pulses, warm, well-perfused, 2+ pedal edema. Left lower leg has erythema with no pus or bleeding. Venous stasis dermatitis present on b/l feet. NEUROLOGICAL: Cranial nerves II through XII grossly intact. Laboratory Results - last 24 hr 02/20/19 02/20/19 02/20/19 07:40 07:40 11:55 WBC 19.7 H RBC 1.77 L Hgb 6.8 L* Hct 20.3 L MCV 114.5 H MCH 38.4 H MCHC 33.6 RDW 23.2 H Plt Count 142 MPV 10.3 Absolute Neuts (auto) 16.8 H Neutrophils % 85.4 H Neutrophils % (Manual) 48.0 Band Neutrophils % 18.6 Lymphocytes % 3.8 L Lymphocytes % (Manual) 3.0 L Monocytes % 8.3 Monocytes % (Manual) 7 Eosinophils % 2.0 Eosinophils % (Manual) 1.0 D Basophils % 0.5 Basophils % (Manual) 3.9 H Myelocytes % (Man) 14 H Promyelocytes % (Man) 0 Blast Cells % (Manual) 0 Nucleated RBC % 0 Metamyelocytes 1 Hypochromia 0 Platelet Estimate Normal Polychromasia 2+ Poikilocytosis 2+ Anisocytosis 2+ Macrocytosis 2+ Tear Drop Cells 1+ Sodium 130 L Potassium 4.0 Chloride 97 L Carbon Dioxide 25 Anion Gap 8 BUN 28.5 H Creatinine 1.7 H Est GFR (CKD-EPI)AfAm 45.36 Est GFR (CKD-EPI)NonAf 39.14 Random Glucose 115 H Calcium 8.5 Total Bilirubin 0.8 AST 64 H ALT 50 Alkaline Phosphatase 135 H Total Protein 7.8 Albumin 3.6 Blood Type B POSITIVE Antibody Screen Negative Crossmatch See Detail Active Medications Generic Name Dose Route Start Last Admin Trade Name Freq PRN Reason Stop Dose Admin Acetaminophen 650 mg 02/19/19 14:47 Tylenol - PO Q4H PRN FEVER Furosemide 80 mg 02/20/19 14:00 02/20/19 13:56 Lasix Injection - IVPUSH 80 mg BIDLASIX TERI Administration Hydrocortisone 1 applic 02/19/19 22:00 02/19/19 21:29 Anusol 2.5% Hc Cream - [place] 1 appful HS TERI Administration Cefazolin Sodium 1 gm/ 50 mls @ 100 mls/hr 02/19/19 18:00 02/20/19 11:09 Dextrose IVPB 100 mls/hr Q8H-IV TERI Administration Vancomycin HCl 1 gm in 200 mls @ 133.333 mls/hr 02/19/19 18:00 Vancomycin 1 Gm Premix - IVPB Q12H [facility]I Metoprolol Succinate 25 mg 02/19/19 10:00 02/20/19 11:11 Toprol Xl - PO 25 mg DAILY [facility] Administration Mirtazapine 30 mg 02/18/19 23:11 02/19/19 21:29 Remeron - PO 30 mg HS TERI Administration Multi-Ingredient Lotion 1 applic 02/19/19 13:45 02/20/19 11:11 Eucerin (Small Jar) - TP 1 applic DAILY [facility] Administration Non-Formulary Medication 15 mg 02/19/19 22:00 Ruxolitinib Phosphate [Jakafi] PO BID [facility] Spironolactone 25 mg 02/18/19 01:45 02/20/19 11:09 Aldactone - PO 25 mg DAILY [facility] Administration Venlafaxine HCl 150 mg 02/19/19 17:45 02/20/19 11:11 Effexor Xr - PO 150 mg DAILY [facility] Administration ASSESSMENT/PLAN: 73 M with PMH of CHF, COPD, CKD,HTN, myelofibrosis who presented to the ED with abdominal distension and lower legs likely secondary to CHF exacerbation and liver cirrhosis. 1) CHF exacerbation -Echo completed. Shows normal LV, EF of 60-65%, grade II diastolic dysfunction, Right ventricular systolic function is mild to moderately reduced, elevated pulmonary artery pressure. -Continue spironolactone 25 mg PO Daily -low salt diet -I/O -Lasix 80 mg IV BID -Cardiology consulted, appreciate recs 2)Hepatosplenomegaly -Abdominal U/S shows hepatosplenomegaly. Trace ascites present. -GI follow up as outpatient. -AST/ALT mildly increased as compared to yesterday. 3) LLE Cellulitis and Venous Stasis Dermatitis -Cefazolin 1 gram Q8H IV -Vancomycin 1 gram Q12H -Eucerin applied daily. -Tylenol 650 Q4H PRN ' -ID consulted due to immunocompromisation due to myelofibrosis. Appreciate recs 4)CKD -Creatinine improving, 1.6 today, down from 1.8 5)Hemorrhoids -Patient has blood in stool as per report by patient and GI rectal exam -Refused colonoscopy -Hemorrhoid cream 6) Hx of Myelofibrosis -Continue Jakafi 15 mg PO BID -Hgb of 6.8. Transfuse 2 units today. 7)Hx of Depression -Continue Remeron and Venlafaxine 8) Hx of HTN -Continue Toprol. -Started aldactone -No ANA DVT: SCDs F: NO IV fluids E: Monitor BMP N: Sodium controlled diet Visit type - Emergency Visit Emergency Visit: Yes ED Registration Date: 02/18/19 Care time: The patient presented to the Emergency Department on the above date and was hospitalized for further evaluation of their emergent condition. - New Patient This patient is new to me today: No - Critical Care Critical Care patient: No ATTENDING PHYSICIAN STATEMENT I saw and evaluated the patient. I reviewed the resident's note and discussed the case with the resident. I agree with the resident's findings and plan as documented. SUBJECTIVE: OBJECTIVE: ASSESSMENT AND PLAN:
--- NOTE | 2019-02-20 14:35 | PN ---
Teaching Attending Note Name of Resident: Buddy Fraser ATTENDING PHYSICIAN STATEMENT I saw and evaluated the patient. I reviewed the resident's note and discussed the case with the resident. I agree with the resident's findings and plan as documented. SUBJECTIVE: SOB improved. LE edema improving. Redness dorsum of L foot persisting. No further episodes of blood per rectum. OBJECTIVE: Fever appears to have resolved. Hemoynamically stable. Last Vital Signs Temp Pulse Resp BP Pulse Ox 97.7 F 77 20 128/65 96 02/20/19 09:12 02/20/19 09:12 02/20/19 09:12 02/20/19 09:12 02/20/19 09:12 Heart - S1, S2, RRR Lungs - clear to auscultation Abdomen - Soft, non-tender. Bowel Sounds normal. Extremities - edema +. Erythema dorsum of L foot. Laboratory Results - last 24 hr 02/20/19 02/20/19 02/20/19 07:40 07:40 11:55 WBC 19.7 H RBC 1.77 L Hgb 6.8 L* Hct 20.3 L MCV 114.5 H MCH 38.4 H MCHC 33.6 RDW 23.2 H Plt Count 142 MPV 10.3 Absolute Neuts (auto) 16.8 H Neutrophils % 85.4 H Neutrophils % (Manual) 48.0 Band Neutrophils % 18.6 Lymphocytes % 3.8 L Lymphocytes % (Manual) 3.0 L Monocytes % 8.3 Monocytes % (Manual) 7 Eosinophils % 2.0 Eosinophils % (Manual) 1.0 D Basophils % 0.5 Basophils % (Manual) 3.9 H Myelocytes % (Man) 14 H Promyelocytes % (Man) 0 Blast Cells % (Manual) 0 Nucleated RBC % 0 Metamyelocytes 1 Hypochromia 0 Platelet Estimate Normal Polychromasia 2+ Poikilocytosis 2+ Anisocytosis 2+ Macrocytosis 2+ Tear Drop Cells 1+ Sodium 130 L Potassium 4.0 Chloride 97 L Carbon Dioxide 25 Anion Gap 8 BUN 28.5 H Creatinine 1.7 H Est GFR (CKD-EPI)AfAm 45.36 Est GFR (CKD-EPI)NonAf 39.14 Random Glucose 115 H Calcium 8.5 Total Bilirubin 0.8 AST 64 H ALT 50 Alkaline Phosphatase 135 H Total Protein 7.8 Albumin 3.6 Blood Type B POSITIVE Antibody Screen Negative Crossmatch See Detail Current Medications Generic Name Dose Route Start Last Admin Trade Name Freq PRN Reason Stop Dose Admin Acetaminophen 650 mg 02/19/19 14:47 Tylenol - PO Q4H PRN FEVER Furosemide 80 mg 02/20/19 14:00 02/20/19 13:56 Lasix Injection - IVPUSH 80 mg BIDLASIX TERI Administration Hydrocortisone 1 applic 02/19/19 22:00 02/19/19 21:29 Anusol 2.5% Hc Cream - SD 1 appful HS TERI Administration Cefazolin Sodium 1 gm/ 50 mls @ 100 mls/hr 02/19/19 18:00 02/20/19 11:09 Dextrose IVPB 100 mls/hr Q8H-IV TERI Administration Vancomycin HCl 1 gm in 200 mls @ 133.333 mls/hr 02/19/19 18:00 Vancomycin 1 Gm Premix - IVPB Q12H TERI Metoprolol Succinate 25 mg 02/19/19 10:00 02/20/19 11:11 Toprol Xl - PO 25 mg DAILY TERI Administration Mirtazapine 30 mg 02/18/19 23:11 02/19/19 21:29 Remeron - PO 30 mg HS TERI Administration Multi-Ingredient Lotion 1 applic 02/19/19 13:45 02/20/19 11:11 Eucerin (Small Jar) - TP 1 applic DAILY TERI Administration Non-Formulary Medication 15 mg 02/19/19 22:00 Ruxolitinib Phosphate [Jakafi] PO BID TERI Spironolactone 25 mg 02/18/19 01:45 02/20/19 11:09 Aldactone - PO 25 mg DAILY TERI Administration Venlafaxine HCl 150 mg 02/19/19 17:45 02/20/19 11:11 Effexor Xr - PO 150 mg DAILY TERI Administration Home Medications Medication Instructions Recorded Furosemide [Lasix -] 40 mg PO BID 07/21/15 Lisinopril 20 mg PO DAILY 07/21/15 Mirtazapine [Remeron -] 30 mg PO HS 07/21/15 Venlafaxine HCl ER [Effexor Xr -] 150 mg PO DAILY #30 cap.er.24h 11/16/16 Metoprolol Succinate [Toprol XL -] 25 mg PO DAILY 04/19/17 Ruxolitinib Phosphate [Jakafi] 15 mg PO BID 01/04/18 Cephalexin [Keflex] 500 mg PO TID 7 Days #21 capsule 01/25/19 ASSESSMENT AND PLAN: 73 year old male with history of Chronic diastolic CHF, CKD 2/3, COPD, HTN, Myelofibrosis, Anemia (transfusion dependent), recurrent LE cellulitis, h/o ETOH abuse, hepatosplenomegaly admitted with dyspnea, abdominal distension, pedal edema in the setting of non compliance with low salt diet. 1. Acute on Chronic Diastolic CHF Echo - grade II diastolic dysfunction, moderate MR, elevated PA pressure. Continue IV Lasix diuresis - dose increased to 80mg IV BID. Daily weight. I/Os. Monitor renal function. Cardiology following 2. Hepatosplenomegaly and elevated AST ? sec to fatty liver due to Alcohol use versus hepatic congestion due to CHF. Abdominal US - Hepatomegaly, trace ascites. No evidence of hepatic failure or Cirrhosis. GI following. 3. Acute on chronic/recurrent Cellulitis R foot (dorsum) Temp 100.2 yesterday now reslved Vancomycin added to Cefazolin and ID consulted. 4. Bright red blood per rectum Evaluated by GI - patient declines further Ix with Colonoscopy at this time. Anemia - multifactorial - sec to transfusion dependent myelofibrosis +/- GI blood loss. For transfusion 2 units PRBCs. 5. Myelofibrosis with transfusion dependent macrocytic Anemia H/H 6.8/20.3 - for transfusion of 2 units PRBCs. Hematology follow up as out-patient. 6. HTN - Resumed on Toprol XL and started on Aldactone. ANA-I held for now. 7. CKD 2/3 - Stable. Monitor while on IV Lasix. 8. Depression - Continue Remeron and Venlafaxine. DVT Px - Heparin SQ held due to blood per rectum.
--- NOTE | 2019-02-20 18:20 | PN ---
Progress Note (short form) - Note Progress Note: ID consult dictated history of myelofibrosis (chronic leukocytosis), cirrhosis, diastolic HF admitted with edema of both legs and some erythema isolated low grade temp 100.2 yesterday, now resolved no history of MDRO reports much improvement in his edema and bilateral foot erythema would continue cefazolin Problem List - Problems (1) Cellulitis Code(s): L03.90 - CELLULITIS, UNSPECIFIED (2) Anasarca Code(s): R60.1 - GENERALIZED EDEMA (3) Myelofibrosis Code(s): D75.81 - MYELOFIBROSIS (4) Leukocytosis Code(s): D72.829 - ELEVATED WHITE BLOOD CELL COUNT, UNSPECIFIED
[2019-02-20 19:25] LABS: BASO % 0.4 % (0-2.0); EOS % 2.5 % (0-4.5); LYMPH % 3.1 % (8-40); MCH 37.5 pg (25.7-33.7); MCHC 33.5 g/dl (32.0-35.9); MEAN CELL VOLUME 112.2 fl (80-96); MEAN PLT VOLUME 9.7 fl (7.5-11.1); MONO % 9.5 % (3.8-10.2); NEUT % 84.5 % (42.8-82.8); PLATELET COUNT 139 K/MM3 (134-434); RBC 2.14 M/mm3 (4.00-5.60); RDW 24.8 % (11.9-15.9); WHITE BLOOD COUNT 19.7 K/mm3 (4.0-10.0)
--- NOTE | 2019-02-20 19:32 | CONS ---
INFECTIOUS DISEASE CONSULTATION DATE OF CONSULTATION: DATE OF DICTATION: 02/20/2019 This is a 73-year-old man who has a past medical history of CHF, CKD, anemia, myelofibrosis. He was admitted originally in January for a 3-day admission with erythema of his left lower extremity. He was treated for 72 hours in the hospital and discharged on Keflex. He received ceftriaxone and vancomycin. White count at the time of discharge was 19.5 with creatinine of 1.7. He is now readmitted on the with complaints of increasing edema of his abdomen and his legs over the course of the last 48 hours. He notes that his feet have started getting a little bit red as well. He denies any fevers or chills, chest pain. He notes some shortness of breath, orthopnea, and dyspnea on exertion. He came to the ER on Monday with these complaints. He was treated with some IV Lasix. He had imaging of his abdomen and pelvis. He had minimal ascites, being managed by GI and Cardiology. I am asked to see him for erythema of his legs. He has been started on cefazolin. PAST MEDICAL HISTORY: Notable for CHF, COPD, CKD, hypertension, myelofibrosis. He has a history of liver cirrhosis as well. There is no history of any prior surgery. He is followed by Juarez Nieves MD, for his myelofibrosis which he has been on treatment with him for the last 3-1/2 years. SOCIAL HISTORY: He is originally from [place] and been in this [place] years. He smokes cigarettes. No history of alcohol or substance use. ALLERGIES: No known drug allergies. MEDICATIONS: Include Lasix, lisinopril, Remeron, Effexor, Toprol-XL, Jakafi, and he completed a course of cephalexin at the end of January. FAMILY HISTORY: Unremarkable. REVIEW OF SYSTEMS: He reports marked improvement in his abdominal swelling, as well as in his legs, and he notes the erythema has improved. He had a 1-time fever of 100.2 on the and has had no fever since that time. In summary, this is a 73-year-old man with myelofibrosis, liver cirrhosis, diastolic heart failure, admitted with worsening lower extremity edema and abdominal girth, improving with diuretics. He reports improvement in his symptoms. Given the fact he is improving, would suggest continuing his cefazolin at this time. He apparently has a baseline persistent white count which appears to be at prior levels. He has no prior history of methicillin-resistant Staphylococcus aureus, so would avoid further vancomycin. MANDEEP NESS M.D. [id number]
[2019-02-20 20:27] LABS: ANISOCYTOSIS 2+; MACROCYTOSIS 0; PLATELET ESTIMATE NORMAL; TEAR DROP CELLS 1+
[2019-02-20] MEDS: MIRTAZAPINE 15 MG TABLET (FP) PO SCH (21:08)
[2019-02-20] MEDS: HYDROCORTISONE 2.5% TOPICAL CREAM 30 GM TUBE PR SCH (22:07)
[2019-02-21] MEDS ORDERED: ceFAZolin SODIUM 1 GM VIAL ONE ×2 (01:39→09:57)
[2019-02-21] MEDS ORDERED: DEXTROSE 5%-WATER - 50 ML IVPB ONE ×2 (01:40→09:57)
[2019-02-21] MEDS: CEFAZOLIN 1 GM in DEXTROSE 5%-WATER - 50 ML IVPB SCH ×2 (01:50→10:03)
[2019-02-21] MEDS: FUROSEMIDE 40 MG/4 ML INJECTABLE VIAL IVPUSH SCH ×2 (06:18→14:39)
[2019-02-21] MEDS: VENLAFAXINE HCL 75 MG E.R. CAPSULES (FP) PO SCH (10:03)
[2019-02-21] MEDS: metoPROLOL SUCCINATE 25 MG TAB.SR.24H (FP) PO SCH (10:03)
[2019-02-21] MEDS: SPIRONOLACTONE 25 MG TABLET (FP) PO SCH (10:03)
[2019-02-21 10:21] LABS: BASO % 0.7 % (0-2.0); EOS % 2.7 % (0-4.5); HEMATOCRIT 25.8 % (35.4-49); HEMOGLOBIN 8.7 GM/dL (11.7-16.9); LYMPH % 5.1 % (8-40); MCHC 33.9 g/dl (32.0-35.9); MEAN CELL VOLUME 106.1 fl (80-96); MEAN PLT VOLUME 9.7 fl (7.5-11.1); MONO % 7.4 % (3.8-10.2); NEUT % 84.1 % (42.8-82.8); PLATELET COUNT 144 K/MM3 (134-434); RBC 2.43 M/mm3 (4.00-5.60); RDW 28.1 % (11.9-15.9); WHITE BLOOD COUNT 21.4 K/mm3 (4.0-10.0)
[2019-02-21 10:43] LABS: BLOOD UREA NITROGEN 35.1 mg/dL (7-18); CALCIUM 8.6 mg/dL (8.5-10.1); CREATININE 1.8 mg/dL (0.55-1.3)
[2019-02-21 11:11] LABS: ANISOCYTOSIS 1+; MACROCYTOSIS 1+; PLATELET ESTIMATE NORMAL; TEAR DROP CELLS 1+
--- NOTE | 2019-02-21 11:25 | PN ---
Teaching Attending Note Name of Resident: Buddy Fraser ATTENDING PHYSICIAN STATEMENT I saw and evaluated the patient. I reviewed the resident's note and discussed the case with the resident. I agree with the resident's findings and plan as documented. SUBJECTIVE: SOB improved. LE edema improved. Redness dorsum of L foot improving. No further episodes of blood per rectum. OBJECTIVE: Fever appears to have resolved. Hemoynamically stable. Last Vital Signs Temp Pulse Resp BP Pulse Ox 98.7 F 73 20 124/67 96 02/20/19 21:09 02/20/19 21:09 02/20/19 21:09 02/20/19 21:09 02/21/19 05:20 Heart - S1, S2, RRR Lungs - clear to auscultation Abdomen - Soft, non-tender. Bowel Sounds normal. Extremities - edema improved. Erythema dorsum of L foot improving. Laboratory Results - last 24 hr 02/20/19 02/20/19 02/20/19 07:40 11:55 18:30 WBC 19.7 H RBC 2.14 L Hgb 8.0 L Hct 24.0 L D MCV 112.2 H MCH 37.5 H MCHC 33.5 RDW 24.8 H Plt Count 139 MPV 9.7 Absolute Neuts (auto) 16.6 H Neutrophils % 84.5 H Neutrophils % (Manual) 48.0 61.6 D Band Neutrophils % 18.6 7.1 Lymphocytes % 3.1 L Lymphocytes % (Manual) 3.0 L 5.0 L D Monocytes % 9.5 Monocytes % (Manual) 7 7 Eosinophils % 2.5 Eosinophils % (Manual) 1.0 D 6.1 H D Basophils % 0.4 Basophils % (Manual) 3.9 H 2.0 Myelocytes % (Man) 14 H 7 H D Promyelocytes % (Man) 0 1 D Blast Cells % (Manual) 0 1 H D Nucleated RBC % 0 Metamyelocytes 1 2 D Hypochromia 0 1+ Platelet Estimate Normal Normal Platelet Comment Polychromasia 2+ 1+ Poikilocytosis 2+ 0 Anisocytosis 2+ 2+ Microcytosis 2+ Macrocytosis 2+ 0 Tear Drop Cells 1+ 1+ Stomatocytes 2+ Schistocytes Sodium Potassium Chloride Carbon Dioxide Anion Gap BUN Creatinine Est GFR (CKD-EPI)AfAm Est GFR (CKD-EPI)NonAf Random Glucose Calcium Blood Type B POSITIVE Antibody Screen Negative Crossmatch See Detail 02/21/19 02/21/19 06:00 09:15 WBC 21.4 H RBC 2.43 L Hgb 8.7 L Hct 25.8 L MCV 106.1 H MCH 36.0 H MCHC 33.9 RDW 28.1 H Plt Count 144 MPV 9.7 Absolute Neuts (auto) 18.0 H Neutrophils % 84.1 H Neutrophils % (Manual) 51.5 Band Neutrophils % 14.6 Lymphocytes % 5.1 L D Lymphocytes % (Manual) 6.8 L D Monocytes % 7.4 Monocytes % (Manual) 6 Eosinophils % 2.7 Eosinophils % (Manual) 1.0 D Basophils % 0.7 Basophils % (Manual) 1.9 Myelocytes % (Man) 10 H D Promyelocytes % (Man) 2 D Blast Cells % (Manual) 0 D Nucleated RBC % 0 Metamyelocytes 7 H D Hypochromia 0 Platelet Estimate Normal Platelet Comment Present Polychromasia 1+ Poikilocytosis 2+ Anisocytosis 1+ Microcytosis 0 Macrocytosis 1+ Tear Drop Cells 1+ Stomatocytes 2+ Schistocytes 1+ Sodium 132 L Potassium 4.0 Chloride 98 Carbon Dioxide 25 Anion Gap 8 BUN 35.1 H Creatinine 1.8 H Est GFR (CKD-EPI)AfAm 42.33 Est GFR (CKD-EPI)NonAf 36.52 Random Glucose 123 H Calcium 8.6 Blood Type Antibody Screen Crossmatch Current Medications Generic Name Dose Route Start Last Admin Trade Name Freq PRN Reason Stop Dose Admin Acetaminophen 650 mg 02/19/19 14:47 Tylenol - PO Q4H PRN FEVER Furosemide 80 mg 02/20/19 14:00 02/21/19 06:18 Lasix Injection - IVPUSH 80 mg BIDLASIX TERI Administration Hydrocortisone 1 applic 02/19/19 22:00 02/20/19 22:07 Anusol 2.5% Hc Cream - [place] 1 appful HS TERI Administration Cefazolin Sodium 1 gm/ 50 mls @ 100 mls/hr 02/19/19 18:00 02/21/19 10:03 Dextrose IVPB 100 mls/hr Q8H-IV TERI Administration Metoprolol Succinate 25 mg 02/19/19 10:00 02/21/19 10:03 Toprol Xl - PO 25 mg DAILY TERI Administration Mirtazapine 30 mg 02/18/19 23:11 02/20/19 21:08 Remeron - PO 30 mg HS TERI Administration Multi-Ingredient Lotion 1 applic 02/19/19 13:45 02/20/19 11:11 Eucerin (Small Jar) - TP 1 applic DAILY TERI Administration Non-Formulary Medication 15 mg 02/19/19 22:00 Ruxolitinib Phosphate [Jakafi] PO BID TERI Spironolactone 25 mg 02/18/19 01:45 02/21/19 10:03 Aldactone - PO 25 mg DAILY TERI Administration Venlafaxine HCl 150 mg 02/19/19 17:45 02/21/19 10:03 Effexor Xr - PO 150 mg DAILY TERI Administration Home Medications Medication Instructions Recorded Furosemide [Lasix -] 40 mg PO BID 07/21/15 Lisinopril 20 mg PO DAILY 07/21/15 Mirtazapine [Remeron -] 30 mg PO HS 07/21/15 Venlafaxine HCl ER [Effexor Xr -] 150 mg PO DAILY #30 cap.er.24h 11/16/16 Metoprolol Succinate [Toprol XL -] 25 mg PO DAILY 04/19/17 Ruxolitinib Phosphate [Jakafi] 15 mg PO BID 01/04/18 ASSESSMENT AND PLAN: 73 year old male with history of Chronic diastolic CHF, CKD 2/3, COPD, HTN, Myelofibrosis, Anemia (transfusion dependent), recurrent LE cellulitis, h/o ETOH abuse, hepatosplenomegaly admitted with dyspnea, abdominal distension, pedal edema in the setting of non compliance with low salt diet. 1. Acute on Chronic Diastolic CHF Echo - grade II diastolic dysfunction, moderate MR, elevated PA pressure. Responding to IV Lasix diuresis - 80mg IV BID. Daily weight. I/Os. Cardiology following - recommendations for home Lasix dosing anticipated in order for discharge planning. 2. Hepatosplenomegaly and elevated AST ? sec to fatty liver due to Alcohol use versus hepatic congestion due to CHF. Abdominal US - Hepatomegaly, trace ascites. No evidence of hepatic failure or Cirrhosis. GI following. 3. Acute on chronic/recurrent Cellulitis R foot (dorsum) Afebrile Hemodynamically Stable. Leukocytosis -chornic Vancomycin discontinued by ID. Continued on Cefazolin. Eucerin topically for venous stasis dermatitis. 4. Bright red blood per rectum - resolved as per patient. Evaluated by GI - patient declines further Ix with Colonoscopy at this time. Anemia - multifactorial - sec to transfusion dependent myelofibrosis +/- GI blood loss. s/p transfusion 2 units PRBCs. Monitor H.H as out-patient. 5. Myelofibrosis with transfusion dependent Macrocytic Anemia H/H 8.7/25.8 s/p transfusion of 2 units PRBCs. Hematology follow up as out-patient. On Ruxolitinib Phosphate [Jakafi]. 6. HTN - Resumed on Toprol XL and started on Aldactone. ANA-I held for now. 7. CKD 2/3 - Stable. Monitor while on IV Lasix. 8. Depression - Continue Remeron and Venlafaxine. DVT Px - Heparin SQ held due to recent blood per rectum.
[2019-02-21] MEDS: MINERAL OIL/PETROLAT/WATER TOPICAL CREAM 113 GM JAR TP SCH (12:14)
--- NOTE | 2019-02-21 12:15 | PN ---
Progress Note (short form) - Note Progress Note: s: no cp sob palps dizzy Current Medications Acetaminophen (Tylenol -) 650 mg PO Q4H PRN PRN Reason: FEVER Furosemide (Lasix Injection -) 80 mg IVPUSH BIDLASIX [facility] Last Admin: 02/21/19 06:18 Dose: 80 mg Hydrocortisone (Anusol 2.5% Hc Cream -) 1 applic NV HS [facility] Last Admin: 02/20/19 22:07 Dose: 1 appful Cefazolin Sodium 1 gm/ (Dextrose) 50 mls @ 100 mls/hr IVPB Q8H-IV TERI Last Admin: 02/21/19 10:03 Dose: 100 mls/hr Metoprolol Succinate (Toprol Xl -) 25 mg PO DAILY [facility] Last Admin: 02/21/19 10:03 Dose: 25 mg Mirtazapine (Remeron -) 30 mg PO HS [facility] Last Admin: 02/20/19 21:08 Dose: 30 mg Multi-Ingredient Lotion (Eucerin (Small Jar) -) 1 applic TP DAILY [facility] Last Admin: 02/20/19 11:11 Dose: 1 applic Non-Formulary Medication (Ruxolitinib Phosphate [Jakafi]) 15 mg PO BID [facility] Spironolactone (Aldactone -) 25 mg PO DAILY [facility] Last Admin: 02/21/19 10:03 Dose: 25 mg Venlafaxine HCl (Effexor Xr -) 150 mg PO DAILY [facility] Last Admin: 02/21/19 10:03 Dose: 150 mg Vital Signs Period Temp Pulse Resp BP Sys/Rodriguez Pulse Ox Last 24 Hr 97.8 F-98.7 F 72-76 20-22 113-124/60-71 91-96 Constitutional: Yes: No Distress, Calm Eyes: Yes: Conjunctiva Clear, EOM Intact HENT: Yes: Atraumatic, Normocephalic Neck: Yes: Supple, Trachea Midline Respiratory: Yes: Regular, CTA Bilaterally Gastrointestinal: Yes: Normal Bowel Sounds, Soft Cardiovascular: Yes: Regular Rate and Rhythm Heart Sounds: Yes: S1, S2 Extremities: No: Cold Edema: no Integumentary: No: Jaundice Neurological: Yes: Alert, Oriented Psychiatric: No: Agitated CBC, BMP 02/21/19 09:15 02/21/19 06:00 Assessment/Plan EKG: sinus, nonspecific ST/T wave changes echo 02/2019 n LV functoin, grade II diastolic dysfunction, RV systolic function mild to mod reduced, LA mildly dilated, RA mod dilated, mild to mod MR , mild to mod TR, PASP at least 52 mmHg Acute on chronic diastolic heart failure - volume status improved, no further chf sxs. bun starting to rise. will change to po lasix starting tomorrow. - cont spironolactone - holding ACEI - monitor Cr, lytes, daily weights anemia, myelofibrosis - transfuse per primary R foot cellulitis - manage per primary HTN - cont current meds CKD - monitor Cr with diuresis - renal following
[2019-02-21 13:28] VITALS: BP 105/51; PULSE 67; TEMP 97.7
--- NOTE | 2019-02-21 14:01 | PN ---
Progress Note, Physician History of Present Illness: Pt seen and examined at bedside. He is awake and alert. He is eager to go home. - Current Medication List Current Medications: Active Medications Acetaminophen (Tylenol -) 650 mg PO Q4H PRN PRN Reason: FEVER Furosemide (Lasix Injection -) 80 mg IVPUSH BIDLASIX TERI Stop: 02/21/19 23:00 Last Admin: 02/21/19 06:18 Dose: 80 mg Furosemide (Lasix -) 80 mg PO BID@0600,1400 TERI Hydrocortisone (Anusol 2.5% Hc Cream -) 1 applic ME HS TERI Last Admin: 02/20/19 22:07 Dose: 1 appful Cefazolin Sodium 1 gm/ (Dextrose) 50 mls @ 100 mls/hr IVPB Q8H-IV TERI Last Admin: 02/21/19 10:03 Dose: 100 mls/hr Metoprolol Succinate (Toprol Xl -) 25 mg PO DAILY [facility] Last Admin: 02/21/19 10:03 Dose: 25 mg Mirtazapine (Remeron -) 30 mg PO HS TERI Last Admin: 02/20/19 21:08 Dose: 30 mg Multi-Ingredient Lotion (Eucerin (Small Jar) -) 1 applic TP DAILY [facility] Last Admin: 02/21/19 12:14 Dose: 1 applic Non-Formulary Medication (Ruxolitinib Phosphate [Jakafi]) 15 mg PO BID TERI Spironolactone (Aldactone -) 25 mg PO DAILY [facility] Last Admin: 02/21/19 10:03 Dose: 25 mg Venlafaxine HCl (Effexor Xr -) 150 mg PO DAILY [facility] Last Admin: 02/21/19 10:03 Dose: 150 mg - Objective Vital Signs: Vital Signs Temperature 97.7 F 02/21/19 13:26 Pulse Rate 67 02/21/19 13:26 Respiratory Rate 18 02/21/19 13:26 Blood Pressure 105/51 L 02/21/19 13:26 O2 Sat by Pulse Oximetry (%) 96 02/21/19 10:00 Constitutional: Yes: Calm Eyes: Yes: Conjunctiva Clear HENT: Yes: Atraumatic Neck: Yes: Supple Cardiovascular: Yes: S1, S2 Respiratory: Yes: CTA Bilaterally Gastrointestinal: Yes: Soft Genitourinary: Yes: WNL Extremities: Yes: WNL Edema: Yes Edema: LLE: Trace, RLE: Trace Neurological: Yes: Oriented Psychiatric: Yes: Oriented Labs: CBC, BMP 02/21/19 09:15 02/21/19 06:00 INR, PTT INR 1.36 (0.83-1.09) H 02/17/19 20:59 Problem List - Problems (1) Anasarca Code(s): R60.1 - GENERALIZED EDEMA (2) Cellulitis of foot, left Code(s): L03.116 - CELLULITIS OF LEFT LOWER LIMB (3) Anemia Code(s): D64.9 - ANEMIA, UNSPECIFIED Qualifiers: Qualified Code(s): D61.9 - Aplastic anemia, unspecified (4) CKD (chronic kidney disease) stage 3, GFR 30-59 ml/min Code(s): N18.3 - CHRONIC KIDNEY DISEASE, STAGE 3 (MODERATE) (5) COPD (chronic obstructive pulmonary disease) Code(s): J44.9 - CHRONIC OBSTRUCTIVE PULMONARY DISEASE, UNSPECIFIED (6) Hypertension Code(s): I10 - ESSENTIAL (PRIMARY) HYPERTENSION Qualifiers: Qualified Code(s): I10 - Essential (primary) hypertension (7) Myelofibrosis Code(s): D75.81 - MYELOFIBROSIS Assessment/Plan Current Medications Generic Name Dose Route Start Last Admin Trade Name Freq PRN Reason Stop Dose Admin Acetaminophen 650 mg 02/19/19 14:47 Tylenol - PO Q4H PRN FEVER Furosemide 80 mg 02/20/19 14:00 02/21/19 06:18 Lasix Injection - IVPUSH 02/21/19 23:00 80 mg BIDLASIX TERI Administration Furosemide 80 mg 02/22/19 06:00 Lasix - PO BID@0600,1400 TERI Hydrocortisone 1 applic 02/19/19 22:00 02/20/19 22:07 Anusol 2.5% Hc Cream - ME 1 appful HS TERI Administration Cefazolin Sodium 1 gm/ 50 mls @ 100 mls/hr 02/19/19 18:00 02/21/19 10:03 Dextrose IVPB 100 mls/hr Q8H-IV TERI Administration Metoprolol Succinate 25 mg 02/19/19 10:00 02/21/19 10:03 Toprol Xl - PO 25 mg DAILY TERI Administration Mirtazapine 30 mg 02/18/19 23:11 02/20/19 21:08 Remeron - PO 30 mg HS TERI Administration Multi-Ingredient Lotion 1 applic 02/19/19 13:45 02/21/19 12:14 Eucerin (Small Jar) - TP 1 applic DAILY TERI Administration Non-Formulary Medication 15 mg 02/19/19 22:00 Ruxolitinib Phosphate [Jakafi] PO BID TERI Spironolactone 25 mg 02/18/19 01:45 02/21/19 10:03 Aldactone - PO 25 mg DAILY TERI Administration Venlafaxine HCl 150 mg 02/19/19 17:45 02/21/19 10:03 Effexor Xr - PO 150 mg DAILY TERI Administration Impression 1. CKD 2. HTN 3. myelofibrosis 4. fluid overload 5. cellulitis 6. atrophic left kidney\ 7. anemia Plan - cont diuretics - hg improved - will see pt in office - ua neg for blood or protein - cont diuretics - agree with holding minesh for now
--- NOTE | 2019-02-21 14:03 | DS ---
Physical Exam: SUBJECTIVE: Patient seen and examined in the morning. No acute events overnight. No complaints of chest pain, shortness of breath, no abdominal pain, no nausea, vomiting, diarrhea. No blood in recent bowel movements. OBJECTIVE: Vital Signs Period Temp Pulse Resp BP Sys/Rodriguez Pulse Ox Last 24 Hr 97.7 F-98.7 F 65-74 18-22 105-137/51-71 91-96 PHYSICAL EXAM GENERAL: The patient is awake, alert, and fully oriented, in no acute distress. HEAD: Normal with no signs of trauma. EYES: PERRL, extraocular movements intact, sclera anicteric, conjunctiva clear. LUNGS: Breath sounds equal, clear to auscultation bilaterally, no wheezes, no crackles. HEART: Regular rate and rhythm, S1, S2 without murmur, rub or gallop. ABDOMEN: Distended abdomen, hepatosplenomegaly present,normoactive bowel sounds. Nontender to palpation. EXTREMITIES: 2+ pulses, warm, well-perfused. Left lower leg has erythema with no pus or bleeding. Venous stasis dermatitis present on b/l feet. NEUROLOGICAL: Cranial nerves II through XII grossly intact. LABS Laboratory Results - last 24 hr 02/20/19 02/20/19 02/21/19 11:55 18:30 06:00 WBC 19.7 H RBC 2.14 L Hgb 8.0 L Hct 24.0 L D MCV 112.2 H MCH 37.5 H MCHC 33.5 RDW 24.8 H Plt Count 139 MPV 9.7 Absolute Neuts (auto) 16.6 H Neutrophils % 84.5 H Neutrophils % (Manual) 61.6 D Band Neutrophils % 7.1 Lymphocytes % 3.1 L Lymphocytes % (Manual) 5.0 L D Monocytes % 9.5 Monocytes % (Manual) 7 Eosinophils % 2.5 Eosinophils % (Manual) 6.1 H D Basophils % 0.4 Basophils % (Manual) 2.0 Myelocytes % (Man) 7 H D Promyelocytes % (Man) 1 D Blast Cells % (Manual) 1 H D Nucleated RBC % 0 Metamyelocytes 2 D Hypochromia 1+ Platelet Estimate Normal Platelet Comment Polychromasia 1+ Poikilocytosis 0 Anisocytosis 2+ Microcytosis 2+ Macrocytosis 0 Tear Drop Cells 1+ Stomatocytes 2+ Schistocytes Sodium 132 L Potassium 4.0 Chloride 98 Carbon Dioxide 25 Anion Gap 8 BUN 35.1 H Creatinine 1.8 H Est GFR (CKD-EPI)AfAm 42.33 Est GFR (CKD-EPI)NonAf 36.52 Random Glucose 123 H Calcium 8.6 Blood Type B POSITIVE Antibody Screen Negative Crossmatch See Detail 02/21/19 09:15 WBC 21.4 H RBC 2.43 L Hgb 8.7 L Hct 25.8 L MCV 106.1 H MCH 36.0 H MCHC 33.9 RDW 28.1 H Plt Count 144 MPV 9.7 Absolute Neuts (auto) 18.0 H Neutrophils % 84.1 H Neutrophils % (Manual) 51.5 Band Neutrophils % 14.6 Lymphocytes % 5.1 L D Lymphocytes % (Manual) 6.8 L D Monocytes % 7.4 Monocytes % (Manual) 6 Eosinophils % 2.7 Eosinophils % (Manual) 1.0 D Basophils % 0.7 Basophils % (Manual) 1.9 Myelocytes % (Man) 10 H D Promyelocytes % (Man) 2 D Blast Cells % (Manual) 0 D Nucleated RBC % 0 Metamyelocytes 7 H D Hypochromia 0 Platelet Estimate Normal Platelet Comment Present Polychromasia 1+ Poikilocytosis 2+ Anisocytosis 1+ Microcytosis 0 Macrocytosis 1+ Tear Drop Cells 1+ Stomatocytes 2+ Schistocytes 1+ Sodium Potassium Chloride Carbon Dioxide Anion Gap BUN Creatinine Est GFR (CKD-EPI)AfAm Est GFR (CKD-EPI)NonAf Random Glucose Calcium Blood Type Antibody Screen Crossmatch HOSPITAL COURSE: Date of Admission:02/18/19 Date of Discharge: 02/21/19 73 M with PMH of CHF, COPD, CKD,HTN, myelofibrosis who presented to the ED with abdominal distension and lower legs likely secondary to CHF exacerbation and liver cirrhosis. Patient was started on 40 mg of IV lasix BID, however patient weight was not decreasing and pedal edema was unchanged on first 2 days of admission so dosage was increased to 80 mg of IV Lasix. Patient had significant reduction of pedal edema after Lasix dosage was increased. Patient's home medication of lisinopril was stopped, and patient was started on Spironolactone as per Cardiology's recommendations. Patient's abdominal distension resolved on 2nd day of admission. Abdominal U/S showed trace ascites. Patient was seen to have cellulitis without any discharge or bleeding on the left lower extremity, was started on Cefazolin 1 gram IV Q8H on day 1 of admission. Patient will continue with antibiotic therapy as outpatient, Keflex 500 mg PO Q8H. ID was consulted when patient had fever of 100.2 on 2nd day of admission and was given 1 dose of vancomycin, however ID discontinued vancomycin and continued only cefazolin therapy. GI was consulted due to hepatomegaly of patient, who also found that patient was having blood with stooling. Patient was counseled on having a colonoscopy done, but refused. Referral given for outpatient follow up. Patient had elevated creatinine during admission, was seen by nephrology and will follow up with Dr. Daley. Patient was discharged on Lasix 80 mg PO BID, Spironolactone 25 mg PO Daily, Keflex 500 Q8H, and Eucerin cream for his dermatitis. Imaging done this stay: Chest X-Ray: Single AP view of the chest has been submitted. Since 01/15/2019, again noted is a large heart, sclerotic knob, normal darline and clear lung holland. The angles are sharp. The bones and soft tissues are intact. Since 01/15/2019, there is no change of an adverse nature. Correlation recommended. Abdomen/Pelvis CT:1. Hepatosplenomegaly with trace ascites suspicious for advanced hepatocellular disease. 2. Intra-abdominal and retroperitoneal lymphadenopathy. 3. No acute pathology within the abdomen or pelvis. Please see above discussion. Abdomen U/S:1. Hepatosplenomegaly. 2. Trace ascites. Please see above discussion. Echocardiogram: The left ventricle is normal in size. Left ventricular systolic function is normal. No regional wall motion abnormalities noted. Ejection Fraction = 60-65%. Diastolic dysfunction, Grade II (pseudonormalization pattern). The right ventricular systolic function is mild to moderately reduced. The left atrium is mildly dilated. The right atrium is moderately dilated. There is mild to moderate mitral regurgitation. There is mild to moderate tricuspid regurgitation. Pulmonary artery systolic pressure is at least 52 mmHg if RA pressure is assumed 15 mmHg (dilated IVC and <50% collapse) There is mild aortic sclerosis. Mild pulmonic valvular regurgitation. There is no pericardial effusion. Minutes to complete discharge: 30 Discharge Summary Problems reviewed: Yes Reason For Visit: STAGE 3 CKD, GENERALIZED EDEMA Current Active Problems Anemia (Chronic) Myelofibrosis (Chronic) Condition: Good - Instructions Diet, Activity, Other Instructions: You were admitted to the hospital because of swelling of your legs and abdomen due to an exacerbation of your CHF (congestive heart failure). You were given an increased dose of your home medication of Furosemide and your swelling has resolved. For your CHF, you will be taking a new dose of Furosemide. Please take: Furosemide 80 mg, by mouth, twice a day. Spironolactone 25mg, by mouth, once a day. Additionally, please STOP taking Lisinopril for now. You will need to see a sales correspondent as an outpatient prior to restarting this medication. You also presented with cellulitis. We gave you antibiotics through an IV while you were here. You will continue with oral antibiotics after discharge. Please take: Keflex 500 mg, by mouth, every 8 hours for the next 7 days. You were anemic while you were in the hospital. We gave you 2 units of blood. You had one episode of blood in your stool while in the hospital. You were evaluated by the monotype operator, but you did not want to proceed with a colonoscopy. We recommend that you reconsider getting a colonoscopy. If you change your mind, please follow up with the GI doctor's referral we are giving you. REFERRALS: Please follow up with Dr. Navarrete within 1 week to check your labs (BMP), and medications. Please follow up with Dr. Nieves within 1 week for continued treatment of your myelofibrosis. Please follow up with Dr. Daley to continue evaluating your kidney function. You will need repeat blood work (CBC, BMP) to check your blood counts as well as your kidney function. Please follow up with Dr. Payne to continue management of your CHF. Please follow up with Dr. Park for follow up with colonoscopy and an outpatient. Return to the emergency department if you have have chest pain, shortness of breath, abdominal pain, weakness, fevers, nausea, vomiting, diarrhea. Referrals: Justin Park DO [Staff Physician] - 1 Week Jam Navarrete MD [Primary Care Provider] - 1 Week Linda Rinaldi MD [Staff Physician] - 1 Week Linnea Payne MD [Staff Physician] - 1 Week Bennie Daley MD [Staff Physician] - 1 Week Disposition: HOME - Home Medications Comprehensive Discharge Medication List: Ambulatory Orders Mirtazapine [Remeron -] 30 mg PO HS 07/21/15 Venlafaxine HCl ER [Effexor Xr -] 150 mg PO DAILY #30 cap.er.24h 11/16/16 Metoprolol Succinate [Toprol XL -] 25 mg PO DAILY 04/19/17 Ruxolitinib Phosphate [Jakafi] 15 mg PO BID 01/04/18 Cephalexin Monohydrate [Keflex -] 500 mg PO Q8H #21 capsule 02/21/19 Furosemide 80 mg PO BID #60 tablet 02/21/19 Spironolactone [Aldactone -] 25 mg PO DAILY #30 tablet 02/21/19 This patient is new to me today: No Emergency Visit: Yes ED Registration Date: 02/18/19 Care time: The patient presented to the Emergency Department on the above date and was hospitalized for further evaluation of their emergent condition. Critical Care patient: No - Discharge Referral Referred to [facility] No ATTENDING PHYSICIAN STATEMENT I saw and evaluated the patient. I reviewed the resident's note and discussed the case with the resident. I agree with the resident's findings and plan as documented. SUBJECTIVE: OBJECTIVE: ASSESSMENT AND PLAN:
[2019-02-22] MEDS ORDERED: FUROSEMIDE 40 MG TABLET (FP) PO SCH (06:00)
== END 2019-02-21 14:46 | disposition home or self-care (01) | DRG 291 ==
LOC: JER 20:14 → JERBED 02-18 00:31 → J6S 02-18 09:51
PROVIDERS: ADMIT Internal Medicine
DX: I13.0 Hypertensive heart and chronic kidney disease with heart failure and stage 1 through stage 4 chronic kidney disease, or unspecified chronic kidney disease (principal); I50.33 Acute on chronic diastolic (congestive) heart failure; D75.81 Myelofibrosis; J98.11 Atelectasis; L03.116 Cellulitis of left lower limb; K62.5 Hemorrhage of anus and rectum; R18.8 Other ascites; J44.9 Chronic obstructive pulmonary disease, unspecified; D64.9 Anemia, unspecified; E11.22 Type 2 diabetes mellitus with diabetic chronic kidney disease; N18.9 Chronic kidney disease, unspecified; I50.9 Heart failure, unspecified; D69.6 Thrombocytopenia, unspecified; N18.3 Chronic kidney disease, stage 3 (moderate); R16.2 Hepatomegaly with splenomegaly, not elsewhere classified; K64.9 Unspecified hemorrhoids; F32.9 Major depressive disorder, single episode, unspecified; R74.8 Abnormal levels of other serum enzymes; I87.2 Venous insufficiency (chronic) (peripheral); K74.60 Unspecified cirrhosis of liver
CPT/HCPCS: 36415; 36430; 71045-TC-FY; 74176-TC; 76700-TC; 80048; 80053; 81003; 82436; 82550; 82553; 82565; 82607; 82746; 83735; 83880; 84100; 84133; 84300; 84484; 85025; 85610; 85730; 86850; 86900; 86901; 86922; 87040; 93005; 93010; 93306-TC; 97116-GP; 97161-GP; 99285-25; J1644; P9038; P9058

== ENCOUNTER 2019-03-17 09:04 | Inpatient (IN) | payer OTHER ==
[2019-03-17 10:57] LABS: BASO % 1.3 % (0-2.0); EOS % 1.5 % (0-4.5); HEMATOCRIT 23.6 % (35.4-49); HEMOGLOBIN 8.1 GM/dL (11.7-16.9); LYMPH % 1.6 % (8-40); MCH 37.6 pg (25.7-33.7); MCHC 34.1 g/dl (32.0-35.9); MEAN CELL VOLUME 110.3 fl (80-96); MEAN PLT VOLUME 10.6 fl (7.5-11.1); NEUT % 88.6 % (42.8-82.8); PLATELET COUNT 151 K/MM3 (134-434); RBC 2.14 M/mm3 (4.00-5.60); RDW 27.4 % (11.9-15.9); WHITE BLOOD COUNT 23.7 K/mm3 (4.0-10.0)
[2019-03-17 11:06] LABS: URINE APPEARANCE CLEAR; URINE BILIRUBIN NEGATIVE (NEGATIVE); URINE COLOR YELLOW; URINE GLUCOSE (UA) NEGATIVE (NEGATIVE); URINE KETONE NEGATIVE (NEGATIVE); URINE LEUK ESTERASE NEGATIVE (NEGATIVE); URINE NITRITE NEGATIVE (NEGATIVE); URINE PROTEIN NEGATIVE (NEGATIVE); URINE UROBILINOGEN 0.2 mg/dL (0.2-1.0)
[2019-03-17 11:25] LABS: INR 1.39 (0.83-1.09); PROTHROMBIN TIME (PATIENT) 16.5 SEC (9.7-13.0)
[2019-03-17 11:32] LABS: ALBUMIN 3.8 g/dl (3.4-5.0); BILIRUBIN,TOTAL 1.2 mg/dL (0.2-1); BLOOD UREA NITROGEN 27.4 mg/dL (7-18); CALCIUM 8.7 mg/dL (8.5-10.1); CREATININE 1.9 mg/dL (0.55-1.3); N-TERMINAL BNP 4097.4 pg/ml (5-125); POTASSIUM 4.2 mmol/L (3.5-5.1); TOT PROT 8.6 g/dl (6.4-8.2)
[2019-03-17] MEDS ORDERED: VANCOMYCIN 1,000 MG in DEXTROSE 5%-WATER - 250 ML IVPB ONE (11:36)
[2019-03-17] MEDS ORDERED: VANCOMYCIN 1 GRAM (PRE-DOCKED) 1,000 MG/250 ML BAG IVPB ONE (11:41)
--- NOTE | 2019-03-17 11:50 | PDOC ---
Documentation entered by Sweta Saeed SCRIBE, acting as scribe for Ignacia Chino MD. Ignacia Chino MD: This documentation has been prepared by the Christophe braga Nirvannie, SCRIBE, under my direction and personally reviewed by me in its entirety. I confirm that the documentation accurately reflects all work, treatment, procedures, and medical decision making performed by me. History of Present Illness - General Chief Complaint: Shortness of Breath Stated Complaint: SHORTNESS OF BREATH Time Seen by Provider: 03/17/19 09:38 History Source: Patient Exam Limitations: No Limitations - History of Present Illness Initial Comments: 03/17/19 12:03 The patient is a 74 year old male, with a significant past medical history of CHF, COPD, CKF, HTN, anemia, myelofibrosis, cirrhosis, RLE cellulitis (treated with Keflex PO, finished 1 wk ago), and recent admission to [facility] (02/17-02/21) for abdominal distention, shortness of breath, and LE edema, who presents to the emergency department with shortness of breath, productive cough with clear sputum, and lower extremity edema. Patient notes to have recently finished a course of antibiotics a week ago for LLE cellulitis which he notes has been treated with antibiotics approximately 3 times during the past month. He states two days after completing the abx, his cellulitis came back. While in the ED, patients O2 saturation is 90% (baseline 96%). Reports SOB is present at rest and with exertion. Patient does not follow with a PCP. He denies any recent chest pain, palpitations, or diaphoresis. He denies any recent abd pain, distention, nausea, vomiting, diarrhea or constipation. He denies any recent dysuria, frequency, urgency or hematuria. Allergies: NKDA Echocardiogram: Ejection Fraction = 60-65%. Hybrid Technologist: Dr. Nieves Mailing Jogger: Dr. Payne Past History - Past Medical History Allergies/Adverse Reactions: Allergies Allergy/AdvReac Type Severity Reaction Status Date / Time No Known Allergies Allergy Verified 03/17/19 09:09 Home Medications: Ambulatory Orders Mirtazapine [Remeron -] 30 mg PO HS 07/21/15 Venlafaxine HCl ER [Effexor Xr -] 150 mg PO DAILY #30 cap.er.24h 11/16/16 Metoprolol Succinate [Toprol XL -] 25 mg PO DAILY 04/19/17 Ruxolitinib Phosphate [Jakafi] 15 mg PO BID 01/04/18 Cephalexin Monohydrate [Keflex -] 500 mg PO Q8H #21 capsule 02/21/19 Furosemide 80 mg PO BID #60 tablet 02/21/19 Mineral Oil/Petrolat,Wht/Water [Eucerin (Small Jar) -] 1 applic TP DAILY #1 jar 02/21/19 Spironolactone [Aldactone -] 25 mg PO DAILY #30 tablet 02/21/19 Anemia: Yes Asthma: No Cancer: Yes (MYELOFIBROSIS) Cardiac Disorders: No CVA: No COPD: Yes CHF: Yes DVT: No Dementia: No Diabetes: No (PT DENIES) GI Disorders: Yes (CIRRHOSIS) Disorders: No HTN: Yes Hypercholesterolemia: Yes Liver Disease: Yes (ALCOHOLIC CIRRHOSIS) Seizures: No Thyroid Disease: No - Surgical History Orthopedic Surgery: No - Immunization History Immunization Up to Date: Yes - Psycho Social/Smoking Cessation Hx Smoking History: Current every day smoker Have you smoked in the past 12 months: Yes Number of Cigarettes Smoked Daily: 20 Information on smoking cessation initiated: No 'Breaking Loose' booklet given: 02/18/19 Hx Alcohol Use: No Drug/Substance Use Hx: No Substance Use Type: None Hx Substance Use Treatment: No Review of Systems - Review of Systems Able to Perform ROS?: Yes Comments:: 03/17/19 12:04 GENERAL/CONSTITUTIONAL: No fever or chills. No weakness. HEAD, EYES, EARS, NOSE AND THROAT: No change in vision. No ear pain or discharge. No sore throat. CARDIOVASCULAR: +Shortness of breath. +LE edema. No chest pain, no loss of consciousness RESPIRATORY: +Cough. No wheezing, or hemoptysis. GASTROINTESTINAL: No nausea, vomiting, diarrhea or constipation. GENITOURINARY: No dysuria, frequency, or change in urination. MUSCULOSKELETAL: No joint or muscle swelling or pain. No neck or back pain. SKIN: +LE erythema. NEUROLOGIC: +Headached. No vertigo, no change in strength/sensation. ENDOCRINE: No increased thirst. No abnormal weight change. HEMATOLOGIC/LYMPHATIC: No anemia, easy bleeding, or history of blood clots. ALLERGIC/IMMUNOLOGIC: No hives or skin allergy. All Other Systems: Reviewed and Negative *Physical Exam - Vital Signs Last Vital Signs Temp Pulse Resp BP Pulse Ox 97.9 F 87 22 H 141/64 94 L 03/17/19 09:06 03/17/19 09:06 03/17/19 09:06 03/17/19 09:06 03/17/19 09:06 - Physical Exam 03/17/19 12:07 GENERAL: Awake, alert, and fully oriented, in no acute distress. HEAD: No signs of trauma EYES: PERRLA, EOMI, sclera anicteric, conjunctiva clear ENT: Nares patent, oropharynx clear without exudates. Moist mucosa NECK: Nontender, no stepoffs, Normal ROM, supple, no lymphadenopathy, JVD, or masses LUNGS: +Coarse breath sounds bilaterally. No wheezes, and no crackles HEART: Regular rate and rhythm, normal S1 and S2, no murmurs, rubs or gallops ABDOMEN: Soft, nontender, normoactive bowel sounds. No guarding, no rebound. No masses EXTREMITIES: + 1+ blt LE pitting edema extending up to the knee. LLE: Erythematous patchy area around the distal calf extending to the dorsum of the left foot. No crepitus or open wounds. Normal range of motion. No clubbing or cyanosis. No cords or tenderness NEUROLOGICAL: Cranial nerves II through XII intact. 5/5 strength and sensation in all extremities, Normal speech, normal cerebellar function SKIN: As noted above. Otherwise, warm, Dry, normal turgor. Heart Score/ECG Review #1 03/17/19 11:49 Twelve-lead EKG was performed and reviewed by me. Sinus rhythm, rate 86. Normal axis and intervals. No ST elevations. ED Treatment Course - LABORATORY CBC & Chemistry Diagram: 03/18/19 06:15 03/18/19 06:15 - ADDITIONAL ORDERS Additional order review: Laboratory Results 03/17/19 03/17/19 03/17/19 10:45 10:45 10:45 PT with INR INR PTT (Actin FS) Sodium 126 L Potassium 4.2 Chloride 93 L Carbon Dioxide 24 Anion Gap 9 BUN 27.4 H Creatinine 1.9 H Est GFR (CKD-EPI)AfAm 39.37 Est GFR (CKD-EPI)NonAf 33.97 Random Glucose 100 Calcium 8.7 Magnesium 2.0 Total Bilirubin 1.2 H AST 50 H ALT 45 Alkaline Phosphatase 161 H Troponin I < 0.02 B-Natriuretic Peptide 4097.4 H Total Protein 8.6 H Albumin 3.8 Lipase 327 Urine Color Yellow Urine Appearance Clear Urine pH 7.0 Ur Specific [place] 1.007 L Urine Protein Negative Urine Glucose (UA) Negative Urine Ketones Negative Urine Blood Negative Urine Nitrite Negative Urine Bilirubin Negative Urine Urobilinogen 0.2 Ur Leukocyte Esterase Negative 03/17/19 03/17/19 10:45 10:45 PT with INR 16.50 H INR 1.39 H PTT (Actin FS) 36.2 Sodium Potassium Chloride Carbon Dioxide Anion Gap BUN Creatinine Est GFR (CKD-EPI)AfAm Est GFR (CKD-EPI)NonAf Random Glucose Calcium Magnesium Total Bilirubin AST ALT Alkaline Phosphatase Troponin I B-Natriuretic Peptide Total Protein Albumin Lipase Urine Color Urine Appearance Urine pH Ur Specific [place] Urine Protein Urine Glucose (UA) Urine Ketones Urine Blood Urine Nitrite Urine Bilirubin Urine Urobilinogen Ur Leukocyte Esterase 03/17/19 10:45 RBC 2.14 L MCV 110.3 H MCHC 34.1 RDW 27.4 H MPV 10.6 Neutrophils % 88.6 H Lymphocytes % 1.6 L D Monocytes % 7.0 Eosinophils % 1.5 Basophils % 1.3 - RADIOLOGY Radiology Studies Ordered: Category Date Time Status CHEST X-RAY PORTABLE* [RAD] Stat Radiology 03/17/19 10:42 Completed Medical Decision Making - Medical Decision Making 03/17/19 11:39 74-year-old male with multiple medical problems including diastolic heart failure, liver cirrhosis, myelofibrosis with chronic leukocytosis presents to the emergency department with 1 week of progressive shortness of breath at rest and exertion, lower extremity edema, and recurrence of infection to left lower extremity. Vitals unremarkable. Exam with bilateral coarse breath sounds, dyspneic patient satting in the high 80s on room air (states normal oxygen saturation is 96%) as well as recurrent cellulitis to the left distal extremity without crepitus or open wounds. Suspect fluid overload state as etiology for shortness of breath, however COPD exacerbation is also a possibility versus acute coronary syndrome versus pneumonia versus advanced liver failure vs renal failure. With regards to cellulitis, will cover with Vanco and admit given failure of outpt Keflex Discharge - Discharge Information Problems reviewed: Yes Clinical Impression/Diagnosis: Cellulitis, Chronic diastolic heart failure - Follow up/Referral - Patient Discharge Instructions - Post Discharge Activity
[2019-03-17] MEDS ORDERED: FUROSEMIDE 40 MG/4 ML INJECTABLE VIAL IVPUSH ONE ×2 (11:51→14:22)
[2019-03-17 12:03] LABS: ANISOCYTOSIS 2+; MACROCYTOSIS 2+; PLATELET ESTIMATE DECREASED
[2019-03-17] MEDS ORDERED: FUROSEMIDE 40 MG/4 ML INJECTABLE VIAL ONE ×2 (12:09→16:25)
--- NOTE | 2019-03-17 17:06 | HP ---
Admitting History and Physical - Primary Care Physician PCP: Jam Navarrete S - Admission Chief Complaint: Redness of legs History of Present Illness: 73 y/o male with PMH of diastolic CHF, COPD, CKD, HTN, and myelofibrosis who presents to the ER for swelling in his legs and bilateral lower extremity recurrent cellulitis. The patient was admitted here last month where he was found to have cellulitis and was discharged on a 7 day course of keflex which the patient states he completed. He states his lower extremities improved from a cellulitis standpoint and as of Monday last week (6 days ago) his legs had no erythema whatsoever. He states that around Monday/ (3-4 days ago) the erythema of bilateral lower extremities started to return and continued to worsen prompting him to come to the ER. He also has lower extremity swelling which he is unsure if they are getting worse. On last admission he was diuresed with Lasix 80mg IV BID and discharged on 80mg PO BID. He endorses compliance. Per chart the patient is non-compliant with low sodium diet. Patient had mcdonalds bag next to him which was empty today. He currently denies nausea vomiting fever chills chest pain SOB diarrhea constipation dizziness lightheadedness or visual changes. He states he has a BM everyday. He endorses he sometimes has discomfort when urinating but this has been occuring for years per patient. He endorses his abdominal swelling has improved from last admission and is not enlarged and is at baseline. While examining the patient I noticed his lower abdomen (between the umbilicus and the pelvis) to have an isolatyed area of a maculopapular rash. Patient was unaware he had a rash there and is not exhibiting symptoms. On work up in the ER he was noted to be volume overloaded, sodium 126 ( discharged with 132), BNP elevated 4097, elevated WBC count 23.7 (always this high from myelofibrosis), Cr 1.9 (at baseline discharged with 1.8) Hb 8.1 at baseline. He was hypoxemix in the mid to high 80's and saturating well on nasal cannula. CXR noted to have some vascular congestion. LFTs mildly elevated likely from hepatic congestion. Given 40 IV lasix in the ER and vancomycin. History Source: Patient, Medical Record Limitations to Obtaining History: No Limitations - Past Medical History Cardiovascular: Yes: CHF Pulmonary: Yes: COPD Renal/: Yes: Renal Inusuff Heme/Onc: Yes: Myeloproliferative Synd Dermatology: Yes: Cellulitis (Recurrent lower extremity) - Past Surgical History Past Surgical History: Yes: Joint Replacement - Smoking History Smoking history: Current every day smoker Have you smoked in the past 12 months: Yes Aproximately how many cigarettes per day: 20 - Alcohol/Substance Use Hx Alcohol Use: No Home Medications - Allergies Allergies/Adverse Reactions: Allergies Allergy/AdvReac Type Severity Reaction Status Date / Time No Known Allergies Allergy Verified 03/17/19 09:09 - Home Medications Home Medications: Ambulatory Orders Mirtazapine [Remeron -] 30 mg PO HS 07/21/15 Venlafaxine HCl ER [Effexor Xr -] 150 mg PO DAILY #30 cap.er.24h 11/16/16 Metoprolol Succinate [Toprol XL -] 25 mg PO DAILY 04/19/17 Ruxolitinib Phosphate [Jakafi] 15 mg PO BID 01/04/18 Cephalexin Monohydrate [Keflex -] 500 mg PO Q8H #21 capsule 02/21/19 Furosemide 80 mg PO BID #60 tablet 02/21/19 Mineral Oil/Petrolat,Wht/Water [Eucerin (Small Jar) -] 1 applic TP DAILY #1 jar 02/21/19 Spironolactone [Aldactone -] 25 mg PO DAILY #30 tablet 02/21/19 Family Medical History Family History: Denies Review of Systems - Review of Systems Constitutional: denies: Chills, Diaphoresis, Fever, Weakness Eyes: reports: No Symptoms HENT: reports: No Symptoms Neck: reports: No Symptoms Cardiovascular: reports: Edema Respiratory: reports: No Symptoms Gastrointestinal: reports: No Symptoms Genitourinary: reports: Dysuria (chronic for years per patient) Musculoskeletal: reports: No Symptoms Integumentary: reports: Erythema (lower extremities) Neurological: reports: No Symptoms Endocrine: reports: No Symptoms Psychiatric: reports: No Symptoms Physical Examination Vital Signs: Vital Signs Temperature 98.0 F 03/17/19 12:17 Pulse Rate 86 03/17/19 12:17 Respiratory Rate 19 03/17/19 12:17 Blood Pressure 126/57 L 03/17/19 12:17 O2 Sat by Pulse Oximetry (%) 99 03/17/19 12:17 Constitutional: Yes: No Distress, Obese Eyes: Yes: Other (conjunctival Pallor) HENT: Yes: Other (dry mouth and cracked tongue) Cardiovascular: Yes: Regular Rate and Rhythm, JVD, S1, S2 Respiratory: Yes: Rales (at the bases bilaterally) Gastrointestinal: Yes: Soft, Abdomen, Obese, Other (isolated maculopapular rash on the lower abdomen). No: Tenderness Renal/: Yes: Other (urinal at bedside with clear light yellow urine). No: Bladder Distention, CVA Tenderness - Left, CVA Tenderness - Right, Hematuria Extremities: Yes: Erythema (LLE with erythema and warmth involving all the toes and going up to the mid calf and stahl and circumferential RLE also erythematous and warm and involving foot and distal leg but not as extensive) Edema: Yes Edema: LLE: 1+, RLE: 1+ Neurological: Yes: Alert, Oriented, Cran Nerves II-XII Intact Psychiatric: Yes: Alert, Oriented Labs: CBC, BMP 03/17/19 10:45 03/17/19 10:45 Imaging - Results Chest X-ray: Report Reviewed, Image Reviewed Assessment/Plan 73 year old male with history of Chronic diastolic CHF, CKD , COPD, HTN, Myelofibrosis, Anemia, recurrent LE cellulitis, h/o ETOH abuse, hepatosplenomegaly admitted with acute hypoxemic respiratory failure, acute on chronic exacerbation of diastolic CHF, and bilateral lower extremity cellulitis. recurrent Cellulitis bilateral lower extremity Afebrile Hemodynamically Stable. Patient has chronic leukocytosis Vanco given in ER Patient responded to Keflex as outpatient as he states his legs were clear last week but maybe the duration wasn't long enough ID consult-Dr. Rinaldi. Briefly discussed over the phone. She will see him in consultation. Ancef 1gm q8h for now Acute on Chronic Diastolic CHF with lower extremity edema JVD and congestion on CXR with acute hypoxemic respiratory failure requiring O2 likely from a combination of history of COPD and CHF exacerbation Not in COPD exacerbation at this time Start lasix IV BID Cardiology consult-Dr. Yousif's group saw him last admission and I re- consulted them daily weights I/O Made about 1 liter of urine in urinal and spilled it in ER Sodium controlled diet Mild Hyperbilirubinemia and elevated Alk phos and AST-Chronic likely congestion of liver from CHF Abdominal US last month showed hepatosplenomegaly Myelofibrosis with transfusion dependence per EMR H/H seems at baseline right now and is 8.1. Possible his Hb is actually higher and is diluted at this time due to volume overload restart home Jakafi Chronic Anemia in setting of myelofibrosis-transfusion dependant per EMR transfuse PRN Trend H/H Acute on chronic hyponatremia is likely from volume overload and fluid retention Trend sodium should improve with diuresis HTN Home dose of metoprolol and spironolactone CKD Trend Cr renally dose all meds nephrology consult-discussed with Dr. Daley Psych/Depression Continue Remeron and Venlafaxine. DVT PPx-SCDs Visit type - Emergency Visit Emergency Visit: Yes ED Registration Date: 03/17/19 Care time: The patient presented to the Emergency Department on the above date and was hospitalized for further evaluation of their emergent condition. - New Patient This patient is new to me today: Yes Date on this admission: 03/17/19 - Critical Care Critical Care patient: No
[2019-03-17] MEDS ORDERED: CEFAZOLIN 1 GM/D5W 1 GM/50 ML BAG ONE (18:56)
[2019-03-17] MEDS: CEFAZOLIN 1 GM in DEXTROSE 5%-WATER - 50 ML IVPB SCH (19:06)
[2019-03-17] MEDS ORDERED: ONDANSETRON 4 MG/2 ML VIAL IVPUSH ONE (19:21)
--- NOTE | 2019-03-17 21:06 | CONSULT ---
Consult Consult Specialty:: Nephrology Reason for Consultation:: hyponatremia - History of Present Illness Chief Complaint: shortness of breath History of Present Illness: Pt is a 74 year old male with pmhx of chf, copd, CKD, htn, anemia, myelofibrosis , recurrent cellulitits and cirrhosis who presents to the ER with shortness of breath and lower ext edema. He also complains of left leg rythema. He was treated with keflex as outpt with no response. He has not followed in the office since his last admission. He denies dysuria or hematuria. - History Source History Provided By: Patient, Medical Record - Past Medical History Cardio/Vascular: Yes: CHF Pulmonary: Yes: COPD Hepatobiliary: Yes: Cirrhosis Renal/: Yes: Renal Inusuff Dermatology: Yes: Cellulitis (Recurrent lower extremity) Additional Medical History: Myelofibrosis - Past Surgical History Past Surgical History: Yes: Joint Replacement - Alcohol/Substance Use Hx Alcohol Use: No - Smoking History Smoking history: Current every day smoker Have you smoked in the past 12 months: Yes Aproximately how many cigarettes per day: 20 Home Medications - Allergies Allergies/Adverse Reactions: Allergies Allergy/AdvReac Type Severity Reaction Status Date / Time No Known Allergies Allergy Verified 03/17/19 09:09 - Home Medications Home Medications: Ambulatory Orders Mirtazapine [Remeron -] 30 mg PO HS 07/21/15 Venlafaxine HCl ER [Effexor Xr -] 150 mg PO DAILY #30 cap.er.24h 11/16/16 Metoprolol Succinate [Toprol XL -] 25 mg PO DAILY 04/19/17 Ruxolitinib Phosphate [Jakafi] 15 mg PO BID 01/04/18 Cephalexin Monohydrate [Keflex -] 500 mg PO Q8H #21 capsule 02/21/19 Furosemide 80 mg PO BID #60 tablet 02/21/19 Mineral Oil/Petrolat,Wht/Water [Eucerin (Small Jar) -] 1 applic TP DAILY #1 jar 02/21/19 Spironolactone [Aldactone -] 25 mg PO DAILY #30 tablet 02/21/19 Family Medical History Family History: Denies Review of Systems - Review of Systems Constitutional: reports: Malaise Eyes: reports: No Symptoms HENT: reports: No Symptoms Neck: reports: No Symptoms Cardiovascular: reports: Edema Respiratory: reports: Cough, SOB, SOB on Exertion Gastrointestinal: reports: No Symptoms Genitourinary: reports: No Symptoms Musculoskeletal: reports: No Symptoms Integumentary: reports: Erythema Neurological: reports: No Symptoms Endocrine: reports: No Symptoms Physical Exam Vital Signs: Vital Signs Temperature 97.8 F 03/17/19 14:30 Pulse Rate 92 H 03/17/19 14:30 Respiratory Rate 19 03/17/19 14:30 Blood Pressure 146/68 03/17/19 14:30 O2 Sat by Pulse Oximetry (%) 90 L 03/17/19 17:45 Constitutional: Yes: Calm Eyes: Yes: Conjunctiva Clear HENT: Yes: Atraumatic Neck: Yes: Supple Cardiovascular: Yes: JVD, S1, S2 Respiratory: Yes: On Nasal O2, Rhonchi Gastrointestinal: Yes: Soft Renal/: Yes: WNL Musculoskeletal: Yes: WNL Edema: Yes Edema: LLE: 2+, RLE: 2+ Neurological: Yes: Oriented Psychiatric: Yes: Oriented Labs: CBC, BMP 03/17/19 10:45 03/17/19 10:45 Laboratory Tests 02/20/19 02/21/19 03/17/19 07:40 06:00 10:45 WBC Hgb Sodium Potassium Creatinine 1.7 H 1.8 H Urine Protein Negative Urine Blood Negative 03/17/19 03/17/19 10:45 10:45 WBC 23.7 H Hgb 8.1 L Sodium 126 L Potassium 4.2 Creatinine 1.9 H Urine Protein Urine Blood Imaging - Results Chest X-ray: Report Reviewed Problem List - Problems (1) Cellulitis Code(s): L03.90 - CELLULITIS, UNSPECIFIED (2) Leukocytosis Code(s): D72.829 - ELEVATED WHITE BLOOD CELL COUNT, UNSPECIFIED (3) Anemia Code(s): D64.9 - ANEMIA, UNSPECIFIED Qualifiers: Anemia type: bone marrow failure Bone marrow failure anemia type: unspecified bone marrow failure Qualified Code(s): D61.9 - Aplastic anemia, unspecified (4) CKD (chronic kidney disease) stage 3, GFR 30-59 ml/min Code(s): N18.3 - CHRONIC KIDNEY DISEASE, STAGE 3 (MODERATE) Assessment/Plan Current Medications Generic Name Dose Route Start Last Admin Trade Name Freq PRN Reason Stop Dose Admin Furosemide 80 mg 03/18/19 06:00 Lasix Injection - IVPUSH BIDLASIX [facility] Cefazolin Sodium 1 gm/ 50 mls @ 100 mls/hr 03/17/19 18:00 03/17/19 19:06 Dextrose IVPB 100 mls/hr Q8H-IV TERI Administration Metoprolol Succinate 25 mg 03/18/19 10:00 Toprol Xl - PO DAILY [facility] Mirtazapine 30 mg 03/17/19 22:00 Remeron - PO HS [facility] Non-Formulary Medication 15 mg 03/17/19 22:00 Ruxolitinib Phosphate [Jakafi] PO BID [facility] Spironolactone 25 mg 03/18/19 10:00 Aldactone - PO DAILY [facility] Venlafaxine HCl 150 mg 03/18/19 10:00 Effexor Xr - PO DAILY [facility] Impression 1. CKD 2. HTN 3. myelofibrosis 4. fluid overload 5. cellulitis 6. atrophic left kidney\ 7. anemia 8. hyponatremia Plan - cont lasix - cont aldacone - hypervolemic hyponatremia - check plasma and urine osm - monitor renal function - abx for cellulitis - hold minesh
[2019-03-17] MEDS ORDERED: MIRTAZAPINE 15 MG TABLET (FP) ONE (21:30)
[2019-03-17] MEDS ORDERED: ONDANSETRON 4 MG/2 ML VIAL ONE (21:30)
[2019-03-17] MEDS: MIRTAZAPINE 30 MG TABLET (FP) PO SCH (21:59)
[2019-03-18 03:23] VITALS: BMI 27.9
[2019-03-18] MEDS: CEFAZOLIN 1 GM in DEXTROSE 5%-WATER - 50 ML IVPB SCH ×2 (03:45→10:17)
[2019-03-18] MEDS ORDERED: ceFAZolin SODIUM 1 GM VIAL ONE ×2 (05:36→10:11)
[2019-03-18] MEDS ORDERED: DEXTROSE 5%-WATER - 50 ML IVPB ONE ×2 (05:37→10:12)
[2019-03-18] MEDS: FUROSEMIDE 40 MG/4 ML INJECTABLE VIAL IVPUSH SCH ×2 (05:56→14:24)
[2019-03-18 06:49] LABS: HEMATOCRIT 21.3 % (35.4-49); HEMOGLOBIN 7.4 GM/dL (11.7-16.9); MCH 37.5 pg (25.7-33.7); MCHC 34.8 g/dl (32.0-35.9); MEAN CELL VOLUME 107.8 fl (80-96); MEAN PLT VOLUME 9.5 fl (7.5-11.1); PLATELET COUNT 113 K/MM3 (134-434); RBC 1.98 M/mm3 (4.00-5.60); RDW 27.2 % (11.9-15.9); WHITE BLOOD COUNT 22.4 K/mm3 (4.0-10.0)
[2019-03-18 07:38] LABS: ALBUMIN 3.5 g/dl (3.4-5.0); BILIRUBIN,TOTAL 0.8 mg/dL (0.2-1); BLOOD UREA NITROGEN 29.3 mg/dL (7-18); CALCIUM 8.7 mg/dL (8.5-10.1); CREATININE 1.9 mg/dL (0.55-1.3); MAGNESIUM 2.2 mg/dL (1.8-2.4); PHOSPHOROUS 4.8 mg/dL (2.5-4.9); POTASSIUM 4.6 mmol/L (3.5-5.1)
[2019-03-18] MEDS ORDERED: INSULIN (NOVOLOG) ASPART 100 UNITS/ML 10ML VIAL ONE (09:06)
--- NOTE | 2019-03-18 09:23 | CON.CARD ---
Consult Consult Specialty:: cardio - History of Present Illness Chief Complaint: leg swelling History of Present Illness: 74 male here with leg swelling. here 02/19 with leg swelling/cellulitis, and acute chf. diuresed, treated with abx. states he complied with outpt abx course as well as new lasix dose of 80 bid. legs improved, now worsening again. also incr sob with activity, intermittent orthopnea. has not seen any cardio--has upcoming initial appt with dr martínez in our practice. denies cp, palp, syncope PMH: diastolic CHF, COPD, CKD, HTN, and myelofibrosis - Past Medical History Cardio/Vascular: Yes: CHF Pulmonary: Yes: COPD Hepatobiliary: Yes: Cirrhosis Renal/: Yes: Renal Inusuff Dermatology: Yes: Cellulitis (Recurrent lower extremity) Additional Medical History: Myelofibrosis - Past Surgical History Past Surgical History: Yes: Joint Replacement - Alcohol/Substance Use Hx Alcohol Use: Yes - Smoking History Smoking history: Current every day smoker Have you smoked in the past 12 months: Yes Aproximately how many cigarettes per day: 20 Home Medications - Allergies Allergies/Adverse Reactions: Allergies Allergy/AdvReac Type Severity Reaction Status Date / Time No Known Allergies Allergy Verified 03/17/19 09:09 - Home Medications Home Medications: Ambulatory Orders Mirtazapine [Remeron -] 30 mg PO HS 07/21/15 Venlafaxine HCl ER [Effexor Xr -] 150 mg PO DAILY #30 cap.er.24h 11/16/16 Metoprolol Succinate [Toprol XL -] 25 mg PO DAILY 04/19/17 Ruxolitinib Phosphate [Jakafi] 15 mg PO BID 01/04/18 Cephalexin Monohydrate [Keflex -] 500 mg PO Q8H #21 capsule 02/21/19 Furosemide 80 mg PO BID #60 tablet 02/21/19 Mineral Oil/Petrolat,Wht/Water [Eucerin (Small Jar) -] 1 applic TP DAILY #1 jar 02/21/19 Spironolactone [Aldactone -] 25 mg PO DAILY #30 tablet 02/21/19 Family Medical History Family History: Denies (no known cmp) Review of Systems - Review of Systems Constitutional: denies: Chills, Fever Eyes: denies: Eye Pain HENT: denies: Nasal Congestion Neck: denies: Stiffness Cardiovascular: denies: Palpitations Respiratory: reports: Orthopnea. denies: PND, Wheezing Gastrointestinal: denies: Diarrhea, Rectal Bleeding Genitourinary: denies: Burning, Hematuria Musculoskeletal: denies: Muscle Pain Integumentary: denies: Rash Neurological: denies: Numbness, Seizure, Syncope Endocrine: denies: Excessive Sweating Hematology/Lymphatic: denies: Excessive Bleeding Vital Signs: Vital Signs Temperature 98.0 F 03/18/19 03:16 Pulse Rate 80 03/18/19 06:07 Respiratory Rate 20 03/18/19 06:07 Blood Pressure 133/66 03/18/19 06:07 O2 Sat by Pulse Oximetry (%) 98 03/18/19 03:24 Constitutional: Yes: Well Nourished, No Distress Eyes: No: Sclera Icterus HENT: No: Nasal Congestion Neck: No: Decreased ROM Respiratory: Yes: CTA Bilaterally. No: Accessory Muscle Use, Rales, Wheezes Gastrointestinal: Yes: Normal Bowel Sounds. No: Distention, Hepatomegaly, Palpable Mass, Tenderness Cardiovascular: Yes: Regular Rate and Rhythm JVD: Yes Carotid Bruit: No PMI: Non-Displaced Heart Sounds: Yes: S1, S2. No: Gallop Murmur: No: Systolic Murmur, Diastolic Murmur Musculoskeletal: Yes: Other (No kyphosis) Extremities: No: Cool, Cyanosis Edema: Yes (1+ L pretib, trace R) Peripheral Pulses: 2+ Left Carotid, 2+ Right Carotid, 2+ Left Doralis Pedis, 2+ Right Dorsalis Pedis Integumentary: No: Jaundice Neurological: Yes: Alert, Oriented (x3) Psychiatric: No: Agitated - Other Data Labs, Other Data: CBC, BMP 03/18/19 06:15 03/18/19 06:15 INR, PTT INR 1.39 (0.83-1.09) H 03/17/19 10:45 Troponin, BNP 03/17/19 03/17/19 10:45 10:45 Troponin I < 0.02 B-Natriuretic Peptide 4097.4 H Troponin, BNP 03/17/19 03/17/19 10:45 10:45 Troponin I < 0.02 B-Natriuretic Peptide 4097.4 H Assessment/Plan echo 02/2019 n LV function, grade II diastolic dysfunction, RV systolic function mild to mod reduced, LA mildly dilated, RA mod dilated, mild to mod MR , mild to mod TR, PASP at least 52 mmHg CXR: clear lungs/pleura (hyperaerated) ECG: NSR, normal axis. no path q's. 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 was 206- 208 during 06/19 admit - was on lasix 40 po bid-->transitioned to 80 iv bid as inpatient, discharged on 80 po bid, confirms good compliance with meds. - rx'd spironolactone then as well - currently volume overloaded (jvd to jaw). BNP currently 4K (range 1K-7K, GFR 30s). continue lasix 80 iv bid. - would try torsemide 50-100 bid on discharge, given failed lasix 80 po bid as outpatient - needs education re: dietary sodium, rec f/u with dr martínez 2 wks after hospital stay - consider outpt sleep study, assessment for ambulatory/nocturnal hypoxia ( given pulm HTN severity) - tx of cellulitis per primary hypervolemic hyponatremia: - sec to decomp chf - cont spirono (doubt contributing) - observe SNa trend with diuresis myelofibrosis with anemia - baseline hgb runs 6's-8s, stable here - per primary HTN - bp controlled - cont current meds CKD - baseline creat 1.6-1.8 - slightly above baseline at present, observe trend COPD: - no sx's at present
[2019-03-18] MEDS: metoPROLOL SUCCINATE 25 MG TAB.SR.24H (FP) PO SCH (10:17)
[2019-03-18] MEDS: SPIRONOLACTONE 25 MG TABLET (FP) PO SCH (10:17)
--- NOTE | 2019-03-18 11:42 | PN ---
Progress Note (short form) - Note Progress Note: ID consult dictated recurrent cellulitis episode last year, again in January of this year and again in February- reports it occurs with edema of the legs and resolves completely in between episodes no fevers again legs are starting to improved from yesterday resolved with po keflex as outpt last time no purulence, no abscess, no fevers mild DCHF with lower extermity edema bilateral cellulitis (recurrent) nonpurulent history of mylefibrosis on Jakafi history of CKD history of liver disease suggest continue cefazolin 2 g ivpb q 8h will need longer oral course at follow up will add tinactin powder blood cultures Problem List - Problems (1) Cellulitis Code(s): L03.90 - CELLULITIS, UNSPECIFIED (2) Acute on chronic diastolic HF (heart failure) Code(s): I50.33 - ACUTE ON CHRONIC DIASTOLIC (CONGESTIVE) HEART FAILURE (3) Myelofibrosis Code(s): D75.81 - MYELOFIBROSIS (4) CKD (chronic kidney disease) stage 3, GFR 30-59 ml/min Code(s): N18.3 - CHRONIC KIDNEY DISEASE, STAGE 3 (MODERATE)
--- NOTE | 2019-03-18 12:17 | PN ---
Progress Note, Physician History of Present Illness: Pt seen and examined at bedside. He is awake and alert. he feels that the edema is starting to improve. - Current Medication List Current Medications: Active Medications Furosemide (Lasix Injection -) 80 mg IVPUSH BIDLASIX [facility] Last Admin: 03/18/19 05:56 Dose: 80 mg Cefazolin Sodium/Dextrose (Ancef 2 Gm Premixed Ivpb -) 2 gm in 50 mls @ 100 mls /hr IVPB Q8H-IV TERI Metoprolol Succinate (Toprol Xl -) 25 mg PO DAILY [facility] Last Admin: 03/18/19 10:17 Dose: 25 mg Mirtazapine (Remeron -) 30 mg PO HS [facility] Last Admin: 03/17/19 21:59 Dose: 30 mg Multi-Ingredient Lotion (Eucerin (Small Jar) -) 1 applic TP BID TERI Non-Formulary Medication (Ruxolitinib Phosphate [Jakafi]) 15 mg PO BID TERI Spironolactone (Aldactone -) 25 mg PO DAILY [facility] Last Admin: 03/18/19 10:17 Dose: 25 mg Tolnaftate (Tinactin 1% Powder -) 1 applic TP BID [facility]I Venlafaxine HCl (Effexor Xr -) 150 mg PO DAILY [facility] - Objective Vital Signs: Vital Signs Temperature 98.2 F 03/18/19 10:00 Pulse Rate 82 03/18/19 10:00 Respiratory Rate 22 H 03/18/19 10:00 Blood Pressure 126/64 03/18/19 10:00 O2 Sat by Pulse Oximetry (%) 98 03/18/19 03:24 Constitutional: Yes: Calm Eyes: Yes: Conjunctiva Clear HENT: Yes: Atraumatic Cardiovascular: Yes: JVD, S1, S2 Respiratory: Yes: CTA Bilaterally Gastrointestinal: Yes: Soft Musculoskeletal: Yes: WNL Edema: Yes Edema: LLE: 1+, RLE: 1+ Neurological: Yes: Oriented Psychiatric: Yes: Oriented Labs: CBC, BMP 03/18/19 06:15 03/18/19 06:15 INR, PTT INR 1.39 (0.83-1.09) H 03/17/19 10:45 Problem List - Problems (1) Cellulitis Code(s): L03.90 - CELLULITIS, UNSPECIFIED (2) Leukocytosis Code(s): D72.829 - ELEVATED WHITE BLOOD CELL COUNT, UNSPECIFIED (3) Anemia Code(s): D64.9 - ANEMIA, UNSPECIFIED Qualifiers: Anemia type: bone marrow failure Bone marrow failure anemia type: unspecified bone marrow failure Qualified Code(s): D61.9 - Aplastic anemia, unspecified (4) CKD (chronic kidney disease) stage 3, GFR 30-59 ml/min Code(s): N18.3 - CHRONIC KIDNEY DISEASE, STAGE 3 (MODERATE) Assessment/Plan Current Medications Generic Name Dose Route Start Last Admin Trade Name Franciscoq PRN Reason Stop Dose Admin Furosemide 80 mg 03/18/19 06:00 03/18/19 05:56 Lasix Injection - IVPUSH 80 mg BIDLASIX [facility]I Administration Cefazolin Sodium/Dextrose 2 gm in 50 mls @ 100 mls/hr 03/18/19 18:00 Ancef 2 Gm Premixed Ivpb - IVPB Q8H-IV TERI Metoprolol Succinate 25 mg 03/18/19 10:00 03/18/19 10:17 Toprol Xl - PO 25 mg DAILY [facility] Administration Mirtazapine 30 mg 03/17/19 22:00 03/17/19 21:59 Remeron - PO 30 mg HS [facility]I Administration Multi-Ingredient Lotion 1 applic 03/18/19 12:15 Eucerin (Small Jar) - TP BID [facility]I Non-Formulary Medication 15 mg 03/17/19 22:00 Ruxolitinib Phosphate [Jakafi] PO BID [facility] Spironolactone 25 mg 03/18/19 10:00 03/18/19 10:17 Aldactone - PO 25 mg DAILY [facility] Administration Tolnaftate 1 applic 03/18/19 22:00 Tinactin 1% Powder - TP BID [facility]I Venlafaxine HCl 150 mg 03/18/19 10:00 Effexor Xr - PO DAILY [facility]I Impression 1. CKD 2. HTN 3. myelofibrosis 4. fluid overload 5. cellulitis 6. atrophic left kidney\ 7. anemia 8. hyponatremia Plan - cont with lasix 80 iv bid - sodium is improving - repeat labs in am - cardio input appreciated - monitor renal function - abx for cellulitis
[2019-03-18] MEDS: MINERAL OIL/PETROLAT/WATER TOPICAL CREAM 113 GM JAR TP SCH (14:24)
--- NOTE | 2019-03-18 14:53 | EKG ---
Test Reason : Blood Pressure : / mmHG Vent. Rate : 086 BPM Atrial Rate : 086 BPM P-R Int : 206 ms QRS Dur : 104 ms QT Int : 384 ms P-R-T Axes : 053 044 146 degrees QTc Int : 459 ms SINUS RHYTHM WITH PREMATURE ATRIAL COMPLEXES CANNOT RULE OUT INFERIOR INFARCT (CITED ON OR BEFORE 17-MAR-2019) ABNORMAL ECG WHEN COMPARED WITH ECG OF 17-FEB-2019 20:21, PREMATURE ATRIAL COMPLEXES ARE NOW PRESENT AR INTERVAL HAS DECREASED T WAVE VARIATION Confirmed by MADISON TIJERINA MD ([id number]) on 03/18/2019 2:52:30 PM Referred By: Confirmed By:MADISON TIJERINA MD
[2019-03-18 15:32] LABS: IRON SERUM 137 ug/dL (50-175); TOTAL IRON BINDING CAPACITY 320 ug/dL (250-450)
--- NOTE | 2019-03-18 16:22 | CONS ---
INFECTIOUS DISEASE CONSULTATION DATE OF CONSULTATION: HISTORY: This is a 74-year-old man who has a history of myelofibrosis. He is on Jakafi for the last 3 years. He has a history of diastolic heart failure, COPD, and CKD. He was admitted in January for lower extremity cellulitis, readmitted in February for 3 days with edema and cellulitis of his legs that responded to cefazolin. He was discharged on Keflex. He reports the erythema completely resolved of his legs. Around Monday, , 3 or 4 days ago, he had recurrent erythema and edema of his legs. He was discharged on the 21 of February with 7 days of Keflex, which he should have completed by the end of the month. In the ER, he was volume overloaded. Sodium was 126. His BNP was over 4000. He had a white count of 23,000, which is his baseline from his myelofibrosis. Creatinine is 1.9, again, his baseline. Given IV Lasix and vancomycin. This morning, his breathing is back to its baseline. He is feeling much better. His edema of his legs have improved as well as the erythema. He denies any fevers or chills at home. ALLERGIES: He has no known drug allergies. PAST MEDICAL HISTORY: Notable for a history of diastolic CHF, COPD, CKD, hypertension, myelofibrosis, liver cirrhosis. He is followed by Dr. Nieves and has been in treatment for 3 years. SOCIAL HISTORY: He is originally [place]. [place] has been in this country [place] 50 years. Cigarette smoker. No other substance use. ALLERGIES: No known drug allergies. FAMILY HISTORY: Unremarkable. CURRENT MEDICATIONS: At home include Effexor, Aldactone, Jakafi, Remeron, Toprol XL, and furosemide. REVIEW OF SYSTEMS: He denies fevers or chills. Reports his breathing and edema have improved as well as the erythema. PAST SURGICAL HISTORY: He denies any prior surgeries to his legs and has had a joint replacement in the past. PHYSICAL EXAMINATION: General: He is awake and alert. Vital Signs: Temperature is 98.2, pulse of 82, blood pressure 126/64, respiratory rate is 20. He is saturating 98% on 3 L. HEENT: Normocephalic. His eyes are anicteric. Neck: Supple. Lungs: Clear to auscultation. Heart: Regular rate and rhythm. Abdomen: Soft, nontender. Extremities: He has minimal edema of the legs, and he has bilateral lower extremity erythema that is red but minimally warm to touch. He has some scaling skin, and he has some minimal tinea pedis. LABORATORIES: Labs are notable for a white count of 22.4, hemoglobin 10.4, platelets 113, BUN 29, creatinine 1.9. His urinalysis is negative. No cultures were sent. We will order. He received vancomycin in the emergency room and was started on cefazolin. In summary, this is a 74-year-old man admitted with some mild diastolic heart failure with lower extremity edema, bilateral cellulitis, nonpurulent, history of myelofibrosis on Jakafi. He has a history of CKD. I would suggest we continue his cefazolin at this time. I suspect he needs a longer oral course of antibiotics as follow up, and we will add some Tinactin powder to treat his athlete's foot. Further recommendations to follow. Blood cultures have been ordered as well. MANDEEP NESS M.D. [id number]
[2019-03-18] MEDS: CEFAZOLIN 2 GM/D5W 2 GM/50 ML ML IVPB SCH (17:40)
[2019-03-18] MEDS: VENLAFAXINE HCL 150 MG E.R. CAPSULE PO SCH (17:40)
--- NOTE | 2019-03-18 18:20 | PN ---
Progress Note (short form) - Note Progress Note: Hospitalist Medicine [place]. Resting in bed, states his LE are less erythematous now Vitals 03/18/19 14:15 Temperature 98.4 F Pulse Rate 81 Respiratory 18 Rate Blood Pressure 130/65 Physical Exam general: resting in bed, in NAD HEENT: NCAT, PERRLA. neck: + JVD cardio: S1, S2, RRR. no r/m/g pulm: +b/l rales. no accessory m usage abdomen: obese, nondistended, nontender LE: 1+ pitting edema b/l. +erythema to L stahl, R ankle. warm to touch, diffusely ttp receding per pt Laboratory Tests 03/18/19 03/18/19 03/18/19 06:15 06:15 06:15 WBC 22.4 H Hgb 7.4 L Hct 21.3 L MCV 107.8 H Plt Count 113 L D Sodium 128 L Chloride 95 L Carbon Dioxide 26 Anion Gap 7 L BUN 29.3 H Creatinine 1.9 H Random Glucose 108 H Iron TIBC Iron Saturation Unsaturated IBC Vitamin B12 Serum Folate TSH 2.66 Cortisol AM Sample Pending 03/18/19 03/18/19 14:45 14:45 WBC Hgb Hct MCV Plt Count Sodium Chloride Carbon Dioxide Anion Gap BUN Creatinine Random Glucose Iron 137 TIBC 320 Iron Saturation 42 H Unsaturated IBC 183 L Vitamin B12 1591 H Serum Folate 18 H TSH Cortisol AM Sample Microbiology 03/17/19 10:45 Urine - Urine Clean Catch Urine Culture - Final NO GROWTH OBTAINED 03/18/19: Blood cx : pending Imaging 03/17/19: CXR: no acute chest pathology Assessment/Plan 73 year old male with history of Chronic diastolic CHF, CKD , COPD, HTN, Myelofibrosis, Anemia, recurrent LE cellulitis, h/o ETOH abuse, hepatosplenomegaly admitted with acute hypoxemic respiratory failure, acute on chronic exacerbation of diastolic CHF, and bilateral lower extremity cellulitis. #Recurrent cellulitis LE -on cefazolin (03/18), improvement in erythema -per ID, will need longer oral course when d/c -tinactin powder added -f/u ucx, blood cx. -f/u art duplex, venous duplex -ID: Dr. Rinaldi #Acute on Chronic Diastolic CHF #pulm HTN -c/w lasix 80mg IVP BID -has LV diastolic dysfnc -weights/ low na/ i/o -outpt sleep study on d/c -Cardio: Dr. Garcias #CKD -f/u repeat Cr in AM -f/u urine studies -Nephro: Dr. Daley #Myelofibrosis -restarted on home Jakafi -heme/onc : Dr. Bergeron -f/u b12, folate, iron studies, stool occult #Acute on chronic hyponatremia, hypervolemic -c/t monitor -should improve w/ diuresis #HTN - controlled -c/w metoprolol and spironolactone #Psych/Depression Continue Remeron and Venlafaxine. #PPX DVT: SCD's #F/E/N avoid IVF as w/ CHF continue to follow lytes na controlled diet #Dispo monitoring on med-surg will need outpt sleep study on d/c as w/ pulm HTN
--- NOTE | 2019-03-18 20:37 | CONSULT ---
Consult - text type - Consultation Consultation Note: 74 male here with left lower extremity erythema , swelling and tenderness 02/19 with leg swelling/cellulitis, and acute chf. diuresed, treated with abx. also incr sob with activity, intermittent orthopnea. Patient with h/o myelofibrosis , being treated by DR. Nieves. On jakafi 15mg bid PMH: diastolic CHF, COPD, CKD, HTN, and myelofibrosis - Past Medical History Cardio/Vascular: Yes: CHF Pulmonary: Yes: COPD Hepatobiliary: Yes: Cirrhosis Renal/: Yes: Renal Inusuff Dermatology: Yes: Cellulitis (Recurrent lower extremity) Additional Medical History: Myelofibrosis - Past Surgical History Past Surgical History: Yes: Joint Replacement - Smoking History Smoking history: Current every day smoker - Allergies Allergies/Adverse Reactions: Allergies Allergy/AdvReac Type Severity Reaction Status Date / Time No Known Allergies Allergy Verified 03/17/19 09:09 - Home Medications Home Medications: Ambulatory Orders Mirtazapine [Remeron -] 30 mg PO HS 07/21/15 Venlafaxine HCl ER [Effexor Xr -] 150 mg PO DAILY #30 cap.er.24h 11/16/16 Metoprolol Succinate [Toprol XL -] 25 mg PO DAILY 04/19/17 Ruxolitinib Phosphate [Jakafi] 15 mg PO BID 01/04/18 Cephalexin Monohydrate [Keflex -] 500 mg PO Q8H #21 capsule 02/21/19 Furosemide 80 mg PO BID #60 tablet 02/21/19 Mineral Oil/Petrolat,Wht/Water [Eucerin (Small Jar) -] 1 applic TP DAILY #1 jar 02/21/19 Spironolactone [Aldactone -] 25 mg PO DAILY #30 tablet 02/21/19 Vital Signs: Last Vital Signs Temp Pulse Resp BP Pulse Ox 97.7 F 79 18 129/69 95 03/19/19 05:24 03/19/19 05:24 03/19/19 05:24 03/19/19 05:24 03/18/19 21:00 Cor: RSR, No murmurs, No gallops Lungs: Clear to P&A Abd: Soft, Normal bowel sounds, + splenomegaly Ext:LLE erythema Abnormal Lab Results 03/18/19 03/18/19 03/18/19 06:15 06:15 14:45 WBC 22.4 H RBC 1.98 L Hgb 7.4 L Hct 21.3 L MCV 107.8 H MCH 37.5 H RDW 27.2 H Plt Count 113 L D Sodium 128 L Chloride 95 L Anion Gap 7 L BUN 29.3 H Creatinine 1.9 H Random Glucose 108 H Iron Saturation 42 H Unsaturated IBC 183 L AST 39 H Alkaline Phosphatase 130 H Vitamin B12 Serum Folate 03/18/19 14:45 WBC RBC Hgb Hct MCV MCH RDW Plt Count Sodium Chloride Anion Gap BUN Creatinine Random Glucose Iron Saturation Unsaturated IBC AST Alkaline Phosphatase Vitamin B12 1591 H Serum Folate 18 H Assessment/Plan 74 y/o patient with CHF/CKD /COPD/HTN/myelofibrosis on Jakafi for [address] Preston care. Herer for CHF exacerbation/LLE cellulitis On ancef/diuretics myelofibrosis/splenomegaly/anemia/elevated WBC/thrombocytopenia continue jakafi 15mg bid transfuse PRBCs fro symptomatic anemia monitor CBC
[2019-03-18] MEDS ORDERED: MIRTAZAPINE 15 MG TABLET (FP) ONE (21:01)
[2019-03-18] MEDS: MIRTAZAPINE 30 MG TABLET (FP) PO SCH (21:02)
[2019-03-19] MEDS: TOLNAFTATE 1% POWDER 45 GM POW TP SCH ×3 (00:15→21:29)
[2019-03-19] MEDS: MINERAL OIL/PETROLAT/WATER TOPICAL CREAM 113 GM JAR TP SCH ×3 (00:30→21:28)
[2019-03-19] MEDS: CEFAZOLIN 2 GM/D5W 2 GM/50 ML ML IVPB SCH ×3 (03:30→17:07)
[2019-03-19] MEDS: FUROSEMIDE 40 MG/4 ML INJECTABLE VIAL IVPUSH SCH (05:30)
[2019-03-19 06:45] LABS: BASO % 0.2 % (0-2.0); EOS % 2.9 % (0-4.5); HEMATOCRIT 19.5 % (35.4-49); LYMPH % 4.7 % (8-40); MCH 37.5 pg (25.7-33.7); MCHC 34.2 g/dl (32.0-35.9); MEAN CELL VOLUME 109.6 fl (80-96); MEAN PLT VOLUME 9.7 fl (7.5-11.1); MONO % 6.7 % (3.8-10.2); NEUT % 85.5 % (42.8-82.8); PLATELET COUNT 109 K/MM3 (134-434); RBC 1.78 M/mm3 (4.00-5.60); RDW 26.8 % (11.9-15.9); WHITE BLOOD COUNT 18.7 K/mm3 (4.0-10.0)
[2019-03-19 06:50] LABS: HEMOGLOBIN 6.7 GM/dL (11.7-16.9)
[2019-03-19 07:29] LABS: ALBUMIN 3.3 g/dl (3.4-5.0); BILIRUBIN,TOTAL 0.6 mg/dL (0.2-1); CALCIUM 8.2 mg/dL (8.5-10.1); CREATININE 1.9 mg/dL (0.55-1.3); POTASSIUM 3.7 mmol/L (3.5-5.1); TOT PROT 7.6 g/dl (6.4-8.2)
[2019-03-19] MEDS ORDERED: PT OWN MED DRAWER 7, Y5N ONE (09:31)
[2019-03-19 10:01] LABS: ANISOCYTOSIS 2+; MACROCYTOSIS 0; OVALOCYTE 1+
[2019-03-19] MEDS: SPIRONOLACTONE 25 MG TABLET (FP) PO SCH (10:02)
[2019-03-19] MEDS: VENLAFAXINE HCL 150 MG E.R. CAPSULE PO SCH (10:08)
[2019-03-19] MEDS: metoPROLOL SUCCINATE 25 MG TAB.SR.24H (FP) PO SCH (10:09)
[2019-03-19 11:00] LABS: PLATELET ESTIMATE ADEQUATE
--- NOTE | 2019-03-19 11:45 | PN ---
Progress Note (short form) - Note Progress Note: s: sob and leg swelling improving. no chest pain, palps, dizziness, dyspnea Current Medications Furosemide (Lasix Injection -) 80 mg IVPUSH BIDLASIX [facility] Last Admin: 03/19/19 05:30 Dose: 80 mg Cefazolin Sodium/Dextrose (Ancef 2 Gm Premixed Ivpb -) 2 gm in 50 mls @ 100 mls /hr IVPB Q8H-IV [facility] Last Admin: 03/19/19 10:08 Dose: 100 mls/hr Metoprolol Succinate (Toprol Xl -) 25 mg PO DAILY [facility] Last Admin: 03/19/19 10:09 Dose: 25 mg Mirtazapine (Remeron -) 30 mg PO HS [facility] Last Admin: 03/18/19 21:02 Dose: 30 mg Multi-Ingredient Lotion (Eucerin (Small Jar) -) 1 applic TP BID [facility] Last Admin: 03/19/19 10:09 Dose: 1 applic Non-Formulary Medication (Ruxolitinib Phosphate [Jakafi]) 15 mg PO BID [facility] Spironolactone (Aldactone -) 25 mg PO DAILY [facility] Last Admin: 03/19/19 10:02 Dose: 25 mg Tolnaftate (Tinactin 1% Powder -) 1 applic TP BID [facility] Last Admin: 03/19/19 10:09 Dose: 1 applic Venlafaxine HCl (Effexor Xr -) 150 mg PO DAILY [facility] Last Admin: 03/19/19 10:08 Dose: 150 mg Vital Signs Period Temp Pulse Resp BP Sys/Rodriguez Pulse Ox Last 24 Hr 97.7 F-98.4 F 78-85 18-20 129-138/60-74 95-95 Constitutional: Yes: Well Nourished, No Distress Eyes: No: Sclera Icterus HENT: No: Nasal Congestion Neck: No: Decreased ROM Respiratory: Yes: CTA Bilaterally. No: Accessory Muscle Use, Rales, Wheezes Gastrointestinal: Yes: Normal Bowel Sounds. No: Distention, Hepatomegaly, Palpable Mass, Tenderness Cardiovascular: Yes: Regular Rate and Rhythm JVD: Yes Carotid Bruit: No PMI: Non-Displaced Heart Sounds: Yes: S1, S2. No: Gallop Murmur: No: Systolic Murmur, Diastolic Murmur Musculoskeletal: Yes: Other (No kyphosis) Extremities: No: Cool, Cyanosis Edema: Yes (1+ L pretib, trace R) Peripheral Pulses: 2+ Left Carotid, 2+ Right Carotid, 2+ Left Doralis Pedis, 2+ Right Dorsalis Pedis Integumentary: No: Jaundice Neurological: Yes: Alert, Oriented (x3) Psychiatric: No: Agitated Assessment/Plan echo 02/2019 n LV function, grade II diastolic dysfunction, RV systolic function mild to mod reduced, LA mildly dilated, RA mod dilated, mild to mod MR , mild to mod TR, PASP at least 52 mmHg CXR: clear lungs/pleura (hyperaerated) ECG: NSR, normal axis. no path q's. NSTWA--no change vs 02/19 tele: sinus Acute on chronic diastolic heart failure, leg swelling/cellulitis, pulm HTN - prior echo here with evidence of LV diast dysfunction/hi LA pressure, likely causing (WHO 2) pulm HTN - admitted with chf decomp 02/19, no accurate weight information then. was 206- 208 during 06/19 admit - was on lasix 40 po bid-->transitioned to 80 iv bid as inpatient, discharged on 80 po bid, confirms good compliance with meds. - rx'd spironolactone then as well - currently volume overloaded (jvd to jaw). BNP currently 4K (range 1K-7K, GFR 30s). has been on lasix 80 mg iv BID - sob and edema stable, weight up - inc lasix to 100 mg IV BID today, monitor Cr, lytes, daily weights - would try torsemide 50-100 bid on discharge, given failed lasix 80 po bid as outpatient - consider outpt sleep study, assessment for ambulatory/nocturnal hypoxia ( given pulm HTN severity) - tx of cellulitis per primary hypervolemic hyponatremia: - sec to decomp chf - cont spirono (doubt contributing) - observe SNa trend with diuresis myelofibrosis with anemia - baseline hgb runs 6's-8s, stable here - per primary - plan PRBC transfusion today HTN - bp controlled - cont current meds CKD - baseline creat 1.6-1.8 - slightly above baseline at present, observe trend COPD: - no sx's at present
--- NOTE | 2019-03-19 12:12 | PN ---
Progress Note (short form) - Note Progress Note: Continue home meds; followup post XF. 10 sys ROS <Darryl Leigh - Last Filed: 03/19/19 15:33> - Note Progress Note: Hospitalist Medicine Resting in bed, improved LE erythema. SOB has improved. 1U PRBC ordered, as Hb< 7 Vitals 03/18/19 14:15 Temperature 98.4 F Pulse Rate 81 Respiratory 18 Rate Blood Pressure 130/65 Physical Exam general: resting in bed, in NAD HEENT: NCAT, PERRLA. neck: + JVD cardio: S1, S2, RRR. no r/m/g pulm: +b/l rales. no accessory m usage abdomen: obese, nondistended, nontender LE: 1+ pitting edema b/l. +erythema to L stahl, R ankle. warm to touch, diffusely ttp receding per pt Laboratory Tests 03/19/19 03/19/19 05:58 05:58 WBC 18.7 H Hgb 6.7 L* Hct 19.5 L Plt Count 109 L Sodium 129 L Potassium 3.7 Chloride 94 L Carbon Dioxide 24 Anion Gap 11 BUN 36.0 H Creatinine 1.9 H Est GFR (CKD-EPI)NonAf 33.97 Random Glucose 151 H AST 38 H Alkaline Phosphatase 142 H Albumin 3.3 L Microbiology 03/17/19 10:45 Urine - Urine Clean Catch Urine Culture - Final NO GROWTH OBTAINED 03/18/19: Blood cx : pending Imaging 03/17/19: CXR: no acute chest pathology 03/18/19: Duplex LE: (-) for DVT. +R popliteal fossa cyst 03/18/19: Art duplex LE: decreased flow bilaterally; decreased monophasic flow in mid and distal thirds of L superficial femoral a. as well as within the popliteal and posterior tibial aa. there is somewhat decreased biphasic flow in the common femoral artery and upper third of the superficial femoral a. Assessment/Plan 73 year old male with history of Chronic diastolic CHF, CKD , COPD, HTN, Myelofibrosis, Anemia, recurrent LE cellulitis, h/o ETOH abuse, hepatosplenomegaly admitted with acute hypoxemic respiratory failure, acute on chronic exacerbation of diastolic CHF, and bilateral lower extremity cellulitis. #Recurrent cellulitis LE -on cefazolin (03/18), improvement in erythema -per ID, will need longer oral course when d/c -tinactin powder added -f/u ucx, blood cx. -art duplex and LE duplex noted above -ID: Dr. Rinaldi #Acute on Chronic Diastolic CHF #pulm HTN -lasix dose increased to 100mg IVP BID -per cardio, would try torsemide 50-100 bid on discharge, given failed lasix 80 po bid as outpatient -has LV diastolic dysfnc -weights/ low na/ i/o -outpt sleep study on d/c -Cardio: Dr. Payne -Pulm: Dr. Puentes #EMEKA on CKD -f/u repeat Cr in AM -per urine studies, fena ?post-renal/ obstructive however will need to calc FEurea as pt on diuretics -Nephro: Dr. Daley #Myelofibrosis -restarted on home Jakafi -heme/onc : Dr. Bergeron -f/u iron studies, stool occult -b12, folate WNL -requiring 1U PRBC, f/u repeat CBC #PAD -as seen on art duplex -will need outpt vascular f/u #Acute on chronic hyponatremia, hypervolemic -c/t monitor -improving w diuresis #HTN - controlled -c/w metoprolol and spironolactone #Psych/Depression Continue Remeron and Venlafaxine. #PPX DVT: SCD's #F/E/N avoid IVF as w/ CHF continue to follow lytes na controlled diet #Dispo monitoring on med-surg will need outpt sleep study on d/c as w/ pulm HTN needs outpt vascular f/u per cardio, would try torsemide 50-100 bid on discharge, given failed lasix 80 po bid as outpatient <Honey Mix - Last Filed: 03/19/19 17:00>
--- NOTE | 2019-03-19 14:05 | PN ---
Progress Note, Physician History of Present Illness: Pt seen and examined at bedside. He feels that his breathing is improving. - Current Medication List Current Medications: Active Medications Furosemide (Lasix Injection -) 100 mg IVPUSH BIDLASIX [facility] Cefazolin Sodium/Dextrose (Ancef 2 Gm Premixed Ivpb -) 2 gm in 50 mls @ 100 mls /hr IVPB Q8H-IV [facility] Last Admin: 03/19/19 10:08 Dose: 100 mls/hr Metoprolol Succinate (Toprol Xl -) 25 mg PO DAILY [facility] Last Admin: 03/19/19 10:09 Dose: 25 mg Mirtazapine (Remeron -) 30 mg PO HS [facility] Last Admin: 03/18/19 21:02 Dose: 30 mg Multi-Ingredient Lotion (Eucerin (Small Jar) -) 1 applic TP BID [facility] Last Admin: 03/19/19 10:09 Dose: 1 applic Patient's Own Med ( Ruxolitinib Phosphate [Jakafi] 15 Mg) 15 mg PO BID [facility] Spironolactone (Aldactone -) 25 mg PO DAILY [facility] Last Admin: 03/19/19 10:02 Dose: 25 mg Tolnaftate (Tinactin 1% Powder -) 1 applic TP BID [facility] Last Admin: 03/19/19 10:09 Dose: 1 applic Venlafaxine HCl (Effexor Xr -) 150 mg PO DAILY [facility] Last Admin: 03/19/19 10:08 Dose: 150 mg - Objective Vital Signs: Vital Signs Temperature 99 F 03/19/19 13:07 Pulse Rate 82 03/19/19 13:07 Respiratory Rate 20 03/19/19 13:07 Blood Pressure 140/70 03/19/19 13:07 O2 Sat by Pulse Oximetry (%) 95 03/19/19 09:00 Constitutional: Yes: Calm Eyes: Yes: Conjunctiva Clear HENT: Yes: Atraumatic Neck: Yes: Supple Cardiovascular: Yes: S1, S2 Respiratory: Yes: CTA Bilaterally Gastrointestinal: Yes: Normal Bowel Sounds, Soft Genitourinary: Yes: WNL Musculoskeletal: Yes: WNL Edema: Yes Edema: LLE: 1+, RLE: 1+ Integumentary: Yes: Erythema Neurological: Yes: Oriented Psychiatric: Yes: Oriented Labs: CBC, BMP 03/19/19 05:58 03/19/19 05:58 INR, PTT INR 1.39 (0.83-1.09) H 03/17/19 10:45 Problem List - Problems (1) Cellulitis Code(s): L03.90 - CELLULITIS, UNSPECIFIED (2) Leukocytosis Code(s): D72.829 - ELEVATED WHITE BLOOD CELL COUNT, UNSPECIFIED (3) Anemia Code(s): D64.9 - ANEMIA, UNSPECIFIED Qualifiers: Anemia type: bone marrow failure Bone marrow failure anemia type: unspecified bone marrow failure Qualified Code(s): D61.9 - Aplastic anemia, unspecified (4) CKD (chronic kidney disease) stage 3, GFR 30-59 ml/min Code(s): N18.3 - CHRONIC KIDNEY DISEASE, STAGE 3 (MODERATE) Assessment/Plan Current Medications Generic Name Dose Route Start Last Admin Trade Name Freq PRN Reason Stop Dose Admin Furosemide 100 mg 03/19/19 14:00 Lasix Injection - IVPUSH BIDLASIX [facility]I Cefazolin Sodium/Dextrose 2 gm in 50 mls @ 100 mls/hr 03/18/19 18:00 10:08 Ancef 2 Gm Premixed Ivpb - IVPB 100 mls/hr Q8H-IV [facility] Administration Metoprolol Succinate 25 mg 03/18/19 10:00 03/19/19 10:09 Toprol Xl - PO 25 mg DAILY [facility] Administration Mirtazapine 30 mg 03/17/19 22:00 03/18/19 21:02 Remeron - PO 30 mg HS [facility] Administration Multi-Ingredient Lotion 1 applic 03/18/19 12:15 03/19/19 10:09 Eucerin (Small Jar) - TP 1 applic BID [facility] Administration Patient's Own Med ( 15 mg 03/19/19 22:00 Ruxolitinib PO Phosphate [Jakafi] BID [facility] 15 Mg) Spironolactone 25 mg 03/18/19 10:00 03/19/19 10:02 Aldactone - PO 25 mg DAILY [facility] Administration Tolnaftate 1 applic 03/18/19 22:00 03/19/19 10:09 Tinactin 1% Powder - TP 1 applic BID [facility] Administration Venlafaxine HCl 150 mg 03/18/19 10:00 03/19/19 10:08 Effexor Xr - PO 150 mg DAILY [facility] Administration Impression 1. CKD 2. HTN 3. myelofibrosis 4. fluid overload 5. cellulitis 6. atrophic left kidney 7. anemia 8. hyponatremia Plan - cont lasix - discussed with cardio - sodium improving - hypervolemic hyponatremia - monitor renal function - abx for cellulitis
[2019-03-19] MEDS: FUROSEMIDE 100 MG/10 ML INJECTABLE VIAL IVPUSH SCH (16:12)
--- NOTE | 2019-03-19 16:48 | PN ---
Progress Note (short form) - Note Progress Note: feet starting to improve Vital Signs Period Temp Pulse Resp BP Sys/Rodriguez Pulse Ox Last 24 Hr 97.7 F-99 F 78-85 18-20 129-140/60-74 95-95 cor-rrr lungs clear ext trace edema, less erythema of the legs CBC, BMP 03/19/19 05:58 03/19/19 05:58 Microbiology 03/18/19 12:25 Blood - Peripheral Venous Blood Culture - Preliminary NO GROWTH OBTAINED AFTER 24 HOURS, INCUBATION TO CONTINUE FOR 4 DAYS. 03/18/19 12:35 Blood - Peripheral Venous Blood Culture - Preliminary NO GROWTH OBTAINED AFTER 24 HOURS, INCUBATION TO CONTINUE FOR 4 DAYS. 03/17/19 10:45 Urine - Urine Clean Catch Urine Culture - Final NO GROWTH OBTAINED a/p bilateral cellulitis (recurrent) nonpurulent mild dchf anemia history of mylefibrosis on Jakafi history of CKD history of liver disease suggest continue cefazolin 2 g ivpb q 8h will need longer oral course at follow up will add tinactin powder blood cultures
[2019-03-19] MEDS: RUXOLITINIB PHOSPHATE 15 MG PO SCH (20:16)
[2019-03-19 20:34] LABS: EOS % 3.1 % (0-4.5); HEMATOCRIT 23.1 % (35.4-49); HEMOGLOBIN 7.9 GM/dL (11.7-16.9); LYMPH % 2.1 % (8-40); MCH 36.3 pg (25.7-33.7); MCHC 34.3 g/dl (32.0-35.9); MEAN CELL VOLUME 105.9 fl (80-96); MONO % 7.5 % (3.8-10.2); NEUT % 86.3 % (42.8-82.8); PLATELET COUNT 119 K/MM3 (134-434); RBC 2.18 M/mm3 (4.00-5.60); RDW 27.9 % (11.9-15.9); WHITE BLOOD COUNT 24.4 K/mm3 (4.0-10.0)
[2019-03-19] MEDS ORDERED: MIRTAZAPINE 15 MG TABLET (FP) ONE (21:14)
[2019-03-19 21:28] LABS: ANISOCYTOSIS 2+; MACROCYTOSIS 1+; PLATELET ESTIMATE DECREASED
[2019-03-19] MEDS: MIRTAZAPINE 30 MG TABLET (FP) PO SCH (21:29)
[2019-03-20] MEDS: CEFAZOLIN 2 GM/D5W 2 GM/50 ML ML IVPB SCH ×3 (03:42→17:21)
[2019-03-20] MEDS: FUROSEMIDE 100 MG/10 ML INJECTABLE VIAL IVPUSH SCH ×2 (05:11→13:51)
[2019-03-20 06:33] LABS: BASO % 1.5 % (0-2.0); EOS % 2.2 % (0-4.5); HEMATOCRIT 23.2 % (35.4-49); LYMPH % 2.8 % (8-40); MCH 36.2 pg (25.7-33.7); MCHC 34.6 g/dl (32.0-35.9); MEAN CELL VOLUME 104.7 fl (80-96); MONO % 7.3 % (3.8-10.2); NEUT % 86.2 % (42.8-82.8); PLATELET COUNT 117 K/MM3 (134-434); RBC 2.22 M/mm3 (4.00-5.60); RDW 27.6 % (11.9-15.9); WHITE BLOOD COUNT 25.6 K/mm3 (4.0-10.0)
[2019-03-20 06:56] LABS: BLOOD UREA NITROGEN 36.1 mg/dL (7-18); CALCIUM 8.8 mg/dL (8.5-10.1); CREATININE 1.8 mg/dL (0.55-1.3)
[2019-03-20] MEDS: RUXOLITINIB PHOSPHATE 15 MG PO SCH ×2 (08:04→20:03)
[2019-03-20] MEDS ORDERED: PT OWN MED DRAWER 7, Y5N ONE (09:55)
[2019-03-20] MEDS: metoPROLOL SUCCINATE 25 MG TAB.SR.24H (FP) PO SCH (10:03)
[2019-03-20] MEDS: SPIRONOLACTONE 25 MG TABLET (FP) PO SCH (10:03)
[2019-03-20] MEDS: VENLAFAXINE HCL 150 MG E.R. CAPSULE PO SCH (10:04)
[2019-03-20] MEDS: TOLNAFTATE 1% POWDER 45 GM POW TP SCH ×2 (10:07→22:11)
[2019-03-20] MEDS: MINERAL OIL/PETROLAT/WATER TOPICAL CREAM 113 GM JAR TP SCH ×2 (10:08→22:11)
--- NOTE | 2019-03-20 10:21 | PN ---
Progress Note (short form) - Note Progress Note: feet starting to improve still some erythema of his lower abdomen Vital Signs Period Temp Pulse Resp BP Sys/Rodriguez Pulse Ox Last 24 Hr 98.1 F-99 F 73-83 20-20 106-143/66-78 95 cor-rrr lungs clear abd soft,nt lower abdomen erythema improved both legs bright red patches, some improvement of the feet CBC, BMP 03/20/19 06:10 03/20/19 06:10 Microbiology 03/18/19 12:25 Blood - Peripheral Venous Blood Culture - Preliminary NO GROWTH OBTAINED AFTER 24 HOURS, INCUBATION TO CONTINUE FOR 4 DAYS. 03/18/19 12:35 Blood - Peripheral Venous Blood Culture - Preliminary NO GROWTH OBTAINED AFTER 24 HOURS, INCUBATION TO CONTINUE FOR 4 DAYS. 03/17/19 10:45 Urine - Urine Clean Catch Urine Culture - Final NO GROWTH OBTAINED a/p bilateral cellulitis (recurrent) nonpurulent- ?vasculitis, ?paraneoplastic process, is this connected to his mylofibrosis, check hep c, ?skin biopsy if he fails to improve mild dchf anemia history of mylefibrosis on Jakafi history of CKD history of liver disease chronic leukocytosis suggest continue cefazolin 2 g ivpb q 8h will need longer oral course at follow up will add tinactin powder blood cultures -negative to date
--- NOTE | 2019-03-20 11:34 | PN ---
Progress Note, Physician History of Present Illness: Pt seen and examined at bedside. He is awake and alert. he feels that his edema is improving. - Current Medication List Current Medications: Active Medications Furosemide (Lasix Injection -) 100 mg IVPUSH BIDLASIX [facility] Last Admin: 03/20/19 05:11 Dose: 100 mg Cefazolin Sodium/Dextrose (Ancef 2 Gm Premixed Ivpb -) 2 gm in 50 mls @ 100 mls /hr IVPB Q8H-IV [facility] Last Admin: 03/20/19 10:03 Dose: 100 mls/hr Metoprolol Succinate (Toprol Xl -) 25 mg PO DAILY [facility] Last Admin: 03/20/19 10:03 Dose: 25 mg Mirtazapine (Remeron -) 30 mg PO HS [facility] Last Admin: 03/19/19 21:29 Dose: 30 mg Multi-Ingredient Lotion (Eucerin (Small Jar) -) 1 applic TP BID [facility] Last Admin: 03/20/19 10:08 Dose: 1 applic Patient's Own Med ( Ruxolitinib Phosphate [Jakafi] 15 Mg) 15 mg PO BID@0800, 2000 [facility] Last Admin: 03/20/19 08:04 Dose: 15 mg Spironolactone (Aldactone -) 25 mg PO DAILY [facility] Last Admin: 03/20/19 10:03 Dose: 25 mg Tolnaftate (Tinactin 1% Powder -) 1 applic TP BID [facility] Last Admin: 03/20/19 10:07 Dose: 1 applic Venlafaxine HCl (Effexor Xr -) 150 mg PO DAILY [facility] Last Admin: 03/20/19 10:04 Dose: 150 mg - Objective Vital Signs: Vital Signs Temperature 98.3 F 03/20/19 05:16 Pulse Rate 73 03/20/19 05:16 Respiratory Rate 20 03/20/19 05:16 Blood Pressure 121/66 03/20/19 05:16 O2 Sat by Pulse Oximetry (%) 95 03/19/19 21:00 Constitutional: Yes: Calm Eyes: Yes: Conjunctiva Clear HENT: Yes: Atraumatic Neck: Yes: Supple Cardiovascular: Yes: S1, S2 Respiratory: Yes: CTA Bilaterally Gastrointestinal: Yes: Soft Genitourinary: Yes: WNL Musculoskeletal: Yes: WNL Edema: Yes Edema: LLE: 1+, RLE: 1+ Integumentary: Yes: Erythema Neurological: Yes: Oriented Psychiatric: Yes: Oriented Labs: CBC, BMP 03/20/19 06:10 03/20/19 06:10 INR, PTT INR 1.39 (0.83-1.09) H 03/17/19 10:45 Problem List - Problems (1) Cellulitis Code(s): L03.90 - CELLULITIS, UNSPECIFIED (2) Leukocytosis Code(s): D72.829 - ELEVATED WHITE BLOOD CELL COUNT, UNSPECIFIED (3) Anemia Code(s): D64.9 - ANEMIA, UNSPECIFIED Qualifiers: Anemia type: bone marrow failure Bone marrow failure anemia type: unspecified bone marrow failure Qualified Code(s): D61.9 - Aplastic anemia, unspecified (4) CKD (chronic kidney disease) stage 3, GFR 30-59 ml/min Code(s): N18.3 - CHRONIC KIDNEY DISEASE, STAGE 3 (MODERATE) Assessment/Plan Current Medications Generic Name Dose Route Start Last Admin Trade Name Trudy PRN Reason Stop Dose Admin Furosemide 100 mg 03/19/19 14:00 03/20/19 05:11 Lasix Injection - IVPUSH 100 mg BIDLASIX TERI Administration Cefazolin Sodium/Dextrose 2 gm in 50 mls @ 100 mls/hr 03/18/19 18:00 10:03 Ancef 2 Gm Premixed Ivpb - IVPB 100 mls/hr Q8H-IV TERI Administration Metoprolol Succinate 25 mg 03/18/19 10:00 03/20/19 10:03 Toprol Xl - PO 25 mg DAILY TERI Administration Mirtazapine 30 mg 03/17/19 22:00 03/19/19 21:29 Remeron - PO 30 mg HS TERI Administration Multi-Ingredient Lotion 1 applic 03/18/19 12:15 03/20/19 10:08 Eucerin (Small Jar) - TP 1 applic BID TERI Administration Patient's Own Med ( 15 mg 03/19/19 20:00 03/20/19 08:04 Ruxolitinib PO 15 mg Phosphate [Jakafi] BID@0800,2000 TERI Administration 15 Mg) Spironolactone 25 mg 03/18/19 10:00 03/20/19 10:03 Aldactone - PO 25 mg DAILY TERI Administration Tolnaftate 1 applic 03/18/19 22:00 03/20/19 10:07 Tinactin 1% Powder - TP 1 applic BID TERI Administration Venlafaxine HCl 150 mg 03/18/19 10:00 03/20/19 10:04 Effexor Xr - PO 150 mg DAILY TERI Administration Impression 1. CKD 2. HTN 3. myelofibrosis 4. fluid overload 5. cellulitis 6. atrophic left kidney 7. anemia 8. hyponatremia Plan - cont with diuretics - repeat labs in am - sodium improving - renal function improving - volume status is improving
[2019-03-20 11:36] LABS: ANISOCYTOSIS 1+; MACROCYTOSIS 0; PLATELET ESTIMATE DECREASED; ROULEAU 3+
--- NOTE | 2019-03-20 11:56 | PN ---
Progress Note (short form) - Note Progress Note: Hospitalist Medicine Feeling well, in good spirits. Improved LE edema and erythema, however improving slowly Vitals 03/20/19 05:16 Temperature 98.3 F Pulse Rate 73 Respiratory 20 Rate Blood Pressure 121/66 Physical Exam general: resting in bed, in NAD HEENT: NCAT, PERRLA. neck: without JVD. supple cardio: S1, S2, RRR. no r/m/g pulm: decreased breath sounds. no accessory m usage abdomen: obese, nondistended, nontender. +petechial rash superior to groin LE: 1+ pitting edema b/l. +erythema to L stahl, R ankle. receding near arch of foot. warm to touch, diffusely ttp receding per pt Laboratory Tests 03/20/19 03/20/19 06:10 06:10 WBC 25.6 H Hgb 8.0 L Hct 23.2 L Plt Count 117 L Basophils % (Manual) 6.1 H* D Sodium 134 L Potassium 4.0 Chloride 98 Carbon Dioxide 25 BUN 36.1 H Creatinine 1.8 H Random Glucose 106 Microbiology Microbiology 03/17/19 10:45 Urine - Urine Clean Catch Urine Culture - Final NO GROWTH OBTAINED 03/18/19 12:35 Blood - Peripheral Venous Blood Culture - Preliminary NO GROWTH OBTAINED AFTER 24 HOURS, INCUBATION TO CONTINUE FOR 4 DAYS. 03/18/19 12:25 Blood - Peripheral Venous Blood Culture - Preliminary NO GROWTH OBTAINED AFTER 24 HOURS, INCUBATION TO CONTINUE FOR 4 DAYS. Imaging 03/17/19: CXR: no acute chest pathology 03/18/19: Duplex LE: (-) for DVT. +R popliteal fossa cyst 03/18/19: Art duplex LE: decreased flow bilaterally; decreased monophasic flow in mid and distal thirds of L superficial femoral a. as well as within the popliteal and posterior tibial aa. there is somewhat decreased biphasic flow in the common femoral artery and upper third of the superficial femoral a. 03/19/19: CXR: prominent mediastinum, some congestive changes and sharp angles. Assessment/Plan 73 year old male with history of Chronic diastolic CHF, CKD , COPD, HTN, Myelofibrosis, Anemia, recurrent LE cellulitis, h/o ETOH abuse, hepatosplenomegaly admitted with acute hypoxemic respiratory failure, acute on chronic exacerbation of diastolic CHF, and bilateral lower extremity cellulitis. #?Recurrent cellulitis LE #R/o vasculitis, cryo, ?autoimmune vasculitis #R/o drug rash #2/2 ?PAD -on cefazolin (03/18), improvement in erythema -per ID, will need longer oral course when d/c -tinactin powder added -f/u ANCA, DORIAN, CH50 (c3, c4 not avail as inpt order), hep serologies d/t clinical presentation, rashes , slow improvement -f/u Derm recs, may need biopsy -f/u ucx, blood cx. -art duplex and LE duplex noted above -ID: Dr. Rinaldi -Derm: Dr. Bagley #Acute on Chronic Diastolic CHF #pulm HTN -lasix dose increased to 100mg IVP BID -per cardio, would try torsemide 50-100 bid on discharge, given failed lasix 80 po bid as outpatient -has LV diastolic dysfnc -weights/ low na/ i/o -outpt sleep study on d/c -f/u CT chest -Cardio: Dr. Payne -Pulm: Dr. Puentes #EMEKA on CKD - improving -f/u repeat Cr in AM -per urine studies, fena ?post-renal/ obstructive however will need to calc FEurea as pt on diuretics -Nephro: Dr. Daley #HTN - controlled -c/w metoprolol and spironolactone #Myelofibrosis -restarted on home Jakafi -b12, folate WNL -received 1U PRBC during admission, responded well -heme/onc : Dr. Bergeron #PAD -as seen on art duplex -will need outpt vascular f/u #Psych/Depression Continue Remeron and Venlafaxine. #Acute on chronic hyponatremia, hypervolemic -resolved #PPX DVT: SCD's #F/E/N avoid IVF as w/ CHF continue to follow lytes na controlled diet #Dispo monitoring on med-surg will need outpt sleep study on d/c as w/ pulm HTN pre and post on d/c needs outpt vascular f/u per cardio, would try torsemide 50-100 bid on discharge, given failed lasix 80 po bid as outpatient
--- NOTE | 2019-03-20 11:57 | PN ---
Progress Note (short form) - Note Progress Note: s: sob better. no chest pain, palps, dizziness, dyspnea Current Medications Furosemide (Lasix Injection -) 100 mg IVPUSH BIDLASIX [facility] Last Admin: 03/20/19 05:11 Dose: 100 mg Cefazolin Sodium/Dextrose (Ancef 2 Gm Premixed Ivpb -) 2 gm in 50 mls @ 100 mls /hr IVPB Q8H-IV [facility] Last Admin: 03/20/19 10:03 Dose: 100 mls/hr Metoprolol Succinate (Toprol Xl -) 25 mg PO DAILY [facility] Last Admin: 03/20/19 10:03 Dose: 25 mg Mirtazapine (Remeron -) 30 mg PO HS [facility] Last Admin: 03/19/19 21:29 Dose: 30 mg Multi-Ingredient Lotion (Eucerin (Small Jar) -) 1 applic TP BID [facility] Last Admin: 03/20/19 10:08 Dose: 1 applic Patient's Own Med ( Ruxolitinib Phosphate [Jakafi] 15 Mg) 15 mg PO BID@0800, 2000 [facility] Last Admin: 03/20/19 08:04 Dose: 15 mg Spironolactone (Aldactone -) 25 mg PO DAILY [facility] Last Admin: 03/20/19 10:03 Dose: 25 mg Tolnaftate (Tinactin 1% Powder -) 1 applic TP BID [facility] Last Admin: 03/20/19 10:07 Dose: 1 applic Venlafaxine HCl (Effexor Xr -) 150 mg PO DAILY [facility] Last Admin: 03/20/19 10:04 Dose: 150 mg Vital Signs Period Temp Pulse Resp BP Sys/Rodriguez Pulse Ox Last 24 Hr 98.1 F-99 F 73-83 20-20 106-143/66-78 95 Constitutional: Yes: Well Nourished, No Distress Eyes: No: Sclera Icterus HENT: No: Nasal Congestion Neck: No: Decreased ROM Respiratory: Yes: CTA Bilaterally. No: Accessory Muscle Use, Rales, Wheezes Gastrointestinal: Yes: Normal Bowel Sounds. No: Distention, Hepatomegaly, Palpable Mass, Tenderness Cardiovascular: Yes: Regular Rate and Rhythm JVD: Yes Carotid Bruit: No PMI: Non-Displaced Heart Sounds: Yes: S1, S2. No: Gallop Murmur: No: Systolic Murmur, Diastolic Murmur Musculoskeletal: Yes: Other (No kyphosis) Extremities: No: Cool, Cyanosis Edema: Yes (1+ L pretib, trace R) Peripheral Pulses: 2+ Left Carotid, 2+ Right Carotid, 2+ Left Doralis Pedis, 2+ Right Dorsalis Pedis Integumentary: No: Jaundice Neurological: Yes: Alert, Oriented (x3) Psychiatric: No: Agitated Assessment/Plan echo 02/2019 n LV function, grade II diastolic dysfunction, RV systolic function mild to mod reduced, LA mildly dilated, RA mod dilated, mild to mod MR , mild to mod TR, PASP at least 52 mmHg CXR: clear lungs/pleura (hyperaerated) ECG: NSR, normal axis. no path q's. NSTWA--no change vs 02/19 tele: sinus Acute on chronic diastolic heart failure, leg swelling/cellulitis, pulm HTN - prior echo here with evidence of LV diast dysfunction/hi LA pressure, likely causing (WHO 2) pulm HTN - admitted with chf decomp 02/19, no accurate weight information then. was 206- 208 during 06/19 admit - was on lasix 40 po bid-->transitioned to 80 iv bid as inpatient, discharged on 80 po bid, confirms good compliance with meds. - rx'd spironolactone then as well - inc lasix to 100 mg IV BID 03/19 - Cr improving, wt down - continue IV lasix - would try torsemide 50-100 bid on discharge, given failed lasix 80 po bid as outpatient - consider outpt sleep study, assessment for ambulatory/nocturnal hypoxia ( given pulm HTN severity) - tx of cellulitis per primary hypervolemic hyponatremia: - sec to decomp chf - cont spirono (doubt contributing) - observe SNa trend with diuresis - improving myelofibrosis with anemia - baseline hgb runs 6's-8s, stable here - per primary - s/p PRBC transfusion per primary HTN - bp controlled - cont current meds CKD - baseline creat 1.6-1.8 - slightly above baseline at present, observe trend COPD: - no sx's at present
--- NOTE | 2019-03-20 12:25 | PN ---
Progress Note (short form) - Note Progress Note: PULMONARY CONSULTATION DICTATED IMP DYSPNEA ACUTE ON DIASTOLIC HF PULMONARY HTN FLUID OVERLOAD COPD MYELOFIBROSIS CELLULITIS CKD TOBACCO ABUSE PLAN DIURETICS O2 ABX INHALED BRONCHODILATORS MONITOR LYTES,RENAL FUNCTION,H+H NORMAL TRANSFUSION THRESHOLD SLEEP SCREEN CHEST CT DAILY WTS PFTS OUTPATIENT AMBULATORY O2 SAT ON RA DR TRAN Problem List - Problems (1) Pulmonary HTN Code(s): I27.20 - PULMONARY HYPERTENSION, UNSPECIFIED (2) Cellulitis Code(s): L03.90 - CELLULITIS, UNSPECIFIED (3) Anemia Code(s): D64.9 - ANEMIA, UNSPECIFIED Qualifiers: Anemia type: bone marrow failure Bone marrow failure anemia type: unspecified bone marrow failure Qualified Code(s): D61.9 - Aplastic anemia, unspecified (4) CKD (chronic kidney disease) stage 3, GFR 30-59 ml/min Code(s): N18.3 - CHRONIC KIDNEY DISEASE, STAGE 3 (MODERATE) (5) COPD (chronic obstructive pulmonary disease) Code(s): J44.9 - CHRONIC OBSTRUCTIVE PULMONARY DISEASE, UNSPECIFIED (6) Hypertension Code(s): I10 - ESSENTIAL (PRIMARY) HYPERTENSION Qualifiers: Hypertension type: unspecified Qualified Code(s): I10 - Essential (primary ) hypertension (7) Myelofibrosis Code(s): D75.81 - MYELOFIBROSIS (8) Acute on chronic diastolic HF (heart failure) Code(s): I50.33 - ACUTE ON CHRONIC DIASTOLIC (CONGESTIVE) HEART FAILURE
--- NOTE | 2019-03-20 13:46 | CONS ---
PULMONARY CONSULTATION DATE OF CONSULTATION: 03/20/2019 REFERRING PHYSICIAN: Norm Casarez MD HISTORY OF PRESENT ILLNESS: Patient is a 74-year-old male with past medical history of myelofibrosis, hypertension, chronic kidney disease, COPD, congestive heart failure, diastolic. Cellulitis; initially in January, was hospitalized at [facility] for 3 days. Treated with antibiotics. He was discharged home on antibiotics. Had recurrence again in February. Treated with antibiotics and recurred. As well as cirrhosis, history of left hip replacement. Long-standing history of tobacco use, currently 1 pack per day for many years, currently still smoking. Admitted to [facility] on March 17, secondary to increasing lower extremity swelling, erythema, and tenderness, left greater than right. Patient denied any complaints of fevers or chills. Patient was admitted with acute cellulitis. The patient was also noted to have increasing shortness of breath and dyspnea on exertion. He was placed on antibiotics, as well as diuretics with good clinical response. Patient denies any chest pain, hemoptysis. Denies chronic cough. He states that he complains of shortness of breath with exertion chronically. He denies any orthopnea or PND. On current hospitalization, he was also evaluated by Dr. Garcias who felt that the patient had acute on chronic diastolic heart failure. He also underwent an echo, which revealed moderate pulmonary hypertension with a left ventricular systolic pressure around 50. PAST MEDICAL HISTORY: Again, includes diastolic heart failure, COPD, chronic kidney disease, hypertension, myelofibrosis, and anemia. REVIEW OF SYSTEMS: No orthopnea. No PND. No chest pain. No palpitations. Positive dyspnea on exertion. No abdominal pain. Positive lower extremity edema and erythema. CURRENT MEDICATIONS: Include Jakafi, cefazolin, Remeron, Effexor, Tinactin, Eucerin, Toprol, Lasix IV push b.i.d. 100 mg, and Aldactone. PHYSICAL EXAMINATION: General: Patient is a well-developed, well-nourished male, awake, alert, in no acute distress. Vital Signs: He is currently afebrile, blood pressure 121/66, respiratory rate is 20, O2 saturation is 95% on room air. HEENT: Exam is normocephalic, atraumatic. Neck: Supple. Heart: Regular S1 and S2. Chest: A few bibasilar crackles. Abdomen: Soft. Bowel sounds are positive. Extremities: Bilateral lower extremity erythema and edema, left greater than right. LABORATORIES: WBC is 25.6, hemoglobin 8, hematocrit 23.2 status post transfusion of 1 unit of packed red blood cells. INR is 1.39. BUN 36, creatinine 1.8. Chest x-ray: Prominent mediastinum with mild congestion. IMPRESSION: 1. Dyspnea, secondary to acute on chronic diastolic heart failure. 2. Lulhuvdi-wc-lvfljh pulmonary hypertension. 3. Fluid overload. 4. Chronic obstructive pulmonary disease. Currently not in exacerbation. 5. Myelofibrosis. 6. Anemia. Status post transfusion. 7. Cellulitis, bilateral. 8. Chronic kidney disease. 9. Tobacco abuse. PLAN: Diuretics. Supplemental O2. Antibiotics. Inhaled bronchodilators. Monitor electrolytes, renal function, hemoglobin and hematocrit. Normal transfusion threshold. Also, consider sleep screen, as well as CT scan of the chest to rule out underlying pulmonary nodules, in view of long-standing history of tobacco use. Daily weights. Outpatient pulmonary function tests. GIOVANNA TRAN M.D. [id number]
[2019-03-20] MEDS ORDERED: MIRTAZAPINE 15 MG TABLET (FP) ONE (22:05)
[2019-03-20] MEDS: MIRTAZAPINE 30 MG TABLET (FP) PO SCH (22:09)
[2019-03-21] MEDS: CEFAZOLIN 2 GM/D5W 2 GM/50 ML ML IVPB SCH ×3 (01:05→17:04)
[2019-03-21] MEDS: FUROSEMIDE 100 MG/10 ML INJECTABLE VIAL IVPUSH SCH (05:27)
[2019-03-21 07:09] LABS: BASO % 0.9 % (0-2.0); EOS % 1.9 % (0-4.5); HEMATOCRIT 22.7 % (35.4-49); LYMPH % 3.5 % (8-40); MCH 37.1 pg (25.7-33.7); MCHC 35.3 g/dl (32.0-35.9); MEAN CELL VOLUME 105.1 fl (80-96); MONO % 7.4 % (3.8-10.2); NEUT % 86.3 % (42.8-82.8); PLATELET COUNT 126 K/MM3 (134-434); RBC 2.16 M/mm3 (4.00-5.60); RDW 27.9 % (11.9-15.9); WHITE BLOOD COUNT 24.7 K/mm3 (4.0-10.0)
[2019-03-21 07:35] LABS: BLOOD UREA NITROGEN 36.6 mg/dL (7-18); CALCIUM 8.7 mg/dL (8.5-10.1); CREATININE 1.8 mg/dL (0.55-1.3); POTASSIUM 3.9 mmol/L (3.5-5.1)
[2019-03-21] MEDS: RUXOLITINIB PHOSPHATE 15 MG PO SCH (08:24)
[2019-03-21] MEDS ORDERED: PT OWN MED DRAWER 7, Y5N ONE ×2 (09:05→11:14)
[2019-03-21 09:23] LABS: ANISOCYTOSIS 1+; MACROCYTOSIS 0; PLATELET ESTIMATE NORMAL; ROULEAU 0; TEAR DROP CELLS 1+
--- NOTE | 2019-03-21 10:54 | PN ---
Progress Note (short form) - Note Progress Note: Hospitalist Medicine Resting comfortably. LLE erythema improved significantly. No complaints Vitals 03/21/19 10:00 Temperature 98 F Pulse Rate 76 Respiratory 18 Rate Blood Pressure 132/69 Physical Exam general: resting in bed, in NAD HEENT: NCAT, PERRLA. neck: without JVD. supple cardio: S1, S2, RRR. no r/m/g pulm: decreased breath sounds. no accessory m usage abdomen: obese, nondistended, nontender. +petechial rash superior to groin LE: 1+ pitting edema b/l. +LLE: with significant improved erythema Laboratory Tests 03/21/19 03/21/19 06:10 06:10 WBC 24.7 H Hgb 8.0 L Hct 22.7 L Plt Count 126 L Sodium 133 L Potassium 3.9 Chloride 99 Carbon Dioxide 26 BUN 36.6 H Creatinine 1.8 H Random Glucose 110 H Microbiology 03/17/19 10:45 Urine - Urine Clean Catch Urine Culture - Final NO GROWTH OBTAINED 03/18/19 12:35 Blood - Peripheral Venous Blood Culture - Preliminary NO GROWTH OBTAINED AFTER 48 HOURS, INCUBATION TO CONTINUE FOR 3 DAYS. 03/18/19 12:25 Blood - Peripheral Venous Blood Culture - Preliminary NO GROWTH OBTAINED AFTER 48 HOURS, INCUBATION TO CONTINUE FOR 3 DAYS. Imaging 03/17/19: CXR: no acute chest pathology 03/18/19: Duplex LE: (-) for DVT. +R popliteal fossa cyst 03/18/19: Art duplex LE: decreased flow bilaterally; decreased monophasic flow in mid and distal thirds of L superficial femoral a. as well as within the popliteal and posterior tibial aa. there is somewhat decreased biphasic flow in the common femoral artery and upper third of the superficial femoral a. 03/19/19: CXR: prominent mediastinum, some congestive changes and sharp angles. 03/20/19: Chest CT: moderate centrilobular emphysema mainly in the upper lobes. no gross per minute nodules or focal infiltrates identified. Recent likely healing fractures in the posterior arch of the L 8th, 9th rib. Multiple borderline paratracheal and precarinal lymph nodes measuring up to 10mm in their shortest axis. mild cardiomegaly. enlarged spleen 21.9cm in AP dimension. multiple bilateral aortic almost borderline lymph nodes. Assessment/Plan 73 year old male with history of Chronic diastolic CHF, CKD , COPD, HTN, Myelofibrosis, Anemia, recurrent LE cellulitis, h/o ETOH abuse, hepatosplenomegaly admitted with acute hypoxemic respiratory failure, acute on chronic exacerbation of diastolic CHF, and bilateral lower extremity cellulitis. #?Recurrent cellulitis LE #R/o vasculitis, cryo, ?autoimmune vasculitis #R/o drug rash #2/2 ?PAD -on cefazolin (03/18), significant improvement in erythema -per ID, will need longer oral course when d/c -tinactin powder added -f/u ANCA, DORIAN, CH50 (c3, c4 not avail as inpt order), hep serologies (-) thus far -f/u Derm recs, may need biopsy -f/u ucx, blood cx- NGTD -art duplex and LE duplex noted above -ID: Dr. Rinaldi -Derm: Dr. Bagley #Acute on Chronic Diastolic CHF #pulm HTN -changed from lasix to torsemide 50mg PO BID -has LV diastolic dysfnc -weights/ low na/ i/o -outpt sleep study on d/c -Cardio: Dr. Payne -Pulm: Dr. Puentes #EMEKA on CKD - improving -Nephro: Dr. Daley; will f/u as outpt #HTN - controlled -c/w metoprolol and spironolactone #Myelofibrosis -on home Jakafi -b12, folate WNL -received 1U PRBC during admission, responded well -heme/onc : Dr. Bergeron #PAD -will need outpt vascular f/u #Psych/Depression Continue Remeron and Venlafaxine. #Acute on chronic hyponatremia, hypervolemic -resolved #PPX DVT: SCD's #F/E/N avoid IVF as w/ CHF continue to follow lytes na controlled diet #Dispo monitoring on med-surg will need outpt sleep study on d/c as w/ pulm HTN pre and post, PFTs on d/c needs outpt vascular, nepho f/u
[2019-03-21] MEDS: SPIRONOLACTONE 25 MG TABLET (FP) PO SCH (11:15)
[2019-03-21] MEDS: VENLAFAXINE HCL 150 MG E.R. CAPSULE PO SCH (11:15)
[2019-03-21] MEDS: TOLNAFTATE 1% POWDER 45 GM POW TP SCH (11:15)
--- NOTE | 2019-03-21 11:16 | PN ---
Progress Note (short form) - Note Progress Note: s: sob better. no chest pain, palps, dizziness, dyspnea. feels at baseline, asking to go home Current Medications Generic Name Dose Route Start Last Admin Trade Name Trudy PRN Reason Stop Dose Admin Furosemide 100 mg 03/19/19 14:00 03/21/19 05:27 Lasix Injection - IVPUSH 100 mg BIDLASIX TERI Administration Cefazolin Sodium/Dextrose 2 gm in 50 mls @ 100 mls/hr 03/18/19 18:00 10:06 Ancef 2 Gm Premixed Ivpb - IVPB 100 mls/hr Q8H-IV TERI Administration Metoprolol Succinate 25 mg 03/18/19 10:00 03/20/19 10:03 Toprol Xl - PO 25 mg DAILY TERI Administration Mirtazapine 30 mg 03/17/19 22:00 03/20/19 22:09 Remeron - PO 30 mg HS TERI Administration Multi-Ingredient Lotion 1 applic 03/18/19 12:15 03/20/19 22:11 Eucerin (Small Jar) - TP 1 applic BID TERI Administration Patient's Own Med ( 15 mg 03/19/19 20:00 03/21/19 08:24 Ruxolitinib PO 15 mg Phosphate [Jakafi] BID@0800,2000 TERI Administration 15 Mg) Spironolactone 25 mg 03/18/19 10:00 03/20/19 10:03 Aldactone - PO 25 mg DAILY TERI Administration Tolnaftate 1 applic 03/18/19 22:00 03/20/19 22:11 Tinactin 1% Powder - TP 1 applic BID TERI Administration Venlafaxine HCl 150 mg 03/18/19 10:00 03/20/19 10:04 Effexor Xr - PO 150 mg DAILY TERI Administration Vital Signs Period Temp Pulse Resp BP Sys/Rodriguez Pulse Ox Last 24 Hr 97.8 F-99.1 F 70-82 18-20 107-151/62-79 99 Constitutional: Yes: Well Nourished, No Distress Eyes: No: Sclera Icterus HENT: No: Nasal Congestion Neck: No: Decreased ROM Respiratory: Yes: CTA Bilaterally. No: Accessory Muscle Use, Rales, Wheezes Gastrointestinal: Yes: Normal Bowel Sounds. No: Distention, Hepatomegaly, Palpable Mass, Tenderness Cardiovascular: Yes: Regular Rate and Rhythm JVD: no Heart Sounds: Yes: S1, S2. No: Gallop Murmur: No: Systolic Murmur, Diastolic Murmur Musculoskeletal: Yes: Other (No kyphosis) Extremities: No: Cool, Cyanosis Edema: no Peripheral Pulses: 2+ Left Carotid, 2+ Right Carotid, 2+ Left Doralis Pedis, 2+ Right Dorsalis Pedis Integumentary: No: Jaundice Neurological: Yes: Alert, Oriented (x3) Psychiatric: No: Agitated CBC, BMP 03/21/19 06:10 03/21/19 06:10 Assessment/Plan echo 02/2019 n LV function, grade II diastolic dysfunction, RV systolic function mild to mod reduced, LA mildly dilated, RA mod dilated, mild to mod MR , mild to mod TR, PASP at least 52 mmHg CXR: clear lungs/pleura (hyperaerated) ECG: NSR, normal axis. no path q's. NSTWA--no change vs 02/19 tele: sinus, occ pvcs Acute on chronic diastolic heart failure, leg swelling/cellulitis, pulm HTN - prior echo here with evidence of LV diast dysfunction/hi LA pressure, likely causing (WHO 2) pulm HTN - admitted with chf decomp 02/19, no accurate weight information then. was 206- 208 during 06/19 admit - was on lasix 40 po bid-->transitioned to 80 iv bid as inpatient, discharged on 80 po bid, confirms good compliance with meds. - rx'd spironolactone then as well - inc lasix to 100 mg IV BID 03/19 - Cr improving, wt down - continue IV lasix - vol status improved, pt feels at baseline. Will change to po diuretic now. Will try torsemide 50 bid, given failed lasix 80 po bid as outpatient - consider outpt sleep study, assessment for ambulatory/nocturnal hypoxia ( given pulm HTN severity) - tx of cellulitis per primary hypervolemic hyponatremia: - sec to decomp chf - cont spirono (doubt contributing) myelofibrosis with anemia - baseline hgb runs 6's-8s, stable here - per primary - s/p PRBC transfusion per primary HTN - bp controlled - cont current meds CKD - baseline creat 1.6-1.8, stable here COPD: - no sx's at present
[2019-03-21] MEDS: metoPROLOL SUCCINATE 25 MG TAB.SR.24H (FP) PO SCH (11:17)
[2019-03-21] MEDS: MINERAL OIL/PETROLAT/WATER TOPICAL CREAM 113 GM JAR TP SCH (11:17)
--- NOTE | 2019-03-21 12:46 | PN ---
Progress Note (short form) - Note Progress Note: PULMONARY Denies shortness of breath, cough or chest pain. CT chest unremarkable. Vital Signs Period Temp Pulse Resp BP Sys/Rodriguez Pulse Ox Last 24 Hr 97.8 F-99.1 F 70-82 18-20 107-151/62-79 99 Gen: NAD at rest Heart: RRR Lung: decreased breath sounds at the bases Abd: soft, nontender Ext: no edema, +erythema CBC, BMP 03/21/19 06:10 03/21/19 06:10 Active Medications Cefazolin Sodium/Dextrose (Ancef 2 Gm Premixed Ivpb -) 2 gm in 50 mls @ 100 mls /hr IVPB Q8H-IV [facility] Last Admin: 03/21/19 10:06 Dose: 100 mls/hr Metoprolol Succinate (Toprol Xl -) 25 mg PO DAILY [facility] Last Admin: 03/21/19 11:17 Dose: 25 mg Mirtazapine (Remeron -) 30 mg PO HS [facility] Last Admin: 03/20/19 22:09 Dose: 30 mg Multi-Ingredient Lotion (Eucerin (Small Jar) -) 1 applic TP BID [facility] Last Admin: 03/21/19 11:17 Dose: 1 applic Patient's Own Med ( Ruxolitinib Phosphate [Jakafi] 15 Mg) 15 mg PO BID@0800, 2000 [facility] Last Admin: 03/21/19 08:24 Dose: 15 mg Spironolactone (Aldactone -) 25 mg PO DAILY [facility] Last Admin: 03/21/19 11:15 Dose: 25 mg Tolnaftate (Tinactin 1% Powder -) 1 applic TP BID [facility] Last Admin: 03/21/19 11:15 Dose: 1 applic Torsemide (Demadex -) 50 mg PO BIDLASIX [facility] Venlafaxine HCl (Effexor Xr -) 150 mg PO DAILY [facility] Last Admin: 03/21/19 11:15 Dose: 150 mg A/P Acute on Chronic Diastolic Heart Failure Pulmonary HTN Volume Overload COPD Cellulitis CKD Myelofibrosis Smoker - torsemide - monitor urine output, creatinine - antibiotics per ID - O2 to keep SpO2 >90% - DVT prophylaxis - outpt PFTs, NPSG
[2019-03-21] MEDS ORDERED: TORSEMIDE 20 MG TABLET (FP) PO SCH (14:00)
[2019-03-21 14:40] VITALS: TEMP 97.8
--- NOTE | 2019-03-21 15:38 | PN ---
Progress Note, Physician History of Present Illness: Pt seen and examined at bedside. He is awake and alert. He denies shortness of breath. He is asking to go home. - Current Medication List Current Medications: Active Medications Cefazolin Sodium/Dextrose (Ancef 2 Gm Premixed Ivpb -) 2 gm in 50 mls @ 100 mls /hr IVPB Q8H-IV [facility] Last Admin: 03/21/19 10:06 Dose: 100 mls/hr Metoprolol Succinate (Toprol Xl -) 25 mg PO DAILY [facility] Last Admin: 03/21/19 11:17 Dose: 25 mg Mirtazapine (Remeron -) 30 mg PO HS [facility] Last Admin: 03/20/19 22:09 Dose: 30 mg Multi-Ingredient Lotion (Eucerin (Small Jar) -) 1 applic TP BID [facility] Last Admin: 03/21/19 11:17 Dose: 1 applic Patient's Own Med ( Ruxolitinib Phosphate [Jakafi] 15 Mg) 15 mg PO BID@0800, 2000 [facility] Last Admin: 03/21/19 08:24 Dose: 15 mg Spironolactone (Aldactone -) 25 mg PO DAILY [facility] Last Admin: 03/21/19 11:15 Dose: 25 mg Tolnaftate (Tinactin 1% Powder -) 1 applic TP BID [facility] Last Admin: 03/21/19 11:15 Dose: 1 applic Torsemide (Demadex -) 50 mg PO BIDLASIX [facility] Last Admin: 03/21/19 13:59 Dose: 50 mg Venlafaxine HCl (Effexor Xr -) 150 mg PO DAILY [facility] Last Admin: 03/21/19 11:15 Dose: 150 mg - Objective Vital Signs: Vital Signs Temperature 97.8 F 03/21/19 14:00 Pulse Rate 72 03/21/19 14:00 Respiratory Rate 18 03/21/19 14:00 Blood Pressure 102/68 03/21/19 14:00 O2 Sat by Pulse Oximetry (%) 99 03/20/19 21:00 Constitutional: Yes: Calm Eyes: Yes: Conjunctiva Clear HENT: Yes: Atraumatic Neck: Yes: Supple Cardiovascular: Yes: S1, S2 Respiratory: Yes: CTA Bilaterally Gastrointestinal: Yes: Soft Genitourinary: Yes: WNL Musculoskeletal: Yes: WNL Edema: Yes Edema: LLE: Trace, RLE: Trace Neurological: Yes: Oriented Psychiatric: Yes: Oriented Labs: CBC, BMP 03/21/19 06:10 03/21/19 06:10 INR, PTT INR 1.39 (0.83-1.09) H 03/17/19 10:45 Problem List - Problems (1) Cellulitis Code(s): L03.90 - CELLULITIS, UNSPECIFIED (2) Leukocytosis Code(s): D72.829 - ELEVATED WHITE BLOOD CELL COUNT, UNSPECIFIED (3) Anemia Code(s): D64.9 - ANEMIA, UNSPECIFIED Qualifiers: Anemia type: bone marrow failure Bone marrow failure anemia type: unspecified bone marrow failure Qualified Code(s): D61.9 - Aplastic anemia, unspecified (4) CKD (chronic kidney disease) stage 3, GFR 30-59 ml/min Code(s): N18.3 - CHRONIC KIDNEY DISEASE, STAGE 3 (MODERATE) Assessment/Plan Current Medications Generic Name Dose Route Start Last Admin Trade Name Freq PRN Reason Stop Dose Admin Cefazolin Sodium/Dextrose 2 gm in 50 mls @ 100 mls/hr 03/18/19 18:00 10:06 Ancef 2 Gm Premixed Ivpb - IVPB 100 mls/hr Q8H-IV [facility] Administration Metoprolol Succinate 25 mg 03/18/19 10:00 03/21/19 11:17 Toprol Xl - PO 25 mg DAILY [facility] Administration Mirtazapine 30 mg 03/17/19 22:00 03/20/19 22:09 Remeron - PO 30 mg HS [facility] Administration Multi-Ingredient Lotion 1 applic 03/18/19 12:15 03/21/19 11:17 Eucerin (Small Jar) - TP 1 applic BID [facility] Administration Patient's Own Med ( 15 mg 03/19/19 20:00 03/21/19 08:24 Ruxolitinib PO 15 mg Phosphate [Jakafi] BID@0800,2000 [facility] Administration 15 Mg) Spironolactone 25 mg 03/18/19 10:00 03/21/19 11:15 Aldactone - PO 25 mg DAILY [facility] Administration Tolnaftate 1 applic 03/18/19 22:00 03/21/19 11:15 Tinactin 1% Powder - TP 1 applic BID [facility] Administration Torsemide 50 mg 03/21/19 14:00 03/21/19 13:59 Demadex - PO 50 mg BIDLASIX [facility] Administration Venlafaxine HCl 150 mg 03/18/19 10:00 03/21/19 11:15 Effexor Xr - PO 150 mg DAILY [facility] Administration Impression 1. CKD 2. HTN 3. myelofibrosis 4. fluid overload 5. cellulitis 6. atrophic left kidney 7. anemia 8. hyponatremia Plan - cont diuretics - pt can follow in office - repeat labs in am - sodium improving - volume status is improving - discussed with medical team
[2019-03-21 15:45] VITALS: BP 138/67; PULSE 73
--- NOTE | 2019-03-21 16:15 | PN ---
Physical Exam: SUBJECTIVE: Patient seen and examined no acute events over night denies any fever, chills, N/V/D/C H/H stable cellulites improving OBJECTIVE: Vital Signs Period Temp Pulse Resp BP Sys/Rodriguez Pulse Ox Last 24 Hr 97.8 F-99.1 F 70-82 18-20 102-151/66-79 99-99 general: walking in hallway in NAD HEENT: NC/AT, PERRLA. neck: supple cardio: S1, S2, RRR. no r/m/g pulm: decreased breath sounds at the bases . no accessory m usage abdomen: obese, nondistended, nontender. +petechial rash superior to groin LE: 1+ pitting edema b/l. +LLE: with significant improved erythema Laboratory Results - last 24 hr 03/20/19 03/21/19 03/21/19 12:08 06:10 06:10 WBC 24.7 H RBC 2.16 L Hgb 8.0 L Hct 22.7 L MCV 105.1 H MCH 37.1 H MCHC 35.3 RDW 27.9 H Plt Count 126 L MPV 9.0 Absolute Neuts (auto) 21.3 H Neutrophils % 86.3 H Neutrophils % (Manual) 50.0 D Band Neutrophils % 13.7 Lymphocytes % 3.5 L D Lymphocytes % (Manual) 4.9 L D Monocytes % 7.4 Monocytes % (Manual) 3 L Eosinophils % 1.9 Eosinophils % (Manual) 3.0 Basophils % 0.9 Basophils % (Manual) 2.0 Myelocytes % (Man) 15 H Promyelocytes % (Man) 4 H D Blast Cells % (Manual) 0 Nucleated RBC % 0 Metamyelocytes 4 H Hypochromia 0 Platelet Estimate Normal Polychromasia 2+ Poikilocytosis 2+ Basophilic Stippling 1+ Anisocytosis 1+ Microcytosis 0 Macrocytosis 0 Tear Drop Cells 1+ Stomatocytes 2+ Rouleaux 0 Sodium 133 L Potassium 3.9 Chloride 99 Carbon Dioxide 26 Anion Gap 8 BUN 36.6 H Creatinine 1.8 H Est GFR (CKD-EPI)AfAm 42.03 Est GFR (CKD-EPI)NonAf 36.27 Random Glucose 110 H Calcium 8.7 Hep A IgM Ab Confirm Negative Hep Bs Antigen Negative Hep Bs Antibody Reactive Hep B Core IgM Ab Negative Hepatitis C Ab (EIA) <0.1 Active Medications Generic Name Dose Route Start Last Admin Trade Name Freq PRN Reason Stop Dose Admin Cefazolin Sodium/Dextrose 2 gm in 50 mls @ 100 mls/hr 03/18/19 18:00 10:06 Ancef 2 Gm Premixed Ivpb - IVPB 100 mls/hr Q8H-IV [facility] Administration Metoprolol Succinate 25 mg 03/18/19 10:00 03/21/19 11:17 Toprol Xl - PO 25 mg DAILY [facility] Administration Mirtazapine 30 mg 03/17/19 22:00 03/20/19 22:09 Remeron - PO 30 mg HS [facility] Administration Multi-Ingredient Lotion 1 applic 03/18/19 12:15 03/21/19 11:17 Eucerin (Small Jar) - TP 1 applic BID [facility] Administration Patient's Own Med ( 15 mg 03/19/19 20:00 03/21/19 08:24 Ruxolitinib PO 15 mg Phosphate [Jakafi] BID@0800,2000 [facility] Administration 15 Mg) Spironolactone 25 mg 03/18/19 10:00 03/21/19 11:15 Aldactone - PO 25 mg DAILY [facility] Administration Tolnaftate 1 applic 03/18/19 22:00 03/21/19 11:15 Tinactin 1% Powder - TP 1 applic BID [facility] Administration Torsemide 50 mg 03/21/19 14:00 03/21/19 13:59 Demadex - PO 50 mg BIDLASIX [facility] Administration Venlafaxine HCl 150 mg 03/18/19 10:00 03/21/19 11:15 Effexor Xr - PO 150 mg DAILY [facility] Administration CBC, BMP 03/21/19 06:10 03/21/19 06:10 ASSESSMENT/PLAN: 74 y/o patient with CHF/CKD /COPD/HTN/myelofibrosis on Jakafi for [address] Kary mark. Herer for CHF exacerbation/LLE cellulitis On ancef/diuretics myelofibrosis/splenomegaly/anemia/elevated WBC/thrombocytopenia continue jakafi 15mg bid transfuse PRBCs fro symptomatic anemia CBC stable cont to monitor Visit type - Emergency Visit Emergency Visit: Yes ED Registration Date: 03/17/19 Care time: The patient presented to the Emergency Department on the above date and was hospitalized for further evaluation of their emergent condition. - New Patient This patient is new to me today: No - Critical Care Critical Care patient: No - Discharge Referral Referred to [facility] Med [facility].C[facility] No ATTENDING PHYSICIAN STATEMENT I saw and evaluated the patient. I reviewed the resident's note and discussed the case with the resident. I agree with the resident's findings and plan as documented. SUBJECTIVE: OBJECTIVE: ASSESSMENT AND PLAN:
--- NOTE | 2019-03-21 16:36 | PN ---
Progress Note (short form) - Note Progress Note: feet starting to improve Vital Signs Period Temp Pulse Resp BP Sys/Rodriguez Pulse Ox Last 24 Hr 97.8 F-99.1 F 70-82 18-20 102-151/66-79 99-99 cor-rrr lungs clear abd soft, erythema lower abdomen resolved ext less erythema of the foot CBC, BMP 03/21/19 06:10 03/21/19 06:10 Microbiology 03/18/19 12:25 Blood - Peripheral Venous Blood Culture - Preliminary NO GROWTH OBTAINED AFTER 72 HOURS, INCUBATION TO CONTINUE FOR 2 DAYS. 03/18/19 12:35 Blood - Peripheral Venous Blood Culture - Preliminary NO GROWTH OBTAINED AFTER 72 HOURS, INCUBATION TO CONTINUE FOR 2 DAYS. 03/17/19 10:45 Urine - Urine Clean Catch Urine Culture - Final NO GROWTH OBTAINED a/p bilateral cellulitis (recurrent) nonpurulent- ?vasculitis, ?paraneoplastic process, is this connected to his mylofibrosis, check hep c, ?skin biopsy if he fails to improve mild dchf anemia history of mylefibrosis on Jakafi history of CKD history of liver disease chronic leukocytosis wants to leave today I am concerned that cellulitis will recur if he leaves but he is insistent if he refuses to stay would treat for 3 weeks with po keflex 500 tid- can f/u in our office with Dr Rice [phone]
--- NOTE | 2019-03-21 17:16 | DS ---
Physical Exam: SUBJECTIVE: Patient seen and examined at bedside. With improved LE edema and erythema. Requesting to go home. Discussed w/pt OBJECTIVE: Vital Signs Period Temp Pulse Resp BP Sys/Rodriguez Pulse Ox Last 24 Hr 97.8 F-98.7 F 70-82 18-20 102-151/67-79 99-99 Physical Exam general: resting in bed, in NAD HEENT: NCAT, PERRLA. neck: without JVD. supple cardio: S1, S2, RRR. no r/m/g pulm: decreased breath sounds. no accessory m usage abdomen: obese, nondistended, nontender. +petechial rash superior to groin LE: 1+ pitting edema b/l. +LLE: with significant improved erythema LABS Laboratory Results - last 24 hr 03/20/19 03/21/19 03/21/19 12:08 06:10 06:10 WBC 24.7 H RBC 2.16 L Hgb 8.0 L Hct 22.7 L MCV 105.1 H MCH 37.1 H MCHC 35.3 RDW 27.9 H Plt Count 126 L MPV 9.0 Absolute Neuts (auto) 21.3 H Neutrophils % 86.3 H Neutrophils % (Manual) 50.0 D Band Neutrophils % 13.7 Lymphocytes % 3.5 L D Lymphocytes % (Manual) 4.9 L D Monocytes % 7.4 Monocytes % (Manual) 3 L Eosinophils % 1.9 Eosinophils % (Manual) 3.0 Basophils % 0.9 Basophils % (Manual) 2.0 Myelocytes % (Man) 15 H Promyelocytes % (Man) 4 H D Blast Cells % (Manual) 0 Nucleated RBC % 0 Metamyelocytes 4 H Hypochromia 0 Platelet Estimate Normal Polychromasia 2+ Poikilocytosis 2+ Basophilic Stippling 1+ Anisocytosis 1+ Microcytosis 0 Macrocytosis 0 Tear Drop Cells 1+ Stomatocytes 2+ Rouleaux 0 Sodium 133 L Potassium 3.9 Chloride 99 Carbon Dioxide 26 Anion Gap 8 BUN 36.6 H Creatinine 1.8 H Est GFR (CKD-EPI)AfAm 42.03 Est GFR (CKD-EPI)NonAf 36.27 Random Glucose 110 H Calcium 8.7 C-Reactive Protein Hep A IgM Ab Confirm Negative Hep Bs Antigen Negative Hep Bs Antibody Reactive Hep B Core IgM Ab Negative Hepatitis C Ab (EIA) <0.1 03/17/19 03/18/19 03/19/19 10:45 06:15 05:58 WBC 23.7 H 22.4 H 18.7 H Hgb 8.1 L 7.4 L 6.7 L* Hct 23.6 L 21.3 L 19.5 L Plt Count 151 113 L D 109 L 03/19/19 03/20/19 03/21/19 19:30 06:10 06:10 WBC 24.4 H 25.6 H 24.7 H Hgb 7.9 L 8.0 L 8.0 L Hct 23.1 L D 23.2 L 22.7 L Plt Count 119 L 117 L 126 L 03/17/19 03/17/19 10:45 10:45 PT with INR 16.50 H INR 1.39 H PTT (Actin FS) 36.2 03/17/19 03/18/19 03/19/19 10:45 06:15 05:58 Sodium 126 L 128 L 129 L Potassium 4.2 4.6 3.7 Chloride 93 L 95 L Anion Gap 7 L BUN 27.4 H 29.3 H 36.0 H Creatinine 1.9 H 1.9 H 1.9 H Random Glucose 100 108 H 151 H Calcium 8.2 L 03/20/19 03/21/19 06:10 06:10 Sodium 134 L 133 L Potassium 4.0 3.9 Chloride Anion Gap BUN 36.1 H 36.6 H Creatinine 1.8 H 1.8 H Random Glucose 106 110 H Calcium 8.8 8.7 03/17/19 03/19/19 03/19/19 10:45 08:40 08:40 Urine Color Yellow Urine Appearance Clear Urine pH 7.0 Ur Specific [place] 1.007 L Urine Protein Negative Urine Glucose (UA) Negative Urine Ketones Negative Urine Blood Negative Urine Nitrite Negative Urine Bilirubin Negative Urine Urobilinogen 0.2 Urine Osmolality 209 L Ur Random Creatinine 13.0 L Ur Random Sodium 53 Ur Random Potassium 19.0 L Ur Random Chloride 63 L 03/20/19 03/21/19 12:08 15:30 Rheumatoid Arth Biomark Pending DORIAN Screen Pending c-ANCA Pending Proteinase 3 (PR3) Pending p-ANCA Pending Atypical p-ANCA Pending Myeloperoxidase Ab Pending Tot Complement (CH50) Pending 03/20/19 12:08 Hep A IgM Ab Confirm Negative Hep Bs Antigen Negative Hep Bs Antibody Reactive Hep B Core IgM Ab Negative Hepatitis C Ab (EIA) <0.1 HCV Quantitation Pending Microbiology 03/17/19 10:45 Urine - Urine Clean Catch Urine Culture - Final NO GROWTH OBTAINED 03/18/19 12:35 Blood - Peripheral Venous Blood Culture - Preliminary NO GROWTH OBTAINED AFTER 72 HOURS, INCUBATION TO CONTINUE FOR 2 DAYS. 03/18/19 12:25 Blood - Peripheral Venous Blood Culture - Preliminary NO GROWTH OBTAINED AFTER 72 HOURS, INCUBATION TO CONTINUE FOR 2 DAYS. Imaging 03/17/19: CXR: no acute chest pathology 03/18/19: Duplex LE: (-) for DVT. +R popliteal fossa cyst 03/18/19: Art duplex LE: decreased flow bilaterally; decreased monophasic flow in mid and distal thirds of L superficial femoral a. as well as within the popliteal and posterior tibial aa. there is somewhat decreased biphasic flow in the common femoral artery and upper third of the superficial femoral a. 03/19/19: CXR: prominent mediastinum, some congestive changes and sharp angles. 03/20/19: Chest CT: moderate centrilobular emphysema mainly in the upper lobes. no gross per minute nodules or focal infiltrates identified. Recent likely healing fractures in the posterior arch of the L 8th, 9th rib. Multiple borderline paratracheal and precarinal lymph nodes measuring up to 10mm in their shortest axis. mild cardiomegaly. enlarged spleen 21.9cm in AP dimension. multiple bilateral aortic almost borderline lymph nodes. HOSPITAL COURSE: Date of Admission:03/17/19 Date of Discharge: 03/21/19 73 year old male with history of Chronic diastolic CHF, CKD , COPD, HTN, Myelofibrosis, Anemia, recurrent LE cellulitis, h/o ETOH abuse, hepatosplenomegaly admitted with acute hypoxemic respiratory failure, acute on chronic exacerbation of diastolic CHF, and bilateral lower extremity cellulitis. #?Recurrent cellulitis LE #R/o vasculitis, cryo, ?autoimmune vasculitis #R/o drug rash #2/2 ?PAD -was on cefazolin (4 days), d/c home on request of pt keflex 500mg TID x 3 more weeks will f/u with ID, Dr. Rice -c/t application of tinactin powder BID on d/c -f/u ANCA, DORIAN, CH50 (c3, c4 not avail as inpt order), hep serologies (-) thus far ; will be followed as outpatient -f/u Derm recs, may need biopsy. will follow as outpatient -f/u ucx, blood cx- NGTD -art duplex and LE duplex noted above #Acute on Chronic Diastolic CHF #pulm HTN -changed from lasix to torsemide 50mg PO BID to continue on d/c -has LV diastolic dysfnc -weights/ low na/ i/o -outpt sleep study on d/c -cardio consult: Dr. Payne #EMEKA on CKD - improving -Nephro: Dr. Daley; will f/u as outpt #HTN - controlled -c/w metoprolol and spironolactone #Myelofibrosis -on home Jakafi -b12, folate WNL -received 1U PRBC during admission, responded well -heme/onc : Dr. Bergeron #PAD -will need outpt vascular f/u #Psych/Depression Continue Remeron and Venlafaxine #Acute on chronic hyponatremia, hypervolemic -resolved Minutes to complete discharge: 45 Discharge Summary Problems reviewed: Yes Reason For Visit: HEART FAILURE;CELLULITIS Current Active Problems Acute on chronic diastolic HF (heart failure) (Acute) Cellulitis (Acute) Pulmonary HTN (Acute) Chronic diastolic heart failure (Chronic) Condition: Good - Instructions Diet, Activity, Other Instructions: You were in the hospital because you had a rash on your legs, it was possible that this was due to cellulitis. You were treated with IV antibiotics and improved. While you were here, you were also treated for an exacerbation of heart failure. This means that you had more fluid on your heart and body. You were given IV lasix (water pill) to help get the water off and help with your breathing. While here, you also received 1 unit (bag) of packed red blood cells (blood) to help your hemoglobin counts. You improved overall and are being sent home. Medications 1. Please continue the following antibiotic for your cellulitis: keflex 500 mg ( 1 pill), three times a day (every 8 hours) for three weeks, starting tomorrow. ( 03/22-04/12/2019) 2. Your lasix (furosemide) medication was discontinued. Do not take it. Take Torsemide (demedex) 50mg twice a day, every day for your congestive heart failure (CHF). 3. You may continue your other home medications. Care -Please be sure to eat a low salt diet. This will help you prevent gaining fluid and having shortness of breath. -It is important to weigh yourself daily. If you gain a large amount of weight, it may mean that you have increased fluid on your body and your water pill ( torsemide) dose may need to be changed by your primary care doctor, or your health and safety coordinator. Skin Care -Please apply tinactin powder to your legs twice a day, to help with the rash, as well as the redness. Follow up Please follow up with the following doctors upon your discharge: -A primary care doctor, Dr. Simi Nye to establish care - within 1 week to discuss your visit. She will also be able to access your files from the hospital. Some of your labs were sent out, and she will have the reports (to rule out other possible causes of the rash besides cellulitis). outpt sleep study -A kidney doctor (mule driver), Dr. Daley- in 1 week -A medical laboratory specialist/oncologist, Dr. Bergeron who saw you in the hospital - 1 week to follow up concerning your Myelodysplastic syndrome (MDS). -A health and safety coordinator (heart doctor), Dr. Linnea Payne - 1 week to follow up your heart health. -A milling machine tender, Dr. Светлана Bagley - 1 week to discuss the condition of your legs, if the redness and symptoms persist. You may need to have a skin biopsy. You can discuss t this with her when you meet. -An infectious disease doctor, Dr. Rice-1 week to follow up. [phone] -Pulmonary doctor, Dr. Puentes - 1 week, you will need outpatient pulmonary function testing. Referrals: Светлана Bagley MD [Staff Physician] - 1 Week Patricio Rice MD [Staff Physician] - 1 Week Linnea Payne MD [Staff Physician] - 1 Week Elyssa Hull MD [Staff Physician] - 1 Week Simi Walter MD [Staff Physician] - 03/28/19 Bennie Daley MD [Staff Physician] - 1 Week Emanuel Underwood MD, MD [Staff Physician] - 1 Week Disposition: HOME - Home Medications Comprehensive Discharge Medication List: Ambulatory Orders Mirtazapine [Remeron -] 30 mg PO HS 07/21/15 Venlafaxine HCl ER [Effexor Xr -] 150 mg PO DAILY #30 cap.er.24h 11/16/16 Metoprolol Succinate [Toprol XL -] 25 mg PO DAILY 04/19/17 Ruxolitinib Phosphate [Jakafi] 15 mg PO BID 01/04/18 Mineral Oil/Petrolat,Wht/Water [Eucerin (Small Jar) -] 1 applic TP DAILY #1 jar 02/21/19 Spironolactone [Aldactone -] 25 mg PO DAILY #30 tablet 02/21/19 Cephalexin [Keflex] 500 mg PO TID #63 capsule 03/21/19 Tolnaftate 1% Powder [Tinactin 1% Powder -] 1 applic TP BID #1 btl 03/21/19 Torsemide [Demadex -] 50 mg PO BIDLASIX #60 tablet 03/21/19 This patient is new to me today: No Emergency Visit: No Critical Care patient: No - Discharge Referral Referred to [facility] No
[2019-03-22 17:08] LABS: ATYPICAL pANCA <1:20 titer (Neg:<1:20); C-ANCA <1:20 titer (Neg:<1:20)
== END 2019-03-21 18:30 | disposition home or self-care (01) | DRG 602 ==
LOC: JER 09:04 → JERBED 11:33 → J4W 03-18 03:38
PROVIDERS: ADMIT Internal Medicine; ATTEND Internal Medicine
PROC: 30233N1 Transfusion of Nonautologous Red Blood Cells into Peripheral Vein, Percutaneous Approach (ICD-10-PCS; principal; 2019-03-19)
DX: L03.116 Cellulitis of left lower limb (principal); I50.33 Acute on chronic diastolic (congestive) heart failure; I13.0 Hypertensive heart and chronic kidney disease with heart failure and stage 1 through stage 4 chronic kidney disease, or unspecified chronic kidney disease; E87.1 Hypo-osmolality and hyponatremia; D75.81 Myelofibrosis; N17.9 Acute kidney failure, unspecified; I47.1 Supraventricular tachycardia; J44.9 Chronic obstructive pulmonary disease, unspecified; I27.20 Pulmonary hypertension, unspecified; F32.9 Major depressive disorder, single episode, unspecified; D72.829 Elevated white blood cell count, unspecified; D69.6 Thrombocytopenia, unspecified; D64.9 Anemia, unspecified; N18.3 Chronic kidney disease, stage 3 (moderate); E87.70 Fluid overload, unspecified; E66.9 Obesity, unspecified; Z68.27 Body mass index [BMI] 27.0-27.9, adult; F17.210 Nicotine dependence, cigarettes, uncomplicated
CPT/HCPCS: 36415; 36430; 36511; 71045-TC-FY; 71250-TC; 80048; 80053; 80074; 81003; 82436; 82533; 82565; 82607; 82746; 83520; 83540; 83550; 83690; 83735; 83880; 83930; 83935; 84100; 84133; 84300; 84443; 84484; 85025; 85027; 85610; 85651; 85730; 86038; 86140; 86162; 86256; 86431; 86706; 86850; 86900; 86901; 86922; 87040; 87086; 87522; 93005; 93010; 93925-TC; 93970-TC; 97116-GP; 97161-GP; 99285-25; P9038; P9058

== ENCOUNTER 2019-05-11 04:52 | Inpatient (IN) | payer OTHER ==
[2019-05-11] MEDS ORDERED: ALBUTEROL SO4 2.5/IPRATROPIUM 0.5 INH SOL 3 ML VIAL.NEB. NEB ONE ×4 (05:11→07:27)
--- NOTE | 2019-05-11 05:11 | PDOC ---
History of Present Illness - General Chief Complaint: Shortness of Breath Stated Complaint: SOB Time Seen by Provider: 05/11/19 05:11 - History of Present Illness Initial Comments: HPI: 74yo M with PMH of CHF, COPD, CKD, HTN, anemia, myelofibrosis, cirrhosis, RLE cellulitis, and recent admission to [facility] (02/17-02/21 and 03/17-03/21) presenting with shortness of breath, productive cough with clear sputum, and lower extremity edema. Patient states his shortness of breath has worsened for the past week. He last saw his primary care physician about a week ago. Lower leg swelling worsened over the past two days. Patient is unable to walk two steps without feeling short of breath. Cannot lay flat. Reports chest pain when he coughs. No sick contacts or recent travel. Endorsing fever and chills. PCP: Dr. Tristan MARIE: Constitutional: +fever, +chills HEENT: no throat pain, no dysphagia Cardiovascular: no chest pain, no palpitations Respiratory: +cough, +shortness of breath Gastrointestinal: no abdominal pain, no nausea Genitourinary: no retention, no hematuria Musculoskeletal: no myalgia, no arthralgia Skin: no rash, no itching Neurologic: no headache, +weakness Psych: no agitation, no anxiety PE: General: Awake, alert, and fully oriented, in no acute distress Head: No signs of trauma Eyes: EOMI, sclera anicteric ENT: Moist mucus membranes Neck: Normal ROM, supple Lungs: Diffuse rales bilaterally Cardio: Regular rhythm, S1 and S2 present Abdomen: Soft, nontender. No guarding, no rebound, no masses Extremities: Distal pulses present, 2+ pitting edema, patches of erythema on lower extremities SKIN: Warm, Dry, normal turgor Neurologic: Cranial nerves II through XII grossly intact. Normal speech ED Course/MDM: DDX including but not limited to CHF/COPD exacerbation, cellulitis, UTI, pneumonia VS significant for fever, tachypnea, hypoxia Sepsis workup ordered Presentation consistent with CHF exacerbation Likely component of COPD as well; breathing treatment ordered Defering fluids as patient not hypotensive and exam with signs of fluid retention Ofirmev for fever Lasix for fluid overload Breathing treatment 05/11/19 05:11 CBC WBC 24.2 K/mm3 (4.0-10.0) H 05/11/19 05:24 RBC 1.97 M/mm3 (4.00-5.60) L 05/11/19 05:24 Hgb 7.9 GM/dL (11.7-16.9) L 05/11/19 05:24 Hct 22.1 % (35.4-49) L 05/11/19 05:24 MCV 112.5 fl (80-96) H D 05/11/19 05:24 MCH 40.1 pg (25.7-33.7) H 05/11/19 05:24 MCHC 35.6 g/dl (32.0-35.9) 05/11/19 05:24 RDW 26.1 % (11.9-15.9) H 05/11/19 05:24 Plt Count 138 K/MM3 (134-434) 05/11/19 05:24 MPV 9.2 fl (7.5-11.1) 05/11/19 05:24 Absolute Neuts (auto) 20.9 K/mm3 (1.5-8.0) H 05/11/19 05:24 Neutrophils % 86.3 % (42.8-82.8) H 05/11/19 05:24 Lymphocytes % 2.2 % (8-40) L D 05/11/19 05:24 Monocytes % 8.5 % (3.8-10.2) 05/11/19 05:24 Eosinophils % 2.2 % (0-4.5) 05/11/19 05:24 Basophils % 0.8 % (0-2.0) 05/11/19 05:24 Nucleated RBC % 0 % (0-0) 05/11/19 05:24 Significant leukocytosis Anemic with hgb 7.9 which is at patient's baseline CMP Sodium 129 mmol/L (136-145) L 05/11/19 05:13 Potassium 3.7 mmol/L (3.5-5.1) 05/11/19 05:13 Chloride 94 mmol/L (98-107) L 05/11/19 05:13 Carbon Dioxide 27 mmol/L (21-32) 05/11/19 05:13 Anion Gap 9 MMOL/L (8-16) 05/11/19 05:13 BUN 31.2 mg/dL (7-18) H 05/11/19 05:13 Creatinine 1.8 mg/dL (0.55-1.3) H 05/11/19 05:13 Est GFR (CKD-EPI)AfAm 42.03 05/11/19 05:13 Est GFR (CKD-EPI)NonAf 36.27 05/11/19 05:13 Random Glucose 132 mg/dL (74-106) H 05/11/19 05:13 Lactic Acid 2.0 mmol/L (0.4-2.0) 05/11/19 05:13 Calcium 8.6 mg/dL (8.5-10.1) 05/11/19 05:13 Total Bilirubin 0.9 mg/dL (0.2-1) 05/11/19 05:13 AST 74 U/L (15-37) H 05/11/19 05:13 ALT 53 U/L (13-61) 05/11/19 05:13 Alkaline Phosphatase 208 U/L (45-117) H 05/11/19 05:13 Troponin I 0.06 ng/ml (0.00-0.05) H 05/11/19 05:09 Total Protein 8.3 g/dl (6.4-8.2) H 05/11/19 05:13 Albumin 3.9 g/dl (3.4-5.0) 05/11/19 05:13 Hyponatremic Cr elevated, 1.8 which is at patient's baseline Lactate normal Tpn elevated, 0.06 CXR as reported by radiology: "EXAM#: TYPE/EXAM: RESULT: [id number] RAD/CHEST X- RAY PORTABLE* Chest: Sepsis Single view of the chest is been submitted. Since there is an enlarged heart, sclerotic knob, prominent darline and some fluid in the horizontal fissure with questionable early right upper lobe infiltrate. Angles are sharp. The bones and soft tissues are intact. Correlation and follow-up recommended. Reported By: Barrett Erwin MD 05/11/19 [id number] " Patient signed out to Dr. Garcia and day team 05/11/19 08:25 Past History - Past Medical History Allergies/Adverse Reactions: Allergies Allergy/AdvReac Type Severity Reaction Status Date / Time No Known Allergies Allergy Verified 05/11/19 05:05 Home Medications: Ambulatory Orders Mirtazapine [Remeron -] 30 mg PO HS 07/21/15 Venlafaxine HCl ER [Effexor Xr -] 150 mg PO DAILY #30 cap.er.24h 11/16/16 Metoprolol Succinate [Toprol XL -] 25 mg PO DAILY 04/19/17 Ruxolitinib Phosphate [Jakafi] 15 mg PO BID 01/04/18 Mineral Oil/Petrolat,Wht/Water [Eucerin (Small Jar) -] 1 applic TP DAILY #1 jar 02/21/19 Spironolactone [Aldactone -] 25 mg PO DAILY #30 tablet 02/21/19 Tolnaftate 1% Powder [Tinactin 1% Powder -] 1 applic TP BID #1 btl 03/21/19 Torsemide [Demadex -] 50 mg PO BIDLASIX #60 tablet 03/21/19 Anemia: Yes Asthma: No Cancer: Yes (MYELOFIBROSIS) Cardiac Disorders: No CVA: No COPD: Yes CHF: Yes DVT: No Dementia: No Diabetes: No (PT DENIES) GI Disorders: Yes (CIRRHOSIS) Disorders: No HTN: Yes Hypercholesterolemia: Yes Liver Disease: Yes (ALCOHOLIC CIRRHOSIS) Seizures: No Thyroid Disease: No - Surgical History Orthopedic Surgery: No - Immunization History Immunization Up to Date: Yes - Psycho Social/Smoking Cessation Hx Smoking History: Current every day smoker Have you smoked in the past 12 months: Yes Number of Cigarettes Smoked Daily: 15 Information on smoking cessation initiated: No 'Breaking Loose' booklet given: 02/18/19 Hx Alcohol Use: No Drug/Substance Use Hx: No Substance Use Type: None Hx Substance Use Treatment: No *Physical Exam - Vital Signs Last Vital Signs Temp Pulse Resp BP Pulse Ox 102.0 F H 98 H 28 H 169/77 92 L 05/11/19 05:05 05/11/19 05:05 05/11/19 05:05 05/11/19 05:05 05/11/19 05:05 ED Treatment Course - LABORATORY CBC & Chemistry Diagram: 05/11/19 05:24 05/11/19 05:13 Discharge - Discharge Information Problems reviewed: Yes Clinical Impression/Diagnosis: COPD exacerbation PNA (pneumonia) Qualifiers: Pneumonia type: due to unspecified organism Laterality: right Lung location: upper lobe of lung Qualified Code(s): J18.9 - Pneumonia, unspecified organism Cellulitis Qualifiers: Site of cellulitis: extremity Site of cellulitis of extremity: lower extremity Laterality: unspecified laterality Qualified Code(s): L03.119 - Cellulitis of unspecified part of limb Condition: Stable - Follow up/Referral - Patient Discharge Instructions - Post Discharge Activity
[2019-05-11] MEDS ORDERED: ACETAMINOPHEN 1000 MG/100 ML VIAL (NON FORMULARY) IVPB ONE (05:12)
[2019-05-11] MEDS ORDERED: FUROSEMIDE 100 MG/10 ML INJECTABLE VIAL IVPUSH ONE (05:14)
[2019-05-11] MEDS ORDERED: ACETAMINOPHEN INJECTION 100 ML IVPB ONE (05:15)
[2019-05-11] MEDS ORDERED: FUROSEMIDE 40 MG/4 ML INJECTABLE VIAL ONE (05:15)
[2019-05-11 06:21] LABS: VENOUS PH 7.39 (7.31-7.41)
[2019-05-11 06:23] LABS: VENOUS PO2 < 49 mmHg (28-48)
[2019-05-11 06:40] LABS: BASO % 0.8 % (0-2.0); EOS % 2.2 % (0-4.5); HEMATOCRIT 22.1 % (35.4-49); HEMOGLOBIN 7.9 GM/dL (11.7-16.9); LYMPH % 2.2 % (8-40); MCHC 35.6 g/dl (32.0-35.9); MEAN CELL VOLUME 112.5 fl (80-96); MEAN PLT VOLUME 9.2 fl (7.5-11.1); MONO % 8.5 % (3.8-10.2); NEUT % 86.3 % (42.8-82.8); PLATELET COUNT 138 K/MM3 (134-434); RBC 1.97 M/mm3 (4.00-5.60); RDW 26.1 % (11.9-15.9); WHITE BLOOD COUNT 24.2 K/mm3 (4.0-10.0)
[2019-05-11 06:46] LABS: INR 1.4 (0.83-1.09); PROTHROMBIN TIME (PATIENT) 16.6 SEC (9.7-13.0)
[2019-05-11 06:48] LABS: ACTIVATED PTT 32.2 SECONDS (25.2-36.5)
[2019-05-11 06:55] LABS: ALBUMIN 3.9 g/dl (3.4-5.0); BILIRUBIN,TOTAL 0.9 mg/dL (0.2-1); BLOOD UREA NITROGEN 31.2 mg/dL (7-18); CALCIUM 8.6 mg/dL (8.5-10.1); CREATININE 1.8 mg/dL (0.55-1.3); POTASSIUM 3.7 mmol/L (3.5-5.1); TOT PROT 8.3 g/dl (6.4-8.2)
--- NOTE | 2019-05-11 06:59 | PDOC ---
Attending Attestation - Resident Resident Name: Aishwarya Azul - ED Attending Attestation I have performed the following: I have examined & evaluated the patient, The case was reviewed & discussed with the resident, I agree w/resident's findings & plan - HPI HPI: 05/11/19 06:57 Pt comes with CHF and COPD exacerbation; pt has cellulitis - Physicial Exam PE: 05/12/19 19:53 Agree with resident exam - Medical Decision Making 05/11/19 06:58 Pt has a fever; swollen cellulitic legs. Labs pending Pt will require IV abx; diuresis and admission 05/12/19 19:54 Pt will be signed out to the day team.
[2019-05-11] MEDS ORDERED: VANCOMYCIN 1,000 MG in DEXTROSE 5%-WATER - 250 ML IVPB ONE (07:03)
[2019-05-11] MEDS ORDERED: AMPICILLIN NA/SULBACTAM NA 3 GM in SODIUM CHLORIDE 100 ML IVPB ONE (07:03)
[2019-05-11] MEDS ORDERED: VANCOMYCIN 1 GRAM (PRE-DOCKED) 1,000 MG/250 ML BAG IVPB ONE (07:09)
[2019-05-11] MEDS ORDERED: methylPREDNISolone NA SUCC 125 MG/2 ML VIAL IVPUSH ONE (07:21)
[2019-05-11] MEDS ORDERED: methylPREDNISolone NA SUCC 125 MG/2 ML VIAL ONE (07:27)
[2019-05-11 07:31] LABS: MCH 40.1 pg (25.7-33.7)
--- NOTE | 2019-05-11 07:31 | PDOC ---
*Physical Exam - Vital Signs Last Vital Signs Temp Pulse Resp BP Pulse Ox 100.2 F H 98 H 28 H 169/77 98 05/11/19 07:00 05/11/19 05:05 05/11/19 05:05 05/11/19 05:05 05/11/19 06:10 ED Treatment Course - LABORATORY CBC & Chemistry Diagram: 05/11/19 05:24 05/11/19 05:13 - ADDITIONAL ORDERS Additional order review: Laboratory Results 05/11/19 05/11/19 05/11/19 06:10 05:41 05:13 PT with INR 16.60 H INR 1.40 H PTT (Actin FS) 32.2 VBG pH 7.39 POC VBG pCO2 49.0 POC VBG pO2 < 49 H VBG HCO3 29.1 H VBG O2 Sat (Latia) 29.0 L VBG Base Excess 4.2 H Sodium Potassium Chloride Carbon Dioxide Anion Gap BUN Creatinine Est GFR (CKD-EPI)AfAm Est GFR (CKD-EPI)NonAf Random Glucose Lactic Acid 2.0 Calcium Total Bilirubin AST ALT Alkaline Phosphatase Troponin I Total Protein Albumin 05/11/19 05/11/19 05:13 05:09 PT with INR INR PTT (Actin FS) VBG pH POC VBG pCO2 POC VBG pO2 VBG HCO3 VBG O2 Sat (Latia) VBG Base Excess Sodium 129 L Potassium 3.7 Chloride 94 L Carbon Dioxide 27 Anion Gap 9 BUN 31.2 H Creatinine 1.8 H Est GFR (CKD-EPI)AfAm 42.03 Est GFR (CKD-EPI)NonAf 36.27 Random Glucose 132 H Lactic Acid Calcium 8.6 Total Bilirubin 0.9 AST 74 H ALT 53 Alkaline Phosphatase 208 H Troponin I 0.06 H Total Protein 8.3 H Albumin 3.9 - Medications Given in the ED: ED Medications Discontinued Medications Generic Name Dose Route Start Last Admin Trade Name Freq PRN Reason Stop Dose Admin Acetaminophen 1,000 mg 05/11/19 05:12 05/11/19 05:24 Ofirmev Injection - IVPB 05/11/19 05:13 1,000 mg ONCE ONE Administration Albuterol/Ipratropium 1 amp 05/11/19 05:11 05/11/19 05:24 Duoneb - NEB 05/11/19 05:12 1 amp ONCE ONE Administration Furosemide 80 mg 05/11/19 05:14 05/11/19 05:24 Lasix Injection - IVPUSH 05/11/19 05:15 80 mg ONCE ONE Administration Medical Decision Making - Medical Decision Making 05/11/19 07:[address] Azul 74yo M with PMH of CHF, COPD, CKD, HTN, anemia, myelofibrosis, cirrhosis, RLE cellulitis, and recent admission to [facility] (02/17-02/21) presenting with shortness of breath, productive cough with clear sputum, and lower extremity edema. Patient states his shortness of breath has worsened for the past week. He last saw his primary care physician about a week ago. Lower leg swelling worsened over the past two days. Patient is unable to walk two steps without feeling short of breath. Cannot lay flat. Reports chest pain when he coughs. No sick contacts or recent travel. Endorsing fever and chills. pt febrile to 102 here, rpt temp 100. on NRB. pt stating he feels SOB. pt is tachycardic, appears tired. will start BiPAP. Vbg does not show retention, will get ABG prior to bipap. wbc elevated, could be 2/2 infection or myelodysplasia. cr at baseline, trop 0.06 likey 2/2 demand. first ekg read as afib (no history of afib) will repeat. pt given lasix, unasyn and vanc, duonebs cxr read as possible r upper lobe infiltrate, will give azithromycin to cover or atypical spp. will also give solumedrol. holding off on fluid due to history of chf. rpt ekg shows sinus with 1st degree av block similar to prior but with twi in lateral leads. low suspcion for acs at this time, likely due to demand from sepsis, copd, sob. will give ASA. endorsed to hospitalist; admitted to tele. Discharge - Discharge Information Problems reviewed: Yes Clinical Impression/Diagnosis: COPD exacerbation PNA (pneumonia) Qualifiers: Pneumonia type: due to unspecified organism Laterality: right Lung location: upper lobe of lung Qualified Code(s): J18.9 - Pneumonia, unspecified organism Cellulitis Qualifiers: Site of cellulitis: extremity Site of cellulitis of extremity: lower extremity Laterality: unspecified laterality Qualified Code(s): L03.119 - Cellulitis of unspecified part of limb Condition: Stable - Follow up/Referral - Patient Discharge Instructions - Post Discharge Activity
[2019-05-11] MEDS ORDERED: AZITHROMYCIN IVPB 500 MG in DEXTROSE 5%-WATER - 250 ML IVPB ONE ×2 (08:29→11:00)
[2019-05-11 08:43] LABS: ARTERIAL BLOOD GAS PCO2 41.3 mmHg (35-45); ARTERIAL BLOOD GAS pH 7.44 (7.35-7.45)
[2019-05-11] MEDS ORDERED: ASPIRIN 81 MG CHEWABLE TABLETS PO ONE (08:43)
[2019-05-11 08:44] LABS: ALLENS TEST POSITIVE; ARTERIAL BLD GAS O2 SATURATION 98.3 % (95-98); ARTERIAL BLOOD GAS BASE EXCESS 3.3 meq/l (-2-2); ARTERIAL BLOOD GAS PO2 107 mmHg (80-100); CARBOXYHEMOGLOBIN 4.8 % (0-2)
--- NOTE | 2019-05-11 09:11 | HP ---
CHIEF COMPLAINT:shortness of breath PCP:dr dumont HISTORY OF PRESENT ILLNESS:HPI: 74yo M with PMH of CHF, COPD, CKD, HTN, anemia, myelofibrosis, cirrhosis, RLE cellulitis, and recent admission to [facility] (02/17-02/21) presenting with shortness of breath, productive cough with clear sputum, and lower extremity edema. Patient states his shortness of breath has worsened for the past week. He last saw his primary care physician about a week ago. Lower leg swelling worsened over the past two days. Patient is unable to walk two steps without feeling short of breath. Cannot lay flat. Reports chest pain when he coughs. No sick contacts or recent travel. Endorsing fever and chills. ER course was notable for: (1) (2) (3) Recent Travel: PAST MEDICAL HISTORY: PAST SURGICAL HISTORY: Social History: Smoking: Alcohol: Drugs: Allergies No Known Allergies Allergy (Verified 05/11/19 05:05) HOME MEDICATIONS: Home Medications Medication Instructions Recorded Mirtazapine [Remeron -] 30 mg PO HS 07/21/15 Venlafaxine HCl ER [Effexor Xr -] 150 mg PO DAILY #30 cap.er.24h 11/16/16 Metoprolol Succinate [Toprol XL -] 25 mg PO DAILY 04/19/17 Ruxolitinib Phosphate [Jakafi] 15 mg PO BID 01/04/18 Mineral Oil/Petrolat,Wht/Water 1 applic TP DAILY #1 jar 02/21/19 [Eucerin (Small Jar) -] Spironolactone [Aldactone -] 25 mg PO DAILY #30 tablet 02/21/19 Tolnaftate 1% Powder [Tinactin 1% 1 applic TP BID #1 btl 03/21/19 Powder -] Torsemide [Demadex -] 50 mg PO BIDLASIX #60 tablet 03/21/19 ROS: Constitutional: +fever, +chills HEENT: no throat pain, no dysphagia Cardiovascular: no chest pain, no palpitations Respiratory: +cough, +shortness of breath Gastrointestinal: no abdominal pain, no nausea Genitourinary: no retention, no hematuria Musculoskeletal: no myalgia, no arthralgia Skin: no rash, no itching Neurologic: no headache, +weakness Psych: no agitation, no anxiety PHYSICAL EXAMINATION Vital Signs - 24 hr 05/11/19 05/11/19 05/11/19 05:05 06:10 07:00 Temperature 102.0 F H 100.2 F H Pulse Rate 98 H Pulse Rate [ Apical] Respiratory 28 H Rate Blood Pressure 169/77 Blood Pressure [Right Arm] O2 Sat by Pulse 92 L 98 Oximetry (%) 05/11/19 07:20 Temperature 99 F Pulse Rate Pulse Rate [ 82 Apical] Respiratory 22 H Rate Blood Pressure Blood Pressure 119/54 L [Right Arm] O2 Sat by Pulse 95 Oximetry (%) General: Awake, alert, and fully oriented, in no acute distress Head: No signs of trauma Eyes: EOMI, sclera anicteric ENT: Moist mucus membranes Neck: Normal ROM, supple Lungs: Diffuse rales bilaterally Cardio: Regular rhythm, S1 and S2 present Abdomen: Soft, nontender. No guarding, no rebound, no masses Extremities: Distal pulses present, 2+ pitting edema, patches of erythema on lower extremities SKIN: Warm, Dry, normal turgor Neurologic: Cranial nerves II through XII grossly intact. Normal speech Laboratory Results - last 24 hr 05/11/19 05/11/19 05/11/19 05:09 05:13 05:13 WBC RBC Hgb Hct MCV MCH MCHC RDW Plt Count MPV Absolute Neuts (auto) Neutrophils % Lymphocytes % Monocytes % Eosinophils % Basophils % Nucleated RBC % PT with INR INR PTT (Actin FS) Anticoagulation Therapy Puncture Site ABG pH ABG pCO2 at Pt Temp ABG pO2 at Pt Temp ABG HCO3 ABG O2 Sat (Measured) ABG O2 Content ABG Base Excess Christopher Test VBG pH POC VBG pCO2 POC VBG pO2 VBG HCO3 VBG O2 Sat (Latia) VBG Base Excess Carboxyhemoglobin Methemoglobin O2 Delivery Device Oxygen Flow Rate Vent Mode Vent Rate Mechanical Rate Pressure Support Vent Sodium 129 L Potassium 3.7 Chloride 94 L Carbon Dioxide 27 Anion Gap 9 BUN 31.2 H Creatinine 1.8 H Est GFR (CKD-EPI)AfAm 42.03 Est GFR (CKD-EPI)NonAf 36.27 Random Glucose 132 H Lactic Acid 2.0 Calcium 8.6 Total Bilirubin 0.9 AST 74 H ALT 53 Alkaline Phosphatase 208 H Troponin I 0.06 H Total Protein 8.3 H Albumin 3.9 05/11/19 05/11/19 05/11/19 05:24 05:41 06:10 WBC 24.2 H RBC 1.97 L Hgb 7.9 L Hct 22.1 L MCV 112.5 H D MCH 40.1 H MCHC 35.6 RDW 26.1 H Plt Count 138 MPV 9.2 Absolute Neuts (auto) 20.9 H Neutrophils % 86.3 H Lymphocytes % 2.2 L D Monocytes % 8.5 Eosinophils % 2.2 Basophils % 0.8 Nucleated RBC % 0 PT with INR 16.60 H INR 1.40 H PTT (Actin FS) 32.2 Anticoagulation Therapy Puncture Site ABG pH ABG pCO2 at Pt Temp ABG pO2 at Pt Temp ABG HCO3 ABG O2 Sat (Measured) ABG O2 Content ABG Base Excess Christopher Test VBG pH 7.39 POC VBG pCO2 49.0 POC VBG pO2 < 49 H VBG HCO3 29.1 H VBG O2 Sat (Latia) 29.0 L VBG Base Excess 4.2 H Carboxyhemoglobin Methemoglobin O2 Delivery Device Oxygen Flow Rate Vent Mode Vent Rate Mechanical Rate Pressure Support Vent Sodium Potassium Chloride Carbon Dioxide Anion Gap BUN Creatinine Est GFR (CKD-EPI)AfAm Est GFR (CKD-EPI)NonAf Random Glucose Lactic Acid Calcium Total Bilirubin AST ALT Alkaline Phosphatase Troponin I Total Protein Albumin 05/11/19 08:36 WBC RBC Hgb Hct MCV MCH MCHC RDW Plt Count MPV Absolute Neuts (auto) Neutrophils % Lymphocytes % Monocytes % Eosinophils % Basophils % Nucleated RBC % PT with INR INR PTT (Actin FS) Anticoagulation Therapy No Result Required. Puncture Site Right radial ABG pH 7.44 ABG pCO2 at Pt Temp 41.3 ABG pO2 at Pt Temp 107 H ABG HCO3 27.3 H ABG O2 Sat (Measured) 98.3 H ABG O2 Content 9.8 ABG Base Excess 3.3 H Christopher Test Positive VBG pH POC VBG pCO2 POC VBG pO2 VBG HCO3 VBG O2 Sat (Latia) VBG Base Excess Carboxyhemoglobin 4.8 H Methemoglobin 1.5 O2 Delivery Device Bipap Oxygen Flow Rate 30 Vent Mode S/t Vent Rate 14 Mechanical Rate No Result Required. Pressure Support Vent 10/5 Sodium Potassium Chloride Carbon Dioxide Anion Gap BUN Creatinine Est GFR (CKD-EPI)AfAm Est GFR (CKD-EPI)NonAf Random Glucose Lactic Acid Calcium Total Bilirubin AST ALT Alkaline Phosphatase Troponin I Total Protein Albumin ASSESSMENT/PLAN: 73 year old male with history of Chronic diastolic CHF, CKD , COPD, HTN, Myelofibrosis, Anemia, recurrent LE cellulitis, h/o ETOH abuse, hepatosplenomegaly admitted with acute hypoxemic respiratory failure, acute on chronic exacerbation of diastolic CHF, and bilateral lower extremity cellulitis. recurrent Cellulitis bilateral lower extremity Afebrile Hemodynamically Stable. Patient has chronic leukocytosis Vanco given in ER iv abx Acute on Chronic Diastolic CHF with lower extremity edema JVD and congestion on CXR with acute hypoxemic respiratory failure requiring O2 likely from a combination of history of COPD and CHF exacerbation Not in COPD exacerbation at this time Start lasix IV BID Sodium controlled diet Mild Hyperbilirubinemia and elevated Alk phos and AST-Chronic likely congestion of liver from CHF Abdominal US last month showed hepatosplenomegaly Myelofibrosis with transfusion dependence per EMR H/H seems at baseline right now and is 8.1. Possible his Hb is actually higher and is diluted at this time due to volume overload restart home Jakafi Chronic Anemia in setting of myelofibrosis-transfusion dependant per EMR transfuse PRN Trend H/H Acute on chronic hyponatremia is likely from volume overload and fluid retention Trend sodium should improve with diuresis HTN Home dose of metoprolol and spironolactone CKD Trend Cr renally dose all meds nephrology consult-discussed with Dr. Daley Psych/Depression Continue Remeron and Venlafaxine. DVT PPx-SCDs Visit type - Emergency Visit Emergency Visit: Yes ED Registration Date: 05/11/19 Care time: The patient presented to the Emergency Department on the above date and was hospitalized for further evaluation of their emergent condition. - New Patient This patient is new to me today: Yes Date on this admission: 05/11/19 - Critical Care Critical Care patient: No
[2019-05-11] MEDS ORDERED: ALBUTEROL SO4 2.5/IPRATROPIUM 0.5 INH SOL 3 ML VIAL.NEB. NEB PRN (09:16)
[2019-05-11] MEDS ORDERED: VENLAFAXINE HCL 150 MG E.R. CAPSULE PO SCH (10:00)
[2019-05-11] MEDS: methylPREDNISolone NA SUCC 40 MG/1 ML VIAL IVPUSH SCH ×2 (10:26→17:59)
[2019-05-11] MEDS: ASPIRIN 81 MG CHEWABLE TABLETS PO SCH (10:26)
[2019-05-11] MEDS: metoPROLOL SUCCINATE 25 MG TAB.SR.24H (FP) PO SCH (10:26)
[2019-05-11] MEDS: SPIRONOLACTONE 25 MG TABLET (FP) PO SCH (10:29)
[2019-05-11] MEDS ORDERED: AZITHROMYCIN IVPB 500 MG/250 ML BAG IVPB ONE (11:00)
[2019-05-11 11:06] LABS: ANISOCYTOSIS 1+; MACROCYTOSIS 0; PLATELET ESTIMATE DECREASED; TEAR DROP CELLS 1+
[2019-05-11] MEDS: VENLAFAXINE HCL 75 MG E.R. CAPSULES PO SCH (11:58)
--- NOTE | 2019-05-11 14:39 | EKG ---
Test Reason : Blood Pressure : / mmHG Vent. Rate : 076 BPM Atrial Rate : 076 BPM P-R Int : 228 ms QRS Dur : 112 ms QT Int : 382 ms P-R-T Axes : 055 051 175 degrees QTc Int : 429 ms SINUS RHYTHM WITH 1ST DEGREE A-V BLOCK CANNOT RULE OUT INFERIOR INFARCT (CITED ON OR BEFORE 17-MAR-2019) ABNORMAL ECG Confirmed by MD ANGI, FRANCISCO ([id number]) on 05/11/2019 2:38:57 PM Referred By: Confirmed By:FRANCISCO WHITLEY MD
[2019-05-11] MEDS: TORSEMIDE 20 MG TABLET (FP) PO SCH (14:49)
[2019-05-11] MEDS ORDERED: PIPERACILLIN/TAZOBACTAM 2.25 GM VIAL IVPB ONE (17:37)
[2019-05-11] MEDS ORDERED: DEXTROSE 5%-WATER - 50 ML IVPB ONE (17:37)
[2019-05-11] MEDS: PIPERACILLIN/TAZOB 2.25 GM 2.25 GM in DEXTROSE 5%-WATER - 50 ML IVPB SCH (17:59)
[2019-05-11] MEDS ORDERED: MIRTAZAPINE 15 MG TABLET (FP) ONE (20:42)
[2019-05-11] MEDS: MIRTAZAPINE 30 MG TABLET (FP) PO SCH (21:00)
[2019-05-11] MEDS ORDERED: RUXOLITINIB PHOSPHATE 15 MG PO SCH (22:00)
[2019-05-12] MEDS ORDERED: PIPERACILLIN/TAZOBACTAM 2.25 GM VIAL IVPB ONE (01:34)
[2019-05-12] MEDS ORDERED: DEXTROSE 5%-WATER - 50 ML IVPB ONE (01:34)
[2019-05-12] MEDS: methylPREDNISolone NA SUCC 40 MG/1 ML VIAL IVPUSH SCH ×3 (01:37→17:52)
[2019-05-12] MEDS: PIPERACILLIN/TAZOB 2.25 GM 2.25 GM in DEXTROSE 5%-WATER - 50 ML IVPB SCH (01:38)
[2019-05-12] MEDS ORDERED: ACETAMINOPHEN 325 MG TABLET (FP) PO PRN (05:36)
[2019-05-12] MEDS: TORSEMIDE 20 MG TABLET (FP) PO SCH ×2 (05:55→13:20)
[2019-05-12 06:59] LABS: BLOOD UREA NITROGEN 37.9 mg/dL (7-18); CALCIUM 8.8 mg/dL (8.5-10.1); POTASSIUM 3.9 mmol/L (3.5-5.1)
[2019-05-12 07:38] LABS: HEMATOCRIT 18.8 % (35.4-49); MCH 38.8 pg (25.7-33.7); MCHC 34.4 g/dl (32.0-35.9); MEAN PLT VOLUME 10.4 fl (7.5-11.1); PLATELET COUNT 107 K/MM3 (134-434); RBC 1.66 M/mm3 (4.00-5.60); RDW 26.2 % (11.9-15.9); WHITE BLOOD COUNT 19.8 K/mm3 (4.0-10.0)
[2019-05-12 07:47] LABS: HEMOGLOBIN 6.5 GM/dL (11.7-16.9)
[2019-05-12] MEDS ORDERED: PT OWN MED DRAWER 7, Y5N ONE ×2 (07:47→08:22)
[2019-05-12] MEDS: VENLAFAXINE HCL 75 MG E.R. CAPSULES PO SCH (09:01)
[2019-05-12] MEDS: ASPIRIN 81 MG CHEWABLE TABLETS PO SCH (09:24)
[2019-05-12] MEDS: metoPROLOL SUCCINATE 25 MG TAB.SR.24H (FP) PO SCH (09:24)
[2019-05-12] MEDS: SPIRONOLACTONE 25 MG TABLET (FP) PO SCH (09:24)
[2019-05-12] MEDS: AZITHROMYCIN IVPB 500 MG/250 ML BAG IVPB SCH (09:25)
[2019-05-12] MEDS ORDERED: PIPERACILLIN/TAZOB 2.25 GM 2.25 GM in DEXTROSE 5%-WATER - 50 ML IVPB SCH (10:00)
--- NOTE | 2019-05-12 10:13 | PN ---
Progress Note (short form) - Note Progress Note: His shortness of breath is better. His blood hemoglobin is down to 6.5 he denies any active bleeding. Patient was found in the solarium smoking. Vital Signs Period Temp Pulse Resp BP Sys/Rodriguez Pulse Ox Last 24 Hr 97.1 F-99.8 F 75-84 19-25 102-139/51-79 93-95 Head no headache no dizziness Ear nose throat no epistaxis Cardiovascular no chest pain Pulmonary no wheezing no coughing GI no abdominal pain Endocrine no history of diabetes hypothyroidism Neuro no history of stroke Dermatology no history of stroke Locomotor no history of joint pain Rest of review of systems are negative physical examination Patient is comfortable HEENT normal Neck supple no JVD Lungs Mild wheezing bilateral good air entry Abdomen nontender no organomegaly bowel sounds normal Extremities no edema no cyanosis normal pulses Neurologically he is alert awake oriented, nonfocal Skin no rash noted CBC, BMP 05/12/19 05:40 05/12/19 05:40 Troponin 0 0.14 slightly higher than yesterday. 73 year old male with history of Chronic diastolic CHF, CKD , COPD, HTN, Myelofibrosis, Anemia, recurrent LE cellulitis, h/o ETOH abuse, hepatosplenomegaly admitted with acute hypoxemic respiratory failure, acute on chronic exacerbation of diastolic CHF, and bilateral lower extremity cellulitis. recurrent Cellulitis bilateral lower extremity He is improving continue antibiotics and diuretics Sodium controlled diet Mild Hyperbilirubinemia and elevated Alk phos and AST-Chronic likely congestion of liver from CHF Will just observe Myelofibrosis with transfusion dependence per EMR He has anemia at this time 6.5 will give him 1 blood transfusion today Chronic Anemia in setting of myelofibrosis-transfusion dependant per EMR transfuse PRN Trend H/H Acute on chronic hyponatremia is likely from volume overload and fluid retention Much improved today HTN Home dose of metoprolol and spironolactone CKD Trend Cr renally dose all meds nephrology consult-discussed with Dr. Daley Psych/Depression Continue Remeron and Venlafaxine. DVT PPx-SCDs Smoking will start him on nicotine patch Visit type - Emergency Visit Emergency Visit: Yes ED Registration Date: 05/11/19 Care time: The patient presented to the Emergency Department on the above date and was hospitalized for further evaluation of their emergent condition. - New Patient This patient is new to me today: Yes Date on this admission: 05/12/19 - Critical Care Critical Care patient: No - Discharge Referral Referred to [facility] Med P.C.: No
[2019-05-12] MEDS: PANTOPRAZOLE 40 MG TABLET PO SCH (10:36)
[2019-05-12] MEDS: NICOTINE 21 MG/24 HOURS TOPICAL PATCH TD SCH (10:36)
[2019-05-12 11:57] LABS: ANISOCYTOSIS 1+; MACROCYTOSIS 1+; PLATELET ESTIMATE DECREASED
--- NOTE | 2019-05-12 14:06 | EKG ---
Test Reason : Blood Pressure : / mmHG Vent. Rate : 078 BPM Atrial Rate : 078 BPM P-R Int : 198 ms QRS Dur : 108 ms QT Int : 402 ms P-R-T Axes : 060 045 190 degrees QTc Int : 458 ms NORMAL SINUS RHYTHM POSSIBLE INFERIOR INFARCT (CITED ON OR BEFORE 17-MAR-2019) ABNORMAL ECG Confirmed by MD ANGI, FRANCISCO ([id number]) on 05/12/2019 2:06:02 PM Referred By: Cynthia GARCIA Confirmed By:FRANCISCO WHITLEY MD
--- NOTE | 2019-05-12 14:16 | EKG ---
Test Reason : Blood Pressure : / mmHG Vent. Rate : 090 BPM Atrial Rate : 091 BPM P-R Int : 000 ms QRS Dur : 106 ms QT Int : 372 ms P-R-T Axes : 000 047 172 degrees QTc Int : 455 ms POOR DATA QUALITY, INTERPRETATION MAY BE ADVERSELY AFFECTED ATRIAL FIBRILLATION POSSIBLE INFERIOR INFARCT (CITED ON OR BEFORE 17-MAR-2019) ABNORMAL ECG Confirmed by MD ANGI, FRANCISCO ([id number]) on 05/12/2019 2:16:04 PM Referred By: Confirmed By:FRANCISCO WHITLEY MD
--- NOTE | 2019-05-12 14:37 | CON.CARD ---
Consult Consult Specialty:: cardiology Reason for Consultation:: elevated TNI; SOB - History of Present Illness History of Present Illness: 74yo M with PMH of CHF, COPD, CKD, HTN, anemia, myelofibrosis, cirrhosis, RLE cellulitis, and recent admission to [facility] (02/17-02/21 and 03/17-03/21) presenting with shortness of breath, productive cough with clear sputum, and lower extremity edema. Patient states his shortness of breath has worsened for the past week. He last saw his primary care physician about a week ago. Lower leg swelling worsened over the past two days. Patient is unable to walk two steps without feeling short of breath. Cannot lay flat. Reports chest pain when he coughs. No sick contacts or recent travel. Endorsing fever and chills. PCP: Dr. Tristan Lombardi - History Source History Provided By: Patient, Medical Record - Past Medical History Cardio/Vascular: Yes: CHF Pulmonary: Yes: COPD Hepatobiliary: Yes: Cirrhosis Renal/: Yes: Renal Inusuff Dermatology: Yes: Cellulitis (Recurrent lower extremity) Additional Medical History: Myelofibrosis - Past Surgical History Past Surgical History: Yes: Joint Replacement - Alcohol/Substance Use Hx Alcohol Use: No - Smoking History Smoking history: Current every day smoker Have you smoked in the past 12 months: Yes Aproximately how many cigarettes per day: 15 Home Medications - Allergies Allergies/Adverse Reactions: Allergies Allergy/AdvReac Type Severity Reaction Status Date / Time No Known Allergies Allergy Verified 05/11/19 05:05 - Home Medications Home Medications: Ambulatory Orders Mirtazapine [Remeron -] 30 mg PO HS 07/21/15 Venlafaxine HCl ER [Effexor Xr -] 150 mg PO DAILY #30 cap.er.24h 11/16/16 Metoprolol Succinate [Toprol XL -] 25 mg PO DAILY 04/19/17 Ruxolitinib Phosphate [Jakafi] 15 mg PO BID 01/04/18 Mineral Oil/Petrolat,Wht/Water [Eucerin (Small Jar) -] 1 applic TP DAILY #1 jar 02/21/19 Spironolactone [Aldactone -] 25 mg PO DAILY #30 tablet 02/21/19 Tolnaftate 1% Powder [Tinactin 1% Powder -] 1 applic TP BID #1 btl 03/21/19 Torsemide [Demadex -] 50 mg PO BIDLASIX #60 tablet 03/21/19 Vital Signs: Vital Signs Temperature 97.5 F L 05/12/19 12:15 Pulse Rate 80 05/12/19 12:15 Respiratory Rate 05/12/19 12:15 Blood Pressure 115/62 05/12/19 12:15 O2 Sat by Pulse Oximetry (%) 94 L 05/12/19 09:00 - Other Data Labs, Other Data: CBC, BMP 05/12/19 05:40 05/12/19 05:40 INR, PTT INR 1.40 (0.83-1.09) H 05/11/19 05:41 Troponin, BNP 05/12/19 05:40 Troponin I 0.14 H Troponin, BNP 05/12/19 05:40 Troponin I 0.14 H
[2019-05-12] MEDS ORDERED: DOCUSATE SODIUM 100 MG CAPSULE (FP) PO PRN (16:07)
[2019-05-12] MEDS ORDERED: MIRTAZAPINE 15 MG TABLET (FP) ONE (21:07)
[2019-05-12] MEDS: MIRTAZAPINE 30 MG TABLET (FP) PO SCH (21:10)
[2019-05-12] MEDS: DOCUSATE SODIUM 100 MG CAPSULE (FP) PO SCH (21:11)
[2019-05-13] MEDS: methylPREDNISolone NA SUCC 40 MG/1 ML VIAL IVPUSH SCH ×4 (01:26→21:05)
[2019-05-13] MEDS: DOCUSATE SODIUM 100 MG CAPSULE (FP) PO SCH ×3 (05:46→21:05)
[2019-05-13] MEDS: TORSEMIDE 20 MG TABLET (FP) PO SCH (05:46)
[2019-05-13] MEDS ORDERED: PT OWN MED DRAWER 7, Y5N ONE (09:43)
--- NOTE | 2019-05-13 09:50 | CON.CARD ---
Consult Consult Specialty:: CV - History of Present Illness Chief Complaint: sob History of Present Illness: 74yo M here with shortness of breath. sob increasing progressively over approx 1 week [employer]. to the point of feeling breathless with walking two steps, or laying flat. + productive cough with clear sputum + leg swelling worsened over the past two days [employer]. Reports chest pain when he coughs. acute on chronic renal insuff noted here. received lasix 80 IV x 1 on DOA (05/11)--renal fxn worsened states he is feeling better now ? if leg swelling improved since DOA no cp, palp, syncope PMH: CHF, COPD, CKD, HTN, anemia, myelofibrosis, cirrhosis, RLE cellulitis - Past Medical History Cardio/Vascular: Yes: CHF Pulmonary: Yes: COPD Hepatobiliary: Yes: Cirrhosis Renal/: Yes: Renal Inusuff Dermatology: Yes: Cellulitis (Recurrent lower extremity) Additional Medical History: Myelofibrosis - Past Surgical History Past Surgical History: Yes: Joint Replacement - Alcohol/Substance Use Hx Alcohol Use: No - Smoking History Smoking history: Current every day smoker Have you smoked in the past 12 months: Yes Aproximately how many cigarettes per day: 15 Home Medications - Allergies Allergies/Adverse Reactions: Allergies Allergy/AdvReac Type Severity Reaction Status Date / Time No Known Allergies Allergy Verified 05/11/19 05:05 - Home Medications Home Medications: Ambulatory Orders Mirtazapine [Remeron -] 30 mg PO HS 07/21/15 Venlafaxine HCl ER [Effexor Xr -] 150 mg PO DAILY #30 cap.er.24h 11/16/16 Metoprolol Succinate [Toprol XL -] 25 mg PO DAILY 04/19/17 Ruxolitinib Phosphate [Jakafi] 15 mg PO BID 01/04/18 Mineral Oil/Petrolat,Wht/Water [Eucerin (Small Jar) -] 1 applic TP DAILY #1 jar 02/21/19 Spironolactone [Aldactone -] 25 mg PO DAILY #30 tablet 02/21/19 Tolnaftate 1% Powder [Tinactin 1% Powder -] 1 applic TP BID #1 btl 03/21/19 Torsemide [Demadex -] 50 mg PO BIDLASIX #60 tablet 03/21/19 Family Medical History Family History: Denies (no known cmp) Review of Systems - Review of Systems Constitutional: denies: Chills, Fever Eyes: denies: Eye Pain HENT: denies: Nasal Congestion Neck: denies: Stiffness Cardiovascular: denies: Palpitations Respiratory: denies: Orthopnea, PND Gastrointestinal: denies: Diarrhea, Rectal Bleeding Genitourinary: denies: Burning, Hematuria Musculoskeletal: denies: Muscle Pain Integumentary: denies: Rash Neurological: denies: Numbness, Seizure, Syncope Endocrine: denies: Excessive Sweating Hematology/Lymphatic: denies: Excessive Bleeding Vital Signs: Vital Signs Temperature 98 F 05/13/19 05:27 Pulse Rate 90 05/13/19 05:27 Respiratory Rate 22 H 05/13/19 05:27 Blood Pressure 144/83 05/13/19 05:27 O2 Sat by Pulse Oximetry (%) 91 L 05/12/19 21:00 Constitutional: Yes: Well Nourished, No Distress Eyes: No: Sclera Icterus HENT: No: Nasal Congestion Neck: No: Decreased ROM Respiratory: Yes: CTA Bilaterally. No: Accessory Muscle Use, Rales, Wheezes Gastrointestinal: Yes: Normal Bowel Sounds. No: Distention, Hepatomegaly, Palpable Mass, Tenderness Cardiovascular: Yes: Regular Rate and Rhythm JVD: Yes Carotid Bruit: No PMI: Non-Displaced Heart Sounds: Yes: S1, S2. No: Gallop Murmur: No: Systolic Murmur, Diastolic Murmur Musculoskeletal: Yes: Other (No kyphosis) Extremities: No: Cold, Cyanosis Edema: Yes (1+pretib/2+ feet) Peripheral Pulses: 2+ Left Carotid, 2+ Right Carotid, 2+ Left Doralis Pedis, 2+ Right Dorsalis Pedis Integumentary: No: Jaundice Neurological: Yes: Alert, Oriented (x3) Psychiatric: No: Agitated - Other Data Labs, Other Data: CBC, BMP 05/12/19 05:40 05/12/19 05:40 INR, PTT INR 1.40 (0.83-1.09) H 05/11/19 05:41 Assessment/Plan Echo 02/2019 n LV function, grade II diastolic dysfunction, RV systolic function mild to mod reduced, LA mildly dilated, RA mod dilated, mild to mod MR , mild to mod TR, PASP at least 52 mmHg CXR: fluid in fissure, ? early RUL infiltrate. no effusions ECG x 3: NSR, diffuse NSST-Ts--no change vs prior 03/17/19 tele: AF, controlled HRs. artifact Acute on chronic diastolic heart failure, leg swelling/cellulitis, pulm HTN: - prior echo here with evidence of LV diast dysfunction/hi LA pressure, likely causing (WHO 2) pulm HTN - rx'd spironolactone then as well - 03/21 required 100 mg IV BID diuresis (on lasix 80 po bid at home)--d/c wt down 213 to 204, creat improved (cardiorenal syndrome). discharged on torsemide 50 bid. - currently 220 lbs. received one dose lasix 80 IV--renal fxn bumped yest, today 's pending. remains volume overloaded on exam. resume prior effective lasix from last admit (100 iv BID). hold spirono until renal fxn stabilizes. - rec limit use of steroids here as possible, to avoid promotion of volume retention (if no ongoing active airways inflammation suspected) - consider outpt sleep study, assessment for ambulatory/nocturnal hypoxia ( given pulm HTN severity) - trop indeterminate, flat trend, no isch ECG change vs baseline--not c/w ACS hypervolemic hyponatremia: - sec to decomp chf - cont spirono (doubt contributing) myelofibrosis with anemia - baseline hgb runs 6's-8s, stable here - consider PRBCs to optimize myocardial function (if it is believed that he can have durable response to transfusion) HTN - bp controlled - cont current meds CKD, h/o cardiorenal syndrome - baseline creat 1.6-1.8 - worse here sec to cardiorenal syndrome--observe with effective diuresis COPD: - no sx's at present
[2019-05-13] MEDS: VENLAFAXINE HCL 75 MG E.R. CAPSULES PO SCH (09:51)
[2019-05-13] MEDS: metoPROLOL SUCCINATE 25 MG TAB.SR.24H (FP) PO SCH (09:52)
[2019-05-13] MEDS: NICOTINE 21 MG/24 HOURS TOPICAL PATCH TD SCH (09:52)
[2019-05-13] MEDS: AZITHROMYCIN IVPB 500 MG/250 ML BAG IVPB SCH (09:52)
[2019-05-13] MEDS: ASPIRIN 81 MG CHEWABLE TABLETS PO SCH (09:52)
[2019-05-13] MEDS: SPIRONOLACTONE 25 MG TABLET (FP) PO SCH (09:52)
[2019-05-13] MEDS: PANTOPRAZOLE 40 MG TABLET PO SCH (09:52)
--- NOTE | 2019-05-13 11:27 | PN ---
Physical Exam: SUBJECTIVE: Patient seen and examined at the bedside. Sitting in chair attempting to eat breakfast, did not have a bowel movement for 3 days and now with abdominal distention. Has not been passing flatus. denies abdominal pain. OBJECTIVE: abdomen grossly distended, hypoactive bowel sounds, no bm x 3 days per patient, non tender abd xray show developing sbo surgery consulted Patient is a 74 year old male with a significant past medical history of congestive heart failuare, COPD, CKD, anemia, hypertension, anemia, myelofibrosis, cirrhosis, RLE cellulitis, and recent admission to [facility] (02/17-) presenting to [facility] on 05/11/2019 with shortness of breath, productive cough with clear sputum, and lower extremity edema. Patient states his shortness of breath has worsened for the past week. He last saw his primary care physician about a week ago. Lower leg swelling worsened over the past two days. Patient is unable to walk two steps without feeling short of breath. Cannot lay flat. Reports chest pain when he coughs. No sick contacts or recent travel. Endorsing fever and chills. problem list: Acute on chronic diastolic heart failure bilateral leg swelling/cellulitis pulmonary hypertension hypervolemic hyponatremia: Anemia hypertension CKD, h/o cardiorenal syndrome COPD Possible SBO/abdominal distention Cellulitis bilateral lower extremities Period Temp Pulse Resp BP Sys/Rodriguez Pulse Ox Last 24 Hr 97.3 F-98 F 80-90 19-22 103-144/56-83 91 GENERAL: The patient is awake, alert, oriented, in no acute distress. HEAD: Normal with no signs of trauma. EYES: PERRL, extraocular movements intact, sclera anicteric, conjunctiva clear. No ptosis. ENT: Ears normal, nares patent, oropharynx clear without exudates, moist mucous membranes. NECK: Trachea midline, full range of motion, supple. LUNGS: diminished bilaterally HEART: Regular rate and rhythm on ekg monitor tech ABDOMEN: grossly distended, +hypoactive bowel sounds, no BM x 3 days, no flatus EXTREMITIES: + 2 lower ext edema NEUROLOGICAL: Normal speech, gait not observed. Laboratory Results - last 24 hr 05/12/19 05/12/19 05/12/19 05:40 05:40 09:35 Absolute Neuts (auto) No Result Required. Total Counted Cancelled Neutrophils % (Manual) 56.1 Cancelled Band Neutrophils % 31.7 Cancelled Lymphocytes % (Manual) 1.0 L Cancelled Monocytes % (Manual) 1 L Cancelled Eosinophils % (Manual) 3.1 Cancelled Basophils % (Manual) 0.0 Cancelled Myelocytes % (Man) 6 H D Cancelled Promyelocytes % (Man) 0 D Cancelled Blast Cells % (Manual) 1 H D Cancelled Nucleated RBC % 0 Cancelled Metamyelocytes 0 D Cancelled Differential Comment Cancelled Hypersegmented Neuts Cancelled Plasma Cells Cancelled Smudge Cells Cancelled Other Cell Type Cancelled Hypochromia 0 Cancelled Toxic Granulation Cancelled Dohle Bodies Cancelled Sayda Rods Cancelled Platelet Estimate Decreased Cancelled Platelet Comment Cancelled Polychromasia 1+ Cancelled Poikilocytosis 0 Cancelled Basophilic Stippling Cancelled Anisocytosis 1+ Cancelled Microcytosis Cancelled Macrocytosis 1+ Cancelled Spherocytes Cancelled Siderocytes Cancelled Sickle Cells Cancelled Target Cells Cancelled Tear Drop Cells Cancelled Ovalocytes Cancelled Stomatocytes Cancelled Helmet Cells Cancelled [place] Bodies Cancelled Branch Rings Cancelled Indira Cells Cancelled Acanthocytes (Spur) Cancelled Rouleaux Cancelled Fragmented RBCs Cancelled Schistocytes Cancelled Stool Occult Blood Blood Type B POSITIVE Antibody Screen Negative Crossmatch See Detail 05/12/19 18:30 Absolute Neuts (auto) Total Counted Neutrophils % (Manual) Band Neutrophils % Lymphocytes % (Manual) Monocytes % (Manual) Eosinophils % (Manual) Basophils % (Manual) Myelocytes % (Man) Promyelocytes % (Man) Blast Cells % (Manual) Nucleated RBC % Metamyelocytes Differential Comment Hypersegmented Neuts Plasma Cells Smudge Cells Other Cell Type Hypochromia Toxic Granulation Dohle Bodies Sayda Rods Platelet Estimate Platelet Comment Polychromasia Poikilocytosis Basophilic Stippling Anisocytosis Microcytosis Macrocytosis Spherocytes Siderocytes Sickle Cells Target Cells Tear Drop Cells Ovalocytes Stomatocytes Helmet Cells [place] Bodies Branch Rings Indira Cells Acanthocytes (Spur) Rouleaux Fragmented RBCs Schistocytes Stool Occult Blood Negative Blood Type Antibody Screen Crossmatch Active Medications Generic Name Dose Route Start Last Admin Trade Name Freq PRN Reason Stop Dose Admin Acetaminophen 650 mg 05/12/19 05:36 Tylenol - PO ONCE PRN HEADACHE Albuterol/Ipratropium 1 amp 05/11/19 09:16 Duoneb - NEB Q6H PRN SHORTNESS OF BREATH Aspirin 81 mg 05/11/19 10:00 05/13/19 09:52 Asa - PO 81 mg DAILY TERI Administration Docusate Sodium 100 mg 05/12/19 22:00 05/13/19 05:46 Colace - PO 100 mg TID TERI Administration Azithromycin 500 mg in 250 mls @ 250 mls/hr 05/12/19 10:00 05/13/19 09:52 Zithromax 500mg Ivpb (Pre-Docked) IVPB 250 mls/hr DAILY TERI Administration Piperacillin Sod/Tazobactam 50 mls @ 100 mls/hr 05/12/19 10:00 Sod 2.25 gm/ Dextrose IVPB Q8H-IV TERI Protocol Methylprednisolone Sodium Succinate 40 mg 05/11/19 10:00 05/13/19 09:52 Solu-Medrol - IVPUSH 40 mg Q8H-IV TERI Administration Metoprolol Succinate 25 mg 05/11/19 10:00 05/13/19 09:52 Toprol Xl - PO 25 mg DAILY TERI Administration Mirtazapine 30 mg 05/11/19 22:00 05/12/19 21:10 Remeron - PO 30 mg HS [facility] Administration Nicotine 21 mg 05/12/19 10:15 05/13/19 09:52 Nicoderm Patch - TD 21 mg DAILY [facility] Administration Non-Formulary Medication 15 mg 05/11/19 22:00 Ruxolitinib Phosphate [Jakafi] PO BID TERI Pantoprazole Sodium 40 mg 05/12/19 10:00 05/13/19 09:52 Protonix - PO 40 mg DAILY TERI Administration Spironolactone 25 mg 05/11/19 10:00 05/13/19 09:52 Aldactone - PO 25 mg DAILY TERI Administration Torsemide 50 mg 05/11/19 14:00 05/13/19 05:46 Demadex - PO 50 mg BIDLASIX TERI Administration Venlafaxine HCl 150 mg 05/11/19 10:15 05/13/19 09:51 Effexor Xr - PO 150 mg DAILY@0800 TERI Administration ASSESSMENT/PLAN: Problem List - Problems (1) Acute on chronic diastolic HF (heart failure) Assessment/Plan: on lasix 100 IV bid. Code(s): I50.33 - ACUTE ON CHRONIC DIASTOLIC (CONGESTIVE) HEART FAILURE (2) Leukocytosis Assessment/Plan: elevated at 28, will repeat in a.m. also on solumedrol Code(s): D72.829 - ELEVATED WHITE BLOOD CELL COUNT, UNSPECIFIED (3) COPD exacerbation Assessment/Plan: not in acute exacerbation. on 2 liters of nasal cannula currently. not home oxygen dependent. Code(s): J44.1 - CHRONIC OBSTRUCTIVE PULMONARY DISEASE W (ACUTE) EXACERBATION (4) Cellulitis Assessment/Plan: elevated WBC, on zosyn per ID. Code(s): L03.90 - CELLULITIS, UNSPECIFIED Qualifiers: Site of cellulitis: extremity Site of cellulitis of extremity: lower extremity Laterality: unspecified laterality Qualified Code(s): L03.119 - Cellulitis of unspecified part of limb (5) Distended abdomen Assessment/Plan: noted to have a SBO today/, will need CT scan to further evaluate. Code(s): R14.0 - ABDOMINAL DISTENSION (GASEOUS) (6) Pulmonary HTN Code(s): I27.20 - PULMONARY HYPERTENSION, UNSPECIFIED (7) Anemia Assessment/Plan: s/p 1 unit of prbc on 05/12/2019 Code(s): D64.9 - ANEMIA, UNSPECIFIED Qualifiers: Anemia type: bone marrow failure Bone marrow failure anemia type: unspecified bone marrow failure Qualified Code(s): D61.9 - Aplastic anemia, unspecified (8) CKD (chronic kidney disease) stage 3, GFR 30-59 ml/min Assessment/Plan: dr callejas following Code(s): N18.3 - CHRONIC KIDNEY DISEASE, STAGE 3 (MODERATE) Visit type - Emergency Visit Emergency Visit: Yes ED Registration Date: 05/11/19 Care time: The patient presented to the Emergency Department on the above date and was hospitalized for further evaluation of their emergent condition. - New Patient This patient is new to me today: Yes Date on this admission: 05/13/19 - Critical Care Critical Care patient: No - Discharge Referral Referred to [facility] Med P.C.: No
[2019-05-13] MEDS ORDERED: BISACODYL 10 MG SUPP.RECT RC ONE (11:45)
[2019-05-13] MEDS: FUROSEMIDE 100 MG/10 ML INJECTABLE VIAL IVPUSH SCH ×2 (13:29→17:29)
[2019-05-13 13:52] LABS: ALBUMIN 3.5 g/dl (3.4-5.0); BILIRUBIN,TOTAL 0.9 mg/dL (0.2-1); CALCIUM 8.9 mg/dL (8.5-10.1); CREATININE 1.9 mg/dL (0.55-1.3); MAGNESIUM 2.4 mg/dL (1.8-2.4); POTASSIUM 3.9 mmol/L (3.5-5.1); TOT PROT 8.2 g/dl (6.4-8.2)
[2019-05-13 14:32] LABS: BASO % 0.7 % (0-2.0); EOS % 0.7 % (0-4.5); HEMATOCRIT 21.1 % (35.4-49); HEMOGLOBIN 7.2 GM/dL (11.7-16.9); LYMPH % 0.9 % (8-40); MCH 37.9 pg (25.7-33.7); MCHC 34.2 g/dl (32.0-35.9); MEAN CELL VOLUME 110.8 fl (80-96); MEAN PLT VOLUME 10.2 fl (7.5-11.1); MONO % 7.1 % (3.8-10.2); NEUT % 90.6 % (42.8-82.8); PLATELET COUNT 127 K/MM3 (134-434); RBC 1.91 M/mm3 (4.00-5.60); RDW 25.7 % (11.9-15.9); WHITE BLOOD COUNT 28.2 K/mm3 (4.0-10.0)
[2019-05-13] MEDS ORDERED: PIPERACILLIN/TAZOB 2.25 GM 2.25 GM in DEXTROSE 5%-WATER - 50 ML IVPB ONE (15:08)
--- NOTE | 2019-05-13 15:18 | CONSULT ---
- Consultation REQUESTING PROVIDER: CONSULT REQUEST: We have been asked to surgically evaluate this patient for suspected partial SBO PCP:Jose Carlos Yepez NP HISTORY OF PRESENT ILLNESS: 74yo M with PMH of CHF, COPD, CKD, HTN, anemia, myelofibrosis, cirrhosis, RLE cellulitis, and recent admission to [facility] (02/17-) presenting with shortness of breath, productive cough with clear sputum, and lower extremity edema. Patient states his shortness of breath has worsened for the past week. He last saw his primary care physician about a week ago. Lower leg swelling worsened over the past two days. Patient is unable to walk two steps without feeling short of breath. Cannot lay flat. Reports chest pain when he coughs. No sick contacts or recent travel. Endorsing fever and chills. Recent Travel: PAST MEDICAL HISTORY: PAST SURGICAL HISTORY: Social History: Smoking: Alcohol: Drugs: Allergies No Known Allergies Allergy (Verified 05/11/19 05:05) HOME MEDICATIONS: Home Medications Medication Instructions Recorded Mirtazapine [Remeron -] 30 mg PO HS 07/21/15 Venlafaxine HCl ER [Effexor Xr -] 150 mg PO DAILY #30 cap.er.24h 11/16/16 Metoprolol Succinate [Toprol XL -] 25 mg PO DAILY 04/19/17 Ruxolitinib Phosphate [Jakafi] 15 mg PO BID 01/04/18 Mineral Oil/Petrolat,Wht/Water 1 applic TP DAILY #1 jar 02/21/19 [Eucerin (Small Jar) -] Spironolactone [Aldactone -] 25 mg PO DAILY #30 tablet 02/21/19 Tolnaftate 1% Powder [Tinactin 1% 1 applic TP BID #1 btl 03/21/19 Powder -] Torsemide [Demadex -] 50 mg PO BIDLASIX #60 tablet 03/21/19 ROS: Constitutional: +fever, +chills HEENT: no throat pain, no dysphagia Cardiovascular: no chest pain, no palpitations Respiratory: +cough, +shortness of breath Gastrointestinal: no abdominal pain, no nausea Genitourinary: no retention, no hematuria Musculoskeletal: no myalgia, no arthralgia Skin: no rash, no itching Neurologic: no headache, +weakness Psych: no agitation, no anxiety PHYSICAL EXAMINATION Vital Signs Temp 98.7 F 02/10/20 14:00 Pulse 90 05/13/19 14:00 Resp 22 H 05/13/19 05:27 BP 117/64 05/13/19 14:00 Pulse Ox 91 L 05/12/19 21:00 Intake & Output 05/12/19 05/13/19 05/13/19 23:59 11:59 23:59 Intake Total 1040 440 Output Total 400 400 Balance 640 440 -400 Weight 220 lb 3.2 oz 217 lb Intake: IV 50 saline lock 50 IVPB 100 Oral 540 440 Packed Cells 350 Output: Urine 400 400 Void 400 400 Other: Voiding Method Urinal Toilet # Unmeasured Voids Void 1 2 1 Weight Measurement Method Standing Scale Standing Scale CBC, BMP 05/13/19 13:39 05/13/19 13:05 General: Awake, alert, and fully oriented, in no acute distress Head: No signs of trauma Eyes: sclera anicteric Lungs: Unlabored resp on RA Abdomen: obese, grossly distended, Soft, nontender throughout all quadrants, No guarding, no rebound, no masses, lesions or scars, SKIN: Warm, Dry, normal turgor Neurologic: Cranial nerves II through XII grossly intact. Normal speech Abdominal X-Ray- retained stool with some air distended loops of small bowel. Problem List - Problems (1) Constipation Code(s): K59.00 - CONSTIPATION, UNSPECIFIED (2) Distended abdomen Assessment/Plan: 74yo male admitted for CHF with abdominal distention and constipation x 2 days r /o PSBO vs ileus with leukocytosis. -Continue NPO -Abdomen CT with oral contrast -OOB as tolerated -DVT/GI prophylaxis - ID consult appreciated to work up Leukocytosis - Trend daily labs Evaluation and plan discussed with Dr Stewart. Code(s): R14.0 - ABDOMINAL DISTENSION (GASEOUS)
[2019-05-13 15:39] LABS: ANISOCYTOSIS 3+; MACROCYTOSIS 3+; TARGET CELLS 1+; TEAR DROP CELLS 1+
[2019-05-13 15:49] LABS: PLATELET ESTIMATE DECREASED
[2019-05-13 15:53] VITALS: BMI 29.4
[2019-05-13] MEDS ORDERED: DEXTROSE 5%-WATER - 50 ML IVPB ONE ×2 (15:53→20:57)
[2019-05-13] MEDS ORDERED: PIPERACILLIN/TAZOBACTAM 2.25 GM VIAL IVPB ONE ×2 (15:53→20:56)
--- NOTE | 2019-05-13 16:48 | CONSULT ---
Consult Consult Specialty:: Nephrology Reason for Consultation:: EMEKA - History of Present Illness Chief Complaint: edema History of Present Illness: Pt is a 74 year old male with pmhx of chf, copd, ckd, anemia, myelofibrosis, liver cirrhosis, and recurrent cellulitis who presents to the ER with shortness of breath and edema. He says that he has gained about 20 pounds and also complains of abd bloating. He was found to have elevated creatinine and I was called to evaluate him. He was also found to be hyponatremic. He has missed his last few office appointments. He is still smoking. He is not compliant with diet. - History Source History Provided By: Patient, Medical Record - Past Medical History Cardio/Vascular: Yes: CHF Pulmonary: Yes: COPD Hepatobiliary: Yes: Cirrhosis Renal/: Yes: Renal Inusuff Dermatology: Yes: Cellulitis (Recurrent lower extremity) Additional Medical History: Myelofibrosis - Past Surgical History Past Surgical History: Yes: Joint Replacement - Alcohol/Substance Use Hx Alcohol Use: No - Smoking History Smoking history: Current every day smoker Have you smoked in the past 12 months: Yes Aproximately how many cigarettes per day: 15 Home Medications - Allergies Allergies/Adverse Reactions: Allergies Allergy/AdvReac Type Severity Reaction Status Date / Time No Known Allergies Allergy Verified 05/11/19 05:05 - Home Medications Home Medications: Ambulatory Orders Mirtazapine [Remeron -] 30 mg PO HS 07/21/15 Venlafaxine HCl ER [Effexor Xr -] 150 mg PO DAILY #30 cap.er.24h 11/16/16 Metoprolol Succinate [Toprol XL -] 25 mg PO DAILY 04/19/17 Ruxolitinib Phosphate [Jakafi] 15 mg PO BID 01/04/18 Mineral Oil/Petrolat,Wht/Water [Eucerin (Small Jar) -] 1 applic TP DAILY #1 jar 02/21/19 Spironolactone [Aldactone -] 25 mg PO DAILY #30 tablet 02/21/19 Tolnaftate 1% Powder [Tinactin 1% Powder -] 1 applic TP BID #1 btl 03/21/19 Torsemide [Demadex -] 50 mg PO BIDLASIX #60 tablet 03/21/19 Family Medical History Family History: Denies Review of Systems - Review of Systems Constitutional: reports: Malaise Eyes: reports: No Symptoms HENT: reports: No Symptoms Neck: reports: No Symptoms Cardiovascular: reports: No Symptoms Respiratory: reports: No Symptoms Gastrointestinal: reports: No Symptoms Genitourinary: reports: No Symptoms Musculoskeletal: reports: No Symptoms Integumentary: reports: No Symptoms Neurological: reports: No Symptoms Endocrine: reports: No Symptoms Hematology/Lymphatic: reports: No Symptoms Psychiatric: reports: No Symptoms Physical Exam Vital Signs: Vital Signs Temperature 98.7 F 05/13/19 14:00 Pulse Rate 90 05/13/19 14:00 Respiratory Rate 22 H 05/13/19 05:27 Blood Pressure 117/64 05/13/19 14:00 O2 Sat by Pulse Oximetry (%) 91 L 05/13/19 09:00 Constitutional: Yes: Calm Eyes: Yes: Conjunctiva Clear HENT: Yes: Atraumatic Neck: Yes: Supple Cardiovascular: Yes: S1, S2 Respiratory: Yes: On Nasal O2 Gastrointestinal: Yes: Distention Renal/: Yes: WNL Edema: Yes Edema: LLE: 2+, RLE: 2+ Integumentary: Yes: Erythema, Venous Stasis Changes Neurological: Yes: Oriented Psychiatric: Yes: Oriented Labs: CBC, BMP 05/13/19 13:39 05/13/19 13:05 Imaging - Results X-ray: Report Reviewed Problem List - Problems (1) Cellulitis Code(s): L03.90 - CELLULITIS, UNSPECIFIED Qualifiers: Site of cellulitis: extremity Site of cellulitis of extremity: lower extremity Laterality: unspecified laterality Qualified Code(s): L03.119 - Cellulitis of unspecified part of limb (2) Distended abdomen Code(s): R14.0 - ABDOMINAL DISTENSION (GASEOUS) (3) Leukocytosis Code(s): D72.829 - ELEVATED WHITE BLOOD CELL COUNT, UNSPECIFIED (4) CKD (chronic kidney disease) stage 3, GFR 30-59 ml/min Code(s): N18.3 - CHRONIC KIDNEY DISEASE, STAGE 3 (MODERATE) Assessment/Plan Current Medications Generic Name Dose Route Start Last Admin Trade Name Freq PRN Reason Stop Dose Admin Acetaminophen 650 mg 05/12/19 05:36 Tylenol - PO ONCE PRN HEADACHE Albuterol/Ipratropium 1 amp 05/11/19 09:16 Duoneb - NEB Q6H PRN SHORTNESS OF BREATH Aspirin 81 mg 05/11/19 10:00 05/13/19 09:52 Asa - PO 81 mg DAILY TERI Administration Docusate Sodium 100 mg 05/12/19 22:00 05/13/19 13:49 Colace - PO Not Given TID TERI Furosemide 100 mg 05/13/19 11:50 05/13/19 13:29 Lasix Injection - IVPUSH 100 mg BID@0600,1400 TERI Administration Azithromycin 500 mg in 250 mls @ 250 mls/hr 05/12/19 10:00 05/13/19 09:52 Zithromax 500mg Ivpb (Pre-Docked) IVPB 250 mls/hr DAILY TERI Administration Piperacillin Sod/Tazobactam 50 mls @ 100 mls/hr 05/12/19 10:00 Sod 2.25 gm/ Dextrose IVPB Q8H-IV [facility] Protocol Methylprednisolone Sodium Succinate 40 mg 05/11/19 10:00 05/13/19 09:52 Solu-Medrol - IVPUSH 40 mg Q8H-IV TERI Administration Metoprolol Succinate 25 mg 05/11/19 10:00 05/13/19 09:52 Toprol Xl - PO 25 mg DAILY TERI Administration Mirtazapine 30 mg 05/11/19 22:00 05/12/19 21:10 Remeron - PO 30 mg HS [facility] Administration Nicotine 21 mg 05/12/19 10:15 05/13/19 09:52 Nicoderm Patch - TD 21 mg DAILY TERI Administration Non-Formulary Medication 15 mg 05/11/19 22:00 Ruxolitinib Phosphate [Jakafi] PO BID TERI Pantoprazole Sodium 40 mg 05/12/19 10:00 05/13/19 09:52 Protonix - PO 40 mg DAILY TERI Administration Venlafaxine HCl 150 mg 05/11/19 10:15 05/13/19 09:51 Effexor Xr - PO 150 mg DAILY@0800 TERI Administration Impression 1. CKD 2. HTN 3. myelofibrosis 4. fluid overload 5. cellulitis 6. atrophic left kidney 7. anemia 8. hyponatremia Plan - surgery eval for x-ray findings - cont lasix - 2 gram sodium diet - ID eval for elevated wbc - check abd ultrasound - sodium has been chronically low - will evaluate for second diuretic in am
--- NOTE | 2019-05-13 19:23 | CON.ID ---
Consult - Past Medical History Cardio/Vascular: Yes: CHF Pulmonary: Yes: COPD Hepatobiliary: Yes: Cirrhosis Renal/: Yes: Renal Inusuff Dermatology: Yes: Cellulitis (Recurrent lower extremity) Additional Medical History: Myelofibrosis - Past Surgical History Past Surgical History: Yes: Joint Replacement - Alcohol/Substance Use Hx Alcohol Use: No - Smoking History Smoking history: Current every day smoker Have you smoked in the past 12 months: Yes Aproximately how many cigarettes per day: 15 Home Medications - Allergies Allergies/Adverse Reactions: Allergies Allergy/AdvReac Type Severity Reaction Status Date / Time No Known Allergies Allergy Verified 05/11/19 05:05 - Home Medications Home Medications: Ambulatory Orders Mirtazapine [Remeron -] 30 mg PO HS 07/21/15 Venlafaxine HCl ER [Effexor Xr -] 150 mg PO DAILY #30 cap.er.24h 11/16/16 Metoprolol Succinate [Toprol XL -] 25 mg PO DAILY 04/19/17 Ruxolitinib Phosphate [Jakafi] 15 mg PO BID 01/04/18 Mineral Oil/Petrolat,Wht/Water [Eucerin (Small Jar) -] 1 applic TP DAILY #1 jar 02/21/19 Spironolactone [Aldactone -] 25 mg PO DAILY #30 tablet 02/21/19 Tolnaftate 1% Powder [Tinactin 1% Powder -] 1 applic TP BID #1 btl 03/21/19 Torsemide [Demadex -] 50 mg PO BIDLASIX #60 tablet 03/21/19 Physical Exam Vital Signs: Vital Signs Temperature 98.7 F 05/13/19 14:00 Pulse Rate 88 05/13/19 17:25 Respiratory Rate 18 05/13/19 17:25 Blood Pressure 117/40 L 05/13/19 17:25 O2 Sat by Pulse Oximetry (%) 91 L 05/13/19 09:00 Labs: CBC, BMP 05/13/19 13:39 05/13/19 13:05
[2019-05-13] MEDS ORDERED: MIRTAZAPINE 15 MG TABLET (FP) ONE (20:56)
[2019-05-13] MEDS: PIPERACILLIN/TAZOB 2.25 GM 2.25 GM in DEXTROSE 5%-WATER - 50 ML IVPB SCH (21:04)
[2019-05-13] MEDS: MIRTAZAPINE 30 MG TABLET (FP) PO SCH (21:05)
[2019-05-14] MEDS ORDERED: PIPERACILLIN/TAZOBACTAM 2.25 GM VIAL IVPB ONE (02:03)
[2019-05-14] MEDS ORDERED: DEXTROSE 5%-WATER - 50 ML IVPB ONE (02:03)
[2019-05-14] MEDS: methylPREDNISolone NA SUCC 40 MG/1 ML VIAL IVPUSH SCH (02:34)
[2019-05-14] MEDS: PIPERACILLIN/TAZOB 2.25 GM 2.25 GM in DEXTROSE 5%-WATER - 50 ML IVPB SCH ×2 (02:34→12:17)
[2019-05-14 04:50] VITALS: TEMP 98
[2019-05-14] MEDS: DOCUSATE SODIUM 100 MG CAPSULE (FP) PO SCH (06:15)
[2019-05-14] MEDS: FUROSEMIDE 100 MG/10 ML INJECTABLE VIAL IVPUSH SCH (06:16)
--- NOTE | 2019-05-14 08:03 | PN ---
Progress Note, Physician History of Present Illness: patient looks slightly better says he had small bm abd still distended no bowel sounds - Current Medication List Current Medications: Active Medications Acetaminophen (Tylenol -) 650 mg PO ONCE PRN PRN Reason: HEADACHE Albuterol/Ipratropium (Duoneb -) 1 amp NEB Q6H PRN PRN Reason: SHORTNESS OF BREATH Aspirin (Asa -) 81 mg PO DAILY [facility] Last Admin: 05/13/19 09:52 Dose: 81 mg Docusate Sodium (Colace -) 100 mg PO TID [facility] Last Admin: 05/14/19 06:15 Dose: Not Given Furosemide (Lasix Injection -) 100 mg IVPUSH BID@0600,1400 [facility] Last Admin: 05/14/19 06:16 Dose: 100 mg Azithromycin (Zithromax 500mg Ivpb (Pre-Docked)) 500 mg in 250 mls @ 250 mls/ hr IVPB DAILY [facility] Last Admin: 05/13/19 09:52 Dose: 250 mls/hr Piperacillin Sod/Tazobactam (Sod 2.25 gm/ Dextrose) 50 mls @ 100 mls/hr IVPB Q8H-IV [facility]; Protocol Last Admin: 05/14/19 02:34 Dose: 100 mls/hr Methylprednisolone Sodium Succinate (Solu-Medrol -) 40 mg IVPUSH Q8H-IV [facility] Last Admin: 05/14/19 02:34 Dose: Not Given Metoprolol Succinate (Toprol Xl -) 25 mg PO DAILY [facility] Last Admin: 05/13/19 09:52 Dose: 25 mg Mirtazapine (Remeron -) 30 mg PO HS [facility] Last Admin: 05/13/19 21:05 Dose: 30 mg Nicotine (Nicoderm Patch -) 21 mg TD DAILY [facility] Last Admin: 05/13/19 09:52 Dose: 21 mg Non-Formulary Medication (Ruxolitinib Phosphate [Jakafi]) 15 mg PO BID [facility] Pantoprazole Sodium (Protonix -) 40 mg PO DAILY [facility] Last Admin: 05/13/19 09:52 Dose: 40 mg Venlafaxine HCl (Effexor Xr -) 150 mg PO DAILY@0800 [facility] Last Admin: 05/13/19 09:51 Dose: 150 mg - Objective Vital Signs: Vital Signs Temperature 98 F 02/11/20 04:49 Pulse Rate 105 H 0211/20 04:49 Respiratory Rate 18 05/14/19 04:49 Blood Pressure 134/85 05/14/19 04:49 O2 Sat by Pulse Oximetry (%) 89 L 05/13/19 21:00 Constitutional: Yes: Calm, Mild Distress Cardiovascular: Yes: S1, S2 Respiratory: Yes: Regular, Poor Air Entry Gastrointestinal: Yes: Distention, Tenderness, Other (absent bowel sounds) Musculoskeletal: Yes: WNL Extremities: Yes: WNL Neurological: Yes: Alert, Oriented Labs: CBC, BMP 05/13/19 13:39 05/13/19 13:05 INR, PTT INR 1.40 (0.83-1.09) H 05/11/19 05:41 Assessment/Plan Problem List - Problems (1) Acute on chronic diastolic HF (heart failure) Code(s): I50.33 - ACUTE ON CHRONIC DIASTOLIC (CONGESTIVE) HEART FAILURE (2) Leukocytosis Code(s): D72.829 - ELEVATED WHITE BLOOD CELL COUNT, UNSPECIFIED (3) COPD exacerbation Code(s): J44.1 - CHRONIC OBSTRUCTIVE PULMONARY DISEASE W (ACUTE) EXACERBATION (4) Cellulitis Code(s): L03.90 - CELLULITIS, UNSPECIFIED Qualifiers: Site of cellulitis: extremity Site of cellulitis of extremity: lower extremity Laterality: unspecified laterality Qualified Code(s): L03.119 - Cellulitis of unspecified part of limb (5) Distended abdomen Code(s): R14.0 - ABDOMINAL DISTENSION (GASEOUS) (6) Pulmonary HTN Code(s): I27.20 - PULMONARY HYPERTENSION, UNSPECIFIED (7) Anemia Code(s): D64.9 - ANEMIA, UNSPECIFIED Qualifiers: Anemia type: bone marrow failure Bone marrow failure anemia type: unspecified bone marrow failure Qualified Code(s): D61.9 - Aplastic anemia, unspecified (8) CKD (chronic kidney disease) stage 3, GFR 30-59 ml/min Code(s): N18.3 - CHRONIC KIDNEY DISEASE, STAGE 3 (MODERATE) i am worried that the patient might be developing bowel compromise npo continue iv abx ct scan of the abdomen--which he has refused close watch repeat wbc later on if patient refuses ct scan then reimage the abdomen consider ng tube rest as per the team
--- NOTE | 2019-05-14 08:24 | PN ---
Progress Note (short form) - Note Progress Note: General Surgery: Pt had a BM this am. He is refusing CT scan, abd sray ordered for this am. Vital Signs Period Temp Pulse Resp BP Sys/Rodriguez Pulse Ox Last 24 Hr 97.8 F-98.7 F 88-105 18-18 117-134/40-85 89-91 GEN: A&0x3, SOB with ambulation ABD: soft, distended, tympanic, non-tender CBC, BMP 05/13/19 13:39 05/13/19 13:05 A/p: 74 yo male with possible SBO on ABD pt now with BM, repeat AXR ordered for this am NPO monitor wbc, inceasing leukocytosis(pt is receiving steriods) for COPD exacerbation <Gely Dunn - Last Filed: 05/14/19 08:26> - Note Progress Note: surgery pt refused ct scan. now has left ama. unable to evaluate patient. will be available <Barrett Stewrat - Last Filed: 05/14/19 12:41>
[2019-05-14] MEDS: VENLAFAXINE HCL 75 MG E.R. CAPSULES PO SCH (08:42)
[2019-05-14 10:04] LABS: BASO % 0.6 % (0-2.0); EOS % 0.9 % (0-4.5); HEMATOCRIT 24.8 % (35.4-49); HEMOGLOBIN 8.4 GM/dL (11.7-16.9); LYMPH % 1.4 % (8-40); MCH 38.1 pg (25.7-33.7); MEAN PLT VOLUME 10.4 fl (7.5-11.1); MONO % 9.9 % (3.8-10.2); NEUT % 87.2 % (42.8-82.8); PLATELET COUNT 170 K/MM3 (134-434); RBC 2.21 M/mm3 (4.00-5.60)
[2019-05-14 10:14] LABS: WHITE BLOOD COUNT 34.5 K/mm3 (4.0-10.0)
[2019-05-14 10:39] LABS: ALBUMIN 3.5 g/dl (3.4-5.0); BILIRUBIN,TOTAL 1.1 mg/dL (0.2-1); BLOOD UREA NITROGEN 48.7 mg/dL (7-18); CALCIUM 8.8 mg/dL (8.5-10.1); CREATININE 2.2 mg/dL (0.55-1.3); MAGNESIUM 2.4 mg/dL (1.8-2.4); POTASSIUM 3.4 mmol/L (3.5-5.1); TOT PROT 8.3 g/dl (6.4-8.2)
[2019-05-14] MEDS: ASPIRIN 81 MG CHEWABLE TABLETS PO SCH (10:57)
[2019-05-14] MEDS: metoPROLOL SUCCINATE 25 MG TAB.SR.24H (FP) PO SCH (10:58)
[2019-05-14] MEDS: PANTOPRAZOLE 40 MG TABLET PO SCH (10:58)
[2019-05-14 11:01] VITALS: BP 132/66; PULSE 101
[2019-05-14 11:51] LABS: ANISOCYTOSIS 2+; MACROCYTOSIS 2+; PLATELET ESTIMATE NORMAL
--- NOTE | 2019-05-14 12:01 | DS ---
Physical Exam: SUBJECTIVE: Patient seen and examined at the bedside. agitated, upset and taking off lead refiner. Asking to leave AMA and refusing to stay further. He states he does no have a bowel obstruction and wants to eat. He denies any chest pain or shortness or breath. Denies malaise. Does not wants to stay in the hospital and states he is leaving today no matter what I say. OBJECTIVE: patient left AMA despite my speaking to him multiple times yesterday evening and also again today. Last night he agreed to stay, but unfortunately today, I am unable to talk him into staying. Explained to him in lay man terms that he is very sick and leaving is not in his best interest and that he is risking . Told him that his labs show he has a severe infection and needs IV antibiotics and that he may need home oxygen as he is still requiring here during hospital stay. I also explained that he has a bowel obstruction and that he needs a cat scan and evaluation by a surgeon. He is refusing to stay regardless of what I tell him and continued to get dressed and take off lead refiner during our conversation. I called his who states that she will come into the hospital to speak to him but he still refused to wait for her. He has shown me that he has the capacity to make his own medical decisions. I explained to him that he is risking sudden , worsening heart failure and bowel perforation. he states he will see his doctors tomorrow and understands the risks. Vital Signs Period Temp Pulse Resp BP Sys/Rodriguez Pulse Ox Last 24 Hr 97.8 F-98.7 F 88-105 18-18 117-134/40-85 89-96 PHYSICAL EXAM GENERAL: The patient is awake, alert, and fully oriented, in no acute distress. HEAD: Normal with no signs of trauma. EYES: PERRL, extraocular movements intact, sclera anicteric, conjunctiva clear. ENT: Ears normal, nares patent, oropharynx clear without exudates, moist mucous membranes. NECK: Trachea midline, full range of motion, supple. LUNGS: diminished bilaterally, no wheezing. HEART: Regular rate and rhythm ABDOMEN: distended abdomen, no pain, non tender, now with +flatus, had bm today per primary RN EXTREMITIES: 2+ pulses, warm, well-perfused, no edema. LABS Laboratory Results - last 24 hr 05/13/19 05/13/19 05/14/19 13:05 13:39 05:47 WBC 28.2 H RBC 1.91 L Hgb 7.2 L Hct 21.1 L MCV 110.8 H MCH 37.9 H MCHC 34.2 RDW 25.7 H Plt Count 127 L MPV 10.2 Absolute Neuts (auto) 25.5 H Neutrophils % 90.6 H Neutrophils % (Manual) 55.9 Band Neutrophils % 24.5 Lymphocytes % 0.9 L Lymphocytes % (Manual) 6.9 L D Monocytes % 7.1 Monocytes % (Manual) 2 L D Eosinophils % 0.7 Eosinophils % (Manual) 1.9 Basophils % 0.7 Basophils % (Manual) 0.0 Myelocytes % (Man) 2 D Promyelocytes % (Man) 0 Blast Cells % (Manual) 0 D Nucleated RBC % 0 Metamyelocytes 2 D Hypochromia Platelet Estimate Decreased Polychromasia 2+ Poikilocytosis 1+ Basophilic Stippling 2+ Anisocytosis 3+ Microcytosis Macrocytosis 3+ Target Cells 1+ Tear Drop Cells 1+ Stomatocytes 1+ Sodium 131 L Potassium 3.9 Chloride 94 L Carbon Dioxide 29 Anion Gap 9 BUN 45.0 H Creatinine 1.9 H Est GFR (CKD-EPI)AfAm 39.37 Est GFR (CKD-EPI)NonAf 33.97 POC Glucometer 125 Random Glucose 110 H Calcium 8.9 Magnesium 2.4 Total Bilirubin 0.9 AST 69 H ALT 53 Alkaline Phosphatase 160 H Total Protein 8.2 Albumin 3.5 05/14/19 05/14/19 09:20 09:20 WBC 34.5 H* RBC 2.21 L Hgb 8.4 L Hct 24.8 L D MCV 112.0 H MCH 38.1 H MCHC 34.0 RDW 25.0 H Plt Count 170 D MPV 10.4 Absolute Neuts (auto) 30.1 H Neutrophils % 87.2 H Neutrophils % (Manual) 54.4 Band Neutrophils % 19.8 Lymphocytes % 1.4 L D Lymphocytes % (Manual) 0.0 L Monocytes % 9.9 Monocytes % (Manual) 6 D Eosinophils % 0.9 Eosinophils % (Manual) 1.0 Basophils % 0.6 Basophils % (Manual) 1.0 D Myelocytes % (Man) 9 H D Promyelocytes % (Man) 4 H D Blast Cells % (Manual) 1 H D Nucleated RBC % 1 H Metamyelocytes 4 H D Hypochromia 0 Platelet Estimate Normal Polychromasia 1+ Poikilocytosis 0 Basophilic Stippling 1+ Anisocytosis 2+ Microcytosis 0 Macrocytosis 2+ Target Cells Tear Drop Cells Stomatocytes Sodium 133 L Potassium 3.4 L Chloride 94 L Carbon Dioxide 28 Anion Gap 12 BUN 48.7 H Creatinine 2.2 H Est GFR (CKD-EPI)AfAm 32.98 Est GFR (CKD-EPI)NonAf 28.45 POC Glucometer Random Glucose 124 H Calcium 8.8 Magnesium 2.4 Total Bilirubin 1.1 H AST 81 H ALT 59 Alkaline Phosphatase 163 H Total Protein 8.3 H Albumin 3.5 HOSPITAL COURSE: Date of Admission:05/11/19 Date of Discharge: 05/14/19 Minutes to complete discharge: 60 Discharge Summary Problems reviewed: Yes Reason For Visit: CELLULITIS,ACUTE EXC OF COPD,PNEUMONIA Condition: Guarded - Instructions Referrals: Juarez Nieves [Primary Care Provider] - Disposition: AGAINST MEDICAL ADVICE - Home Medications Comprehensive Discharge Medication List: Ambulatory Orders Mirtazapine [Remeron -] 30 mg PO HS 07/21/15 Venlafaxine HCl ER [Effexor Xr -] 150 mg PO DAILY #30 cap.er.24h 11/16/16 Metoprolol Succinate [Toprol XL -] 25 mg PO DAILY 04/19/17 Ruxolitinib Phosphate [Jakafi] 15 mg PO BID 01/04/18 Mineral Oil/Petrolat,Wht/Water [Eucerin (Small Jar) -] 1 applic TP DAILY #1 jar 02/21/19 Spironolactone [Aldactone -] 25 mg PO DAILY #30 tablet 02/21/19 Tolnaftate 1% Powder [Tinactin 1% Powder -] 1 applic TP BID #1 btl 03/21/19 Torsemide [Demadex -] 50 mg PO BIDLASIX #60 tablet 03/21/19 Problem List - Problems (1) Acute on chronic diastolic HF (heart failure) Code(s): I50.33 - ACUTE ON CHRONIC DIASTOLIC (CONGESTIVE) HEART FAILURE (2) Leukocytosis Code(s): D72.829 - ELEVATED WHITE BLOOD CELL COUNT, UNSPECIFIED (3) COPD exacerbation Code(s): J44.1 - CHRONIC OBSTRUCTIVE PULMONARY DISEASE W (ACUTE) EXACERBATION (4) Cellulitis Code(s): L03.90 - CELLULITIS, UNSPECIFIED Qualifiers: Site of cellulitis: extremity Site of cellulitis of extremity: lower extremity Laterality: unspecified laterality Qualified Code(s): L03.119 - Cellulitis of unspecified part of limb (5) Distended abdomen Code(s): R14.0 - ABDOMINAL DISTENSION (GASEOUS) (6) Pulmonary HTN Code(s): I27.20 - PULMONARY HYPERTENSION, UNSPECIFIED (7) Anemia Code(s): D64.9 - ANEMIA, UNSPECIFIED Qualifiers: Anemia type: bone marrow failure Bone marrow failure anemia type: unspecified bone marrow failure Qualified Code(s): D61.9 - Aplastic anemia, unspecified (8) CKD (chronic kidney disease) stage 3, GFR 30-59 ml/min Code(s): N18.3 - CHRONIC KIDNEY DISEASE, STAGE 3 (MODERATE) This patient is new to me today: No Emergency Visit: Yes ED Registration Date: 05/11/19 Care time: The patient presented to the Emergency Department on the above date and was hospitalized for further evaluation of their emergent condition. Critical Care patient: No - Discharge Referral Referred to [facility] No
[2019-05-14] MEDS: NICOTINE 21 MG/24 HOURS TOPICAL PATCH TD SCH (12:14)
[2019-05-14] MEDS: AZITHROMYCIN IVPB 500 MG/250 ML BAG IVPB SCH (12:15)
--- NOTE | 2019-05-14 12:43 | PN ---
Progress Note (short form) - Note Progress Note: s: patient states he is leaving today. no chest pain, palps, dizziness, dyspnea Vital Signs Period Temp Pulse Resp BP Sys/Rodriguez Pulse Ox Last 24 Hr 97.8 F-98.7 F 88-105 18-18 117-134/40-85 89-96 Constitutional: Yes: Well Nourished, No Distress Eyes: No: Sclera Icterus HENT: No: Nasal Congestion Neck: No: Decreased ROM Respiratory: Yes: CTA Bilaterally. No: Accessory Muscle Use, Rales, Wheezes Gastrointestinal: Yes: Normal Bowel Sounds. No: Distention, Hepatomegaly, Palpable Mass, Tenderness Cardiovascular: Yes: Regular Rate and Rhythm JVD: Yes Carotid Bruit: No PMI: Non-Displaced Heart Sounds: Yes: S1, S2. No: Gallop Murmur: No: Systolic Murmur, Diastolic Murmur Musculoskeletal: Yes: Other (No kyphosis) Extremities: No: Cold, Cyanosis Edema: Yes (1+pretib/2+ feet) Peripheral Pulses: 2+ Left Carotid, 2+ Right Carotid, 2+ Left Doralis Pedis, 2+ Right Dorsalis Pedis Integumentary: No: Jaundice Neurological: Yes: Alert, Oriented (x3) Psychiatric: No: Agitated Assessment/Plan Echo 02/2019 n LV function, grade II diastolic dysfunction, RV systolic function mild to mod reduced, LA mildly dilated, RA mod dilated, mild to mod MR , mild to mod TR, PASP at least 52 mmHg CXR: fluid in fissure, ? early RUL infiltrate. no effusions ECG x 3: NSR, diffuse NSST-Ts--no change vs prior 03/17/19 tele: AF, controlled HRs. artifact Acute on chronic diastolic heart failure, leg swelling/cellulitis, pulm HTN: - prior echo here with evidence of LV diast dysfunction/hi LA pressure, likely causing (WHO 2) pulm HTN - rx'd spironolactone then as well - 03/21 required 100 mg IV BID diuresis (on lasix 80 po bid at home)--d/c wt down 213 to 204, creat improved (cardiorenal syndrome). discharged on torsemide 50 bid. - remained overloaded on lasix 80 mg IV - increased today to 100 mg IV BID, received one dose - still with edema, weight up - patient had been evaluated a week before admission in the office, torsemide was increased at that point to 100 mg BID. He did not follow up as advised and note history of noncompilance with meds, diet and other recommendations - patient refusing to stay for further workup, advised risk of worsening heart failure symptoms, . advised to follow up as outpatient, will continue torsemide hypervolemic hyponatremia: - sec to decomp chf - cont spirono myelofibrosis with anemia - baseline hgb runs 6's-8s, stable here - consider PRBCs to optimize myocardial function (if it is believed that he can have durable response to transfusion) HTN - bp controlled - cont current meds CKD, h/o cardiorenal syndrome - baseline creat 1.6-1.8 - worse here sec to cardiorenal syndrome--observe with effective diuresis COPD: - no sx's at present
== END 2019-05-14 11:49 | disposition left against medical advice (07) | DRG 291 ==
LOC: JER 04:52 → JERBED 08:29 → J4W 09:45
PROVIDERS: ADMIT Internal Medicine; ATTEND Nurse Practitioner Family
DX: I13.0 Hypertensive heart and chronic kidney disease with heart failure and stage 1 through stage 4 chronic kidney disease, or unspecified chronic kidney disease (principal); J18.9 Pneumonia, unspecified organism; I50.33 Acute on chronic diastolic (congestive) heart failure; J96.01 Acute respiratory failure with hypoxia; D75.81 Myelofibrosis; E87.1 Hypo-osmolality and hyponatremia; J44.1 Chronic obstructive pulmonary disease with (acute) exacerbation; L03.116 Cellulitis of left lower limb; L03.115 Cellulitis of right lower limb; K56.609 Unspecified intestinal obstruction, unspecified as to partial versus complete obstruction; D64.9 Anemia, unspecified; I50.9 Heart failure, unspecified; F17.210 Nicotine dependence, cigarettes, uncomplicated; K74.60 Unspecified cirrhosis of liver; R16.2 Hepatomegaly with splenomegaly, not elsewhere classified; I27.20 Pulmonary hypertension, unspecified; N18.3 Chronic kidney disease, stage 3 (moderate); K59.00 Constipation, unspecified; R14.0 Abdominal distension (gaseous)
CPT/HCPCS: 36415; 36430; 36511; 36600; 71045-TC-FY; 74019-TC-FY; 74021-TC-FY; 76705-TC; 80048; 80053; 82272; 82375; 82803; 82962; 83050; 83605; 83735; 84484; 85025; 85610; 85730; 86850; 86900; 86901; 86922; 87040; 87086; 87804; 93005; 93010; 94660; 99285-25; J0131; P9038; P9058